=== PATIENT | female | born 1950 | race Caucasian/White ===

== ENCOUNTER 2018-06-27 15:28 | Inpatient (IN) ==
[2018-06-27] MEDS ORDERED: CALCIUM GLUCONATE 7 MEQ in DEXTROSE 5% IN WATER 50 ML IV ONE (17:01)
[2018-06-27] MEDS ORDERED: SODIUM POLYSTYRENE SULFONATE 15 GM/60 ML SUSPENSION PO ONE (17:01)
--- NOTE | 2018-06-27 17:46 | Nephrology Consult Note ---
History of Present Illness - Reason for Consult Patient information: Note initiated : 06/27/18 at 5:42 pm Service Date, if different from initiated Date: [] Patient: Radha Dumont 67 y/o F admitted on for kidney problems. Chief Complaint: [] Consult date: 06/27/18 acute renal failure, hyperkalemia Requesting physician: Rl Sauceda - Chief Complaint acute renal failure - History of Present Illness Patient is a 67 y/o pleasant white female with PMH of HTN, PVD, CKD and other multiple medical issues who was sent to ER here for evaluation of acute on chronic renal failure and hyperkalemia Patient has h/o retroperitoneal fibrosis and bilateral hydronephrosis secondary to this and she has h.o bilateral ureteral stents placed for this, last changed in May 2018. Patient has h/o acute renal failure from this, s.creatinine was upto 11 in 04/2018, at that time she had a nephrostomy done b/l and this was removed with stent change on 05/05/2018. She follows with Dr Palacio for this. Since then her s.creatinine has fluctuated between 2.5-3.0 She was seen in her PCP clinic for routine eval and her labs showed s.creatinine of 9.3 and K of 6.2 and hence she was sent to ER here She denies SOB, CP she has no c/o nausea, vomiting, poor appetite (has these symptoms on and off but none at present) denies worsening LE edema denies using NSAIDS no h/o confusion no other issues Review of Systems All systems PM: reviewed and no additional remarkable complaints except as stated (as in HPI) Past History Past medical history: HTN on lisinopril h/o bilateral hydronephrosis secondary to retroperitoneal fibrosis, seen by urology at [facility] and was told not surgical candidate for intervention on retroperitoneal fibrosis. h/o recurrent UTI h/o CKD from above h/o DM type 2(borderline) h/o Recent hospitalization for GI bleed, has gastric ulcer h/o hiatal hernia h/p CHF/cardiomyopathy, patient denies this history, noted in the [facility] dyslipidemia carotid artery stenosis h/o AAA aneurysm s/p intervention anemia of Chronic disease h/o right ankle fracture Past surgical history: History of esophagogastroduodenoscopy Chronic S/P foot surgery, right Chronic History of cholecystectomy Chronic History of right-sided carotid endarterectomy Chronic History of bilateral tubal ligation Chronic Hx of appendectomy Chronic H/O cystoscopy Chronic H/O nephrostomy Chronic H/O cystoscopy Chronic H/O cystoscopy Chronic H/O aortic aneurysm repair Chronic H/O cystoscopy Chronic H/O nephrostomy Chronic Past family history: Mother CVA (cerebral vascular accident), Diabetes 2 sisters DM, RA, myelodysplastic syndrome and cancer father has h/o AAA aneurysm Past social history: , has 4 children quit smoking one year ago denies alcohol addiction Medications and Allergies Home Medications Medication Instructions Recorded Confirmed Type ampicillin 500 mg capsule 500 mg PO TID 06/15/18 06/15/18 History aspirin 81 mg tablet 81 mg PO QDAY 06/15/18 06/15/18 History carvedilol 25 mg tablet 25 mg PO BID 06/15/18 06/15/18 History clopidogrel 75 mg tablet 75 mg PO QDAY 06/15/18 06/15/18 History hydrocodone 7.5 mg-acetaminophen 1 tab PO BID tab 06/15/18 06/15/18 History 325 mg tablet lisinopril 10 mg tablet 10 mg PO QDAY 06/15/18 06/15/18 History oxycodone ER 10 mg tablet,extended 10 mg PO BID tab 06/15/18 06/15/18 History release,12 hr simvastatin 20 mg tablet 20 mg PO QHS 06/15/18 06/15/18 History alprazolam 0.5 mg tablet 0.5 mg PO QID PRN tab 06/16/18 06/16/18 History baclofen 10 mg tablet 10 mg PO TID 06/16/18 06/16/18 History ondansetron 4 mg disintegrating 4 mg PO .COMPLEX PRN 06/16/18 06/16/18 History tablet sevelamer carbonate 0.8 gram oral 800 mg PO TID 06/16/18 06/16/18 History powder packet Allergies Allergy/AdvReac Type Severity Reaction Status Date / Time egg Allergy Unknown Unknown Verified 06/27/18 15:32 Hydromorphone [From Dilaudid] Allergy Unknown Nausea Verified 06/27/18 15:32 levofloxacin Allergy Unknown Respiratory Verified 06/27/18 15:32 distress, nausea, vomiting morphine Allergy Unknown Unknown Verified 06/27/18 15:32 Exam - Vital Signs Vital signs: Temp Pulse Resp BP Pulse Ox 97.5 F 85 20 137/92 98 06/27/18 15:29 06/27/18 16:41 06/27/18 16:41 06/27/18 16:41 06/27/18 16:41 - General Appearance General appearance: appears started age, chronically ill EENT: mucous membranes moist Respiratory: clear Cardiology: no rub, regular rate, regular rhythm Gastrointestinal: no tenderness, no guarding Integumentary: warm and dry Neurologic: no asterixis, alert and oriented x3 Musculoskeletal: no deformities, no erythema Psychiatric: mood/affect appropriate Results - Lab Results 06/27/18 17:39 06/27/18 17:39 Assessment and Plan (1) Acute on chronic renal failure Status: Acute Qualifiers: Acute renal failure type: unspecified Chronic kidney disease stage: stage 5 , not on chronic dialysis Qualified Code(s): N17.9 - Acute kidney failure, unspecified; N18.5 - Chronic kidney disease, stage 5 - Narrative A/P Narrative: Patient with acute worsening of renal function baseline 2.5-3.0 since nephrostomy was removed in May She has moderate to severe hydronephrosis on right side, on her renal scan per urology note her right kidney contributed 86% on renal function, ER physician has already discussed case with Dr Plaacios and he will replace the stent tomorrow she has no signs or symptoms of volume depletion, her BP is very high so will hold off on IV F I will give her amlodipine 5mg tonight hold lisinopril no emergent need for dialysis will follow closely for this ensure meds dosed to egfr avoid nephrotoxic medications she has acidosis and hyperkalemia related to her FORD and she received calcium gluconate, kayexalate and sodium bicarb IV x 1 her K on repeat labs is at 5.7 trending down will start on sodium bicarb 1300mg bid anemia: will check anemia work up, recent hospitalisation for GI bleed, CKD, all contributing HTN: as above home will hold lisinopril and start amlodipine will follow along Appreciate hospitalist help in managing this patient
[2018-06-27] MEDS ORDERED: SODIUM BICARBONATE ADULT 50 MEQ/50 ML SYRINGE IV ONE (17:54)
[2018-06-27] MEDS ORDERED: CALCIUM GLUCONATE 4.65 MEQ/10 ML VIAL IV ONE (17:54)
[2018-06-27] MEDS ORDERED: CALCIUM GLUCONATE 9.3 MEQ in DEXTROSE 5% IN WATER 50 ML IV ONE (18:00)
[2018-06-27 18:14] LABS: Basophils # (Auto) 0 K/mcL (0.0-0.3); Basophils % (Auto) 0.4 % (0.0-2.0); Eosinophils # (Auto) 0.2 K/mcL (0.0-0.7); Eosinophils % (Auto) 1.4 % (0.0-7.0); Granulocytes % (Auto) 68.9 % (38.0-78.0); Lymphocytes # (Auto) 2.5 K/mcL (1.5-4.8); Lymphocytes % (Auto) 21.8 % (15.5-49.0); Mean Cell Volume 88.8 fL (80.0-100.0); Mean Corpuscular Hemoglobin 30.2 pg (26.0-34.0); Monocytes # (Auto) 0.9 K/mcL (0.1-0.9); Monocytes % (Auto) 7.5 % (1.0-12.0); Platelet Count 635 K/mcL (140-440); RBC 2.92 M/mcL (4.00-5.20); Red Cell Distribution Width 16.6 % (11.5-14.5)
--- NOTE | 2018-06-27 18:30 | Ultrasound Report ---
CLINICAL INFORMATION: Renal failure. History of bilateral ureteral stents COMPARISON: None. FINDINGS: There is asymmetry in renal size: The right is 12 x 5 and the left is 9 x 4 cm. Left kidney is echogenic compatible with medical renal disease. Left ureteral stent is poorly visualized. There is moderate/severe right hydronephrosis. Right ureteral stent is visualized but is likely nonfunctional. Urinary bladder volume is 148 cc - patient unable to void. No focal bladder lesions IMPRESSION: 1. Moderate/severe right hydronephrosis/hydroureter. Right ureteral stent is likely nonfunctional. Interpreted and Authenticated by: Gregor Maurer 06/27/18
[2018-06-27 18:33] LABS: ALT/SGPT 8 U/l (0-40); Albumin 3.2 gm/dL (3.2-5.2); Albumin/Globulin Ratio 0.6 (1.0-2.3); Alkaline Phosphatase 117 U/L (39-117); Blood Urea Nitrogen 72 mg/dl (8-23)
[2018-06-27] MEDS ORDERED: SODIUM BICARBONATE 50 MEQ/50 ML VIAL ONE (19:20)
--- NOTE | 2018-06-27 19:32 | Emergency Department Note ---
General Adult HPI - General Chief complaint: Recheck/Abnormal Lab/Rx Stated complaint: kidney problems Time Seen by Provider: 06/27/18 15:37 Source: patient Mode of arrival: ambulatory Limitations: no limitations - History of Present Illness HPI Narrative: 67-year-old female who sees Lesvia Palacio out at [facility]. She is actually feeling good and last urinated 2 hours prior to arrival but she got repeat labs today. She has chronic kidney disease and now her creatinine is gone from 3-9.3 so she was sent here to follow-up on that. Of note she had a recent GI bleed and was in [facility] being released on 06/04. Currently she has some mild nausea and is on proton pump inhibitor for that. Her kidney issues stem from fibrotic kidneys for which she has had nephrostomy tubes in. After the tube was removed she had stents placed which were done every [address] Palacio in the [facility] area. She denies any current symptomatology including headache fever chills vomiting diarrhea belly pain rashes shortness of breath except - Related Data Home Medications Medication Instructions Recorded Confirmed aspirin 81 mg tablet 81 mg PO QDAY 06/15/18 06/27/18 carvedilol 25 mg tablet 25 mg PO BID 06/15/18 06/27/18 clopidogrel 75 mg tablet 75 mg PO QDAY 06/15/18 06/27/18 hydrocodone 7.5 mg-acetaminophen 1 tab PO BID tab 06/15/18 06/27/18 325 mg tablet lisinopril 10 mg tablet 10 mg PO QDAY 06/15/18 06/27/18 oxycodone ER 10 mg tablet,extended 10 mg PO BID tab 06/15/18 06/27/18 release,12 hr simvastatin 20 mg tablet 20 mg PO QHS 06/15/18 06/27/18 alprazolam 0.5 mg tablet 0.5 mg PO QID PRN tab 06/16/18 06/27/18 baclofen 10 mg tablet 10 mg PO TID 06/16/18 06/27/18 ondansetron 4 mg disintegrating 4 mg PO .COMPLEX PRN 06/16/18 06/27/18 tablet sevelamer carbonate 0.8 gram oral 800 mg PO TID 06/16/18 06/27/18 powder packet Allergies Allergy/AdvReac Type Severity Reaction Status Date / Time egg Allergy Unknown Unknown Verified 06/27/18 15:32 Hydromorphone [From Dilaudid] Allergy Unknown Nausea Verified 06/27/18 15:32 levofloxacin Allergy Unknown Respiratory Verified 06/27/18 15:32 distress, nausea, vomiting morphine Allergy Unknown Unknown Verified 06/27/18 15:32 Review of Systems All systems ED: reviewed and negative except as stated. Past Medical History - Past Medical History Attestation: Yes: The following information was validated with the patient. [facility] Narrative: Medical History (Last Updated 06/16/18 @ 09:25 by Kenyetta Charles) Hypotension (Chronic) Impaired cognition (Chronic) Fever (Chronic) Tobacco use (Chronic) Vaginal bleeding (Chronic) Oxygen dependent (Chronic) Pulmonary edema (Chronic) Idiopathic cardiomyopathy (Chronic) Inflammatory abdominal aortic aneurysm (Chronic) History of viral hepatitis (Chronic) Sepsis (Chronic) Weakness (Chronic) Transfusion history (Chronic) Chronic pain (Chronic) Systolic heart failure (Chronic) Carotid stenosis (Chronic) Bleeding gastric ulcer (Chronic) Hypovolemic shock (Chronic) Lactic acidosis (Chronic) Acute blood loss anemia (Chronic) GI hemorrhage (Chronic) Foot fracture (Chronic ~05/2018) Type 2 diabetes mellitus without complication (Chronic) Other hyperlipidemia (Chronic) Inflammatory liver disease (Chronic) Heart disease, unspecified (Chronic) Hypertension, essential (Chronic) Emphysema, unspecified (Chronic) 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) Anemia, unspecified (Chronic) Renal osteodystrophy (Chronic) Mononucleosis (Chronic) Unspecified hydronephrosis (Chronic) Other specified disorder of kidney and ureter (Chronic) UTI (urinary tract infection) (Chronic) Other chronic cystitis without hematuria (Chronic ~11/23/17) Crossing vessel and 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 hydronephrosis (Chronic ~) Kidney failure, acute (Chronic 04/26/18) Hydronephrosis (Chronic) Retroperitoneal fibrosis (Chronic) Kidney failure (Chronic) Ureteral stricture (Chronic) CKD (chronic kidney disease) (Chronic) Past Surgical History (Last Updated 06/15/18 @ 16:26 by Kenyetta Charles) H/O aortic aneurysm repair (Chronic) H/O cystoscopy (Chronic) H/O cystoscopy (Chronic) H/O cystoscopy (Chronic) H/O cystoscopy (Chronic) H/O nephrostomy (Chronic) H/O nephrostomy (Chronic) History of bilateral tubal ligation (Chronic) History of cholecystectomy (Chronic) History of esophagogastroduodenoscopy (Chronic) History of right-sided carotid endarterectomy (Chronic) Hx of appendectomy (Chronic) S/P foot surgery, right (Chronic) Family History (Last Updated 06/16/18 @ 09:31 by Kenyetta Charles) Mother CVA (cerebral vascular accident) Tachycardia Diabetes Sister Breast cancer Diabetes Lung cancer Cancer of spine Anemia Father AAA (abdominal aortic aneurysm) Unknown Family history of kidney stones - Social History smoking status: Former smoker Physical Exam No acute distress resting comfortably. Normocephalic atraumatic. Conjunctive are clear sclerae nonicteric. No nasal discharge or congestion. Oropharynx pink and moist. Neck is supple without lymphadenopathy or thyromegaly or carotid bruit. Heart is regular rate and rhythm no murmur appreciated. Lungs are clear to auscultation bilaterally without wheezes rales rhonchi or respiratory distress. Abdomen is soft nontender nondistended. No pedal edema. Alert oriented Limitations: no limitations Course Vital Signs Temperature 97.5 F 06/27/18 15:29 Pulse Rate 102 H 06/27/18 15:29 Respiratory Rate 20 06/27/18 15:29 Blood Pressure 157/96 06/27/18 15:29 Pulse Oximetry (%) 99 06/27/18 15:29 Temperature 99.2 F H 06/28/18 07:00 Pulse Rate 87 06/28/18 08:15 Respiratory Rate 16 06/28/18 08:15 Blood Pressure 148/85 06/28/18 08:00 Pulse Oximetry (%) 97 06/28/18 08:15 Medical Decision Making - Medical Records Medical records reviewed: Yes I reviewed the patient's medical records. - Lab Data Lab results reviewed: Yes I reviewed the patient's lab results. Result diagrams: 06/28/18 03:45 06/28/18 03:45 Lab Results 06/27/18 06/27/18 Range/Units 17:39 17:39 WBC 11.5 H (4.5-11.0) K/mcL RBC 2.92 L (4.00-5.20) M/mcL Hgb 8.8 L (12.0-15.0) g/dL Hct 25.9 L (36.0-48.0) % MCV 88.8 (80.0-100.0) fL MCH 30.2 (26.0-34.0) pg MCHC 34.0 (31.0-36.0) g/dL RDW 16.6 H (11.5-14.5) % Plt Count 635 H (140-440) K/mcL MPV 8.0 (7.4-10.4) fL Gran % 68.9 (38.0-78.0) % Lymph % (Auto) 21.8 (15.5-49.0) % [place] % (Auto) 7.5 (1.0-12.0) % Eos % (Auto) 1.4 (0.0-7.0) % Baso % (Auto) 0.4 (0.0-2.0) % Gran # 8.0 (1.8-8.0) K/mcL Lymph # (Auto) 2.5 (1.5-4.8) K/mcL [place] # (Auto) 0.9 (0.1-0.9) K/mcL Eos # (Auto) 0.2 (0.0-0.7) K/mcL Baso # (Auto) 0 (0.0-0.3) K/mcL Sodium 135 (133-145) mmol/L Potassium 5.7 H (3.3-5.1) mmol/L Chloride 100 (96-108) mmol/L Carbon Dioxide 16 L (22-30) mmol/L Anion Gap 19.0 H (8-16) BUN 72 H (8-23) mg/dl Creatinine 9.2 H* (0.6-1.1) mg/dl GFR Calculation 4 Glucose 89 (70-105) mg/dL Calcium 8.9 (8.6-10.4) mg/dl Total Bilirubin 0.2 (0.0-1.0) mg/dL AST 10 (0-37) U/l ALT 8 (0-40) U/l Alkaline Phosphatase 117 (39-117) U/L Total Protein 8.5 H (5.9-8.4) gm/dL Albumin 3.2 (3.2-5.2) gm/dL Globulin 5.3 H (2.2-3.7) gm/dL Albumin/Globulin Ratio 0.6 L (1.0-2.3) - Radiology Data Radiology results reviewed: Yes I reviewed the patient's radiology results. Renal ultrasound shows right-sided hydronephrosis left kidney is atrophic. Both jets are seen in the bladder. - EKG Data EKG #1 EKG attestation: Yes I reviewed and interpreted this EKG. EKG results narrative: EKG shows rate 82 normal sinus rhythm no evidence of ischemia Disposition Pt seen by [facility]/PA only: No Clinical Impression: Hyperkalemia Acute on chronic renal failure Qualifiers: Acute renal failure type: unspecified Chronic kidney disease stage: stage 5, not on chronic dialysis Qualified Code(s): N17.9 - Acute kidney failure, unspecified Unspecified hydronephrosis Qualifiers: Hydronephrosis type: with ureteropelvic junction obstruction Qualified Code(s) : Q62.11 - Congenital occlusion of ureteropelvic junction Summary: Initially took report from [facility] primary care regarding patient workup done with laboratory and imaging. I discussed the case with Dr. Workman who recommended kidney ultrasound Started calcium chloride and Kayexalate for hyperkalemia I did discuss the case with Dr. Palacios who agreed to consult on the patient and redo her stent I did discuss the case with Dr. Mejia, hospitalist, who agreed to accept patient for further care and evaluation and consult Dr. Workman and Dr. Palacios for further care and evaluation as an inpatient Disposition: Xfer As Inpt ([facility]) Condition: Serious
--- NOTE | 2018-06-27 19:48 | Internal Med History&Physical ---
Medical - H&P: [facility] Patient information: Note initiated : 06/27/18 at 7:44 pm Service Date, if different from initiated Date: [] Patient: Radha Dumont a 67 y/o F admitted on for kidney problems. Chief Complaint: [] History of present illness: Ms. Dumont is a 67 year old F to the ER by her primary care provider for elevated creatinine on routine blood work. 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 This was found out during her workup for her abdominal aortic aneurysm that was done up in kidney. She has had nephrostomy tubes and subsequently had them removed and replaced with stents and then had a stent change May [address] Palacio. Creatinine during her hospitalization got up 11, then after intervention her creatinine typically runs around 3, with labs today showing creatinine 9.3. Renal ultrasound shows worsening right hydronephrosis concerning for failure of that stent. She is asymptomatic and is urinating. Case discussed with Dr. Workman as well as Dr. Palacios. Dr. Palacios will see the patient and replaced the stents tomorrow. Of note, she also was hospitalized at [facility] for several days for a bleeding peptic ulcer she was discharged on 06/04. Current medications EC aspirin and Plavix. Review of Systems: denies headache/fever/chills/nausea/vomiting/chest or abdominal pain/cough/ dyspnea/diarrhea. Remaining 10 point review of systems reviewed and negative Medical - H&P: [facility] Medical history: Medical History (Last Updated 06/16/18 @ 09:25 by Kenyetta Charles) Hypotension (Chronic) Impaired cognition (Chronic) Fever (Chronic) Tobacco use (Chronic) Vaginal bleeding (Chronic) Oxygen dependent (Chronic) Pulmonary edema (Chronic) Idiopathic cardiomyopathy (Chronic) Inflammatory abdominal aortic aneurysm (Chronic) History of viral hepatitis (Chronic) Sepsis (Chronic) Weakness (Chronic) Transfusion history (Chronic) Chronic pain (Chronic) Systolic heart failure (Chronic) Carotid stenosis (Chronic) Bleeding gastric ulcer (Chronic) Hypovolemic shock (Chronic) Lactic acidosis (Chronic) Acute blood loss anemia (Chronic) GI hemorrhage (Chronic) Foot fracture (Chronic ~05/2018) Type 2 diabetes mellitus without complication (Chronic) Other hyperlipidemia (Chronic) Inflammatory liver disease (Chronic) Heart disease, unspecified (Chronic) Hypertension, essential (Chronic) Emphysema, unspecified (Chronic) 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) Anemia, unspecified (Chronic) Renal osteodystrophy (Chronic) Mononucleosis (Chronic) Unspecified hydronephrosis (Chronic) Other specified disorder of kidney and ureter (Chronic) UTI (urinary tract infection) (Chronic) Other chronic cystitis without hematuria (Chronic ~11/23/17) Crossing vessel and 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 hydronephrosis (Chronic ~) Kidney failure, acute (Chronic 04/26/18) Hydronephrosis (Chronic) Retroperitoneal fibrosis (Chronic) Kidney failure (Chronic) Ureteral stricture (Chronic) CKD (chronic kidney disease) (Chronic) Past Surgical History (Last Updated 06/15/18 @ 16:26 by Kenyetta Charles) H/O aortic aneurysm repair (Chronic) H/O cystoscopy (Chronic) H/O cystoscopy (Chronic) H/O cystoscopy (Chronic) H/O cystoscopy (Chronic) H/O nephrostomy (Chronic) H/O nephrostomy (Chronic) History of bilateral tubal ligation (Chronic) History of cholecystectomy (Chronic) History of esophagogastroduodenoscopy (Chronic) History of right-sided carotid endarterectomy (Chronic) Hx of appendectomy (Chronic) S/P foot surgery, right (Chronic) Medical History (Last Updated 06/16/18 @ 09:25 by Kenyetta Charles) Hypotension (Chronic) Impaired cognition (Chronic) Fever (Chronic) Tobacco use (Chronic) Vaginal bleeding (Chronic) Oxygen dependent (Chronic) Pulmonary edema (Chronic) Idiopathic cardiomyopathy (Chronic) Inflammatory abdominal aortic aneurysm (Chronic) History of viral hepatitis (Chronic) Sepsis (Chronic) Weakness (Chronic) Transfusion history (Chronic) Chronic pain (Chronic) Systolic heart failure (Chronic) Carotid stenosis (Chronic) Bleeding gastric ulcer (Chronic) Hypovolemic shock (Chronic) Lactic acidosis (Chronic) Acute blood loss anemia (Chronic) GI hemorrhage (Chronic) Foot fracture (Chronic ~05/2018) Type 2 diabetes mellitus without complication (Chronic) Other hyperlipidemia (Chronic) Inflammatory liver disease (Chronic) Heart disease, unspecified (Chronic) Hypertension, essential (Chronic) Emphysema, unspecified (Chronic) 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) Anemia, unspecified (Chronic) Renal osteodystrophy (Chronic) Mononucleosis (Chronic) Unspecified hydronephrosis (Chronic) Other specified disorder of kidney and ureter (Chronic) UTI (urinary tract infection) (Chronic) Other chronic cystitis without hematuria (Chronic ~11/23/17) Crossing vessel and 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 hydronephrosis (Chronic ~) Kidney failure, acute (Chronic 04/26/18) Hydronephrosis (Chronic) Retroperitoneal fibrosis (Chronic) Kidney failure (Chronic) Ureteral stricture (Chronic) CKD (chronic kidney disease) (Chronic) Family History (Last Updated 06/16/18 @ 09:31 by Kenyetta Charles) Mother CVA (cerebral vascular accident) Tachycardia Diabetes Sister Breast cancer Diabetes Lung cancer Cancer of spine Anemia Father AAA (abdominal aortic aneurysm) Unknown Family history of kidney stones Social History (Last Updated 06/16/18 @ 09:37 by Kenyetta Charles) Patient quit smoking a year ago denies alcohol use uses a cane to ambulate lives by herself Medical - H&P: Meds Home Medications Medication Instructions Recorded Confirmed Type ampicillin 500 mg capsule 500 mg PO TID 06/15/18 06/15/18 History aspirin 81 mg tablet 81 mg PO QDAY 06/15/18 06/15/18 History carvedilol 25 mg tablet 25 mg PO BID 06/15/18 06/15/18 History clopidogrel 75 mg tablet 75 mg PO QDAY 06/15/18 06/15/18 History hydrocodone 7.5 mg-acetaminophen 1 tab PO BID tab 06/15/18 06/15/18 History 325 mg tablet lisinopril 10 mg tablet 10 mg PO QDAY 06/15/18 06/15/18 History oxycodone ER 10 mg tablet,extended 10 mg PO BID tab 06/15/18 06/15/18 History release,12 hr simvastatin 20 mg tablet 20 mg PO QHS 06/15/18 06/15/18 History alprazolam 0.5 mg tablet 0.5 mg PO QID PRN tab 06/16/18 06/16/18 History baclofen 10 mg tablet 10 mg PO TID 06/16/18 06/16/18 History ondansetron 4 mg disintegrating 4 mg PO .COMPLEX PRN 06/16/18 06/16/18 History tablet sevelamer carbonate 0.8 gram oral 800 mg PO TID 06/16/18 06/16/18 History powder packet Allergies Allergy/AdvReac Type Severity Reaction Status Date / Time egg Allergy Unknown Unknown Verified 06/27/18 15:32 Hydromorphone [From Dilaudid] Allergy Unknown Nausea Verified 06/27/18 15:32 levofloxacin Allergy Unknown Respiratory Verified 06/27/18 15:32 distress, nausea, vomiting morphine Allergy Unknown Unknown Verified 06/27/18 15:32 Medical - H&P: Exam - Constitutional Vitals: Temp Pulse Resp BP Pulse Ox 97.5 F 88 15 137/92 98 06/27/18 15:29 06/27/18 18:28 06/27/18 18:28 06/27/18 16:41 06/27/18 18:28 Exam: General: Alert, Awake, No acute Distress Eyes/N/T: EOMI, pupils equal round reactive light, moist mucous membranes Head/Neck: neck supple, normocephalic atraumatic CV: RRR, No murmurs, normal s1/s2 Pulm: Clear b/l, no wheezing/rhonchi/rales Abd: soft, nontender, +BS x4 Ext: no clubbing/cyanosis/edema Neuro: Alert, no focal deficits, moves all extremities Skin: warm/dry Medical - H&P: Reslt - Labs CBC & Chem 7: 06/27/18 17:39 06/27/18 17:39 Labs: Short CBC 06/27/18 Range/Units 17:39 WBC 11.5 H (4.5-11.0) K/mcL Hgb 8.8 L (12.0-15.0) g/dL Hct 25.9 L (36.0-48.0) % Plt Count 635 H (140-440) K/mcL BMP 06/27/18 17:39 Sodium 135 Potassium 5.7 H Chloride 100 Carbon Dioxide 16 L BUN 72 H Creatinine 9.2 H* Glucose 89 Calcium 8.9 Liver Function 06/27/18 Range/Units 17:39 Total Bilirubin 0.2 (0.0-1.0) mg/dL AST 10 (0-37) U/l ALT 8 (0-40) U/l Alkaline Phosphatase 117 (39-117) U/L Albumin 3.2 (3.2-5.2) gm/dL - Impressions EKG no spiked T waves or prolonged QRS Renal ultrasound with moderate to severe right hydronephrosis and hydroureter Medical - H&P: A/P - Narrative A/P Narrative: A: *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: Secondary to mechanical obstruction of the ureters from retroperitoneal fibrosis and failed stent *Per kalemia: Secondary to above -EKG no changes *Anemia chronic *Hypertension *PVD *Anxiety * * P: -Correction of hyperkalemia medically -Follow potassium -Dr. Palacios for stent replacement tomorrow -Dr. Workman consulted -N.p.o. after midnight -Labs in the morning - -ppx: SCD
[2018-06-27] MEDS ORDERED: ONDANSETRON 4 MG/2 ML VIAL IV PRN (20:13)
[2018-06-27] MEDS ORDERED: amLODIPine 5 MG TABLET PO SCH (21:00)
[2018-06-27] MEDS: SODIUM BICARBONATE 650 MG TABLET PO SCH (21:02)
[2018-06-27 21:32] LABS: Appearance,Urine HAZY; Bacteria,Urine 0 /hpf (0); Bilirubin,Urine NEG (NEG); Color,Urine YELLOW; Glucose,Urine (UA) NEGATIVE (NEG); Leukocyte Esterase,Urine 500 /uL (NEG); Mucus,Urine FEW /hpf (0); Protein,Urine 30 mg/dL (NEG); Specific Gravity,Urine 1.013 (1.000-1.035); Urine Blood 0.2 mg/dL (<0.03); Urine RBC 18 /hpf (0-1); Urine Squamous Epithelial Cell 6 /hpf (0-4); Urine WBC 126 /hpf (0-4); Urobilinogen,Urine NEG (NEG)
[2018-06-27] MEDS ORDERED: fentaNYL 100 MCG/2 ML VIAL IV ONE ×2 (21:37→21:50)
[2018-06-27] MEDS ORDERED: ALPRAZolam 0.5 MG TABLET PO PRN (21:43)
[2018-06-27] MEDS ORDERED: LABETALOL HCL 20 MG/4 ML SYRINGE IV PRN (21:44)
[2018-06-27] MEDS: BACLOFEN 10 MG TABLET PO SCH (22:25)
[2018-06-27] MEDS: 0.9 % SODIUM CHLORIDE 10 ML SYRINGE IV SCH (22:25)
[2018-06-27] MEDS: oxyCODONE 10 MG TAB.ER.12H PO SCH (22:25)
[2018-06-28] MEDS: HYDROCODONE/APAP 7.5/325MG TABLET PO PRN ×3 (03:20→18:27)
[2018-06-28 07:05] LABS: Basophils # (Auto) 0.1 K/mcL (0.0-0.3); Basophils % (Auto) 0.5 % (0.0-2.0); Eosinophils # (Auto) 0.1 K/mcL (0.0-0.7); Eosinophils % (Auto) 1.1 % (0.0-7.0); Granulocytes % (Auto) 72.4 % (38.0-78.0); Lymphocytes # (Auto) 2.2 K/mcL (1.5-4.8); Lymphocytes % (Auto) 18.5 % (15.5-49.0); Mean Cell Volume 89.5 fL (80.0-100.0); Mean Corpuscular HGB Conc 33.3 g/dL (31.0-36.0); Mean Corpuscular Hemoglobin 29.8 pg (26.0-34.0); Monocytes # (Auto) 0.9 K/mcL (0.1-0.9); Monocytes % (Auto) 7.5 % (1.0-12.0); Platelet Count 577 K/mcL (140-440); Red Cell Distribution Width 16.7 % (11.5-14.5)
[2018-06-28 07:33] LABS: ALT/SGPT 7 U/l (0-40); Albumin/Globulin Ratio 0.6 (1.0-2.3); Alkaline Phosphatase 105 U/L (39-117); Bilirubin,Direct < 0.2 mg/dL (0.0-0.3); Blood Urea Nitrogen 68 mg/dl (8-23); Gamma Glutamyl Transpeptidase 31 U/L (5-36); Uric Acid 7.8 mg/dL (2.5-8.0)
--- NOTE | 2018-06-28 07:42 | Internal Med Progress Note ---
Medical - PN: Subj Patient information: Note initiated : 06/28/18 at 7:39 am Service Date, if different from initiated Date: [] Patient: Radha Dumont a 67 y/o F admitted on 06/27/18 for kidney problems. Chief Complaint: [] Interval history: Ms. Dumont is a 67 year old F to the ER by her primary care provider for elevated creatinine on routine blood work. 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 This was found out during her workup for her abdominal aortic aneurysm that was done up in kidney. She has had nephrostomy tubes and subsequently had them removed and replaced with stents and then had a stent change May [address] Palacio. Creatinine during her hospitalization got up 11, then after intervention her creatinine typically runs around 3, with labs today showing creatinine 9.3. Renal ultrasound shows worsening right hydronephrosis concerning for failure of that stent. She is asymptomatic and is urinating. Case discussed with Dr. Workman as well as Dr. Palacios. Dr. Palacios will see the patient and replaced the stents tomorrow. Of note, she also was hospitalized at [facility] for several days for a bleeding peptic ulcer she was discharged on 06/04. Current medications include aspirin and Plavix. 06/28 Poor sleep last night has overall body pain. Does have a history of chronic pain. No other pains or complaints. Review of Systems: Chronic pain. Denies headache/fever/chills/nausea/vomiting/chest or abdominal pain/cough/dyspnea/diarrhea. Otherwise see above. - Constitutional Vitals: Vital Signs Temp Pulse Resp BP Pulse Ox 97.8 F 102 H 20 118/70 96 06/28/18 04:00 06/28/18 06:01 06/28/18 06:01 06/28/18 06:01 06/28/18 06:01 Period Temp Pulse Resp BP Sys/Hartman Pulse Ox Last 24 Hr 97.5 F-100.1 F 80-102 15-24 118-204/70-135 88-100 Intake and Output 06/27/18 06/28/18 06/28/18 21:59 05:59 13:59 Intake Total 430 / 430 240 / 240 Output Total 400 / 400 350 / 350 Balance 30 / 30 -110 / -110 Weight 77.366 kg Intake & Output: Intake & Output 06/27/18 06/28/18 06/28/18 21:59 05:59 13:59 Intake Total 430 / 430 240 / 240 Output Total 400 / 400 350 / 350 Balance -110 / -110 Weight 77.366 kg Intake: IV 70 / 70 Calcium Gluconate 9.3 Meq In 70 / 70 Dextrose 5% in Water 50 ml @ 70 mls/hr IV ONCE ONE Rx#: [id number] Oral 360 / 360 240 / 240 Output: # of times incontinent of urine 400 / 400 Stool 350 / 350 Other: Meal Kimberly Percent of Meal Consumed 100% Urine Appearance Cloudy Urine Color Dark Yellow Urine Odor Strong Stool Size Small Small Stool Color Brown Brown Stool Consistency Loose Liquid Watery # Voids 2 # Bowel Movements 1 1 Exam: General: Alert, Awake, No acute Distress Eyes/N/T: EOMI Head/Neck: neck supple, CV: RRR, No murmurs, normal s1/s2 Pulm: Clear b/l, no wheezing/rhonchi/rales Abd: soft, nontender, +BS x4 Ext: no clubbing/cyanosis/edema Neuro: Alert, no focal deficits, moves all extremities Skin: warm/dry Medical - PN: Obj Da - Labs CBC & Chem 7: 06/28/18 03:45 06/28/18 03:45 Labs: Abnormal Lab Results 06/28/18 06/28/18 06/28/18 03:45 03:45 03:45 WBC 12.1 H RBC 2.70 L Hgb 8.1 L Hct 24.2 L RDW 16.7 H Plt Count 577 H Gran # 8.7 H PT 15.7 H INR 1.2 H Potassium Carbon Dioxide 17 L Anion Gap 19.0 H BUN 68 H Creatinine 9.3 H* Phosphorus 5.8 H Total Protein Albumin 3.0 L Globulin 4.9 H Albumin/Globulin Ratio 0.6 L Triglycerides 173 H Urine Protein Urine Occult Blood Ur Leukocyte Esterase Urine RBC Urine WBC Ur Squamous Epith Cells 06/27/18 06/27/18 06/27/18 20:56 17:39 17:39 WBC 11.5 H RBC 2.92 L Hgb 8.8 L Hct 25.9 L RDW 16.6 H Plt Count 635 H Gran # PT INR Potassium 5.7 H Carbon Dioxide 16 L Anion Gap 19.0 H BUN 72 H Creatinine 9.2 H* Phosphorus Total Protein 8.5 H Albumin Globulin 5.3 H Albumin/Globulin Ratio 0.6 L Triglycerides Urine Protein 30 A Urine Occult Blood 0.2 A Ur Leukocyte Esterase 500 A Urine RBC 18 H Urine WBC 126 H Ur Squamous Epith Cells 6 H Meds: Medications Hydrocodone Bitart/Acetaminophen ([place] 7.5/325mg) 1 tab PO Q4HP PRN PRN Reason: PAIN LEVEL 3-6 Last Admin: 06/28/18 03:20 Dose: 1 tab Alprazolam (Xanax) 0.5 mg PO QIDP PRN PRN Reason: Anxiety Amlodipine Besylate (Norvasc) 5 mg PO HS [facility] Last Admin: 06/27/18 21:00 Dose: 5 mg Baclofen (Lioresal) 10 mg PO TID [facility] Last Admin: 06/27/18 22:25 Dose: 10 mg Carvedilol (Coreg) 12.5 mg PO BIDCC [facility] Labetalol HCl (Labetalol Hcl) 0 mg IV Q2HP PRN PRN Reason: Hypertension Last Admin: 06/27/18 22:32 Dose: 20 mg Lisinopril (Zestril) 10 mg PO QDAY [facility] Ondansetron HCl (Zofran) 4 mg IV Q4HP PRN PRN Reason: Nausea And Vomiting Last Admin: 06/27/18 21:35 Dose: 4 mg Oxycodone HCl (Oxycontin) 10 mg PO BID [facility] Last Admin: 06/27/18 22:25 Dose: 10 mg Sevelamer Carbonate (Renvela) 800 mg PO TIDCC [facility] Sodium Bicarbonate (Sodium Bicarbonate) 1,300 mg PO BID [facility] Last Admin: 06/27/18 21:02 Dose: 1,300 mg Sodium Chloride (Saline Flush) 10 ml IV Q8 [facility] Last Admin: 06/27/18 22:25 Dose: 10 ml Medical - PN: A/P - Time Spent With Patient Total time spent is greater than 50% in coordination of care (as documented) at patient's floor/unit and/or counseling patient: - Narrative A/P Narrative: A: *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: Secondary to mechanical obstruction of the ureters from retroperitoneal fibrosis and failed stent *Hyperkalemia: Secondary to above -EKG no changes -REsolved *Anemia chronic: *Hypertension: on lisinopril *PVD: on ASA/Plavix *Anxiety: *UTI: *PUD: *Chronic pain: on oxycodone/baclofen/ P: -monitor electrolytes, i&o's -Dr. Palacios for stent replacement today -Dr. Jacinta cruz -yael pending - -ppx: SCD/pepcid Medical - PN: Qual - VTE Deep Vein Thrombosis/Pulmonary Embolism Present on Admission: No
--- NOTE | 2018-06-28 07:53 | Consultation ---
DATE OF CONSULTATION: 06/28/2018 REQUESTING PHYSICIAN: Sally Workman M.D. HISTORY OF PRESENT ILLNESS: The patient is a 67-year-old lady with known retroperitoneal fibrosis. This seemed to be caused by reaction to an aortic aneurysm. This was first discovered in 2016. She underwent stent replacement, had stent change, and then blocked off her stent earlier this year. A percutaneous nephrostomy tube had to be placed. This was then internalized. Her last stent change was in May 2018. Recently, she was seen by Dr. Workman who noted an increase in her BUN and creatinine and was admitted to the hospital. Again, her last stent change was then 05/05/[address] Palacio. I have been asked to reevaluate her. Her ultrasound does show worsening right hydronephrosis. PAST MEDICAL HISTORY: Hypertension, bilateral hydronephrosis secondary to retroperitoneal fibrosis, chronic kidney disease, diabetes, hiatal hernia, GI bleed, aortic aneurysm and right fracture. PAST SURGICAL HISTORY: EGD, foot surgery, cholecystectomy, carotid endarterectomy, tubal ligation, appendectomy, stent change, nephrostomy tubes, aortic aneurysm repair. FAMILY HISTORY: CVA and diabetes. SOCIAL HISTORY: Denies any smoking, denies drinking. ALLERGIES: 1. DILAUDID. 2. LEVOFLOXACIN. 3. MORPHINE. CURRENT MEDICATIONS: As per listed. REVIEW OF SYSTEMS: A complete review of systems as listed per hospitalist and Dr. Workman's notes. PHYSICAL EXAMINATION: GENERAL: This is a somnolent patient. I did wake her up. VITAL SIGNS: As listed per nurse's notes. HEENT: Atraumatic, normocephalic. Extraocular movements intact. Pupils equal, reactive to light and accommodation. No thyromegaly. Mucosa is clear. LUNGS: Clear to auscultation. HEART: Regular rate and rhythm. ABDOMEN: Soft, nontender. No CVA tenderness. NEUROLOGICAL: Cranial nerves II-XII grossly intact. MUSCULOSKELETAL: Normal. PSYCHIATRIC: Alert and oriented x3. GENITOURINARY: Deferred. IMPRESSION: The patient with a blocked right ureteral stent. She has had stent change most recently but appears that this may have blocked off. She has been refused surgery by Darlene Paul for the retroperitoneal fibrosis, so stent change or nephrostomy tube are our only options. Therefore, we will take her to the operating room today, change her stents bilaterally and make sure they are in proper position. If she has worsening renal function, then percutaneous new tubes would need to be placed as she has had previously. I have gone over this with the patient and she understands. We will follow up with surgery today. ALBERTO:afsaneh Job ID: [id number] Doc ID: [id number] Zacarias Palacios MD [facility]ITAL[facility]uela
[2018-06-28] MEDS ORDERED: CARVEDILOL 12.5 MG TABLET PO SCH (08:00)
[2018-06-28] MEDS: BACLOFEN 10 MG TABLET PO SCH ×3 (08:32→21:53)
[2018-06-28] MEDS: 0.9 % SODIUM CHLORIDE 10 ML SYRINGE IV SCH ×3 (08:32→22:09)
[2018-06-28] MEDS: SEVELAMER 800 MG TABLET PO SCH ×3 (08:32→20:54)
[2018-06-28] MEDS: oxyCODONE 10 MG TAB.ER.12H PO SCH (08:32)
[2018-06-28] MEDS ORDERED: LISINOPRIL 10 MG TABLET PO SCH (09:00)
[2018-06-28] MEDS ORDERED: HYDROcodone/APAP (PP) 7.5/325MG TABLET (#4) PO SCH (09:00)
--- NOTE | 2018-06-28 09:36 | Nephrology Progress Note ---
Subjective Patient information: Note initiated : 06/28/18 at 9:34 am Service Date, if different from initiated Date: [] Patient: Radha Dumont 67 y/o F admitted on 06/27/18 for kidney problems. Chief Complaint: [] Principal diagnosis: FORD/hyperkalemia Interval history: Patient c/o low back pain this am she also had some diarrhea after receiving kayexalate for her hyperkalemia overnight denies SOB but had some hypoxia and is on 2L oxygen no CP no nausea, vomiting NPO for stent replacement today did receive labetalol IV last night and amlodipine as well, BP better this am K is in normal range Pertinent ROS: as above Objective - Vital Signs Vital signs: Vital Signs Temp Pulse Pulse Resp BP BP Pulse Ox 06/28/18 09:28 78 19 95 06/28/18 09:00 74 22 142/84 94 06/28/18 08:15 87 16 97 06/28/18 08:00 78 18 148/85 98 06/28/18 07:00 99.2 F H 80 13 139/85 97 06/28/18 06:01 102 H 20 118/70 96 06/28/18 06:00 96 06/28/18 05:01 93 H 19 134/77 97 06/28/18 04:00 97.8 F 95 H 24 H 122/81 88 L 06/28/18 03:00 97 06/28/18 02:00 95 H 21 130/73 95 06/28/18 01:01 94 H 20 125/98 91 06/28/18 00:13 90 22 124/77 89 L 06/27/18 23:02 99.1 F H 96 H 17 157/97 98 06/27/18 22:33 99 H 22 179/108 99 06/27/18 22:02 100.1 F H 97 H 16 171/89 96 06/27/18 21:32 97 H 20 187/103 100 06/27/18 21:01 97 H 19 188/115 99 06/27/18 20:46 90 23 H 204/108 100 06/27/18 20:31 96 H 15 194/121 100 06/27/18 20:18 95 H 17 186/135 100 06/27/18 20:09 180/110 06/27/18 20:07 99.3 F H 88 21 186/135 95 06/27/18 20:02 82 19 95 06/27/18 20:01 89 20 180/106 96 06/27/18 19:47 82 18 173/103 94 06/27/18 19:32 93 H 21 174/93 100 06/27/18 19:17 95 H 20 179/113 97 06/27/18 19:02 80 22 163/89 95 06/27/18 18:46 23 H 165/78 06/27/18 18:32 86 22 145/81 96 06/27/18 18:28 88 15 98 06/27/18 16:41 85 20 137/92 98 06/27/18 15:29 97.5 F 102 H 20 157/96 99 Intake and Output 06/27/18 06/28/18 06/28/18 21:59 05:59 13:59 Intake Total 430 / 430 240 / 240 Output Total 400 / 400 350 / 350 250 / 250 Balance -110 / -110 -250 / -250 Intake: IV 70 / 70 Calcium Gluconate 9.3 Meq In 70 / 70 Dextrose 5% in Water 50 ml @ 70 mls/hr IV ONCE ONE Rx#: [id number] Oral 360 / 360 240 / 240 Output: Void Amount 250 / 250 # of times incontinent of urine 400 / 400 Stool 350 / 350 Other: Meal Sherbert Percent of Meal Consumed 100% Urine Appearance Cloudy Urine Color Dark Yellow Pale Urine Odor Strong Stool Size Small Small Stool Color Brown Brown Stool Consistency Loose Liquid Watery # Voids 2 # Bowel Movements 1 1 Weight 170 lb 9 oz Intake & Output: Intake & Output 06/27/18 06/28/18 06/28/18 21:59 05:59 13:59 Intake Total 430 / 430 240 / 240 Output Total 400 / 400 350 / 350 250 / 250 Balance -110 / -110 -250 / -250 Weight 170 lb 9 oz Intake: IV 70 / 70 Calcium Gluconate 9.3 Meq In 70 / 70 Dextrose 5% in Water 50 ml @ 70 mls/hr IV ONCE ONE Rx#: [id number] Oral 360 / 360 240 / 240 Output: Void Amount 250 / 250 # of times incontinent of urine 400 / 400 Stool 350 / 350 Other: Meal Sherbert Percent of Meal Consumed 100% Urine Appearance Cloudy Urine Color Dark Yellow Pale Urine Odor Strong Stool Size Small Small Stool Color Brown Brown Stool Consistency Loose Liquid Watery # Voids 2 # Bowel Movements 1 1 - General Appearance General appearance: appears started age, chronically ill EENT: mucous membranes moist Neck: no JVD Respiratory: clear Cardiology: no rub, no edema, regular rate, regular rhythm Gastrointestinal: no tenderness, no guarding Integumentary: no rash, warm and dry Neurologic: no asterixis, alert and oriented x3 Musculoskeletal: no erythema, no cyanosis Psychiatric: mood/affect appropriate - Lab 06/28/18 03:45 06/28/18 03:45 Most recent lab results Calcium 8.8 mg/dl (8.6-10.4) 06/28/18 03:45 Phosphorus 5.8 mg/dL (2.7-4.5) H 06/28/18 03:45 Magnesium 1.6 mg/dL (1.6-2.5) 06/28/18 03:45 Assessment and Plan (1) Acute on chronic renal failure Status: Acute Qualifiers: Acute renal failure type: unspecified Chronic kidney disease stage: stage 5 , not on chronic dialysis Qualified Code(s): N17.9 - Acute kidney failure, unspecified; N18.5 - Chronic kidney disease, stage 5 (2) Anemia Status: Acute (3) Metabolic acidosis Status: Acute (4) Unspecified hydronephrosis Status: Chronic Qualifiers: Hydronephrosis type: with ureteropelvic junction obstruction Qualified Code (s): Q62.11 - Congenital occlusion of ureteropelvic junction - Narrative A/P Narrative: Patient with acute worsening of renal function baseline 2.5-3.0 since nephrostomy was removed in May s/p stent placement today will need to follow renal labs if po intake remains poor will start IVF hold lisinopril continue with amlodipine and coreg for HTN, will optimize as needed avoid nephrotoxic meds dose meds to egfr anemia: tsat is at 16%, ferritin is a little elevated, will start oral iron supplement HTN: as above home will hold lisinopril and start amlodipine will follow along Appreciate hospitalist help in managing this patient
[2018-06-28 09:41] LABS: Iron 25 mcg/dl (37-145); Transferrin % Saturation 16 % (15-50); Unsaturated Iron Binding 123 mcg/dL (112-346)
[2018-06-28] MEDS ORDERED: fentaNYL 100 MCG/2 ML VIAL IV STA ×2 (11:09→14:22)
[2018-06-28] MEDS ORDERED: FAMOTIDINE/PF 20 MG/2 ML VIAL IV ONE ×2 (11:14→14:22)
[2018-06-28] MEDS ORDERED: cefTRIAXone 1 GM VIAL IV SCH (12:00)
[2018-06-28] MEDS ORDERED: PHENYLEPHRINE 10 MG/ML VIAL IV ONE (12:15)
[2018-06-28] MEDS ORDERED: KETAMINE 100 MG/ML ML IV ONE (12:15)
[2018-06-28] MEDS ORDERED: PROPOFOL 200 MG/20 ML VIAL IV ONE (12:15)
[2018-06-28] MEDS ORDERED: ONDANSETRON 4 MG/2 ML VIAL IV ONE (12:15)
[2018-06-28] MEDS ORDERED: LIDOCAINE HCL/PF 100 MG/5 ML SYRINGE IV ONE (12:15)
[2018-06-28] MEDS ORDERED: fentaNYL 100 MCG/2 ML VIAL IV ONE (12:15)
[2018-06-28] MEDS ORDERED: GLYCOPYRROLATE 0.2 MG/ML VIAL IV ONE (12:15)
[2018-06-28] MEDS ORDERED: LABETALOL 5 MG/ML ML IV PRN (12:15)
[2018-06-28] MEDS ORDERED: MIDAZOLAM 2 MG/2 ML VIAL IV ONE (12:15)
[2018-06-28] MEDS ORDERED: ONDANSETRON 4 MG/2 ML VIAL IV PRN (12:32)
[2018-06-28] MEDS ORDERED: IPRATROPIUM/ALBUTEROL 3 ML AMPUL.NEB NEB PRN (12:32)
[2018-06-28] MEDS ORDERED: BENZOCAINE/MENTHOL 1 LOZENGE PO PRN (12:32)
[2018-06-28] MEDS ORDERED: fentaNYL 100 MCG/2 ML VIAL IV PRN (12:32)
[2018-06-28] MEDS ORDERED: LACTATED RINGERS 1,000 ML IV SCH (12:45)
--- NOTE | 2018-06-28 12:57 | Brief Operative Note ---
Date of procedure: 06/28/18 Pre-op diagnosis: ureteral obstruction Post-op diagnosis: same Procedure: michael stent change Grafts/Implants: Yes (ureteral stents) Anesthesia: GLMA Findings: see note Complications: none Surgeon: Zacarias Palacios Specimens Removed/Pathology: none sent Condition: stable Disposition: PACU
--- NOTE | 2018-06-28 13:14 | Operative Note ---
DATE OF OPERATION: 06/28/2018 PREOPERATIVE DIAGNOSIS: Right hydronephrosis. POSTOPERATIVE DIAGNOSIS: Right hydronephrosis. PROCEDURE: Bilateral stent changes. SURGEON: Zacarias Palacios M.D. INDICATION: The patient is a 67-year-old lady with retroperitoneal fibrosis who has stents. Recently she has been having worsening renal function, and it appears that there was increased hydronephrosis on the right side. She presents for stent change. PROCEDURE: The patient was identified and consent was signed. She was given general anesthesia, placed in lithotomy position, prepped and draped in a standard fashion. Cystourethroscopy showed stents exiting both orifices. We began on the left side, was able to grasp the stent, and passed a wire up into the kidney. At that time over the wire, open-ended catheter was passed and retrograde pyelogram was obtained which confirmed that we were in the renal pelvis. The wire was re-placed and a 6 x 24 stent was then placed with the Seldinger technique. This showed a good curl in the kidney and the bladder. We then repeated the procedure on the right side. Again, retrograde pyelogram did demonstrate that the wire and stent was in the proper position. A 6 x 24 stent was used. Her bladder was then drained. She was awoken and taken to recovery room in stable condition. She tolerated the procedure well. ALBERTO:afsaneh Job ID: [id number] Doc ID: [id number] Zacarias Palacios MD
[2018-06-28 13:18] LABS: Band Neutrophils % 2 % (0-10); Hypochromasia 1+ (NONE SEEN); Lymphocytes % 25 % (15-49); Monocytes % (Manual) 5 % (1-12); Platelet Estimate INCREASED (NORMAL); RBC Morphology ABNORM (NORMAL); Segmented Neutrophils % 68 % (38-78)
[2018-06-28] MEDS ORDERED: ONDANSETRON ODT 4 MG TABLET PO PRN (14:17)
[2018-06-28] MEDS: SODIUM BICARBONATE 650 MG TABLET PO SCH ×2 (14:22→22:00)
[2018-06-28] MEDS ORDERED: ALPRAZolam 0.5 MG TABLET PO PRN (14:22)
[2018-06-28] MEDS: CARVEDILOL 12.5 MG TABLET PO SCH (18:02)
--- NOTE | 2018-06-28 19:46 | XRay Report ---
CLINICAL INFORMATION: stent placement COMPARISON: None. FINDINGS: Digital images from the OR retrograde ureterogram shows mild left and moderate right hydronephrosis. Stents were placed: proximal aspects of both stents normally positioned in the renal pelvis. Distal portions are not included on the film IMPRESSION: Successful placement of bilateral ureteral stents Interpreted and Authenticated by: Gregor Maurer 06/28/18
[2018-06-28] MEDS ORDERED: oxyCODONE 10 MG TAB.ER.12H PO SCH (21:00)
[2018-06-28] MEDS ORDERED: amLODIPine 5 MG TABLET PO SCH (21:00)
[2018-06-28] MEDS: SIMVASTATIN 20 MG TABLET PO SCH (21:57)
[2018-06-29] MEDS: HYDROCODONE/APAP 7.5/325MG TABLET PO PRN (02:09)
[2018-06-29] MEDS ORDERED: LORazepam 2 MG/ML VIAL IV ONE (05:20)
[2018-06-29] MEDS: ONDANSETRON 4 MG/2 ML VIAL IV PRN ×3 (05:22→21:13)
[2018-06-29] MEDS: 0.9 % SODIUM CHLORIDE 10 ML SYRINGE IV SCH ×3 (05:25→22:11)
[2018-06-29] MEDS ORDERED: LORazepam 2 MG/ML VIAL ONE (05:26)
[2018-06-29 05:58] LABS: Basophils # (Auto) 0 K/mcL (0.0-0.3); Basophils % (Auto) 0.4 % (0.0-2.0); Eosinophils # (Auto) 0.2 K/mcL (0.0-0.7); Granulocytes % (Auto) 66.4 % (38.0-78.0); Lymphocytes # (Auto) 3.1 K/mcL (1.5-4.8); Lymphocytes % (Auto) 25.2 % (15.5-49.0); Mean Cell Volume 89.4 fL (80.0-100.0); Mean Corpuscular Hemoglobin 29.5 pg (26.0-34.0); Monocytes # (Auto) 0.7 K/mcL (0.1-0.9); Platelet Count 706 K/mcL (140-440); Red Cell Distribution Width 16.7 % (11.5-14.5)
--- NOTE | 2018-06-29 06:12 | Cat Scan Report ---
CLINICAL INFORMATION: Decreased mental status COMPARISON: None. TECHNIQUE: 2.5 mm helical slices were obtained in the skull base to vertex. Following reconstruction, axial reformatted images were reviewed at bone and parenchymal windows. The exam was performed using radiation dose optimization techniques including, but not limited to, automated exposure control, adjustment of the mA and/or kV according to patient size and use of iterative reconstruction technique. FINDINGS: The ventricles, sulci, fissures, and cisterns are symmetrically enlarged palpable with mild age-related atrophy - no extra-axial fluid collection or mass appreciated. 5 mm remote lacunar infarct in the right lentiform nucleus/posterior limb of the right internal capsule and 8 mm remote lacunar infarct in the head of left caudate nucleus/anterior limb left internal capsule noted. There is mild chronic ischemic changes in the cerebral white matter. There is no acute hemorrhage, mass effect, edema or other acute intracerebral finding. Bone windows show no osseous abnormality. IMPRESSION: Mild atrophy and chronic ischemic changes in the cerebral white matter with remote lacunar infarcts in basal ganglia. No hemorrhage, edema or other acute finding. Interpreted and Authenticated by: Gregor Maurer 06/29/18
[2018-06-29 06:37] LABS: ALT/SGPT 6 U/l (0-40); Albumin 3.2 gm/dL (3.2-5.2); Albumin/Globulin Ratio 0.6 (1.0-2.3); Alkaline Phosphatase 117 U/L (39-117); Bilirubin,Direct < 0.2 mg/dL (0.0-0.3); Blood Urea Nitrogen 62 mg/dl (8-23); Gamma Glutamyl Transpeptidase 33 U/L (5-36); Uric Acid 8.1 mg/dL (2.5-8.0)
[2018-06-29] MEDS: LABETALOL 5 MG/ML ML IV PRN ×2 (07:21→08:50)
--- NOTE | 2018-06-29 07:30 | Internal Med Progress Note ---
Medical - PN: Subj Patient information: Note initiated : 06/29/18 at 7:21 am Service Date, if different from initiated Date: [] Patient: Radha Dumont a 67 y/o F admitted on 06/27/18 for kidney problems. Chief Complaint: [] Interval history: Ms. Dumont is a 67 year old F to the ER by her primary care provider for elevated creatinine on routine blood work. 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 This was found out during her workup for her abdominal aortic aneurysm that was done up in kidney. She has had nephrostomy tubes and subsequently had them removed and replaced with stents and then had a stent change May [address] Palacio. Creatinine during her hospitalization got up 11, then after intervention her creatinine typically runs around 3, with labs today showing creatinine 9.3. Renal ultrasound shows worsening right hydronephrosis concerning for failure of that stent. She is asymptomatic and is urinating. Case discussed with Dr. Workman as well as Dr. Palacios. Dr. Palacios will see the patient and replaced the stents tomorrow. Of note, she also was hospitalized at [facility] for several days for a bleeding peptic ulcer she was discharged on 06/04. Current medications include aspirin and Plavix. 06/28 Poor sleep last night has overall body pain. Does have a history of chronic pain. No other pains or complaints. 06/29 had seizure-like activity and AMS, was given 1mg ativan with and improvement, pt has been relatively sedated since, waking up occasionally. She told the nurse her name this morning, but i am unable to get her to answer questions. She will open her eyes to sternal rub and look at me momentarily before going back to sleep again. She does follow commands. Per nurses discussion with pt last night, sounds like she almost history of occasional myoclonus, question whether or not this is uremia and myoclonus or seizure. Unable to gather review of systems because of altered state. - Constitutional Vitals: Vital Signs Temp Pulse Resp BP Pulse Ox 98.7 F 93 H 17 176/97 99 06/29/18 05:00 06/29/18 06:39 06/29/18 06:39 06/29/18 06:38 06/29/18 06:39 Period Temp Pulse Resp BP Sys/Hartman Pulse Ox Last 24 Hr 97.2 F-100.4 F 66-113 10-30 98-182/68-122 91-100 Intake and Output 06/28/18 06/29/18 06/29/18 21:59 05:59 13:59 Intake Total 350 / 350 Output Total 675 / 675 300 / 300 Balance -325 / -325 -300 / -300 Weight 77.519 kg Intake & Output: Intake & Output 06/28/18 06/29/18 06/29/18 21:59 05:59 13:59 Intake Total 350 / 350 Output Total 675 / 675 300 / 300 Balance -325 / -325 -300 / -300 Weight 77.519 kg Intake: Oral 350 / 350 Output: Void Amount 675 / 675 300 / 300 Other: Meal Lunch Percent of Meal Consumed 100% Urine Color Blood Tinged Exam: General: Somnolent,No acute Distress Eyes/N/T: PERRL Head/Neck: neck supple, CV: RRR, No murmurs, normal s1/s2 Pulm: Clear b/l, no wheezing/rhonchi/rales Abd: soft, nontender, +BS x4 Ext: no clubbing/cyanosis/edema Neuro: Somnolent, opens eyes to sternal rub, will not answer questions but will follow commands to moving feet and squeezing hands Skin: warm/dry Medical - PN: Obj Da - Labs CBC & Chem 7: 06/29/18 03:50 06/29/18 03:50 Labs: Abnormal Lab Results 06/29/18 06/29/18 06/29/18 05:20 05:15 03:50 WBC RBC Hgb Hct RDW Plt Count Gran # RBC Morphology Hypochromasia PT 15.4 H INR 1.2 H APTT 44 H Potassium Carbon Dioxide 16 L Anion Gap 20.0 H BUN 62 H Creatinine 8.1 H* Glucose 115 H Uric Acid 8.1 H Phosphorus 5.8 H Iron TIBC Total Protein Albumin Globulin 5.1 H Albumin/Globulin Ratio 0.6 L Triglycerides 238 H Prolactin 32.4 H Urine Protein Urine Occult Blood Ur Leukocyte Esterase Urine RBC Urine WBC Ur Squamous Epith Cells 06/29/18 06/28/18 06/28/18 03:50 03:45 03:45 WBC 12.3 H RBC 3.00 L Hgb 8.9 L Hct 26.8 L RDW 16.7 H Plt Count 706 H Gran # 8.2 H RBC Morphology Abnorm A Hypochromasia 1+ A PT INR APTT Potassium Carbon Dioxide Anion Gap BUN Creatinine Glucose Uric Acid Phosphorus Iron 25 L TIBC 148 L Total Protein Albumin Globulin Albumin/Globulin Ratio Triglycerides Prolactin Urine Protein Urine Occult Blood Ur Leukocyte Esterase Urine RBC Urine WBC Ur Squamous Epith Cells 06/28/18 06/28/18 06/28/18 03:45 03:45 03:45 WBC 12.1 H RBC 2.70 L Hgb 8.1 L Hct 24.2 L RDW 16.7 H Plt Count 577 H Gran # 8.7 H RBC Morphology Hypochromasia PT 15.7 H INR 1.2 H APTT Potassium Carbon Dioxide 17 L Anion Gap 19.0 H BUN 68 H Creatinine 9.3 H* Glucose Uric Acid Phosphorus 5.8 H Iron TIBC Total Protein Albumin 3.0 L Globulin 4.9 H Albumin/Globulin Ratio 0.6 L Triglycerides 173 H Prolactin Urine Protein Urine Occult Blood Ur Leukocyte Esterase Urine RBC Urine WBC Ur Squamous Epith Cells 06/27/18 06/27/18 06/27/18 20:56 17:39 17:39 WBC 11.5 H RBC 2.92 L Hgb 8.8 L Hct 25.9 L RDW 16.6 H Plt Count 635 H Gran # RBC Morphology Hypochromasia PT INR APTT Potassium 5.7 H Carbon Dioxide 16 L Anion Gap 19.0 H BUN 72 H Creatinine 9.2 H* Glucose Uric Acid Phosphorus Iron TIBC Total Protein 8.5 H Albumin Globulin 5.3 H Albumin/Globulin Ratio 0.6 L Triglycerides Prolactin Urine Protein 30 A Urine Occult Blood 0.2 A Ur Leukocyte Esterase 500 A Urine RBC 18 H Urine WBC 126 H Ur Squamous Epith Cells 6 H Meds: Medications Hydrocodone Bitart/Acetaminophen ([place] 7.5/325mg) 1 tab PO Q4HP PRN PRN Reason: PAIN LEVEL 3-6 Last Admin: 06/29/18 02:09 Dose: 1 tab Alprazolam (Xanax) 0.5 mg PO QIDP PRN PRN Reason: Anxiety Amlodipine Besylate (Norvasc) 5 mg PO HS SUN Last Admin: 06/28/18 21:53 Dose: 5 mg Aspirin (Aspirin) 81 mg PO DAILY [facility] Baclofen (Lioresal) 10 mg PO TID [facility] Last Admin: 06/28/18 21:53 Dose: 10 mg Carvedilol (Coreg) 12.5 mg PO BIDCC [facility] Last Admin: 06/28/18 18:02 Dose: 12.5 mg Ceftriaxone Sodium (Rocephin) 1 gm IV Q24H [facility] Clopidogrel Bisulfate (Plavix) 75 mg PO QDAY [facility] Famotidine (Pepcid) 20 mg IV HS [facility] Labetalol HCl (Trandate) 0 mg IV Q2HP PRN PRN Reason: Hypertension Ondansetron HCl (Zofran Odt) 4 mg PO Q4-6HP PRN PRN Reason: Nausea Ondansetron HCl (Zofran) 4 mg IV Q4HP PRN PRN Reason: Nausea And Vomiting Last Admin: 06/29/18 05:22 Dose: 4 mg Oxycodone HCl (Oxycontin) 10 mg PO BID [facility] Last Admin: 06/28/18 21:52 Dose: 10 mg Sevelamer Carbonate (Renvela) 800 mg PO TIDCC [facility] Last Admin: 06/28/18 18:02 Dose: 800 mg Simvastatin (Zocor) 20 mg PO QHS [facility] Last Admin: 06/28/18 21:57 Dose: 20 mg Sodium Bicarbonate (Sodium Bicarbonate) 1,300 mg PO BID [facility] Last Admin: 06/28/18 22:00 Dose: 1,300 mg Sodium Chloride (Saline Flush) 10 ml IV Q8 [facility] Last Admin: 06/29/18 05:25 Dose: 10 ml Medical - PN: A/P - Time Spent With Patient Total time spent is greater than 50% in coordination of care (as documented) at patient's floor/unit and/or counseling patient: - Narrative A/P Narrative: A: *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: Secondary to mechanical obstruction of the ureters from retroperitoneal fibrosis and failed stent -s/p b/l stent replacement (06/28) -8.1<9.2 *Encephalopathy: Uremia with myoclonus versus seizure *Seizure-like activity last night: given ativan with resolution -?Uremia with myoclonus versus seizure -has been on baclofen but has been getting, not abruptly stopped *Hyperkalemia: Secondary to above -EKG no changes -REsolved *Anemia chronic: *Hypertension: on lisinopril/coreg *PVD: on ASA/Plavix *Anxiety: *UTI: *PUD: *Chronic pain: on oxycodone/baclofen P: -EEG pending -HD temp cath placement -sedating meds held, wean down/off baclofen over several weeks -monitor electrolytes, i&o's -Dr. Palacios following -Dr. Workman following -lisinopril held for FORD/Hyperkal; prn labetalol -rocephin pending UC -ppx: SCD/pepcid Medical - PN: Qual - VTE Deep Vein Thrombosis/Pulmonary Embolism Present on Admission: No
[2018-06-29] MEDS ORDERED: CLOPIDOGREL 75 MG TABLET PO SCH (09:00)
[2018-06-29] MEDS: cefTRIAXone 1 GM VIAL IV SCH (09:48)
[2018-06-29] MEDS ORDERED: cloNIDine HCL 0.1 MG TABLET PO PRN (10:22)
[2018-06-29] MEDS ORDERED: hydrALAZINE 20 MG/ML VIAL IV PRN (10:22)
[2018-06-29] MEDS: ASPIRIN 81 MG TAB.CHEW PO SCH (10:57)
[2018-06-29] MEDS: SEVELAMER 800 MG TABLET PO SCH ×3 (10:57→17:05)
[2018-06-29] MEDS: CARVEDILOL 12.5 MG TABLET PO SCH ×2 (10:57→17:04)
[2018-06-29] MEDS: SODIUM BICARBONATE 650 MG TABLET PO SCH ×2 (10:58→21:17)
[2018-06-29] MEDS: BACLOFEN 10 MG TABLET PO SCH ×2 (11:01→21:17)
--- NOTE | 2018-06-29 15:08 | Ultrasound Report ---
CLINICAL INFORMATION: FOLLOW UP ON HYDRONEPHROSIS COMPARISON: None. FINDINGS: Asymmetry in renal size noted: The right is 11.6 x 6 cm and the left is mildly atrophic - 8.7 x 4 cm. Renal echotexture is normal in both kidneys and are is no evidence of solid lesion, stone or cyst.. Right ureteral stent is visualized proximally. Left ureteral stent is not well visualized. No evidence of hydronephrosis: The stents should be functional Guy catheter decompresses urinary bladder - no gross bladder abnormality. IMPRESSION: 1. Right ureteral stent in satisfactory position. The left ureteral stent poorly visualized. No evidence of hydronephrosis in either kidney, thus both stents should be functional. 2. Mild atrophy left kidney with compensatory hypertrophy of the right kidney. Interpreted and Authenticated by: Gregor Maurer 06/29/18
--- NOTE | 2018-06-29 16:34 | Nephrology Progress Note ---
Subjective Patient information: Note initiated : 06/29/18 at 4:30 pm Service Date, if different from initiated Date: [] Patient: Radha Dumont 67 y/o F admitted on 06/27/18 for kidney problems. Chief Complaint: [] Principal diagnosis: FORD/hyperkalemia Interval history: patient had abnormal ? seizure vs myoclonic tremors early this am, received ativan with improvement but she has been obtunded/confused since she is on multiple pain meds, hydrocodone and oxycodone, baclofen for low back pain she also is on xanax at home CT brain with no acute changes but she does have some chronic changes, old lacunar infarct family reports confusion during her last episode of FORD similar to this s/p stent placement yesterday, repeat US with no hydronehrosis, s.creatinine down to 8.1 but AMS is a concern and this may be secondary to uremia, opiate pain meds, vs other etiology Given this discussed dialysis as an option to see if this reverses, risk and benefit discussed at length including risk of dialysis dysequilibrium/seizures/ . Family understands patient has been sick with multiple medical issues and they want to give dialysis a try, explained there may be no change in mental status even with dialysis and they understand this Pertinent ROS: as above, limited due to patient's mental status Objective - Vital Signs Vital signs: Vital Signs Temp Pulse Pulse Resp BP Pulse Ox 06/29/18 14:31 32 H 157/112 94 06/29/18 14:24 26 H 158/104 98 06/29/18 14:16 18 159/98 99 06/29/18 14:01 18 145/88 100 06/29/18 14:00 86 85 20 138/80 94 06/29/18 13:46 19 135/86 99 06/29/18 13:31 17 142/99 99 06/29/18 13:16 18 144/85 99 06/29/18 13:01 17 132/76 100 06/29/18 12:46 17 114/72 99 06/29/18 12:31 17 110/70 99 06/29/18 12:17 19 121/69 99 06/29/18 12:16 17 98 06/29/18 12:01 98.0 F 18 93/66 98 06/29/18 11:49 19 111/74 97 06/29/18 11:31 18 141/79 99 06/29/18 11:15 23 H 144/102 95 06/29/18 11:01 22 135/77 97 06/29/18 10:54 19 98 06/29/18 10:46 22 132/80 96 06/29/18 10:43 19 144/78 99 06/29/18 10:01 19 124/78 06/29/18 09:16 23 H 164/88 94 06/29/18 09:01 23 H 145/95 96 06/29/18 08:46 97.5 F 24 H 158/114 97 06/29/18 08:31 24 H 189/105 98 06/29/18 08:16 20 157/113 97 06/29/18 08:14 20 184/102 97 06/29/18 08:03 19 175/94 98 06/29/18 08:01 97.5 F 21 185/95 98 06/29/18 08:00 20 158/114 95 06/29/18 07:28 17 153/105 97 06/29/18 07:26 21 166/112 97 06/29/18 07:01 19 159/98 99 06/29/18 06:41 23 H 167/106 97 06/29/18 06:39 93 H 17 99 06/29/18 06:38 84 21 176/97 98 06/29/18 06:19 83 21 159/104 95 06/29/18 05:56 88 21 156/104 91 06/29/18 05:52 88 21 154/99 93 06/29/18 05:39 96 H 24 H 168/112 91 06/29/18 05:21 182/104 06/29/18 05:19 102 H 30 H 93 06/29/18 05:17 113 H 27 H 95 06/29/18 05:06 94 06/29/18 05:00 98.7 F 101 H 14 146/116 93 06/29/18 04:01 103 H 20 144/86 94 06/29/18 03:36 97 H 19 137/82 94 06/29/18 03:35 17 06/29/18 03:00 80 18 139/122 96 06/29/18 02:20 88 19 130/102 94 06/29/18 02:00 100 H 18 130/102 95 11/28/18 01:00 99.4 F H 84 20 152/96 93 06/29/18 00:00 100.4 F H 101 H 20 141/78 92 06/28/18 23:01 102 H 30 H 124/78 93 06/28/18 22:00 88 22 155/97 94 06/28/18 21:30 91 H 20 92 06/28/18 21:01 80 21 132/75 93 06/28/18 20:01 98.2 F 78 22 142/93 95 06/28/18 20:00 22 142/93 06/28/18 19:01 86 16 98/71 93 06/28/18 18:25 79 17 96 06/28/18 18:00 84 15 148/116 98 06/28/18 17:19 82 22 94 06/28/18 17:01 94 H 20 131/89 100 06/28/18 16:33 73 17 92 Intake and Output 06/29/18 06/29/18 06/29/18 05:59 13:59 21:59 Output Total 300 / 300 626 / 626 Balance -300 / -300 -626 / -626 Output: Urine Catheter Amount 625 / 625 Uretheral (Guy) 200 / 200 Void Amount 300 / 300 # of times incontinent of urine 1 Other: Urine Appearance Cloudy Uretheral (Guy) Cloudy Clear Urine Color Pale Uretheral (Guy) Pale Pale Urine Odor Normal Intake & Output: Intake & Output 06/29/18 06/29/18 06/29/18 05:59 13:59 21:59 Output Total 300 / 300 626 / 626 Balance -300 / -300 -626 / -626 Output: Urine Catheter Amount 625 / 625 Uretheral (Guy) 200 / 200 Void Amount 300 / 300 # of times incontinent of urine 1 1 Other: Urine Appearance Cloudy Uretheral (Guy) Cloudy Clear Urine Color Pale Uretheral (Guy) Pale Pale Urine Odor Normal - General Appearance General appearance: appears started age, chronically ill EENT: mucous membranes moist Neck: no JVD Respiratory: clear Cardiology: no rub, regular rate, regular rhythm Gastrointestinal: no tenderness, no guarding Integumentary: warm and dry Neurologic: obtunded Musculoskeletal: no erythema, no cyanosis - Lab 06/29/18 03:50 06/29/18 03:50 Most recent lab results Calcium 9.1 mg/dl (8.6-10.4) 06/29/18 03:50 Phosphorus 5.8 mg/dL (2.7-4.5) H 06/29/18 03:50 Magnesium 1.6 mg/dL (1.6-2.5) 06/29/18 03:50 Assessment and Plan (1) Acute on chronic renal failure Status: Acute Qualifiers: Acute renal failure type: unspecified Chronic kidney disease stage: stage 5 , not on chronic dialysis Qualified Code(s): N17.9 - Acute kidney failure, unspecified; N18.5 - Chronic kidney disease, stage 5 (2) Anemia Status: Acute (3) Metabolic acidosis Status: Acute (4) Unspecified hydronephrosis Status: Chronic Qualifiers: Hydronephrosis type: with ureteropelvic junction obstruction Qualified Code (s): Q62.11 - Congenital occlusion of ureteropelvic junction - Narrative A/P Narrative: Patient with very little improvement in renal function post stent placement, hydronephrosis has resolved she has AMS ? uremia with medication (opiate/skeletal muscle relaxant, also received sedation in OR) contributing CT brain with no acute issues EEG report pending patient with no improvement in mental status after 8-10 hrs given this risk and benefit of dialysis discussed family wants to give this a try Patient will have [facility], family does not wish transfer to another center as offered will do HD for 2,5hrs using revaclear dialyser, 2K/2.5Ca dialysate no UF removal , qb 250ml/min, QD 400ML/MIN, low setting to avoid dialysis dysequilibrium will monitor for dialysis needs closely oxyocodone held baclofen will be tapered and stopped Monitor I/O IVF not given due to very high BP needing iv labetalol doses if oral intake remains poor will initiate this HTN: as above anemia: stable Hb will monitor started on iron supplement will follow and initiate aranesp as needed elevated phos, ct sevelamer when start oral intake dialysis will help metabolic acidosis will improve with dialysis Will monitor closely poor prognosis explained to family
[2018-06-29] MEDS ORDERED: FAMOTIDINE/PF 20 MG/2 ML VIAL IV SCH (21:00)
[2018-06-29] MEDS: FAMOTIDINE/PF 20 MG/2 ML VIAL IV SCH (21:12)
[2018-06-29] MEDS: ACETAMINOPHEN 1,000 MG/100 ML BOTTLE IV PRN (21:13)
[2018-06-29] MEDS: SIMVASTATIN 20 MG TABLET PO SCH (21:17)
[2018-06-29] MEDS: amLODIPine 5 MG TABLET PO SCH (21:17)
[2018-06-30] MEDS: ACETAMINOPHEN 1,000 MG/100 ML BOTTLE IV PRN (03:41)
[2018-06-30 05:48] LABS: Basophils # (Auto) 0 K/mcL (0.0-0.3); Basophils % (Auto) 0.2 % (0.0-2.0); Eosinophils # (Auto) 0.1 K/mcL (0.0-0.7); Eosinophils % (Auto) 0.8 % (0.0-7.0); Granulocytes % (Auto) 78.7 % (38.0-78.0); Lymphocytes # (Auto) 1.9 K/mcL (1.5-4.8); Lymphocytes % (Auto) 15.7 % (15.5-49.0); Mean Cell Volume 89.4 fL (80.0-100.0); Mean Corpuscular HGB Conc 33.2 g/dL (31.0-36.0); Mean Corpuscular Hemoglobin 29.7 pg (26.0-34.0); Monocytes # (Auto) 0.6 K/mcL (0.1-0.9); Monocytes % (Auto) 4.6 % (1.0-12.0); Platelet Count 636 K/mcL (140-440); RBC 3.13 M/mcL (4.00-5.20); Red Cell Distribution Width 16.3 % (11.5-14.5)
[2018-06-30 06:16] LABS: ALT/SGPT < 5 U/l (0-40); Albumin 3.2 gm/dL (3.2-5.2); Albumin/Globulin Ratio 0.6 (1.0-2.3); Alkaline Phosphatase 118 U/L (39-117); Bilirubin,Direct < 0.2 mg/dL (0.0-0.3); Blood Urea Nitrogen 33 mg/dl (8-23); Gamma Glutamyl Transpeptidase 33 U/L (5-36)
--- NOTE | 2018-06-30 07:19 | Internal Med Progress Note ---
Medical - PN: Subj Patient information: Note initiated : 06/30/18 at 7:09 am Service Date, if different from initiated Date: [] Patient: Radha Dumont a 67 y/o F admitted on 06/27/18 for kidney problems. Chief Complaint: [] Interval history: Ms. Dumont is a 67 year old F to the ER by her primary care provider for elevated creatinine on routine blood work. 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 This was found out during her workup for her abdominal aortic aneurysm that was done up in kidney. She has had nephrostomy tubes and subsequently had them removed and replaced with stents and then had a stent change May [address] Palacio. Creatinine during her hospitalization got up 11, then after intervention her creatinine typically runs around 3, with labs today showing creatinine 9.3. Renal ultrasound shows worsening right hydronephrosis concerning for failure of that stent. She is asymptomatic and is urinating. Case discussed with Dr. Workman as well as Dr. Palacios. Dr. Palacios will see the patient and replaced the stents tomorrow. Of note, [facility] bleeding peptic ulcer she was discharged on 06/04. Current medications include aspirin and Plavix. 06/28 Poor sleep last night has overall body pain. Does have a history of chronic pain. No other pains or complaints. 06/29 had seizure-like activity and AMS, was given 1mg ativan with and improvement, pt has been relatively sedated since, waking up occasionally. She told the nurse her name this morning, but i am unable to get her to answer questions. She will open her eyes to sternal rub and look at me momentarily before going back to sleep again. She does follow commands. Per nurses discussion with pt last night, sounds like she almost history of occasional myoclonus, question whether or not this is uremia and myoclonus or seizure. Unable to gather review of systems because of altered state. 06/30 Confused and disoriented overnight did not follow commands or answer questions had spontaneous movement of all extremities. When I saw her this morning she was laying recumbent grabbing the side rail and seemed to be moaning a little bit. I asked her to squeeze my hand she follow that command I asked her to move her feet she follow that command. I spoke to her labs and called her name and she made eye contact with me. When asked if she was in pain she nodded her head no. Could not get her to answer questions. She had dialysis yesterday evening. Unable to gather review of systems as patient nonverbal. - Constitutional Vitals: Vital Signs Temp Pulse Resp BP Pulse Ox 98.9 F 96 H 21 149/98 94 06/30/18 03:02 06/29/18 20:20 06/30/18 06:02 06/30/18 06:02 06/30/18 06:02 Period Temp Pulse Resp BP Sys/Hartman Pulse Ox Last 24 Hr 96.5 F-98.9 F 61-101 16-32 93-197/66-130 87-100 Intake and Output 06/29/18 06/30/18 06/30/18 21:59 05:59 13:59 Intake Total 100 / 100 Output Total 675 / 675 680 / 680 Balance -675 / -675 -580 / -580 Weight 73.618 kg Intake & Output: Intake & Output 06/29/18 06/30/18 06/30/18 21:59 05:59 13:59 Intake Total 100 / 100 Output Total 675 / 675 680 / 680 Balance -675 / -675 -580 / -580 Weight 73.618 kg Intake: IV 100 / 100 Output: Urine Catheter Amount 625 / 625 680 / 680 Hemodialysis UF 50 / 50 Other: Urine Appearance Cloudy Uretheral (Guy) Sediment Clear Urine Color Dark Yellow Uretheral (Guy) Straw Pale Urine Odor Strong Exam: General: Awake, seems uncomfortable Eyes/N/T: PERRL Head/Neck: Moves head side to side without grimacing CV: RRR, No murmurs, normal s1/s2 Pulm: Clear b/l, no wheezing/rhonchi/rales Abd: soft, nontender, +BS x4 Ext: no clubbing/cyanosis/edema Neuro: Patient with eyes open typically gaze to right however when I loudly spoke her name she looked right at me gazing to the left. She did follow commands to life skills worker and moving her feet. She shook her head no to pain. However, she is nonverbal and appears comfortable, moaning Skin: warm/dry Medical - PN: Obj Da - Labs CBC & Chem 7: 06/30/18 03:55 06/30/18 03:55 Labs: Abnormal Lab Results 06/30/18 06/30/18 06/29/18 03:55 03:55 05:20 WBC 12.0 H RBC 3.13 L Hgb 9.3 L Hct 28.0 L RDW 16.3 H Plt Count 636 H Gran % 78.7 H Gran # 9.5 H RBC Morphology Hypochromasia PT INR APTT Potassium Carbon Dioxide Anion Gap 19.0 H BUN 33 H Creatinine 4.9 H Glucose 109 H Uric Acid Phosphorus 4.9 H Iron TIBC Alkaline Phosphatase 118 H Total Protein Albumin Globulin 5.1 H Albumin/Globulin Ratio 0.6 L Triglycerides 212 H Prolactin 32.4 H Urine Protein Urine Occult Blood Ur Leukocyte Esterase Urine RBC Urine WBC Ur Squamous Epith Cells 06/29/18 06/29/18 06/29/18 05:15 03:50 03:50 WBC 12.3 H RBC 3.00 L Hgb 8.9 L Hct 26.8 L RDW 16.7 H Plt Count 706 H Gran % Gran # 8.2 H RBC Morphology Hypochromasia PT 15.4 H INR 1.2 H APTT 44 H Potassium Carbon Dioxide 16 L Anion Gap 20.0 H BUN 62 H Creatinine 8.1 H* Glucose 115 H Uric Acid 8.1 H Phosphorus 5.8 H Iron TIBC Alkaline Phosphatase Total Protein Albumin Globulin 5.1 H Albumin/Globulin Ratio 0.6 L Triglycerides 238 H Prolactin Urine Protein Urine Occult Blood Ur Leukocyte Esterase Urine RBC Urine WBC Ur Squamous Epith Cells 06/28/18 06/28/18 06/28/18 03:45 03:45 03:45 WBC RBC Hgb Hct RDW Plt Count Gran % Gran # RBC Morphology Abnorm A Hypochromasia 1+ A PT INR APTT Potassium Carbon Dioxide 17 L Anion Gap 19.0 H BUN 68 H Creatinine 9.3 H* Glucose Uric Acid Phosphorus 5.8 H Iron 25 L TIBC 148 L Alkaline Phosphatase Total Protein Albumin 3.0 L Globulin 4.9 H Albumin/Globulin Ratio 0.6 L Triglycerides 173 H Prolactin Urine Protein Urine Occult Blood Ur Leukocyte Esterase Urine RBC Urine WBC Ur Squamous Epith Cells 06/28/18 06/28/18 06/27/18 03:45 03:45 20:56 WBC 12.1 H RBC 2.70 L Hgb 8.1 L Hct 24.2 L RDW 16.7 H Plt Count 577 H Gran % Gran # 8.7 H RBC Morphology Hypochromasia PT 15.7 H INR 1.2 H APTT Potassium Carbon Dioxide Anion Gap BUN Creatinine Glucose Uric Acid Phosphorus Iron TIBC Alkaline Phosphatase Total Protein Albumin Globulin Albumin/Globulin Ratio Triglycerides Prolactin Urine Protein 30 A Urine Occult Blood 0.2 A Ur Leukocyte Esterase 500 A Urine RBC 18 H Urine WBC 126 H Ur Squamous Epith Cells 6 H 06/27/18 06/27/18 17:39 17:39 WBC 11.5 H RBC 2.92 L Hgb 8.8 L Hct 25.9 L RDW 16.6 H Plt Count 635 H Gran % Gran # RBC Morphology Hypochromasia PT INR APTT Potassium 5.7 H Carbon Dioxide 16 L Anion Gap 19.0 H BUN 72 H Creatinine 9.2 H* Glucose Uric Acid Phosphorus Iron TIBC Alkaline Phosphatase Total Protein 8.5 H Albumin Globulin 5.3 H Albumin/Globulin Ratio 0.6 L Triglycerides Prolactin Urine Protein Urine Occult Blood Ur Leukocyte Esterase Urine RBC Urine WBC Ur Squamous Epith Cells Meds: Medications Hydrocodone Bitart/Acetaminophen ([place] 7.5/325mg) 1 tab PO Q4HP PRN PRN Reason: PAIN LEVEL 3-6 Last Admin: 06/29/18 02:09 Dose: 1 tab Alprazolam (Xanax) 0.5 mg PO QIDP PRN PRN Reason: Anxiety Amlodipine Besylate (Norvasc) 10 mg PO [facility] Last Admin: 06/29/18 21:17 Dose: Not Given Aspirin (Aspirin) 81 mg PO DAILY [facility] Last Admin: 06/29/18 10:57 Dose: Not Given Baclofen (Lioresal) 10 mg PO BID [facility] Last Admin: 06/29/18 21:17 Dose: Not Given [facility] Last Admin: 06/29/18 17:04 Dose: Not Given Ceftriaxone Sodium (Rocephin) 1 gm IV Q24H [facility] Last Admin: 06/29/18 09:48 Dose: 1 gm Clonidine HCl (Catapres) 0.1 mg PO TIDP PRN PRN Reason: SBP>155 Clopidogrel Bisulfate (Plavix) 75 mg PO QDAY [facility] Last Admin: 06/29/18 10:58 Dose: Not Given Famotidine (Pepcid) 20 mg IV HS [facility] Last Admin: 06/29/18 21:12 Dose: 20 mg Hydralazine HCl (Apresoline) 0 mg IV Q8HP PRN PRN Reason: Hypertension Last Admin: 06/29/18 23:15 Dose: 20 mg Acetaminophen (Ofirmev) 1,000 mg in 100 mls @ 200 mls/hr IV Q6HP PRN PRN Reason: PAIN/FEVER > 101 Last Admin: 06/30/18 03:41 Dose: 200 mls/hr Labetalol HCl (Trandate) 0 mg IV Q2HP PRN PRN Reason: Hypertension Last Admin: 06/29/18 08:50 Dose: 20 mg Ondansetron HCl (Zofran Odt) 4 mg PO Q4-6HP PRN PRN Reason: Nausea Ondansetron HCl (Zofran) 4 mg IV Q4HP PRN PRN Reason: Nausea And Vomiting Last Admin: 06/29/18 21:13 Dose: 4 mg Sevelamer Carbonate (Renvela) 800 mg PO TIDCC [facility] Last Admin: 06/29/18 17:05 Dose: Not Given Simvastatin (Zocor) 20 mg PO QHS [facility] Last Admin: 06/29/18 21:17 Dose: Not Given Sodium Bicarbonate (Sodium Bicarbonate) 1,300 mg PO BID [facility] Last Admin: 06/29/18 21:17 Dose: Not Given Sodium Chloride (Saline Flush) 10 ml IV Q8 [facility] Last Admin: 06/29/18 22:11 Dose: 10 ml Medical - PN: A/P - Time Spent With Patient Total time spent is greater than 50% in coordination of care (as documented) at patient's floor/unit and/or counseling patient: - Narrative A/P Narrative: A: *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: Secondary to mechanical obstruction of the ureters from retroperitoneal fibrosis and failed stent -s/p b/l stent replacement (06/28) -Much improved after HD *Encephalopathy: Uremia with myoclonus versus less likely seizure -no leukocytosis, afebrile, pct low -CT brain with mild atrophy and chronic ischemic changes and 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 -nonverbal but follows some commands and did make eye contact with me *Seizure-like activity previous night per nurse, seems more myoclonus after further history: given ativan first episode seemed to calm things down, -?Uremia with myoclonus versus seizure -has been on baclofen but has been getting, not abruptly stopped -EEG did not appear to have any epileptic waveforms per tech, awaiting official read *Hyperkalemia: Secondary to above -EKG no changes -REsolved *Anemia chronic: *Hypertension: on lisinopril/coreg *PVD: on ASA/Plavix *Anxiety: *UTI: *PUD: *Chronic pain: on oxycodone/baclofen P: -EEG official read pending -dobhoff placed, likely start TF's tomorrow if unable to take PO -IVF's per nephro -sedating meds held, wean down/off baclofen over several weeks -monitor electrolytes, i&o's -Dr. Palacios following -Dr. Workman following, HD -lisinopril held for FORD/Hyperkal; prn labetalol -rocephin pending - -ppx: heparin/pepcid Medical - PN: Qual - VTE Deep Vein Thrombosis/Pulmonary Embolism Present on Admission: No
[2018-06-30] MEDS: 0.9 % SODIUM CHLORIDE 10 ML SYRINGE IV SCH ×3 (07:26→21:32)
[2018-06-30] MEDS: ONDANSETRON 4 MG/2 ML VIAL IV PRN ×2 (07:26→22:23)
--- NOTE | 2018-06-30 08:20 | XRay Report ---
CLINICAL INFORMATION: Placement of dobhoff COMPARISON: 03/26/2017 FINDINGS: Dobbhoff tip overlies the gastric body. Stool gas pattern is unremarkable. No free air, soft tissue mass or organomegaly. Bilateral ureteral stents are expected location over the upper collecting systems, ureters urinary bladder. IMPRESSION: Dobbhoff tip overlying the gastric body. No acute disease Interpreted and Authenticated by: Gregor Maurer 06/30/18
[2018-06-30] MEDS: HEPARIN 5,000 UNIT/ML VIAL SQ SCH ×2 (09:22→21:31)
[2018-06-30] MEDS: ASPIRIN 81 MG TAB.CHEW PO SCH (09:22)
[2018-06-30] MEDS: BACLOFEN 10 MG TABLET PO SCH ×2 (09:22→21:32)
[2018-06-30] MEDS: SODIUM BICARBONATE 650 MG TABLET PO SCH ×2 (09:22→21:32)
[2018-06-30] MEDS: cefTRIAXone 1 GM VIAL IV SCH (09:22)
[2018-06-30] MEDS: CARVEDILOL 12.5 MG TABLET PO SCH ×2 (09:22→16:52)
[2018-06-30] MEDS: SEVELAMER 800 MG TABLET PO SCH ×3 (09:23→16:50)
[2018-06-30] MEDS: 0.45 % SODIUM CHLORIDE 1,000 ML IV SCH (09:30)
--- NOTE | 2018-06-30 11:13 | Electroencephalogram Report ---
DATE OF EE06/28/2018 REFERRING PHYSICIAN: Marck Mejia DO HISTORY: The patient is a 67-year-old female with sudden mental status change and episodes of jerking. The patient was given lorazepam at around 5:30 a.m. today. The patient is said to be obtunded during the study. TECHNICAL SUMMARY: This is a routine EEG performed using the 10/20 International System of Electrode placement. DESCRIPTION: There was a poorly regulated and poorly sustained posterior dominant rhythm characterized by medium amplitude 5 Hertz activity. The anterior background consisted of a mixture of medium to high amplitude theta and delta activity. There were occasional high amplitude sharply contoured waves seen bifrontally. Also seen were occasional episodes of relatively generalized background suppression lasting for about 1 second. No normal sleep elements were recorded. Activation procedures were not performed. IMPRESSION: This EEG is abnormal because of moderate to severe diffuse slowing of the background, indicative of a moderate to severe encephalopathy. CN:dagmar Job ID: [id number] Doc ID: [id number] Vincenzo Menard MD
--- NOTE | 2018-06-30 12:42 | Nephrology Progress Note ---
Subjective Patient information: Note initiated : 06/30/18 at 12:40 pm Service Date, if different from initiated Date: [] Patient: Radha Dumont 67 y/o F admitted on 06/27/18 for kidney problems. Chief Complaint: [] Principal diagnosis: FORD/hyperkalemia Interval history: Patient remains somnolent, however this am she did wake up and followed simple verbal commands when seen by Dr Mejia per RN she c/o pain HD done yesterday, no issues reported with dialysis no other overnight events reported Pertinent ROS: unable due to mental status Objective - Vital Signs Vital signs: Vital Signs Temp Pulse Pulse Resp BP Pulse Ox 06/30/18 12:17 18 96 06/30/18 12:04 98.4 F 18 113/80 93 06/30/18 11:01 26 H 119/89 98 06/30/18 10:58 20 126/72 98 06/30/18 10:56 21 160/127 94 06/30/18 10:01 20 117/74 99 06/30/18 09:59 18 100 06/30/18 09:01 22 124/83 95 06/30/18 08:01 25 H 155/90 95 06/30/18 07:01 21 150/101 94 06/30/18 06:02 21 149/98 94 06/30/18 05:02 22 123/89 94 06/30/18 04:41 27 H 141/84 93 06/30/18 03:02 98.9 F 24 H 149/99 95 06/30/18 02:59 29 H 132/104 96 06/30/18 02:01 20 132/104 98 06/30/18 02:00 20 132/104 06/30/18 01:01 20 113/68 94 06/30/18 00:01 98.8 F 17 111/77 93 06/29/18 23:32 20 197/74 95 06/29/18 23:01 21 189/103 100 06/29/18 22:01 20 164/92 100 06/29/18 21:02 26 H 173/111 06/29/18 20:45 26 H 143/117 94 06/29/18 20:20 98.5 F 96 H 176/117 06/29/18 20:19 20 98 06/29/18 20:16 23 H 176/117 98 06/29/18 20:14 101 H 16 191/118 97 06/29/18 20:02 98.5 F 17 167/115 96 06/29/18 20:01 21 192/130 99 06/29/18 20:00 81 20 164/92 06/29/18 19:46 18 177/96 100 06/29/18 19:45 62 177/96 06/29/18 19:31 18 159/98 100 06/29/18 19:30 65 159/98 06/29/18 19:16 17 155/91 100 06/29/18 19:15 64 155/97 06/29/18 19:01 19 139/97 98 06/29/18 19:00 63 139/97 06/29/18 18:46 18 122/86 97 06/29/18 18:45 63 122/86 06/29/18 18:31 18 117/75 93 06/29/18 18:30 66 117/75 06/29/18 18:16 18 127/78 95 06/29/18 18:15 65 127/78 06/29/18 18:03 18 112/79 87 L 06/29/18 18:01 18 98/66 89 L 06/29/18 18:00 66 112/79 06/29/18 17:46 24 H 168/93 98 06/29/18 17:45 96.5 F L 61 168/93 06/29/18 17:31 20 155/91 96 06/29/18 17:10 21 96 06/29/18 17:04 21 163/98 95 06/29/18 17:00 98.7 F 67 20 06/29/18 14:31 32 H 157/112 94 06/29/18 14:24 26 H 158/104 98 06/29/18 14:16 18 159/98 99 06/29/18 14:01 18 145/88 100 06/29/18 14:00 86 85 20 138/80 94 06/29/18 13:46 19 135/86 99 06/29/18 13:31 17 142/99 99 06/29/18 13:16 18 144/85 99 06/29/18 13:01 17 132/76 100 06/29/18 12:46 17 114/72 99 Intake and Output 1106/30/18 06/30/18 21:59 05:59 13:59 Intake Total 100 / 100 100 / 100 Output Total 675 / 675 680 / 680 320 / 320 Balance -675 / -675 -580 / -580 -220 / -220 Intake: IV 100 / 100 GI Tube Flush 100 / 100 Output: Urine Catheter Amount 625 / 625 680 / 680 320 / 320 Hemodialysis UF 50 / 50 Other: Urine Appearance Cloudy Uretheral (Guy) Sediment Clear Urine Color Dark Yellow Uretheral (Guy) Straw Pale Urine Odor Strong Weight 162 lb 4.8 oz Intake & Output: Intake & Output 06/29/18 06/30/18 06/30/18 21:59 05:59 13:59 Intake Total 100 / 100 100 / 100 Output Total 675 / 675 680 / 680 320 / 320 Balance -675 / -675 -580 / -580 -220 / -220 Weight 162 lb 4.8 oz Intake: IV 100 / 100 GI Tube Flush 100 / 100 Output: Urine Catheter Amount 625 / 625 680 / 680 320 / 320 Hemodialysis UF 50 / 50 Other: Urine Appearance Cloudy Uretheral (Guy) Sediment Clear Urine Color Dark Yellow Uretheral (Guy) Straw Pale Urine Odor Strong - General Appearance General appearance: well-developed, appears started age, chronically ill EENT: mucous membranes moist Neck: no JVD Respiratory: clear Cardiology: no rub, no edema, regular rate, regular rhythm Gastrointestinal: no tenderness, no guarding, no masses Integumentary: warm and dry Neurologic: confused (somnolent, but wakes up, crying in pain) Musculoskeletal: no erythema, no cyanosis Psychiatric: mood/affect appropriate - Lab 06/30/18 03:55 06/30/18 03:55 Most recent lab results Calcium 9.0 mg/dl (8.6-10.4) 06/30/18 03:55 Phosphorus 4.9 mg/dL (2.7-4.5) H 06/30/18 03:55 Magnesium 1.6 mg/dL (1.6-2.5) 06/30/18 03:55 Assessment and Plan (1) Acute on chronic renal failure Status: Acute Qualifiers: Acute renal failure type: unspecified Chronic kidney disease stage: stage 5 , not on chronic dialysis Qualified Code(s): N17.9 - Acute kidney failure, unspecified; N18.5 - Chronic kidney disease, stage 5 (2) Anemia Status: Acute (3) Metabolic acidosis Status: Acute (4) Unspecified hydronephrosis Status: Chronic Qualifiers: Hydronephrosis type: with ureteropelvic junction obstruction Qualified Code (s): Q62.11 - Congenital occlusion of ureteropelvic junction - Narrative A/P Narrative: no acute indication for dialysis patient still somnolent but more responsive, still has twitching and intermittent myoclonic jerks, hope this will improve eventually, EEG with no seizure like activity BUN and s.creatinine improved post dialysis, non oliguric, serum electrolytes stable so will hold off on dialysis will start patient on IVF to avoid dehydration as no oral intake with mental status dose meds to egfr avoid nephrotoxic medications HTN: BP better this am ct coreg/amlodipine prn clonidine anemia: Hb is stable obstructive uropathy: s/p stent change, no hydronephrosis on repeat renal US will follow along
[2018-06-30] MEDS: FAMOTIDINE/PF 20 MG/2 ML VIAL IV SCH (21:32)
[2018-06-30] MEDS: SIMVASTATIN 20 MG TABLET PO SCH (21:32)
[2018-06-30] MEDS: amLODIPine 5 MG TABLET PO SCH (21:32)
[2018-07-01] MEDS: 0.45 % SODIUM CHLORIDE 1,000 ML IV SCH ×2 (04:49→16:15)
[2018-07-01] MEDS: 0.9 % SODIUM CHLORIDE 10 ML SYRINGE IV SCH ×3 (05:08→21:17)
[2018-07-01 06:52] LABS: Basophils # (Auto) 0 K/mcL (0.0-0.3); Basophils % (Auto) 0.3 % (0.0-2.0); Eosinophils # (Auto) 0 K/mcL (0.0-0.7); Eosinophils % (Auto) 0.1 % (0.0-7.0); Granulocytes % (Auto) 71.7 % (38.0-78.0); Lymphocytes # (Auto) 2.2 K/mcL (1.5-4.8); Lymphocytes % (Auto) 21.4 % (15.5-49.0); Mean Cell Volume 89.5 fL (80.0-100.0); Mean Corpuscular HGB Conc 32.5 g/dL (31.0-36.0); Monocytes # (Auto) 0.7 K/mcL (0.1-0.9); Monocytes % (Auto) 6.5 % (1.0-12.0); Platelet Count 557 K/mcL (140-440); RBC 3.04 M/mcL (4.00-5.20); Red Cell Distribution Width 16.2 % (11.5-14.5)
[2018-07-01 07:15] LABS: ALT/SGPT 5 U/l (0-40); Albumin 2.9 gm/dL (3.2-5.2); Albumin/Globulin Ratio 0.6 (1.0-2.3); Alkaline Phosphatase 111 U/L (39-117); Bilirubin,Direct < 0.2 mg/dL (0.0-0.3); Blood Urea Nitrogen 38 mg/dl (8-23); Gamma Glutamyl Transpeptidase 34 U/L (5-36)
[2018-07-01] MEDS: ONDANSETRON 4 MG/2 ML VIAL IV PRN ×2 (07:20→16:07)
[2018-07-01] MEDS: CARVEDILOL 12.5 MG TABLET PO SCH ×2 (07:51→17:34)
[2018-07-01] MEDS: SEVELAMER 800 MG TABLET PO SCH ×3 (09:09→17:33)
[2018-07-01] MEDS: ASPIRIN 81 MG TAB.CHEW PO SCH (09:16)
[2018-07-01] MEDS: HEPARIN 5,000 UNIT/ML VIAL SQ SCH ×2 (09:17→21:15)
[2018-07-01] MEDS: BACLOFEN 10 MG TABLET PO SCH ×2 (09:17→21:16)
[2018-07-01] MEDS: SODIUM BICARBONATE 650 MG TABLET PO SCH ×2 (09:17→21:17)
[2018-07-01] MEDS: cefTRIAXone 1 GM VIAL IV SCH (09:17)
[2018-07-01] MEDS ORDERED: PANTOPRAZOLE 40 MG VIAL IV ONE (09:29)
[2018-07-01] MEDS ORDERED: PROCHLORPERAZINE 10 MG/2 ML VIAL IV PRN (09:32)
--- NOTE | 2018-07-01 10:14 | Nephrology Progress Note ---
Subjective Patient information: Note initiated : 07/01/18 at 10:10 am Service Date, if different from initiated Date: [] Patient: Radha Dumont 67 y/o F admitted on 06/27/18 for kidney problems. Chief Complaint: [] Principal diagnosis: FORD/hyperkalemia Interval history: Patient seen this am more awake, oriented to place/person, able to converse does have nausea, vomiting and is receiving meds for this no SOB, CP no edema good urinary output, renal function is unchanged Pertinent ROS: as above Objective - Vital Signs Vital signs: Vital Signs Temp Pulse Pulse Resp BP Pulse Ox 07/01/18 09:39 15 118/86 99 07/01/18 08:50 18 156/90 93 07/01/18 07:50 24 H 160/100 95 07/01/18 07:00 98.4 F 22 166/98 96 07/01/18 06:01 98.4 F 24 H 177/110 88 L 07/01/18 05:01 22 118/67 92 07/01/18 05:00 92 07/01/18 04:01 20 143/87 94 07/01/18 03:01 16 161/95 98 07/01/18 02:01 98.0 F 25 H 145/86 94 07/01/18 02:00 18 145/86 94 07/01/18 01:01 20 169/83 96 07/01/18 00:01 18 144/106 96 06/30/18 23:01 20 152/81 93 06/30/18 22:01 18 137/101 97 06/30/18 21:49 29 H 06/30/18 21:01 15 128/72 98 06/30/18 20:01 98.4 F 20 162/78 98 06/30/18 20:00 19 162/78 98 06/30/18 19:04 18 95/63 99 06/30/18 19:01 19 78/58 97 06/30/18 18:01 15 154/117 97 06/30/18 17:01 23 H 134/105 95 06/30/18 17:00 15 95 06/30/18 16:01 99.1 F H 20 151/104 91 06/30/18 15:01 21 130/85 98 06/30/18 14:01 19 116/83 97 06/30/18 14:00 85 106 H 16 134/105 93 06/30/18 13:01 19 110/70 97 06/30/18 12:17 18 96 06/30/18 12:04 98.4 F 18 113/80 93 06/30/18 11:01 26 H 119/89 98 06/30/18 10:58 20 126/72 98 06/30/18 10:56 21 160/127 94 Intake and Output 06/30/18 07/01/18 07/01/18 21:59 05:59 13:59 Intake Total 65 / 65 1130 / 1130 120 / 120 Output Total 530 / 530 290 / 290 980 / 980 Balance -465 / -465 840 / 840 -860 / -860 Intake: IV 1100 / 1100 Sodium Chloride 0.45% 1,000 ml 1000 / 1000 @ 50 mls/hr IV .Q20H SUN Rx#: [id number] Oral 30 / 30 120 / 120 GI Tube Flush 65 / 65 Output: Urine Catheter Amount 530 / 530 290 / 290 880 / 880 Emesis 100 / 100 Other: Urine Appearance Clear Clear Clear Urine Color Light Caren Light Caren Light Caren Urine Odor Normal Normal Weight 165 lb 4.8 oz Intake & Output: Intake & Output 06/30/18 07/01/18 07/01/18 21:59 05:59 13:59 Intake Total 65 / 65 1130 / 1130 120 / 120 Output Total 530 / 530 290 / 290 980 / 980 Balance -465 / -465 840 / 840 -860 / -860 Weight 165 lb 4.8 oz Intake: IV 1100 / 1100 Sodium Chloride 0.45% 1,000 ml 1000 / 1000 @ 50 mls/hr IV .Q20H SUN Rx#: [id number] Oral 30 / 30 120 / 120 GI Tube Flush 65 / 65 Output: Urine Catheter Amount 530 / 530 290 / 290 880 / 880 Emesis 100 / 100 Other: Urine Appearance Clear Clear Clear Urine Color Light Caren Light Caren Light Caren Urine Odor Normal Normal - General Appearance General appearance: appears started age, chronically ill EENT: mucous membranes moist Neck: no JVD Respiratory: clear Cardiology: no rub, no edema, regular rate, regular rhythm Gastrointestinal: no tenderness, no guarding Integumentary: warm and dry Neurologic: alert and oriented x3 (but still a little drowsy) Musculoskeletal: no erythema, no cyanosis - Lab 07/01/18 03:50 07/01/18 03:50 Most recent lab results Calcium 8.8 mg/dl (8.6-10.4) 07/01/18 03:50 Phosphorus 4.9 mg/dL (2.7-4.5) H 07/01/18 03:50 Magnesium 1.7 mg/dL (1.6-2.5) 07/01/18 03:50 Assessment and Plan (1) Acute on chronic renal failure Status: Acute Qualifiers: Acute renal failure type: unspecified Chronic kidney disease stage: stage 5 , not on chronic dialysis Qualified Code(s): N17.9 - Acute kidney failure, unspecified; N18.5 - Chronic kidney disease, stage 5 (2) Anemia Status: Acute (3) Metabolic acidosis Status: Acute (4) Unspecified hydronephrosis Status: Chronic Qualifiers: Hydronephrosis type: with ureteropelvic junction obstruction Qualified Code (s): Q62.11 - Congenital occlusion of ureteropelvic junction - Narrative A/P Narrative: no acute indication for dialysis, will hold off today as well mental status is improving continue IVF at 50cc/hour, mental status has improved, hope she can start eating if nausea, vomiting improves dose meds to egfr avoid nephrotoxic medications HTN: BP better this am, responds to clonidine prn ct coreg/amlodipine, will increase amlodipine dose to 10mg prn clonidine anemia: Hb is stable obstructive uropathy: s/p stent change, no hydronephrosis on repeat renal US will follow along
[2018-07-01] MEDS ORDERED: LABETALOL 5 MG/ML ML IV PRN (12:02)
[2018-07-01] MEDS ORDERED: cloNIDine HCL 0.1 MG TABLET PO PRN (12:02)
[2018-07-01] MEDS ORDERED: HYDROCODONE/APAP 7.5/325MG TABLET PO PRN (12:02)
[2018-07-01] MEDS ORDERED: ACETAMINOPHEN 1,000 MG/100 ML BOTTLE IV PRN (12:02)
[2018-07-01] MEDS ORDERED: ONDANSETRON ODT 4 MG TABLET PO PRN (12:02)
[2018-07-01] MEDS ORDERED: hydrALAZINE 20 MG/ML VIAL IV PRN (12:02)
[2018-07-01] MEDS: PROCHLORPERAZINE 10 MG/2 ML VIAL IV PRN ×2 (16:30→21:49)
[2018-07-01] MEDS: amLODIPine 5 MG TABLET PO SCH (21:17)
[2018-07-01] MEDS: SIMVASTATIN 20 MG TABLET PO SCH (21:17)
[2018-07-01] MEDS: ALPRAZolam 0.5 MG TABLET PO PRN (21:44)
--- NOTE | 2018-07-01 22:39 | Internal Med Progress Note ---
Medical - PN: Subj Patient information: Note initiated : 07/01/18 at 10:36 pm Service Date, if different from initiated Date: [] Patient: Radha Dumont a 67 y/o F admitted on 06/27/18 for kidney problems. Chief Complaint: f/u renal failure Interval history: 06/27 Ms. Dumont is a 67 year old F to the ER by her primary care provider for elevated creatinine on routine blood work. 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 This was found out during her workup for her abdominal aortic aneurysm that was done up in kidney. She has had nephrostomy tubes and subsequently had them removed and replaced with stents and then had a stent change May [address] Palacio. Creatinine during her hospitalization got up 11, then after intervention her creatinine typically runs around 3, with labs today showing creatinine 9.3. Renal ultrasound shows worsening right hydronephrosis concerning for failure of that stent. She is asymptomatic and is urinating. Case discussed with Dr. Workman as well as Dr. Palacios. Dr. Palacios will see the patient and replaced the stents tomorrow. Of note, she also was hospitalized at [facility] for several days for a bleeding peptic ulcer she was discharged on 06/04. Current medications include aspirin and Plavix. 06/28 Poor sleep last night has overall body pain. Does have a history of chronic pain. No other pains or complaints. 06/29 had seizure-like activity and AMS, was given 1mg ativan with and improvement, pt has been relatively sedated since, waking up occasionally. She told the nurse her name this morning, but i am unable to get her to answer questions. She will open her eyes to sternal rub and look at me momentarily before going back to sleep again. She does follow commands. Per nurses discussion with pt last night, sounds like she almost history of occasional myoclonus, question whether or not this is uremia and myoclonus or seizure. Unable to gather review of systems because of altered state. 06/30 Confused and disoriented overnight did not follow commands or answer questions had spontaneous movement of all extremities. When I saw her this morning she was laying recumbent grabbing the side rail and seemed to be moaning a little bit. I asked her to squeeze my hand she follow that command I asked her to move her feet she follow that command. I spoke to her labs and called her name and she made eye contact with me. When asked if she was in pain she nodded her head no. Could not get her to answer questions. She had dialysis yesterday evening. 07/01 Intermittently complaining of nausea and having emesis today. Sleeping frequently, when awake, start shaking, becomes nauseated. Has occasional myoclonic jerking at times. This evening was feeling somewhat improved. Dental status significantly improved in the last 24 hours however. - Constitutional Vitals: Vital Signs Temp Pulse Resp BP Pulse Ox 97.9 F 106 H 18 117/64 94 07/01/18 15:54 06/30/18 14:00 07/01/18 15:54 07/01/18 15:54 07/01/18 15:54 Period Temp Pulse Resp BP Sys/Hartman Pulse Ox Last 24 Hr 97.6 F-98.4 F 15-25 108-177/64-110 88-99 Intake and Output 07/01/18 07/01/18 07/02/18 13:59 21:59 05:59 Intake Total 300 / 300 808 / 808 Output Total 1140 / 1140 110 / 110 Balance -840 / -840 698 / 698 Weight 165 lb 4.8 oz Patient Weight 07/02/18 05:59 Weight 165 lb 4.8 oz Intake & Output: Intake & Output 07/01/18 07/01/18 07/02/18 13:59 21:59 05:59 Intake Total 300 / 300 808 / 808 Output Total 1140 / 1140 110 / 110 Balance -840 / -840 698 / 698 Weight 165 lb 4.8 oz Intake: IV 568 / 568 Oral 300 / 300 240 / 240 Output: Urine Catheter Amount 1040 / 1040 110 / 110 Emesis 100 / 100 Other: Meal Nourishment/Supplement Percent of Meal Consumed ice chips 100% Feeding Ability Total Assistance Urine Appearance Clear Clear Uretheral (Guy) Clear Urine Color Light Caren Dark Yellow Uretheral (Guy) Bright Yellow Exam: General: In bed, mildly ill-appearing Chest: Clear, unlabored Chest wall: Left upper tunnel dialysis catheter, dressing intact. Cardiovascular: Regular Abdomen: Soft, nontender Neuro: Alert, oriented to self,in the hospital, knows she has had renal failure. Occasional jerking movement. Medical - PN: Obj Da - Labs CBC & Chem 7: 07/01/18 03:50 07/01/18 03:50 Labs: Abnormal Lab Results 07/01/18 07/01/18 06/30/18 03:50 03:50 03:55 WBC RBC 3.04 L Hgb 8.8 L Hct 27.2 L RDW 16.2 H Plt Count 557 H Gran % Gran # PT INR APTT Carbon Dioxide 19 L Anion Gap 21.0 H 19.0 H BUN 38 H 33 H Creatinine 4.9 H 4.9 H Glucose 109 H Uric Acid Phosphorus 4.9 H 4.9 H Alkaline Phosphatase 118 H Albumin 2.9 L Globulin 5.2 H 5.1 H Albumin/Globulin Ratio 0.6 L 0.6 L Triglycerides 241 H 212 H Prolactin 06/30/18 06/29/18 06/29/18 03:55 05:20 05:15 WBC 12.0 H RBC 3.13 L Hgb 9.3 L Hct 28.0 L RDW 16.3 H Plt Count 636 H Gran % 78.7 H Gran # 9.5 H PT 15.4 H INR 1.2 H APTT 44 H Carbon Dioxide Anion Gap BUN Creatinine Glucose Uric Acid Phosphorus Alkaline Phosphatase Albumin Globulin Albumin/Globulin Ratio Triglycerides Prolactin 32.4 H 06/29/18 06/29/18 03:50 03:50 WBC 12.3 H RBC 3.00 L Hgb 8.9 L Hct 26.8 L RDW 16.7 H Plt Count 706 H Gran % Gran # 8.2 H PT INR APTT Carbon Dioxide 16 L Anion Gap 20.0 H BUN 62 H Creatinine 8.1 H* Glucose 115 H Uric Acid 8.1 H Phosphorus 5.8 H Alkaline Phosphatase Albumin Globulin 5.1 H Albumin/Globulin Ratio 0.6 L Triglycerides 238 H Prolactin Meds: Medications Hydrocodone Bitart/Acetaminophen ([place] 7.5/325mg) 1 tab PO Q4HP PRN PRN Reason: PAIN LEVEL 3-6 Alprazolam (Xanax) 0.5 mg PO QIDP PRN PRN Reason: Anxiety Last Admin: 07/01/18 21:44 Dose: 0.5 mg Amlodipine Besylate (Norvasc) 10 mg PO HS SUN Last Admin: 07/01/18 21:17 Dose: 10 mg Aspirin (Aspirin) 81 mg PO DAILY [facility] Baclofen (Lioresal) 10 mg PO BID [facility] Last Admin: 07/01/18 21:16 Dose: 10 mg Carvedilol (Coreg) 12.5 mg PO BIDCC [facility] Last Admin: 07/01/18 17:34 Dose: 12.5 mg Ceftriaxone Sodium (Rocephin) 1 gm IV Q24H [facility] Clonidine HCl (Catapres) 0.1 mg PO TIDP PRN PRN Reason: SBP>155 Heparin Sodium (Porcine) (Heparin) 5,000 unit SQ Q12 [facility] Last Admin: 07/01/18 21:15 Dose: 5,000 unit Hydralazine HCl (Apresoline) 0 mg IV Q8HP PRN PRN Reason: Hypertension Acetaminophen (Ofirmev) 1,000 mg in 100 mls @ 200 mls/hr IV Q6HP PRN PRN Reason: PAIN/FEVER > 101 Sodium Chloride (Sodium Chloride 0.45%) 1,000 mls @ 50 mls/hr IV .Q20H [facility] Last Admin: 07/01/18 16:15 Dose: 50 mls/hr Labetalol HCl (Trandate) 0 mg IV Q2HP PRN PRN Reason: Hypertension Ondansetron HCl (Zofran) 4 mg IV Q4HP PRN PRN Reason: Nausea And Vomiting Last Admin: 07/01/18 16:07 Dose: 4 mg Ondansetron HCl (Zofran Odt) 4 mg PO Q4-6HP PRN PRN Reason: Nausea Pantoprazole Sodium (Protonix) 40 mg IV QAMAC [facility] Prochlorperazine Edisylate (Compazine) 5 mg IV Q4-6HP PRN PRN Reason: Nausea And Vomiting Last Admin: 07/01/18 21:49 Dose: 5 mg Sevelamer Carbonate (Renvela) 800 mg PO TIDCC [facility] Last Admin: 07/01/18 17:33 Dose: Not Given Simvastatin (Zocor) 20 mg PO QHS [facility] Last Admin: 07/01/18 21:17 Dose: 20 mg Sodium Bicarbonate (Sodium Bicarbonate) 1,300 mg PO BID [facility] Last Admin: 07/01/18 21:17 Dose: 1,300 mg Sodium Chloride (Saline Flush) 10 ml IV Q8 [facility] Last Admin: 07/01/18 21:17 Dose: Not Given Medical - PN: A/P - Time Spent With Patient Total time spent is greater than 50% in coordination of care (as documented) at patient's floor/unit and/or counseling patient: Greater than 35 minutes - Narrative A/P Narrative: 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. Due to stent failure in setting of mechanical obstruction of the ureters from retroperitoneal fibrosis. Now s/p bilateral stent replacement on 06/[address] Palacios. Creatinine improved after hemodialysis. Plan: Continue to monitor renal function, hemodialysis as needed. Holding sedating meds, we'll need to wean down baclofen over time. Encephalopathy. Improving. Suspected secondary to uremia, also toxic drug/ medication effects. Having myoclonus, seems to be improving. Plan: Hemodialysis as per nephrology. Possible seizure-like activity, though subsequently more like myoclonus. May also be secondary to accumulation of several medications including baclofen and opioids. Plan: Monitor. Hyperkalemia secondary to renal failure. Resolved. Anemia secondary to chronic kidney disease. Monitor. Hypertension, on lisinopril and carvedilol at home. Lisinopril held due to [place] I /hyperkalemia. Receiving when necessary labetalol. Peripheral arterial disease. Continuing aspirin and Plavix. Anxiety. On Xanax as needed 3 times a day at home. If she has missed several doses, could explain part of her encephalopathy as well. Plan: Continue with when necessary Xanax. Urinary tract infection. On antibiotics. Urine culture with 6070 K of gram- negative bacillus as well as mixed skin alexis. Peptic ulcer disease. On famotidine. F/E/N: Dobbhoff in place, however was able to keep down some nephro today. Continue to monitor, if unable to start significant oral intake by tomorrow, will consider tube feeds. -ppx: heparin/pepcid Medical - PN: Qual - VTE Deep Vein Thrombosis/Pulmonary Embolism Present on Admission: No
[2018-07-02] MEDS: ALPRAZolam 0.5 MG TABLET PO PRN ×3 (03:05→21:52)
[2018-07-02] MEDS: 0.9 % SODIUM CHLORIDE 10 ML SYRINGE IV SCH ×3 (05:45→22:00)
[2018-07-02 06:21] LABS: Basophils # (Auto) 0 K/mcL (0.0-0.3); Basophils % (Auto) 0.4 % (0.0-2.0); Eosinophils # (Auto) 0.3 K/mcL (0.0-0.7); Eosinophils % (Auto) 2.5 % (0.0-7.0); Granulocytes % (Auto) 56.2 % (38.0-78.0); Lymphocytes # (Auto) 3.3 K/mcL (1.5-4.8); Lymphocytes % (Auto) 32.3 % (15.5-49.0); Mean Cell Volume 89.9 fL (80.0-100.0); Mean Corpuscular HGB Conc 33.1 g/dL (31.0-36.0); Mean Corpuscular Hemoglobin 29.8 pg (26.0-34.0); Monocytes # (Auto) 0.9 K/mcL (0.1-0.9); Monocytes % (Auto) 8.6 % (1.0-12.0); Platelet Count 510 K/mcL (140-440); RBC 2.99 M/mcL (4.00-5.20); Red Cell Distribution Width 16.3 % (11.5-14.5)
[2018-07-02] MEDS ORDERED: PANTOPRAZOLE 40 MG VIAL IV SCH (07:30)
[2018-07-02 07:41] LABS: ALT/SGPT 7 U/l (0-40); Albumin 3.1 gm/dL (3.2-5.2); Albumin/Globulin Ratio 0.7 (1.0-2.3); Alkaline Phosphatase 109 U/L (39-117); Bilirubin,Direct < 0.2 mg/dL (0.0-0.3); Blood Urea Nitrogen 43 mg/dl (8-23); Gamma Glutamyl Transpeptidase 37 U/L (5-36)
[2018-07-02] MEDS: PANTOPRAZOLE 40 MG VIAL IV SCH (07:56)
[2018-07-02] MEDS: SODIUM BICARBONATE 650 MG TABLET PO SCH ×2 (09:10→20:26)
[2018-07-02] MEDS: BACLOFEN 10 MG TABLET PO SCH ×2 (09:10→20:26)
[2018-07-02] MEDS: ASPIRIN 81 MG TAB.CHEW PO SCH (09:10)
[2018-07-02] MEDS: CARVEDILOL 12.5 MG TABLET PO SCH ×2 (09:11→17:34)
[2018-07-02] MEDS: HEPARIN 5,000 UNIT/ML VIAL SQ SCH ×2 (09:11→20:25)
[2018-07-02] MEDS: SEVELAMER 800 MG TABLET PO SCH ×3 (09:11→17:30)
[2018-07-02] MEDS: cefTRIAXone 1 GM VIAL IV SCH (09:11)
--- NOTE | 2018-07-02 11:45 | Nephrology Progress Note ---
Subjective Patient information: Note initiated : 07/02/18 at 11:43 am Service Date, if different from initiated Date: [] Patient: Radha Dumont 67 y/o F admitted on 06/27/18 for kidney problems. Chief Complaint: [] Principal diagnosis: FORD/hyperkalemia Interval history: no overnight events mental status continues to improve slowly denies SOB, CP no edema intermittent nausea and vomiting but able to take meds and drink some nepro still has intermittent myoclonic tremors but they are improving slowly Good urinary output with slowly improving renal function Pertinent ROS: as above Objective - Vital Signs Vital signs: Vital Signs Temp Pulse Resp BP Pulse Ox 07/02/18 10:19 18 07/02/18 08:51 97.6 F 20 141/93 100 07/02/18 05:13 18 96 07/02/18 05:00 96 07/02/18 04:00 98.6 F 19 142/81 91 07/02/18 01:57 20 99 07/02/18 00:25 20 98 07/02/18 00:01 97.2 F 19 126/76 97 07/01/18 22:14 88 L 07/01/18 20:00 19 129/93 93 07/01/18 19:57 75 18 108/61 91 07/01/18 19:48 97.2 F 19 108/61 91 07/01/18 15:54 97.9 F 18 117/64 94 07/01/18 12:07 22 108/68 98 07/01/18 12:01 97.6 F 18 108/68 97 07/01/18 11:46 21 117/71 98 Intake and Output 07/01/18 07/02/18 07/02/18 21:59 05:59 13:59 Intake Total 808 / 808 500 / 500 360 / 360 Output Total 110 / 110 925 / 925 Balance 698 / 698 -425 / -425 360 / 360 Intake: IV 568 / 568 Oral 240 / 240 500 / 500 360 / 360 Output: Urine Catheter Amount 110 / 110 925 / 925 Other: Meal Nourishment/Supplement Nourishment/Supplement Percent of Meal Consumed 100% 50% Feeding Ability Total Assistance Urine Appearance Clear Cloudy Uretheral (Guy) Clear Urine Color Dark Yellow Dark Yellow Uretheral (Guy) Bright Yellow Weight 162 lb 14.4 oz Intake & Output: Intake & Output 07/01/18 07/02/18 07/02/18 21:59 05:59 13:59 Intake Total 808 / 808 500 / 500 360 / 360 Output Total 110 / 110 925 / 925 Balance 698 / 698 -425 / -425 360 / 360 Weight 162 lb 14.4 oz Intake: IV 568 / 568 Oral 240 / 240 500 / 500 360 / 360 Output: Urine Catheter Amount 110 / 110 925 / 925 Other: Meal Nourishment/Supplement Nourishment/Supplement Percent of Meal Consumed 100% 50% Feeding Ability Total Assistance Urine Appearance Clear Cloudy Uretheral (Guy) Clear Urine Color Dark Yellow Dark Yellow Uretheral (Guy) Bright Yellow - General Appearance General appearance: appears started age, chronically ill EENT: mucous membranes moist Neck: no JVD Respiratory: clear Cardiology: no rub, no edema, normal S1, normal S2 Gastrointestinal: no tenderness, no guarding Integumentary: no rash Neurologic: alert and oriented x3 (but does have some myclonic tremors) Musculoskeletal: no erythema, no cyanosis - Lab 07/02/18 04:03 07/02/18 04:03 Most recent lab results Calcium 8.7 mg/dl (8.6-10.4) 07/02/18 04:03 Phosphorus 4.7 mg/dL (2.7-4.5) H 07/02/18 04:03 Magnesium 1.7 mg/dL (1.6-2.5) 07/02/18 04:03 Assessment and Plan (1) Acute on chronic renal failure Status: Acute Qualifiers: Acute renal failure type: unspecified Chronic kidney disease stage: stage 5 , not on chronic dialysis Qualified Code(s): N17.9 - Acute kidney failure, unspecified; N18.5 - Chronic kidney disease, stage 5 (2) Anemia Status: Acute (3) Metabolic acidosis Status: Acute (4) Unspecified hydronephrosis Status: Chronic Qualifiers: Hydronephrosis type: with ureteropelvic junction obstruction Qualified Code (s): Q62.11 - Congenital occlusion of ureteropelvic junction - Narrative A/P Narrative: obstructive uropathy s.creatinine from 9.0-4.9-4.2 today non oliguric serum electrolytes stable no edema/s/o fluid excess no need for [employer] Will follow the s.creatinine trend for now continue IVF at 50cc/hour encourage oral intake if no risk for aspiration dose meds to egfr avoid nephrotoxic medications HTN: Control better continue coreg and amlodipine, prn clonidine anemia: Hb stable, etiology multifactorial secondary hyperparathyroidism: ct sevelamer, renal diet obstructive uropathy: repeat US with no hydronephrosis s/p revision of the displaced ureteral stent Thank you for giving me an opportunity to participate in Ms Dumont's medical care, appreciate it
[2018-07-02] MEDS: 0.45 % SODIUM CHLORIDE 1,000 ML IV SCH (12:25)
--- NOTE | 2018-07-02 16:33 | Internal Med Progress Note ---
Medical - PN: Subj Patient information: Note initiated : 07/02/18 at 4:31 pm Service Date, if different from initiated Date: [] Patient: Radha Dumont a 67 y/o F admitted on 06/27/18 for kidney problems. Chief Complaint: f/u ARF Interval history: 06/27 Ms. Dumont is a 67 year old F to the ER by her primary care provider for elevated creatinine on routine blood work. 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 This was found out during her workup for her abdominal aortic aneurysm that was done up in kidney. She has had nephrostomy tubes and subsequently had them removed and replaced with stents and then had a stent change May [address] Palacio. Creatinine during her hospitalization got up 11, then after intervention her creatinine typically runs around 3, with labs today showing creatinine 9.3. Renal ultrasound shows worsening right hydronephrosis concerning for failure of that stent. She is asymptomatic and is urinating. Case discussed with Dr. Workman as well as Dr. Palacios. Dr. Palacios will see the patient and replaced the stents tomorrow. Of note, she also was hospitalized at [facility] for several days for a bleeding peptic ulcer she was discharged on 06/04. Current medications include aspirin and Plavix. 06/28 Poor sleep last night has overall body pain. Does have a history of chronic pain. No other pains or complaints. 06/29 had seizure-like activity and AMS, was given 1mg ativan with and improvement, pt has been relatively sedated since, waking up occasionally. She told the nurse her name this morning, but i am unable to get her to answer questions. She will open her eyes to sternal rub and look at me momentarily before going back to sleep again. She does follow commands. Per nurses discussion with pt last night, sounds like she almost history of occasional myoclonus, question whether or not this is uremia and myoclonus or seizure. Unable to gather review of systems because of altered state. 06/30 Confused and disoriented overnight did not follow commands or answer questions had spontaneous movement of all extremities. When I saw her this morning she was laying recumbent grabbing the side rail and seemed to be moaning a little bit. I asked her to squeeze my hand she follow that command I asked her to move her feet she follow that command. I spoke to her labs and called her name and she made eye contact with me. When asked if she was in pain she nodded her head no. Could not get her to answer questions. She had dialysis yesterday evening. 07/01 Intermittently complaining of nausea and having emesis today. Sleeping frequently, when awake, start shaking, becomes nauseated. Has occasional myoclonic jerking at times. This evening was feeling somewhat improved. Dental status significantly improved in the last 24 hours however. 07/02 States she feels better this morning. Slept a lot last night. Less shakiness and less occasional jerking movements. Was able to keep down nephro this morning. Intermittent nausea, but not as bad. Does complain of some diffuse abdominal pain. - Constitutional Vitals: Vital Signs Temp Pulse Resp BP Pulse Ox 99.7 F H 75 20 97/74 94 07/02/18 15:20 07/01/18 19:57 07/02/18 15:20 07/02/18 15:20 07/02/18 15:20 Period Temp Pulse Resp BP Sys/Hartman Pulse Ox Last 24 Hr 97.2 F-99.7 F 75 17-20 97-142/61-93 88-100 Intake and Output 07/02/18 07/02/18 07/02/18 05:59 13:59 21:59 Intake Total 500 / 500 1360 / 1360 550 / 550 Output Total 925 / 925 1000 / 1000 Balance -425 / -425 1360 / 1360 -450 / -450 Intake & Output: Intake & Output 07/02/18 07/02/18 07/02/18 05:59 13:59 21:59 Intake Total 500 / 500 1360 / 1360 550 / 550 Output Total 925 / 925 1000 / 1000 Balance -425 / -425 1360 / 1360 -450 / -450 Intake: IV 1000 / 1000 Sodium Chloride 0.45% 1,000 ml 1000 / 1000 @ 50 mls/hr IV .Q20H [facility] Rx#: [id number] Oral 500 / 500 360 / 360 550 / 550 Output: Urine Catheter Amount 925 / 925 1000 / 1000 Other: Meal Nourishment/Supplement Nourishment/Supplement Percent of Meal Consumed 50% 100% Urine Appearance Cloudy Clear Uretheral (Guy) Clear Urine Color Dark Yellow Bright Yellow Blood Tinged Uretheral (Guy) Bright Yellow Urine Odor Normal Exam: General: In bed, mildly ill-appearing Chest: Few crackles at bases, respirations are unlabored Cardiovascular: Regular Abdomen: Soft, mild diffuse tenderness to palpation without evidence of guarding or rebound. Bowel sounds are present. Neuro: Able sit up, occasional jerking movement, not as pronounced as yesterday. Medical - PN: Obj Da - Labs CBC & Chem 7: 07/02/18 04:03 07/02/18 04:03 Labs: Abnormal Lab Results 07/02/18 07/02/18 07/01/18 04:03 04:03 03:50 WBC RBC 2.99 L Hgb 8.9 L Hct 26.9 L RDW 16.3 H Plt Count 510 H Gran % Gran # Carbon Dioxide 19 L Anion Gap 18.0 H 21.0 H BUN 43 H 38 H Creatinine 4.2 H 4.9 H Glucose Phosphorus 4.7 H 4.9 H GGT 37 H Alkaline Phosphatase Lactate Dehydrogenase 282 H Albumin 3.1 L 2.9 L Globulin 4.7 H 5.2 H Albumin/Globulin Ratio 0.7 L 0.6 L Triglycerides 293 H 241 H 07/01/18 06/30/18 06/30/18 03:50 03:55 03:55 WBC 12.0 H RBC 3.04 L 3.13 L Hgb 8.8 L 9.3 L Hct 27.2 L 28.0 L RDW 16.2 H 16.3 H Plt Count 557 H 636 H Gran % 78.7 H Gran # 9.5 H Carbon Dioxide Anion Gap 19.0 H BUN 33 H Creatinine 4.9 H Glucose 109 H Phosphorus 4.9 H GGT Alkaline Phosphatase 118 H Lactate Dehydrogenase Albumin Globulin 5.1 H Albumin/Globulin Ratio 0.6 L Triglycerides 212 H Meds: Medications Hydrocodone Bitart/Acetaminophen ([place] 7.5/325mg) 1 tab PO Q4HP PRN PRN Reason: PAIN LEVEL 3-6 Alprazolam (Xanax) 0.5 mg PO QIDP PRN PRN Reason: Anxiety Last Admin: 07/02/18 15:26 Dose: 0.5 mg Amlodipine Besylate (Norvasc) 10 mg PO HS SUN Last Admin: 07/01/18 21:17 Dose: 10 mg Aspirin (Aspirin) 81 mg PO DAILY [facility] Last Admin: 07/02/18 09:10 Dose: 81 mg Baclofen (Lioresal) 10 mg PO BID [facility] Last Admin: 07/02/18 09:10 Dose: 10 mg Carvedilol (Coreg) 12.5 mg PO BIDCC [facility] Last Admin: 07/02/18 09:11 Dose: 12.5 mg Ceftriaxone Sodium (Rocephin) 1 gm IV Q24H [facility] Last Admin: 07/02/18 09:11 Dose: 1 gm Clonidine HCl (Catapres) 0.1 mg PO TIDP PRN PRN Reason: SBP>155 Heparin Sodium (Porcine) (Heparin) 5,000 unit SQ Q12 [facility] Last Admin: 07/02/18 09:11 Dose: 5,000 unit Hydralazine HCl (Apresoline) 0 mg IV Q8HP PRN PRN Reason: Hypertension Acetaminophen (Ofirmev) 1,000 mg in 100 mls @ 200 mls/hr IV Q6HP PRN PRN Reason: PAIN/FEVER > 101 Sodium Chloride (Sodium Chloride 0.45%) 1,000 mls @ 50 mls/hr IV .Q20H [facility] Last Admin: 07/02/18 12:25 Dose: 50 mls/hr Labetalol HCl (Trandate) 0 mg IV Q2HP PRN PRN Reason: Hypertension Ondansetron HCl (Zofran) 4 mg IV Q4HP PRN PRN Reason: Nausea And Vomiting Last Admin: 07/01/18 16:07 Dose: 4 mg Ondansetron HCl (Zofran Odt) 4 mg PO Q4-6HP PRN PRN Reason: Nausea Last Admin: 07/02/18 15:26 Dose: 4 mg Pantoprazole Sodium (Protonix) 40 mg IV QAMAC [facility] Last Admin: 07/02/18 07:56 Dose: 40 mg Prochlorperazine Edisylate (Compazine) 5 mg IV Q4-6HP PRN PRN Reason: Nausea And Vomiting Last Admin: 07/01/18 21:49 Dose: 5 mg Sevelamer Carbonate (Renvela) 800 mg PO TIDCC [facility] Last Admin: 07/02/18 13:07 Dose: Not Given Simvastatin (Zocor) 20 mg PO QHS [facility] Last Admin: 07/01/18 21:17 Dose: 20 mg Sodium Bicarbonate (Sodium Bicarbonate) 1,300 mg PO BID [facility] Last Admin: 07/02/18 09:10 Dose: 1,300 mg Sodium Chloride (Saline Flush) 10 ml IV Q8 [facility] Last Admin: 07/02/18 13:07 Dose: Not Given Medical - PN: A/P - Time Spent With Patient Total time spent is greater than 50% in coordination of care (as documented) at patient's floor/unit and/or counseling patient: Greater than 35 minutes - Narrative A/P Narrative: 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. Due to stent failure in setting of mechanical obstruction of the ureters from retroperitoneal fibrosis. Now s/p bilateral stent replacement on 06/[address] Palacios. Creatinine improved after hemodialysis, no hemodialysis yesterday, creatinine continue slowly improved to 4.2 today. Plan: Continue to monitor renal function, hemodialysis as needed. Holding sedating meds, we'll need to wean down baclofen over time. Encephalopathy. Improving. Suspected secondary to uremia, also toxic drug/ medication effects. Having myoclonus, improving. Plan: Hemodialysis as per nephrology, supportive care, allow uremia and drug toxicities clear Possible seizure-like activity, though subsequently more like myoclonus. May also be secondary to accumulation of several medications including baclofen and opioids. Plan: Monitor. Hyperkalemia secondary to renal failure. Resolved. Anemia secondary to chronic kidney disease. Monitor. Hypertension, on lisinopril and carvedilol at home. Lisinopril held due to [place] I /hyperkalemia. Receiving when necessary labetalol. Peripheral arterial disease. Continuing aspirin and Plavix. Anxiety. On Xanax as needed 3 times a day at home. If she has missed several doses, could explain part of her encephalopathy as well. Plan: Continue with when necessary Xanax. Urinary tract infection. On antibiotics. Urine culture with 6070 K of gram- negative bacillus as well as mixed skin alexis. Peptic ulcer disease. On famotidine. F/E/N: Dobbhoff in place, however was able to keep down some nephro today. Continue to monitor, if unable to start significant oral intake by tomorrow, will consider tube feeds. -ppx: heparin/pepcid Medical - PN: Qual - VTE Deep Vein Thrombosis/Pulmonary Embolism Present on Admission: No
[2018-07-02] MEDS ORDERED: BISACODYL 10 MG SUPP.RECT PR PRN (17:39)
[2018-07-02] MEDS: amLODIPine 5 MG TABLET PO SCH (20:26)
[2018-07-02] MEDS: SIMVASTATIN 20 MG TABLET PO SCH (20:27)
[2018-07-02] MEDS: PROCHLORPERAZINE 10 MG/2 ML VIAL IV PRN (21:52)
[2018-07-03] MEDS: 0.9 % SODIUM CHLORIDE 10 ML SYRINGE IV SCH ×4 (05:52→21:27)
[2018-07-03 07:02] LABS: Basophils # (Auto) 0 K/mcL (0.0-0.3); Basophils % (Auto) 0.3 % (0.0-2.0); Eosinophils # (Auto) 0.3 K/mcL (0.0-0.7); Eosinophils % (Auto) 2.2 % (0.0-7.0); Granulocytes % (Auto) 58.3 % (38.0-78.0); Lymphocytes # (Auto) 3.8 K/mcL (1.5-4.8); Lymphocytes % (Auto) 33.1 % (15.5-49.0); Mean Cell Volume 89.3 fL (80.0-100.0); Mean Corpuscular HGB Conc 33.6 g/dL (31.0-36.0); Mean Corpuscular Hemoglobin 30.1 pg (26.0-34.0); Monocytes # (Auto) 0.7 K/mcL (0.1-0.9); Monocytes % (Auto) 6.1 % (1.0-12.0); Platelet Count 526 K/mcL (140-440); RBC 3.04 M/mcL (4.00-5.20); Red Cell Distribution Width 16.2 % (11.5-14.5)
[2018-07-03 07:18] LABS: ALT/SGPT 8 U/l (0-40); Albumin 3.2 gm/dL (3.2-5.2); Albumin/Globulin Ratio 0.7 (1.0-2.3); Alkaline Phosphatase 108 U/L (39-117); Bilirubin,Direct < 0.2 mg/dL (0.0-0.3); Blood Urea Nitrogen 40 mg/dl (8-23); Gamma Glutamyl Transpeptidase 35 U/L (5-36); Uric Acid 5.6 mg/dL (2.5-8.0)
[2018-07-03] MEDS: PANTOPRAZOLE 40 MG VIAL IV SCH (07:59)
[2018-07-03] MEDS: SEVELAMER 800 MG TABLET PO SCH ×3 (08:34→17:14)
[2018-07-03] MEDS: CARVEDILOL 12.5 MG TABLET PO SCH ×2 (08:34→17:14)
[2018-07-03] MEDS: 0.45 % SODIUM CHLORIDE 1,000 ML IV SCH (08:34)
[2018-07-03] MEDS: SODIUM BICARBONATE 650 MG TABLET PO SCH ×2 (09:03→21:25)
[2018-07-03] MEDS: cefTRIAXone 1 GM VIAL IV SCH (09:04)
[2018-07-03] MEDS: BACLOFEN 10 MG TABLET PO SCH ×2 (09:04→21:25)
[2018-07-03] MEDS: HEPARIN 5,000 UNIT/ML VIAL SQ SCH ×2 (09:05→21:26)
[2018-07-03] MEDS: ASPIRIN 81 MG TAB.CHEW PO SCH (09:05)
--- NOTE | 2018-07-03 11:56 | Internal Med Progress Note ---
Medical - PN: Subj Patient information: Note initiated : 07/03/18 at 11:54 am Service Date, if different from initiated Date: [] Patient: Radha Dumont a 67 y/o F admitted on 06/27/18 for kidney problems. Chief Complaint: f/u FORD, encephalopathy Interval history: 06/27 Ms. Dumont is a 67 year old F to the ER by her primary care provider for elevated creatinine on routine blood work. 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 This was found out during her workup for her abdominal aortic aneurysm that was done up in kidney. She has had nephrostomy tubes and subsequently had them removed and replaced with stents and then had a stent change May [address] Palacio. Creatinine during her hospitalization got up 11, then after intervention her creatinine typically runs around 3, with labs today showing creatinine 9.3. Renal ultrasound shows worsening right hydronephrosis concerning for failure of that stent. She is asymptomatic and is urinating. Case discussed with Dr. Workman as well as Dr. Palacios. Dr. Palacios will see the patient and replaced the stents tomorrow. Of note, she also was hospitalized at [facility] for several days for a bleeding peptic ulcer she was discharged on 06/04. Current medications include aspirin and Plavix. 06/28 Poor sleep last night has overall body pain. Does have a history of chronic pain. No other pains or complaints. 06/29 had seizure-like activity and AMS, was given 1mg ativan with and improvement, pt has been relatively sedated since, waking up occasionally. She told the nurse her name this morning, but i am unable to get her to answer questions. She will open her eyes to sternal rub and look at me momentarily before going back to sleep again. She does follow commands. Per nurses discussion with pt last night, sounds like she almost history of occasional myoclonus, question whether or not this is uremia and myoclonus or seizure. Unable to gather review of systems because of altered state. 06/30 Confused and disoriented overnight did not follow commands or answer questions had spontaneous movement of all extremities. When I saw her this morning she was laying recumbent grabbing the side rail and seemed to be moaning a little bit. I asked her to squeeze my hand she follow that command I asked her to move her feet she follow that command. I spoke to her labs and called her name and she made eye contact with me. When asked if she was in pain she nodded her head no. Could not get her to answer questions. She had dialysis yesterday evening. 07/01 Intermittently complaining of nausea and having emesis today. Sleeping frequently, when awake, start shaking, becomes nauseated. Has occasional myoclonic jerking at times. This evening was feeling somewhat improved. Dental status significantly improved in the last 24 hours however. 07/02 States she feels better this morning. Slept a lot last night. Less shakiness and less occasional jerking movements. Was able to keep down nephro this morning. Intermittent nausea, but not as bad. Does complain of some diffuse abdominal pain. 07/03 Still having nausea, though was able to keep down a fair amount of oral intake including Nepro. Mostly complaining of right leg and hip pain, which is chronic , has improved when she's been able to get up and out of bed. Still with occasional jerkiness and weakness. Overall mentation continues to slowly improve. - Constitutional Vitals: Vital Signs Temp Pulse Resp BP Pulse Ox 98.2 F 75 18 139/100 98 07/03/18 06:25 07/01/18 19:57 07/03/18 06:45 07/03/18 06:45 07/03/18 06:45 Period Temp Pulse Resp BP Sys/Hartman Pulse Ox Last 24 Hr 97.5 F-99.7 F 17-22 94-139/54-100 93-100 Intake and Output 07/02/18 07/03/18 07/03/18 21:59 05:59 13:59 Intake Total 1190 / 1190 150 / 150 1360 / 1360 Output Total 1000 / 1000 1350 / 1350 Balance 190 / 190 -1200 / -1200 1360 / 1360 Weight 162 lb 14.4 oz Intake & Output: Intake & Output 07/02/18 07/03/18 07/03/18 21:59 05:59 13:59 Intake Total 1190 / 1190 150 / 150 1360 / 1360 Output Total 1000 / 1000 1350 / 1350 Balance 190 / 190 -1200 / -1200 1360 / 1360 Weight 162 lb 14.4 oz Intake: IV 1000 / 1000 Sodium Chloride 0.45% 1,000 ml 1000 / 1000 @ 50 mls/hr IV .Q20H [facility] Rx#: [id number] Oral 1190 / 1190 150 / 150 360 / 360 Output: Urine Catheter Amount 1000 / 1000 1350 / 1350 Other: Meal Nourishment/Supplement Nourishment/Supplement Percent of Meal Consumed 100% 100% Feeding Ability Total Assistance Urine Appearance Clear Clear Uretheral (Guy) Clear Clear Urine Color Bright Yellow Pale Blood Tinged Uretheral (Guy) Bright Yellow Bright Yellow Blood Tinged Urine Odor Normal Stool Size Large Small Moderate Stool Color Brown Brown Brown Stool Consistency Soft Soft Soft Loose Loose # of times incontinent of 1 Bowels Exam: General: Alert, able to give good history Chest: Diminished at bases, otherwise clear, unlabored Cardiovascular: Regular Abdomen: Soft, nontender Neuro: Alert, oriented person, place, situation. Some generalized weakness, occasional jerking movement when attempting to sit up and hold herself upright. Improved. Medical - PN: Obj Da - Labs CBC & Chem 7: 07/03/18 04:00 07/03/18 04:00 Labs: Abnormal Lab Results 07/03/18 07/03/18 07/02/18 04:00 04:00 04:03 WBC 11.4 H RBC 3.04 L Hgb 9.1 L Hct 27.1 L RDW 16.2 H Plt Count 526 H Carbon Dioxide Anion Gap 18.0 H BUN 40 H 43 H Creatinine 3.7 H 4.2 H Phosphorus 4.7 H GGT 37 H Lactate Dehydrogenase 282 H Albumin 3.1 L Globulin 4.6 H 4.7 H Albumin/Globulin Ratio 0.7 L 0.7 L Triglycerides 353 H 293 H 07/02/18 07/01/18 07/01/18 04:03 03:50 03:50 WBC RBC 2.99 L 3.04 L Hgb 8.9 L 8.8 L Hct 26.9 L 27.2 L RDW 16.3 H 16.2 H Plt Count 510 H 557 H Carbon Dioxide 19 L Anion Gap 21.0 H BUN 38 H Creatinine 4.9 H Phosphorus 4.9 H GGT Lactate Dehydrogenase Albumin 2.9 L Globulin 5.2 H Albumin/Globulin Ratio 0.6 L Triglycerides 241 H Meds: Medications Hydrocodone Bitart/Acetaminophen (Wenden 7.5/325mg) 1 tab PO Q4HP PRN PRN Reason: PAIN LEVEL 3-6 Last Admin: 07/03/18 06:19 Dose: 1 tab Alprazolam (Xanax) 0.5 mg PO QIDP PRN PRN Reason: Anxiety Last Admin: 07/02/18 21:52 Dose: 0.5 mg Amlodipine Besylate (Norvasc) 10 mg PO HS [facility] Last Admin: 07/02/18 20:26 Dose: 10 mg Aspirin (Aspirin) 81 mg PO DAILY [facility] Last Admin: 07/03/18 09:05 Dose: 81 mg Baclofen (Lioresal) 10 mg PO BID [facility] Last Admin: 07/03/18 09:04 Dose: 10 mg Bisacodyl (Dulcolax) 10 mg MT DAILYP PRN PRN Reason: Constipation [facility] Last Admin: 07/03/18 08:34 Dose: 12.5 mg Ceftriaxone Sodium (Rocephin) 1 gm IV Q24H [facility] Last Admin: 07/03/18 09:04 Dose: 1 gm Clonidine HCl (Catapres) 0.1 mg PO TIDP PRN PRN Reason: SBP>155 Heparin Sodium (Porcine) (Heparin) 5,000 unit SQ Q12 [facility] Last Admin: 07/03/18 09:05 Dose: 5,000 unit Hydralazine HCl (Apresoline) 0 mg IV Q8HP PRN PRN Reason: Hypertension Acetaminophen (Ofirmev) 1,000 mg in 100 mls @ 200 mls/hr IV Q6HP PRN PRN Reason: PAIN/FEVER > 101 Sodium Chloride (Sodium Chloride 0.45%) 1,000 mls @ 50 mls/hr IV .Q20H [facility] Last Admin: 07/03/18 08:34 Dose: 50 mls/hr Labetalol HCl (Trandate) 0 mg IV Q2HP PRN PRN Reason: Hypertension Ondansetron HCl (Zofran) 4 mg IV Q4HP PRN PRN Reason: Nausea And Vomiting Last Admin: 07/01/18 16:07 Dose: 4 mg Ondansetron HCl (Zofran Odt) 4 mg PO Q4-6HP PRN PRN Reason: Nausea Last Admin: 07/02/18 15:26 Dose: 4 mg Pantoprazole Sodium (Protonix) 40 mg IV QAMAC [facility] Last Admin: 07/03/18 07:59 Dose: 40 mg Prochlorperazine Edisylate (Compazine) 5 mg IV Q4-6HP PRN PRN Reason: Nausea And Vomiting Last Admin: 07/02/18 21:52 Dose: 5 mg Sevelamer Carbonate (Renvela) 800 mg PO TIDCC [facility] Last Admin: 07/03/18 08:34 Dose: 800 mg Simvastatin (Zocor) 20 mg PO QHS [facility] Last Admin: 07/02/18 20:27 Dose: 20 mg Sodium Bicarbonate (Sodium Bicarbonate) 1,300 mg PO BID [facility] Last Admin: 07/03/18 09:03 Dose: 1,300 mg Sodium Chloride (Saline Flush) 10 ml IV Q8 [facility] Last Admin: 07/03/18 09:04 Dose: 10 ml Medical - PN: A/P - Time Spent With Patient Total time spent is greater than 50% in coordination of care (as documented) at patient's floor/unit and/or counseling patient: Greater than 35 minutes - Narrative A/P Narrative: 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. Due to stent failure in setting of mechanical obstruction of the ureters from retroperitoneal fibrosis. Now s/p bilateral stent replacement on 06/[address] Palacios. Creatinine improved after hemodialysis, no hemodialysis since 06/30, creatinine continue slowly improve. Plan: Continue to monitor renal function, hemodialysis as needed. Holding sedating meds, we'll need to wean down baclofen over time. Encephalopathy. Improving. Suspected secondary to uremia, also toxic drug/ medication effects. Having myoclonus, improving, but not as rapidly as might expect. Plan: Hemodialysis as per nephrology, supportive care, allow uremia and drug toxicities clear Possible seizure-like activity, though subsequently more like myoclonus. May also be secondary to accumulation of several medications including baclofen and opioids. Plan: Monitor. Hyperkalemia secondary to renal failure. Resolved. Anemia secondary to chronic kidney disease. Monitor. Hypertension, on lisinopril and carvedilol at home. Lisinopril held due to FORD/ hyperkalemia. Receiving when necessary labetalol. Peripheral arterial disease. Continuing aspirin and Plavix. Anxiety. On Xanax as needed 3 times a day at home. If she has missed several doses, could explain part of her encephalopathy as well. Plan: Continue with when necessary Xanax. Urinary tract infection. On antibiotics. Urine culture with 6070 K of gram- negative bacillus as well as mixed skin aelxis. Peptic ulcer disease. On famotidine. F/E/N: Dobbhoff in place, however was able to keep down some nephro today. Continue to monitor, if unable to start significant oral intake by tomorrow, will consider tube feeds. -ppx: heparin/pepcid Medical - PN: Qual - VTE Deep Vein Thrombosis/Pulmonary Embolism Present on Admission: No
--- NOTE | 2018-07-03 13:03 | Nephrology Progress Note ---
Subjective Patient information: Note initiated : 07/03/18 at 1:01 pm Service Date, if different from initiated Date: [] Patient: Radha Dumont 67 y/o F admitted on 06/27/18 for kidney problems. Chief Complaint: [] Principal diagnosis: FORD/hyperkalemia Interval history: no overnight events mental status continues to improve, intermittent myoclonic jerks but much improved then before no SOB, CP does have weakness in LE, pain in right LE and will need PT good urinary output with improving renal function tolerating po denies nausea no concerns Pertinent ROS: as above Objective - Vital Signs Vital signs: Vital Signs Temp Resp BP Pulse Ox 07/03/18 12:08 98.2 F 13 120/76 95 07/03/18 06:45 18 139/100 98 07/03/18 06:25 98.2 F 22 139/100 98 07/03/18 05:00 100 07/03/18 04:01 97.8 F 20 98/80 97 07/03/18 00:01 97.5 F 19 94/54 93 07/02/18 19:48 98.5 F 17 133/67 100 07/02/18 15:20 99.7 F H 20 97/74 94 Intake and Output 07/02/18 07/03/18 07/03/18 21:59 05:59 13:59 Intake Total 1190 / 1190 150 / 150 1360 / 1360 Output Total 1000 / 1000 1350 / 1350 Balance 190 / 190 -1200 / -1200 1360 / 1360 Intake: IV 1000 / 1000 Sodium Chloride 0.45% 1,000 ml 1000 / 1000 @ 50 mls/hr IV .Q20H [facility] Rx#: [id number] Oral 1190 / 1190 150 / 150 360 / 360 Output: Urine Catheter Amount 1000 / 1000 1350 / 1350 Other: Meal Nourishment/Supplement Nourishment/Supplement Percent of Meal Consumed 100% 100% Feeding Ability Total Assistance Urine Appearance Clear Clear Uretheral (Guy) Clear Clear Urine Color Bright Yellow Pale Blood Tinged Uretheral (Guy) Bright Yellow Bright Yellow Blood Tinged Urine Odor Normal Stool Size Large Small Moderate Stool Color Brown Brown Brown Stool Consistency Soft Soft Soft Loose Loose # of times incontinent of 1 Bowels Weight 162 lb 14.4 oz Intake & Output: Intake & Output 07/02/18 07/03/18 07/03/18 21:59 05:59 13:59 Intake Total 1190 / 1190 150 / 150 1360 / 1360 Output Total 1000 / 1000 1350 / 1350 Balance 190 / 190 -1200 / -1200 1360 / 1360 Weight 162 lb 14.4 oz Intake: IV 1000 / 1000 Sodium Chloride 0.45% 1,000 ml 1000 / 1000 @ 50 mls/hr IV .Q20H [facility] Rx#: [id number] Oral 1190 / 1190 150 / 150 360 / 360 Output: Urine Catheter Amount 1000 / 1000 1350 / 1350 Other: Meal Nourishment/Supplement Nourishment/Supplement Percent of Meal Consumed 100% 100% Feeding Ability Total Assistance Urine Appearance Clear Clear Uretheral (Guy) Clear Clear Urine Color Bright Yellow Pale Blood Tinged Uretheral (Guy) Bright Yellow Bright Yellow Blood Tinged Urine Odor Normal Stool Size Large Small Moderate Stool Color Brown Brown Brown Stool Consistency Soft Soft Soft Loose Loose # of times incontinent of 1 Bowels - General Appearance General appearance: appears started age, chronically ill EENT: mucous membranes moist Respiratory: clear Cardiology: no rub, no edema, normal S1, normal S2 Gastrointestinal: no tenderness, no guarding Integumentary: warm and dry Neurologic: alert and oriented x3 Musculoskeletal: no erythema, no cyanosis Psychiatric: mood/affect appropriate - Lab 07/03/18 04:00 07/03/18 04:00 Most recent lab results Calcium 9.0 mg/dl (8.6-10.4) 07/03/18 04:00 Phosphorus 4.2 mg/dL (2.7-4.5) 07/03/18 04:00 Magnesium 1.7 mg/dL (1.6-2.5) 07/03/18 04:00 Assessment and Plan (1) Acute on chronic renal failure Status: Acute Qualifiers: Acute renal failure type: unspecified Chronic kidney disease stage: stage 5 , not on chronic dialysis Qualified Code(s): N17.9 - Acute kidney failure, unspecified; N18.5 - Chronic kidney disease, stage 5 (2) Anemia Status: Acute (3) Metabolic acidosis Status: Acute (4) Unspecified hydronephrosis Status: Chronic Qualifiers: Hydronephrosis type: with ureteropelvic junction obstruction Qualified Code (s): Q62.11 - Congenital occlusion of ureteropelvic junction - Narrative A/P Narrative: obstructive uropathy s.creatinine from 9.0-4.9-4.2-3.7 today non oliguric serum electrolytes stable no edema/s/o fluid excess no 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
[2018-07-03] MEDS: HYDROcodone/APAP 5/325MG TABLET PO PRN ×2 (17:20→21:25)
[2018-07-03] MEDS: SIMVASTATIN 20 MG TABLET PO SCH (21:25)
[2018-07-03] MEDS: amLODIPine 5 MG TABLET PO SCH (21:25)
[2018-07-03] MEDS: ALPRAZolam 0.5 MG TABLET PO PRN (21:29)
[2018-07-04] MEDS: ALPRAZolam 0.5 MG TABLET PO PRN ×2 (02:33→20:43)
[2018-07-04] MEDS: 0.45 % SODIUM CHLORIDE 1,000 ML IV SCH (02:41)
[2018-07-04] MEDS: 0.9 % SODIUM CHLORIDE 10 ML SYRINGE IV SCH ×4 (05:09→20:44)
[2018-07-04 06:35] LABS: Basophils # (Auto) 0.1 K/mcL (0.0-0.3); Basophils % (Auto) 0.5 % (0.0-2.0); Eosinophils # (Auto) 0.2 K/mcL (0.0-0.7); Eosinophils % (Auto) 2.2 % (0.0-7.0); Granulocytes % (Auto) 56.9 % (38.0-78.0); Lymphocytes # (Auto) 3.6 K/mcL (1.5-4.8); Lymphocytes % (Auto) 33.7 % (15.5-49.0); Mean Cell Volume 89.4 fL (80.0-100.0); Mean Corpuscular HGB Conc 33.1 g/dL (31.0-36.0); Mean Corpuscular Hemoglobin 29.6 pg (26.0-34.0); Monocytes # (Auto) 0.7 K/mcL (0.1-0.9); Monocytes % (Auto) 6.7 % (1.0-12.0); Platelet Count 449 K/mcL (140-440); RBC 2.83 M/mcL (4.00-5.20)
[2018-07-04 07:11] LABS: ALT/SGPT 10 U/l (0-40); Albumin 2.9 gm/dL (3.2-5.2); Albumin/Globulin Ratio 0.7 (1.0-2.3); Alkaline Phosphatase 99 U/L (39-117); Bilirubin,Direct < 0.2 mg/dL (0.0-0.3); Blood Urea Nitrogen 41 mg/dl (8-23); Gamma Glutamyl Transpeptidase 39 U/L (5-36); Uric Acid 4.7 mg/dL (2.5-8.0)
[2018-07-04] MEDS: PANTOPRAZOLE 40 MG VIAL IV SCH (07:34)
[2018-07-04] MEDS: ONDANSETRON 4 MG/2 ML VIAL IV PRN (08:15)
[2018-07-04] MEDS: CARVEDILOL 12.5 MG TABLET PO SCH ×2 (08:40→17:29)
[2018-07-04] MEDS: SEVELAMER 800 MG TABLET PO SCH ×3 (08:40→17:29)
--- NOTE | 2018-07-04 09:07 | Internal Med Progress Note ---
Medical - PN: Subj Patient information: Note initiated : 07/04/18 at 9:05 am Service Date, if different from initiated Date: [] Patient: Radha Dumont a 67 y/o F admitted on 06/27/18 for kidney problems. Chief Complaint: f/u ARF Interval history: 06/27 Ms. Dumont is a 67 year old F to the ER by her primary care provider for elevated creatinine on routine blood work. 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 This was found out during her workup for her abdominal aortic aneurysm that was done up in kidney. She has had nephrostomy tubes and subsequently had them removed and replaced with stents and then had a stent change May [address] Palacio. Creatinine during her hospitalization got up 11, then after intervention her creatinine typically runs around 3, with labs today showing creatinine 9.3. Renal ultrasound shows worsening right hydronephrosis concerning for failure of that stent. She is asymptomatic and is urinating. Case discussed with Dr. Workman as well as Dr. Palacios. Dr. Palacios will see the patient and replaced the stents tomorrow. Of note, she also was hospitalized at [facility] for several days for a bleeding peptic ulcer she was discharged on 06/04. Current medications include aspirin and Plavix. 06/28 Poor sleep last night has overall body pain. Does have a history of chronic pain. No other pains or complaints. 06/29 had seizure-like activity and AMS, was given 1mg ativan with and improvement, pt has been relatively sedated since, waking up occasionally. She told the nurse her name this morning, but i am unable to get her to answer questions. She will open her eyes to sternal rub and look at me momentarily before going back to sleep again. She does follow commands. Per nurses discussion with pt last night, sounds like she almost history of occasional myoclonus, question whether or not this is uremia and myoclonus or seizure. Unable to gather review of systems because of altered state. 06/30 Confused and disoriented overnight did not follow commands or answer questions had spontaneous movement of all extremities. When I saw her this morning she was laying recumbent grabbing the side rail and seemed to be moaning a little bit. I asked her to squeeze my hand she follow that command I asked her to move her feet she follow that command. I spoke to her labs and called her name and she made eye contact with me. When asked if she was in pain she nodded her head no. Could not get her to answer questions. She had dialysis yesterday evening. 07/01 Intermittently complaining of nausea and having emesis today. Sleeping frequently, when awake, start shaking, becomes nauseated. Has occasional myoclonic jerking at times. This evening was feeling somewhat improved. Dental status significantly improved in the last 24 hours however. 07/02 States she feels better this morning. Slept a lot last night. Less shakiness and less occasional jerking movements. Was able to keep down nephro this morning. Intermittent nausea, but not as bad. Does complain of some diffuse abdominal pain. 07/03 Still having nausea, though was able to keep down a fair amount of oral intake including Nepro. Mostly complaining of right leg and hip pain, which is chronic , has improved when she's been able to get up and out of bed. Still with occasional jerkiness and weakness. Overall mentation continues to slowly improve. 07/04 Overall continues to slowly improve. By mouth intake is been increasing, though did have episode of nausea this morning. Does complain of some lightheadedness when she's been up in the chair for a while, sometimes movement is associated with nausea, though she is not having any vertiginous symptoms. Fewer myoclonic jerks. - Constitutional Vitals: Vital Signs Temp Pulse Resp BP Pulse Ox 99.6 F H 74 18 132/93 96 07/04/18 07:45 07/04/18 05:57 07/04/18 07:45 07/04/18 07:45 07/04/18 07:45 Period Temp Pulse Resp BP Sys/Hartman Pulse Ox Last 24 Hr 97.4 F-99.6 F 65-74 13-20 116-139/64-93 86-100 Intake and Output 07/03/18 07/04/18 07/04/18 21:59 05:59 13:59 Intake Total 1240 / 1240 1385 / 1385 Output Total 625 / 625 1175 / 1175 775 / 775 Balance 615 / 615 210 / 210 -775 / -775 Weight 166 lb Intake & Output: Intake & Output 07/03/18 07/04/18 07/04/18 21:59 05:59 13:59 Intake Total 1240 / 1240 1385 / 1385 Output Total 625 / 625 1175 / 1175 775 / 775 Balance 615 / 615 210 / 210 -775 / -775 Weight 166 lb Intake: IV 905 / 905 Sodium Chloride 0.45% 1,000 ml 905 / 905 @ 50 mls/hr IV .Q20H [facility] Rx#: [id number] Oral 1240 / 1240 480 / 480 Output: Urine Catheter Amount 625 / 625 1175 / 1175 775 / 775 Other: Meal Dinner Percent of Meal Consumed 50% Feeding Ability Assist with Tray Set Up Urine Appearance Clear Clear Clear Uretheral (Guy) Clear Urine Color Dark Yellow Bright Yellow Pale Blood Tinged Uretheral (Guy) Bright Yellow Blood Tinged Urine Odor Normal Normal Stool Size Small Stool Color Brown Stool Consistency Loose # of times incontinent of 1 Bowels Exam: General: Sitting up in chair, little uncomfortable appearing, has just received Zofran Chest: Clear, unlabored; dialysis catheter intact Cardiovascular: Regular Abdomen: Soft, very mild epigastric tenderness, bowel sounds present Neuro: Alert, oriented person, place, situation, generally weak. No myoclonic jerking noted when holding her body erect. Medical - PN: Obj Da - Labs CBC & Chem 7: 07/04/18 03:35 07/04/18 03:35 Labs: Abnormal Lab Results 07/04/18 07/04/18 07/03/18 03:35 03:35 04:00 WBC RBC 2.83 L Hgb 8.4 L Hct 25.3 L RDW 16.0 H Plt Count 449 H Potassium 3.1 L Anion Gap BUN 41 H 40 H Creatinine 3.1 H 3.7 H Calcium 8.4 L Phosphorus GGT 39 H Lactate Dehydrogenase Albumin 2.9 L Globulin 4.1 H 4.6 H Albumin/Globulin Ratio 0.7 L 0.7 L Triglycerides 337 H 353 H 07/03/18 07/02/18 07/02/18 04:00 04:03 04:03 WBC 11.4 H RBC 3.04 L 2.99 L Hgb 9.1 L 8.9 L Hct 27.1 L 26.9 L RDW 16.2 H 16.3 H Plt Count 526 H 510 H Potassium Anion Gap 18.0 H BUN 43 H Creatinine 4.2 H Calcium Phosphorus 4.7 H GGT 37 H Lactate Dehydrogenase 282 H Albumin 3.1 L Globulin 4.7 H Albumin/Globulin Ratio 0.7 L Triglycerides 293 H Meds: Medications Hydrocodone Bitart/Acetaminophen (Penrose 5/325mg) 1 tab PO Q4HP PRN PRN Reason: PAIN LEVEL 3-6 Last Admin: 07/03/18 21:25 Dose: 1 tab Alprazolam (Xanax) 0.5 mg PO QIDP PRN PRN Reason: Anxiety Last Admin: 07/04/18 02:33 Dose: 0.5 mg Amlodipine Besylate (Norvasc) 10 mg PO HS [facility] Last Admin: 07/03/18 21:25 Dose: 10 mg Aspirin (Aspirin) 81 mg PO DAILY [facility] Last Admin: 07/03/18 09:05 Dose: 81 mg Baclofen (Lioresal) 10 mg PO BID [facility] Last Admin: 07/03/18 21:25 Dose: 10 mg Bisacodyl (Dulcolax) 10 mg IA DAILYP PRN PRN Reason: Constipation Carvedilol (Coreg) 12.5 mg PO BIDCC [facility] Last Admin: 07/04/18 08:40 Dose: 12.5 mg Ceftriaxone Sodium (Rocephin) 1 gm IV Q24H [facility] Last Admin: 07/03/18 09:04 Dose: 1 gm Clonidine HCl (Catapres) 0.1 mg PO TIDP PRN PRN Reason: SBP>155 Heparin Sodium (Porcine) (Heparin) 5,000 unit SQ Q12 [facility] Last Admin: 07/03/18 21:26 Dose: 5,000 unit Hydralazine HCl (Apresoline) 0 mg IV Q8HP PRN PRN Reason: Hypertension Acetaminophen (Ofirmev) 1,000 mg in 100 mls @ 200 mls/hr IV Q6HP PRN PRN Reason: PAIN/FEVER > 101 Sodium Chloride (Sodium Chloride 0.45%) 1,000 mls @ 50 mls/hr IV .Q20H [facility] Last Admin: 07/04/18 02:41 Dose: 50 mls/hr Labetalol HCl (Trandate) 0 mg IV Q2HP PRN PRN Reason: Hypertension Ondansetron HCl (Zofran) 4 mg IV Q4HP PRN PRN Reason: Nausea And Vomiting Last Admin: 07/04/18 08:15 Dose: 4 mg Ondansetron HCl (Zofran Odt) 4 mg PO Q4-6HP PRN PRN Reason: Nausea Last Admin: 07/02/18 15:26 Dose: 4 mg Pantoprazole Sodium (Protonix) 40 mg IV QAMAC [facility] Last Admin: 07/04/18 07:34 Dose: 40 mg Prochlorperazine Edisylate (Compazine) 5 mg IV Q4-6HP PRN PRN Reason: Nausea And Vomiting Last Admin: 07/02/18 21:52 Dose: 5 mg Sevelamer Carbonate (Renvela) 800 mg PO TIDCC [facility] Last Admin: 07/04/18 08:40 Dose: 800 mg Simvastatin (Zocor) 20 mg PO QHS [facility] Last Admin: 07/03/18 21:25 Dose: 20 mg Sodium Bicarbonate (Sodium Bicarbonate) 1,300 mg PO BID [facility] Last Admin: 07/03/18 21:25 Dose: 1,300 mg Sodium Chloride (Saline Flush) 10 ml IV Q8 [facility] Last Admin: 07/04/18 05:09 Dose: Not Given Medical - PN: A/P - Time Spent With Patient Total time spent is greater than 50% in coordination of care (as documented) at patient's floor/unit and/or counseling patient: 25 - 35 minutes - Narrative A/P Narrative: 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. Due to stent failure in setting of mechanical obstruction of the ureters from retroperitoneal fibrosis. Now s/p bilateral stent replacement on 06/[address] Palacios. Creatinine improved after hemodialysis, no hemodialysis since 06/30, creatinine continue slowly improve/ approach baseline. Plan: Continue to monitor renal function. Holding sedating meds, will need to wean down baclofen over time. Encephalopathy. Improving. Suspected secondary to uremia, also toxic drug/ medication effects. Having myoclonus, continues to improve. Plan: Supportive care, allow uremia and drug toxicities clear; likely does not need further dialysis at this point Possible seizure-like activity, though subsequently more like myoclonus. May also be secondary to accumulation of several medications including baclofen and opioids. Plan: Monitor. Hyperkalemia secondary to renal failure. Resolved. Anemia secondary to chronic kidney disease. Monitor. Hypertension, on lisinopril and carvedilol at home. Lisinopril held due to FORD/ hyperkalemia. Receiving when necessary labetalol. Peripheral arterial disease. Continuing aspirin and Plavix. Anxiety. On Xanax as needed 3 times a day at home. If she has missed several doses, could explain part of her encephalopathy as well. Plan: Continue with when necessary Xanax. Urinary tract infection. On antibiotics. Urine culture with 6070 K of gram- negative bacillus as well as mixed skin alexis. Peptic ulcer disease. On famotidine. F/E/N: Dobbhoff in place, however was able to keep down some nephro today. Continue to monitor, if unable to start significant oral intake by tomorrow, will consider tube feeds. -ppx: heparin/pepcid Medical - PN: Qual - VTE Deep Vein Thrombosis/Pulmonary Embolism Present on Admission: No
[2018-07-04] MEDS: BACLOFEN 10 MG TABLET PO SCH ×2 (09:30→20:42)
[2018-07-04] MEDS: SODIUM BICARBONATE 650 MG TABLET PO SCH ×2 (09:31→20:42)
[2018-07-04] MEDS: ASPIRIN 81 MG TAB.CHEW PO SCH (09:31)
[2018-07-04] MEDS: cefTRIAXone 1 GM VIAL IV SCH (09:31)
[2018-07-04] MEDS: HEPARIN 5,000 UNIT/ML VIAL SQ SCH ×2 (09:31→20:44)
[2018-07-04] MEDS ORDERED: POTASSIUM CHLORIDE 20 MEQ PACKET PO ONE (10:50)
--- NOTE | 2018-07-04 16:03 | Nephrology Progress Note ---
Subjective Patient information: Note initiated : 07/04/18 at 4:01 pm Service Date, if different from initiated Date: [] Patient: Radha Dumont 67 y/o F admitted on 06/27/18 for kidney problems. Chief Complaint: [] Principal diagnosis: FORD/hyperkalemia Interval history: no overnight events feels better eating more no SOB, CP, edema more alert and oriented states was not taking antihypertensives at home also has issues with nausea, chronic, even at home Pertinent ROS: as above Objective - Vital Signs Vital signs: Vital Signs Temp Pulse Resp BP BP BP Pulse Ox 07/04/18 15:46 97.4 F 16 111/66 96 07/04/18 12:00 97.2 F 16 100/68 97 07/04/18 07:45 99.6 F H 18 132/93 96 07/04/18 07:40 18 132/93 96 07/04/18 05:57 74 07/04/18 05:00 98 07/04/18 04:00 97.9 F 20 127/85 100 07/04/18 00:37 99 07/04/18 00:15 86 L 07/04/18 00:00 98.6 F 20 116/64 92 07/03/18 20:00 98.6 F 20 133/78 97 07/03/18 19:37 65 07/03/18 19:00 20 133/78 96 Intake and Output 07/04/18 07/04/18 07/04/18 05:59 13:59 21:59 Intake Total 1385 / 1385 1126 / 1126 Output Total 1175 / 1175 1075 / 1075 Balance 210 / 210 51 / 51 Intake: IV 905 / 905 466 / 466 Sodium Chloride 0.45% 1,000 ml 905 / 905 466 / 466 @ 50 mls/hr IV .Q20H [facility] Rx#: [id number] Oral 480 / 480 660 / 660 Output: Urine Catheter Amount 1175 / 1175 1075 / 1075 Other: Meal Nourishment/Supplement Percent of Meal Consumed 100% Feeding Ability Independent Urine Appearance Clear Clear Uretheral (Snow) Clear Urine Color Bright Yellow Pale Blood Tinged Uretheral (Snow) Pale Urine Odor Normal Stool Size Moderate Stool Color Brown Stool Consistency Loose # Bowel Movements 1 # of times incontinent of 1 Bowels Intake & Output: Intake & Output 12/03/18 12/03/18 12/03/18 05:59 13:59 21:59 Intake Total 1385 / 1385 1126 / 1126 Output Total 1175 / 1175 1075 / 1075 Balance 210 / 210 51 / 51 Intake: IV 905 / 905 466 / 466 Sodium Chloride 0.45% 1,000 ml 905 / 905 466 / 466 @ 50 mls/hr IV .Q20H [facility] Rx#: [id number] Oral 480 / 480 660 / 660 Output: Urine Catheter Amount 1175 / 1175 1075 / 1075 Other: Meal Nourishment/Supplement Percent of Meal Consumed 100% Feeding Ability Independent Urine Appearance Clear Clear Uretheral (Snow) Clear Urine Color Bright Yellow Pale Blood Tinged Uretheral (Snow) Pale Urine Odor Normal Stool Size Moderate Stool Color Brown Stool Consistency Loose # Bowel Movements 1 # of times incontinent of 1 Bowels - General Appearance General appearance: appears started age, chronically ill, frail EENT: mucous membranes moist Neck: no JVD Respiratory: clear Cardiology: no rub, no edema, regular rate, regular rhythm Gastrointestinal: no tenderness, no guarding Integumentary: no rash, warm and dry Neurologic: alert and oriented x3 Musculoskeletal: no erythema, no clubbing Psychiatric: mood/affect appropriate - Lab 07/04/18 03:35 07/04/18 03:35 Most recent lab results Calcium 8.4 mg/dl (8.6-10.4) L 07/04/18 03:35 Phosphorus 3.7 mg/dL (2.7-4.5) 07/04/18 03:35 Magnesium 1.6 mg/dL (1.6-2.5) 07/04/18 03:35 Assessment and Plan (1) Acute on chronic renal failure Status: Acute Qualifiers: Acute renal failure type: unspecified Chronic kidney disease stage: stage 5 , not on chronic dialysis Qualified Code(s): N17.9 - Acute kidney failure, unspecified; N18.5 - Chronic kidney disease, stage 5 (2) Anemia Status: Acute (3) Metabolic acidosis Status: Acute (4) Unspecified hydronephrosis Status: Chronic Qualifiers: Hydronephrosis type: with ureteropelvic junction obstruction Qualified Code (s): Q62.11 - Congenital occlusion of ureteropelvic junction - Narrative A/P Narrative: obstructive uropathy s.creatinine from 9.0-4.9-4.2-3.7-3.1today non oliguric hypokalemia no edema/s/o fluid excess no need for [employer] d/c iv fluids, snow, will remove dialysis catheter as well dose meds to egfr avoid nephrotoxic medications HTN: Control better continue coreg and amlodipine, prn clonidine anemia: Hb stable, etiology multifactorial secondary hyperparathyroidism: ct sevelamer, renal diet obstructive uropathy: repeat US with no hydronephrosis s/p revision of the displaced ureteral stent Thank you for giving me an opportunity to participate in Ms Dumont's medical care, appreciate it
[2018-07-04] MEDS: HYDROcodone/APAP 5/325MG TABLET PO PRN (19:55)
[2018-07-04] MEDS: amLODIPine 5 MG TABLET PO SCH (20:41)
[2018-07-04] MEDS: SIMVASTATIN 20 MG TABLET PO SCH (20:43)
[2018-07-05] MEDS: HYDROcodone/APAP 5/325MG TABLET PO PRN ×2 (04:14→08:49)
[2018-07-05] MEDS: 0.9 % SODIUM CHLORIDE 10 ML SYRINGE IV SCH (06:12)
[2018-07-05] MEDS: PANTOPRAZOLE 40 MG VIAL IV SCH (07:13)
[2018-07-05] MEDS: CARVEDILOL 12.5 MG TABLET PO SCH (07:13)
[2018-07-05] MEDS: SEVELAMER 800 MG TABLET PO SCH ×2 (07:13→11:49)
[2018-07-05] MEDS: SODIUM BICARBONATE 650 MG TABLET PO SCH (08:48)
[2018-07-05] MEDS: BACLOFEN 10 MG TABLET PO SCH (08:48)
[2018-07-05] MEDS: ASPIRIN 81 MG TAB.CHEW PO SCH (08:48)
[2018-07-05] MEDS: HEPARIN 5,000 UNIT/ML VIAL SQ SCH (08:49)
[2018-07-05] MEDS: cefTRIAXone 1 GM VIAL IV SCH (09:07)
--- NOTE | 2018-07-05 09:58 | Discharge Summary ---
Medical - DS: Prov Patient information: Note initiated : 07/05/18 at 9:53 am Service Date, if different from initiated Date: [] Patient: Radha Dumont 67 y/o F admitted on 06/27/18 for kidney problems. Chief Complaint: [] Date of admission: 06/27/18 20:07 Discharge date: 07/05/18 Primary care physician: Erika Palacio Consults: 06/27/18 Consult to Physician [CONS] Stat Comment: Consulting Provider: Marck Mejia Reason For Exam: Physician to Consult Consult to Physician [CONS] Stat Comment: Consulting Provider: Zacarias Palacios Reason For Exam: Physician to Consult 06/27/18 20:13 Consult to Physician [CONS] Routine Comment: Consulting Provider: Sally Workman Reason For Exam: Physician to Consult 06/29/18 05:06 Consult to Physician [CONS] Stat Comment: AMS- Rapid Response Code Stroke Consulting Provider: Marck Mejia Reason For Exam: Physician to Consult Medical - DS: Meds - Discharge Medications Active and Home Medications: Home Medications aspirin 81 mg tablet 81 mg PO QDAY 06/15/18 [History Confirmed 06/27/18 Last Taken Unknown] clopidogrel 75 mg tablet 75 mg PO QDAY 06/15/18 [History Confirmed 06/27/18 Last Taken Unknown] hydrocodone 7.5 mg-acetaminophen 325 mg tablet 1 tab PO BID tab 06/15/18 [ History Confirmed 06/27/18 Last Taken Unknown] simvastatin 20 mg tablet 20 mg PO QHS 06/15/18 [History Confirmed 06/27/18 Last Taken Unknown] alprazolam 0.5 mg tablet 0.5 mg PO QID PRN tab 06/16/18 [History Confirmed Last Taken Unknown] ondansetron 4 mg disintegrating tablet 4 mg PO .COMPLEX PRN 06/16/18 [History Confirmed 06/27/18 Last Taken Unknown] sevelamer carbonate 0.8 gram oral powder packet 800 mg PO TID 06/16/18 [History Confirmed 06/27/18 Last Taken Unknown] Baclofen [Lioresal] 10 mg PO BID tablet 07/05/18 [Rx Last Taken Unknown] Carvedilol [Coreg] 12.5 mg PO BIDCC tablet 07/05/18 [Rx Last Taken Unknown] amLODIPine [Norvasc] 10 mg PO HS tablet 07/05/18 [Rx Last Taken Unknown] Medical - DS: Hosp Hospital course: Discharge diagnosis * Acute kidney injury-requiring temporary hemodialysis. In the setting of mechanical obstruction of ureter and stent malpositioning. Status post bilateral stent placement 06/[address] Giraldo urology. Patient clinically improved. He will I's catheter discontinued. We will follow-up with nephrology as an outpatient. Discharging today * Encephalopathy secondary to uremia/coccyx secondary to medication effects. Clinically improved. Will need to lower baclofen dose over time. * Intermittent myoclonus secondary to medication effect. Clinically improving. * Hyperkalemia resolved post dialysis * Anemia secondary to chronic kidney disease stable-we will follow-up with nephrology * History of hypertension lisinopril held continue Coreg/clonidine/amlodipine as per nephrology recommendations will continue follow-up with nephrology as outpatient. 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 This was found out during her workup for her abdominal aortic aneurysm that was done up in kidney. She has had nephrostomy tubes and subsequently had them removed and replaced with stents and then had a stent change May [address] Palacio. Creatinine during her hospitalization got up 11, then after intervention her creatinine typically runs around 3, with labs today showing creatinine 9.3. Renal ultrasound shows worsening right hydronephrosis concerning for failure of that stent. She is asymptomatic and is urinating. Case discussed with Dr. Workman as well as Dr. Palacios. Dr. Palacios will see the patient and replaced the stents tomorrow. Of note, she also was hospitalized at [facility] for several days for a bleeding peptic ulcer she was discharged on 06/04. Current medications include aspirin and Plavix. 06/28 Poor sleep last night has overall body pain. Does have a history of chronic pain. No other pains or complaints. 06/29 had seizure-like activity and AMS, was given 1mg ativan with and improvement, pt has been relatively sedated since, waking up occasionally. She told the nurse her name this morning, but i am unable to get her to answer questions. She will open her eyes to sternal rub and look at me momentarily before going back to sleep again. She does follow commands. Per nurses discussion with pt last night, sounds like she almost history of occasional myoclonus, question whether or not this is uremia and myoclonus or seizure. Unable to gather review of systems because of altered state. 06/30 Confused and disoriented overnight did not follow commands or answer questions had spontaneous movement of all extremities. When I saw her this morning she was laying recumbent grabbing the side rail and seemed to be moaning a little bit. I asked her to squeeze my hand she follow that command I asked her to move her feet she follow that command. I spoke to her labs and called her name and she made eye contact with me. When asked if she was in pain she nodded her head no. Could not get her to answer questions. She had dialysis yesterday evening. 07/01 Intermittently complaining of nausea and having emesis today. Sleeping frequently, when awake, start shaking, becomes nauseated. Has occasional myoclonic jerking at times. This evening was feeling somewhat improved. Dental status significantly improved in the last 24 hours however. 07/02 States she feels better this morning. Slept a lot last night. Less shakiness and less occasional jerking movements. Was able to keep down nephro this morning. Intermittent nausea, but not as bad. Does complain of some diffuse abdominal pain. 07/03 Still having nausea, though was able to keep down a fair amount of oral intake including Nepro. Mostly complaining of right leg and hip pain, which is chronic , has improved when she's been able to get up and out of bed. Still with occasional jerkiness and weakness. Overall mentation continues to slowly improve. 07/04 Overall continues to slowly improve. By mouth intake is been increasing, though did have episode of nausea this morning. Does complain of some lightheadedness when she's been up in the chair for a while, sometimes movement is associated with nausea, though she is not having any vertiginous symptoms. Fewer myoclonic jerks. 07/05-patient discharging in stable state with advised to continue follow-up with nephrology/recommendation as per nephrology. Detailed discharge instructions below. No overnight events. No concerns per staff. Hemodynamic catheter discontinued. Discharge diagnosis: . - Time Spent with Patient Total time spent providing and/or coordinating discharge services: Greater than 30 minutes Medical - DS: Exam - Constitutional Vitals: Vital Signs Temp Pulse Pulse Pulse Resp BP BP 07/05/18 08:00 64 64 64 18 119/78 119/78 18 07:31 07/05/18 04:16 97.0 F 64 16 07/04/18 23:29 97.2 F 64 20 07/04/18 19:38 98.1 F 20 07/04/18 15:46 97.4 F 16 07/04/18 12:00 97.2 F 16 BP BP Pulse Ox 07/05/18 08:00 99 07/05/18 07:31 99 07/05/18 04:16 142/94 96 07/04/18 23:29 101/70 94 07/04/18 19:38 126/96 99 07/04/18 15:46 111/66 96 07/04/18 12:00 100/68 97 Intake and Output 07/04/18 07/05/18 07/05/18 21:59 05:59 13:59 Intake Total 240 / 240 720 / 720 240 / 240 Output Total 600 / 600 1 / Balance -360 / -360 719 / 719 240 / 240 Intake: Oral 240 / 240 720 / 720 240 / 240 Output: Void Amount 600 / 600 0 / 0 # of times incontinent of urine 0 / 0 / Other: Meal Nourishment/Supplement Breakfast Percent of Meal Consumed 100% 100% Urine Appearance Clear Clear Urine Color Bright Yellow Bright Yellow Urine Odor Normal Strong Stool Size Small Small Stool Color Brown Brown Stool Consistency Formed Soft # Voids 1 1 # Bowel Movements 1 # of times incontinent of 0 Bowels Weight 171 lb Medical - DS: Data Labs on day of discharge: Labs from last 24 hours 07/05/18 09:04 Sodium Pending Potassium Pending Chloride Pending Carbon Dioxide Pending Anion Gap Pending BUN Pending Creatinine Pending GFR Calculation Pending Glucose Pending Uric Acid Pending Calcium Pending Phosphorus Pending Magnesium Pending Total Bilirubin Pending Direct Bilirubin Pending GGT Pending AST Pending ALT Pending Alkaline Phosphatase Pending Lactate Dehydrogenase Pending Total Protein Pending Albumin Pending Globulin Pending Albumin/Globulin Ratio Pending Triglycerides Pending Medical - DS: A/P - Patient/Caregiver Discharge Instructions Activity: increase activity as tolerated Diet: Renal/Consistent Carbs Additional Instructions: Follow-up PCP in 5 days Follow-up nephrology in 1 week F/u orthopedics as scheduled by orthopedics ~ jul 11 Orthopedics boot. I recommend SNF physician to check CBC BMP UA as a posthospital follow-up in 1 week. Continue aggressive PT OT evaluation and treatment at SNF. ST eval and treatment if indicated All meals on chair sitting upright at 90 degrees to prevent aspiration Return to ER if fever chills shortness of breath, diarrhea, bleeding Continue diet and activity as advised Discussed importance of medication adherence Please review medication list with patient prior to discharge Please schedule follow-up with PCP/Providers prior to discharge and provide printouts - Follow up Plan Follow up with: Erika Palacio ARNP [Primary Care Provider] - Disposition: Xfer [facility] Prognosis: Serious Rehab Potential: Fair I certify that the patient requires SNF services: Yes Overall status at discharge: patient is progressing back to baseline Medical - DS: Qual - VTE Deep Vein Thrombosis/Pulmonary Embolism Present on Admission: No
[2018-07-05 10:04] LABS: ALT/SGPT 15 U/l (0-40); Albumin 3.5 gm/dL (3.2-5.2); Albumin/Globulin Ratio 0.8 (1.0-2.3); Alkaline Phosphatase 108 U/L (39-117); Bilirubin,Direct < 0.2 mg/dL (0.0-0.3); Blood Urea Nitrogen 42 mg/dl (8-23); Gamma Glutamyl Transpeptidase 45 U/L (5-36); Uric Acid 4.8 mg/dL (2.5-8.0)
--- NOTE | 2018-07-05 16:10 | Nephrology Progress Note ---
Subjective Patient information: Note initiated : 07/05/18 at 4:07 pm Service Date, if different from initiated Date: [] Patient: Radha Dumont 67 y/o F admitted on 06/27/18 for kidney problems. Chief Complaint: [] Principal diagnosis: FORD/hyperkalemia Interval history: no overnight events continues to feel better appetite good, no nausea, vomiting no SOB, CP no edema s.creatinine trending down possible discharge to rehab today Pertinent ROS: as above Objective - Vital Signs Vital signs: Vital Signs Temp Pulse Pulse Pulse Resp BP BP 07/05/18 12:10 97.9 F 60 64 60 14 127/82 07/05/18 11:14 97.9 F 60 60 14 127/82 07/05/18 08:00 64 64 64 18 119/78 119/78 07/05/18 07:31 07/05/18 04:16 97.0 F 64 16 07/04/18 23:29 97.2 F 64 20 07/04/18 19:38 98.1 F 20 BP BP Pulse Ox 07/05/18 12:10 126/96 142/94 96 07/05/18 11:14 96 07/05/18 08:00 99 07/05/18 07:31 99 07/05/18 04:16 142/94 96 07/04/18 23:29 101/70 94 07/04/18 19:38 126/96 99 Intake and Output 07/05/18 07/05/18 07/05/18 05:59 13:59 21:59 Intake Total 720 / 720 590 / 590 Output Total 525 / 525 Balance 719 / 719 65 Intake: Oral 720 / 720 590 / 590 Output: Void Amount 0 / 0 525 / 525 # of times incontinent of urine Other: Meal Dinner Percent of Meal Consumed 100% Feeding Ability Independent Urine Appearance Clear Urine Color Pale Urine Odor Strong Stool Size Small Stool Color Brown Stool Consistency Soft # Voids 1 1 Weight 171 lb Patient Weight 07/06/18 05:59 Weight 171 lb Intake & Output: Intake & Output 07/05/18 07/05/18 07/05/18 05:59 13:59 21:59 Intake Total 720 / 720 590 / 590 Output Total 525 / 525 Balance 719 / 719 65 65 Weight 171 lb Intake: Oral 720 / 720 590 / 590 Output: Void Amount 0 / 0 525 / 525 # of times incontinent of urine Other: Meal Dinner Percent of Meal Consumed 100% Feeding Ability Independent Urine Appearance Clear Urine Color Pale Urine Odor Strong Stool Size Small Stool Color Brown Stool Consistency Soft # Voids 1 1 - General Appearance General appearance: appears started age, chronically ill EENT: mucous membranes moist Neck: no JVD Respiratory: clear Cardiology: no rub, no edema, regular rate, regular rhythm Gastrointestinal: no tenderness, no guarding Integumentary: warm and dry Neurologic: alert and oriented x3 Musculoskeletal: no erythema Psychiatric: mood/affect appropriate - Lab 07/04/18 03:35 07/05/18 09:04 Most recent lab results Calcium 9.3 mg/dl (8.6-10.4) 07/05/18 09:04 Phosphorus 3.1 mg/dL (2.7-4.5) 07/05/18 09:04 Magnesium 1.6 mg/dL (1.6-2.5) 07/05/18 09:04 Assessment and Plan (1) Acute on chronic renal failure Status: Acute Qualifiers: Acute renal failure type: unspecified Chronic kidney disease stage: stage 5 , not on chronic dialysis Qualified Code(s): N17.9 - Acute kidney failure, unspecified; N18.5 - Chronic kidney disease, stage 5 (2) Anemia Status: Acute (3) Metabolic acidosis Status: Acute (4) Unspecified hydronephrosis Status: Chronic Qualifiers: Hydronephrosis type: with ureteropelvic junction obstruction Qualified Code (s): Q62.11 - Congenital occlusion of ureteropelvic junction - Narrative A/P Narrative: obstructive uropathy s.creatinine from 9.0-4.9-4.2-3.7-3.1-2.9 today non oliguric hypokalemia resolved no edema/s/o fluid excess 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 to egfr avoid nephrotoxic medications please have dietitian review renal diet with the patient HTN: Control better continue coreg and amlodipine requested patient to ensure compliance with meds ensure low sodium diet anemia: Hb stable, etiology multifactorial, will follow secondary hyperparathyroidism: ct sevelamer, renal diet obstructive uropathy: repeat US with no hydronephrosis s/p revision of the displaced ureteral stent metabolic acidosis: continue sodium bicarb on discharge Thank you for giving me an opportunity to participate in Ms Dumont's medical care, appreciate it I will follow her in 7 days with repeat labs
== END 2018-07-05 13:10 | DRG 659 ==
LOC: ED 15:28 → ICU 20:07
PROVIDERS: ADMIT Internal Medicine; ATTEND Internal Medicine
CPT/HCPCS: 36589; 74420; 84145; 97161; 99223; 99231; C1758; C1769; J0131; J0360; J0610; J0696; J0780; J1644; J2001; J2060; J2250; J2370; J2405; J3010; J7030; J7060

== ENCOUNTER 2022-03-30 17:33 | Inpatient (IN) ==
--- NOTE | 2022-03-30 18:08 | Emergency Department Note ---
HPI General Chief complaint: Recheck/Abnormal Lab/Rx Stated complaint: Kidney Time Seen by Provider: 03/30/22 17:43 Source: patient Mode of arrival: wheelchair Limitations: no limitations History of Present Illness HPI Narrative: Narrative: This patient presents at the request of her neurologist Dr. Palacio due to lab abnormality. Patient has chronic renal disease and also has ureteral stents. She had lab work done today anticipation of having the stents changed next week. Patient reports she is otherwise felt well. She is able to complete her daily tasks of living. She has not had any urinary burning, urgency or frequency. She not been experiencing any flank pain. Is without fevers or chills. She is not had any abdominal pain, nausea or vomiting. Related Data Home Medications Medication Instructions Recorded Confirmed aspirin 81 mg tablet 81 mg PO QDAY 05/16/19 02/16/22 oxybutynin chloride 10 mg 15 mg PO QDAY 05/09/21 02/16/22 tablet,extended release 24 hr Previous Rx's Medication Instructions Recorded cholecalciferol (vitamin D3) 50 2,000 unit PO QDAY #30 caps 09/04/20 mcg (2,000 unit) capsule polysaccharide iron complex 150 mg See Rx Instructions .Route 02/24/21 iron capsule (Ferrex) .COMPLEX #90 ea sucralfate 1 gram tablet See Rx Instructions .Route 05/08/21 .COMPLEX ##360 amlodipine 10 mg tablet 10 mg PO QHS HTN #90 tabs 08/11/21 meclizine 25 mg tablet 25 mg PO TID PRN dizziness #10 tabs 09/14/21 sodium bicarbonate 650 mg tablet 650 mg PO TID #90 tabs 09/18/21 atorvastatin 20 mg tablet See Rx Instructions .Route 11/12/21 .COMPLEX #90 tabs nicotine See Rx Instructions transdermal 12/31/21 21mg/24hr-14mg/24hr-7mg/24hr daily .COMPLEX #56 patches transderm patches,sequentl mirtazapine 7.5 mg tablet 7.5 mg PO QHS #90 tabs 02/11/22 carvedilol 12.5 mg tablet 12.5 mg PO BID HTN 90 days #180 02/26/22 tabs hydrocodone 7.5 mg-acetaminophen 1 tab PO Q4-6H PRN pain #120 tabs 03/11/22 325 mg tablet Allergies Allergy/AdvReac Type Severity Reaction Status Date / Time levofloxacin Allergy Severe Anaphylaxis Verified 03/30/22 17:38 sulfamethoxazole Allergy Severe Vomiting Verified 03/30/22 17:38 cephalexin [From Keflex] Allergy Intermediate Unknown Verified 03/30/22 17:38 egg Allergy Unknown gets sick Verified 03/30/22 17:38 with fried eggs hydromorphone [From Dilaudid] AdvReac Mild Nausea Verified 03/30/22 17:38 morphine AdvReac Mild Nausea Verified 03/30/22 17:38 levaquin Allergy Severe Hives Uncoded 02/16/22 13:02 Review of Systems ROS ROS Narrative: Narrative: Pertinent positives and negatives as noted in HPI. All other systems reviewed and negative. PFSH Narrative Patient History Narrative: Narrative: Medical/Surgical/Family History All Active Problems CKD (chronic kidney disease) (Chronic) Ureteral stricture (Chronic) Kidney failure (Chronic) Retroperitoneal fibrosis (Chronic) Hydronephrosis (Chronic) H/O nephrostomy (Chronic) H/O cystoscopy (Chronic) H/O aortic aneurysm repair (Chronic) H/O cystoscopy (Chronic) H/O cystoscopy (Chronic) H/O nephrostomy (Chronic) H/O cystoscopy (Chronic) Hx of appendectomy (Chronic) History of bilateral tubal ligation (Chronic) History of right-sided carotid endarterectomy (Chronic) History of cholecystectomy (Chronic) S/P foot surgery, right (Chronic) Kidney failure, acute (Chronic 04/26/18) Crossing vessel and 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 hydronephrosis (Chronic ~11/23/17) Other chronic cystitis without hematuria (Chronic ~11/23/17) UTI (urinary tract infection) (Chronic) Other specified disorder of kidney and ureter (Chronic) Unspecified hydronephrosis (Chronic) Mononucleosis (Chronic) Renal osteodystrophy (Chronic) Anemia, unspecified (Chronic) 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) Emphysema, unspecified (Chronic) Hypertension, essential (Chronic) Heart disease, unspecified (Chronic) Inflammatory liver disease (Chronic) Other hyperlipidemia (Chronic) Type 2 diabetes mellitus without complication (Chronic) Foot fracture (Chronic ~05/2018) GI hemorrhage (Chronic) Acute blood loss anemia (Chronic) Lactic acidosis (Chronic) Hypovolemic shock (Chronic) Bleeding gastric ulcer (Chronic) Carotid stenosis (Chronic) Systolic heart failure (Chronic) Chronic pain (Chronic) Transfusion history (Chronic) Weakness (Chronic) Sepsis (Chronic) History of viral hepatitis (Chronic) Inflammatory abdominal aortic aneurysm (Chronic) Idiopathic cardiomyopathy (Chronic) Pulmonary edema (Chronic) Oxygen dependent (Chronic) Tobacco use (Chronic) Impaired cognition (Chronic) Acute on chronic renal failure (Chronic) Hyperkalemia (Chronic) Anemia (Chronic) Metabolic acidosis (Chronic) Obstructive uropathy (Chronic) Renal tubular acidosis (Chronic) Methicillin resistant Staphylococcus aureus infection as the cause of diseases classified elsewhere (Chronic) Lumbar back pain with radiculopathy affecting lower extremity (Chronic) Pulmonary nodule (Chronic) Chronic allergic rhinitis (Chronic) Primary idiopathic hypertrophic cardiomyopathy (Chronic) Metabolic acidosis, NAG, failure of bicarbonate regeneration (Chronic) CKD (chronic kidney disease) stage 4, GFR 15-29 ml/min (Chronic) Left renal atrophy (Acute) No-show for appointment (Acute) Medication management (Acute) Insomnia (Acute) Fatigue (Acute) Acute UTI (Acute) Dizziness (Acute) Leg edema, left (Acute) Anemia in stage 4 chronic kidney disease (Acute) Secondary hyperparathyroidism of renal origin (Acute) Medical History Acute blood loss anemia Acute on chronic renal failure Split GFR 84/16% right vs Left with left renal atrophy SCr as high as 11 mg/dl before relief of right obstruction with stent Baseline SCr now 2.0 Anemia, unspecified Bleeding gastric ulcer Cardiomyopathy due to drug and external agent Carotid stenosis Chronic allergic rhinitis Chronic pain CKD (chronic kidney disease) Primary renal insult with his obstructive uropathy due to retroperitoneal fibrosis. On 2 separate occasions her creatinine is been as high as 10. Currently in the 1.5 to 2.5 range with every 2 month stent changes. Crossing vessel and 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 hydronephrosis (~11/23/17) Emphysema, unspecified Foot fracture (~05/2018) GI hemorrhage Heart disease, unspecified History of viral hepatitis Hydronephrosis Hypertension, essential Avoid ACEi/ARBs and NSAIDS Hypovolemic shock Idiopathic cardiomyopathy EF 30% Impaired cognition Inflammatory abdominal aortic aneurysm Inflammatory liver disease Kidney failure Kidney failure, acute (04/26/18) Lactic acidosis Lumbar back pain with radiculopathy affecting lower extremity Metabolic acidosis, NAG, failure of bicarbonate regeneration prolonged obstruction Methicillin resistant Staphylococcus aureus infection as the cause of diseases classified elsewhere Mononucleosis Obstructive uropathy Bilateral stents for RPF Other chronic cystitis without hematuria (~11/23/17) Other hyperlipidemia Other specified disorder of kidney and ureter Oxygen dependent Primary idiopathic hypertrophic cardiomyopathy Pulmonary edema Pulmonary nodule Renal osteodystrophy Renal tubular acidosis Secondary to obstructive uropathy, with occasional episodes of hyperkalemia this sounds like type IV RTA Retroperitoneal fibrosis Baseline SCr 2.0. Little left kidney contribution to GFR due to atrophy Sepsis Systolic heart failure Tobacco use Transfusion history Type 2 diabetes mellitus without complication Unspecified hydronephrosis Ureteral stricture UTI (urinary tract infection) Weakness Surgical History H/O aortic aneurysm repair 03/2017 Stent H/O cystoscopy 03/25/17 Insert stent, bilateral H/O cystoscopy 06/17/17 Bilateral RPG, stent exchange H/O cystoscopy 12/09/17 Bilateral RPG, stent exchange H/O cystoscopy 04/28/18 Bilateral RPG, stent, exchange H/O nephrostomy 03/2017 Right nephrostomy tube H/O nephrostomy 04/20/18 Bilateral nephrostomy placement History of bilateral tubal ligation History of cholecystectomy History of esophagogastroduodenoscopy 05/19 3 bleeding ulcers History of right-sided carotid endarterectomy Hx of appendectomy S/P foot surgery, right Family History Mother , at age 80 CVA (cerebral vascular accident) Tachycardia Diabetes Sister Breast cancer Diabetes Lung cancer Cancer of spine Anemia Father , at age 85 AAA (abdominal aortic aneurysm) Unknown Family history of kidney stones Other Malignant neoplasm Social History Smoking Status: Current every day smoker Alcohol Intake Frequency: holiday/special occasion only Substance Use: does not use Exam Narrative Narrative: Narrative: Vital signs noted General: mild distress. Skin: Warm. Dry. No rash. Normal color. Eyes: PERRL. EOMI. Neck: Good ROM. No meningeal signs. Supple. Cardiovascular: Regular rate and rhythm. No murmur. Respiratory: No respiratory distress. Breath sounds equal. No wheezing/rales/rhonchi. Gastrointestinal: Abdomen soft. No tenderness. No distention. Normal bowel sounds. No rebound tenderness or guarding. Back: Normal inspection. No CVA tenderness. No midline tenderness. Extremities: No tenderness. No swelling. No erythema. No edema. Good peripheral pulses x 4 Neurological: No focal neurological deficits observed. Alert. Oriented x 3 General Limitations: no limitations Course Course Course Narrative: Labs are ordered and reviewed. Creatinine on Chem-8 is 7.6. Potassium is 3.5 Lab CBC and CMP ordered and pending I did speak with the patient's bottled beverage inspector who felt that if her renal stents could not be placed she would need a facility with dialysis. On-call urologist Dr. Argueta advised that the patient would need imaging with a CT without contrast as well as a bladder scan to determine if she was experiencing a postobstructive issue versus nonfunctioning kidneys. He then felt that the patient could potentially follow-up with her urologist at [facility] status where she has been getting her urologic care. Patient signed out to attending physician pending radiology reports and consult with Dr. Palacio, urologist at [facility]. Vital Signs Vital signs: Vital Signs Temperature 97.0 F 03/30/22 17:35 Pulse Rate 91 H 03/30/22 17:35 Respiratory Rate 16 03/30/22 17:35 Blood Pressure 140/86 03/30/22 17:35 Pulse Oximetry (%) 93 03/30/22 17:35 Oxygen Delivery Method 03/30/22 17:35 Temperature 97.0 F 03/30/22 17:35 Pulse Rate 91 H 03/30/22 17:35 Respiratory Rate 16 03/30/22 17:35 Blood Pressure 140/86 03/30/22 17:35 Pulse Oximetry (%) 93 03/30/22 17:35 Oxygen Delivery Method 03/30/22 17:35 [facility] MDM Narrative Medical decision making narrative: Narrative: Lab Data Result diagrams: 03/30/22 19:26 03/30/22 19:26 Labs: Lab Results 03/30/22 03/30/22 Range/Units 18:05 18:50 POC Hct 39.0 (36-48) POC Sodium 141 (133-145) POC Potassium 3.5 (3.3-5.1) POC Chloride 109 H (96-108) POC Total CO2 18.0 L (22-30) POC BUN 62 H (6-20) POC Creatinine 7.6 H* (0.6-1.2) POC Glucose 84 (70-105) POC WB Ioniz Calcium 1.10 L (1.16-1.32) Urine Color Yellow Urine Appearance Cloudy A (Clear) Urine pH 6.5 (5.0-9.0) Ur Specific [place] 1.020 (1.000-1.035) Urine Protein 100 mg/dl A (Negative) mg/dL Urine Glucose (UA) Negative (Negative) mg/dL Urine Ketones Negative (Negative) mg/dL Urine Occult Blood Moderate A (Negative) eva/mcL Urine Nitrate Negative (Negative) Urine Bilirubin Negative (Negative) mg/dL Urine Urobilinogen Normal mg/dL Ur Leukocyte Esterase Large A (Negative) /uL Urine RBC 21 H (0-3) /hpf Urine WBC > 182 H (0-4) /hpf Ur Squamous Epith Cells 0 (0-4) /hpf Urine Bacteria None (0) /hpf Ur Culture Indicated? yes Discharge Plan Patient/Caregiver Discharge Instructions Pt seen by UNIT AID/PA only: No Patient Disposition: Still a Patient Follow up with: Erika Palacio ARNP [Primary Care Provider] - Prescriptions: No Action cholecalciferol (vitamin D3) 50 mcg (2,000 unit) capsule 2,000 unit PO QDAY Qty: 30 12RF polysaccharide iron complex [Ferrex 150] 150 mg iron capsule See Rx Instructions .ROUTE .COMPLEX Qty: 90 3RF Dose Instruction: TAKE ONE CAPSULE BY MOUTH DAILY. AVOID DAIRY/CALCIUM CONTAINING PRODUCTS AND/OR ANTACIDS FOR AT LEAST 2 HOURS BEFORE AND AFTER DOSE Rx Instructions: TAKE ONE CAPSULE BY MOUTH DAILY. AVOID DAIRY/CALCIUM CONTAINING PRODUCTS AND/OR ANTACIDS FOR AT LEAST 2 HOURS BEFORE AND AFTER DOSE sucralfate 1 gram tablet See Rx Instructions .ROUTE .COMPLEX Qty: 360 3RF Dose Instruction: TAKE 1 TABLET BY MOUTH FOUR TIMES DAILY WITH MEALS AND AT BEDTIME Rx Instructions: TAKE 1 TABLET BY MOUTH FOUR TIMES DAILY WITH MEALS AND AT BEDTIME amlodipine 10 mg tablet 10 mg PO QHS Qty: 90 3RF sodium bicarbonate 650 mg tablet 650 mg PO TID Qty: 90 12RF Rx Instructions: new dose atorvastatin 20 mg tablet See Rx Instructions .ROUTE .COMPLEX Qty: 90 1RF Dose Instruction: TAKE ONE TABLET BY MOUTH AT BEDTIME Rx Instructions: TAKE ONE TABLET BY MOUTH AT BEDTIME mirtazapine 7.5 mg tablet 7.5 mg PO QHS Qty: 90 0RF carvedilol 12.5 mg tablet 12.5 mg PO BID 90 Days Qty: 180 0RF hydrocodone-acetaminophen 7.5-325 mg tablet 1 tab PO Q4-6H PRN (Reason: pain) Qty: 120 0RF aspirin 81 mg tablet 81 mg PO QDAY oxybutynin chloride 10 mg tablet extended release 24hr 15 mg PO QDAY nicotine 21-14-7 mg/24 hr patch, TD daily, sequential See Rx Instructions transdermal .COMPLEX Qty: 56 0RF Rx Instructions: apply 1-21 mg NICOTINE PATCH daily for 28 days; follow with 1-14 mg PATCH daily for 14 days, then 1-7mg PATCH daily for 14 days transdermal meclizine 25 mg tablet 25 mg PO TID PRN (Reason: dizziness) Qty: 10 0RF
[2022-03-30 18:55] LABS: POC Calcium, Ionized 1.1 (1.16-1.32); POC Creatinine 7.6 (0.6-1.2); POC Potassium 3.5 (3.3-5.1)
[2022-03-30 19:32] LABS: Appearance,Urine Cloudy (Clear); Bilirubin,Urine Negative (Negative); Color,Urine Yellow; Culture Indicated,Urine yes; Glucose,Urine (UA) Negative (Negative); Ketones,Urine Negative (Negative); Leukocyte Esterase,Urine Large /uL (Negative); Nitrate,Urine Negative (Negative); PH,Urine 6.5 (5.0-9.0); Urine Blood Moderate ery/mcL (Negative); Urine RBC 21 /hpf (0-3); Urine Squamous Epithelial Cell 0 /hpf (0-4); Urine WBC > 182 /hpf (0-4); Urobilinogen,Urine Normal
[2022-03-30] MEDS ORDERED: diphenhydrAMINE 50 MG/ML VIAL IV ONE (21:08)
[2022-03-30] MEDS ORDERED: cefTRIAXone 2 GM in DEXTROSE 5% IN WATER 50 ML IV ONE (21:08)
[2022-03-30] MEDS ORDERED: 0.9 % SODIUM CHLORIDE 1,000 ML IV ONE (21:08)
[2022-03-30 21:11] LABS: Basophils # (Auto) 0.08 K/mcL (0.00-0.30); Basophils % (Auto) 0.9 % (0.0-2.0); Eosinophils # (Auto) 0.35 K/mcL (0.00-0.70); Eosinophils % (Auto) 3.9 % (0.0-7.0); Hematocrit 36.6 % (34.1-44.9); Hemoglobin 11.6 g/dL (11.2-15.7); Lymphocytes # (Auto) 2.95 K/mcL (1.50-4.80); Lymphocytes % (Auto) 33.1 % (15.5-49.0); Mean Cell Volume 88.2 fL (80.0-100.0); Mean Corpuscular HGB Conc 31.7 g/dL (31.0-36.0); Mean Platelet Volume 9.9 fL (7.4-10.4); Monocytes % (Auto) 10.1 % (1.0-12.0); Neutrophils % (Auto) 51.6 % (38.0-78.0); Platelet Count 455 K/mcL (140-440); RBC 4.15 M/mcL (3.59-5.38); Red Cell Distribution Width 16.5 % (11.5-14.5); WBC 8.9 K/mcL (4.5-11.0)
--- NOTE | 2022-03-30 21:16 | Emergency Department Note ---
Course Course Course Narrative: I assumed care of patient at [address] results and urology recommendations. Please refer to midlevel note for further detail of HPI and work-up. CT show that patient has bilateral hydronephrosis. Case was discussed with patient's urologist, Dr. Palacio, who initially recommended given patient IV fluids as well as some IV antibiotics and he will add her onto his schedule t omorrow. Our urologist Dr. Argueta had a conversation with Dr. Palacio and they have decided that Dr. Argueta will change outpatient stents tonight. Dr. Argueta requested patient be admitted to the hospitalist service. Case discussed with hospitalist, Dr. Headley, who has agreed to admit the patient. Patient was given IV fluids, Rocephin here in the ED. She last ate at noon today but she has been drinking some tea up until about 30 minutes ago. Case was discussed with patient who was agreeable to plan. Vital Signs Vital signs: Vital Signs Temperature 97.0 F 03/30/22 17:35 Pulse Rate 91 H 03/30/22 17:35 Respiratory Rate 16 03/30/22 17:35 Blood Pressure 140/86 03/30/22 17:35 Pulse Oximetry (%) 93 03/30/22 17:35 Oxygen Delivery Method 03/30/22 17:35 Temperature 97.0 F 03/30/22 17:35 Pulse Rate 92 H 03/30/22 21:51 Respiratory Rate 16 03/30/22 17:35 Blood Pressure 147/96 03/30/22 21:49 Pulse Oximetry (%) 99 03/30/22 21:51 Oxygen Delivery Method 03/30/22 17:35 [facility] Narrative Medical decision making narrative: Narrative: Sepsis Sepsis Identified: No Differential Diagnosis Differential Diagnosis: Acute renal failure, bilateral hydronephrosis Medical Records Medical records reviewed: Yes I reviewed the patient's medical records. Lab Data Lab results reviewed: Yes I reviewed the patient's lab results. Result diagrams: 03/30/22 19:26 03/30/22 19:26 Labs: Lab Results 03/30/22 03/30/22 03/30/22 Range/Units 18:05 18:50 19:26 WBC 8.9 (4.5-11.0) K/mcL RBC 4.15 (3.59-5.38) M/mcL Hgb 11.6 (11.2-15.7) g/dL Hct 36.6 (34.1-44.9) % POC Hct 39.0 (36-48) MCV 88.2 (80.0-100.0) fL MCH 28.0 (26.0-34.0) pg MCHC 31.7 (31.0-36.0) g/dL RDW 16.5 H (11.5-14.5) % Plt Count 455 H (140-440) K/mcL MPV 9.9 (7.4-10.4) fL Immature Gran % (Auto) 0.4 (0.0-0.5) % Neut % (Auto) 51.6 (38.0-78.0) % Lymph % (Auto) 33.1 (15.5-49.0) % [place] % (Auto) 10.1 (1.0-12.0) % Eos % (Auto) 3.9 (0.0-7.0) % Baso % (Auto) 0.9 (0.0-2.0) % Lymph # (Auto) 2.95 (1.50-4.80) K/mcL [place] # (Auto) 0.90 (0.10-0.90) K/mcL Eos # (Auto) 0.35 (0.00-0.70) K/mcL Baso # (Auto) 0.08 (0.00-0.30) K/mcL Immature Gran # 0.04 (0.00-0.05) K/mcl Absolute Neutrophils 4.60 (1.80-8.00) K/mcL POC Sodium 141 (133-145) Sodium (133-145) mmol/L POC Potassium 3.5 (3.3-5.1) Potassium (3.3-5.1) mmol/L POC Chloride 109 H (96-108) Chloride (96-108) mmol/L Carbon Dioxide (22-30) mmol/L POC Total CO2 18.0 L (22-30) Anion Gap (8.0-16.0) POC BUN 62 H (6-20) BUN (8-23) mg/dL Creatinine (0.6-1.1) mg/dL POC Creatinine 7.6 H* (0.6-1.2) GFR Calculation Glucose (70-105) mg/dL POC Glucose 84 (70-105) Calcium (8.6-10.4) mg/dL POC WB Ioniz Calcium 1.10 L (1.16-1.32) Total Bilirubin (0.1-1.0) mg/dL AST (<32) U/L ALT (<40) U/L Alkaline Phosphatase (39-117) U/L Total Protein (5.9-8.4) gm/dL Albumin (3.2-5.2) gm/dL Globulin (2.2-3.7) gm/dL Albumin/Globulin Ratio (1.0-2.3) Urine Color Yellow Urine Appearance Cloudy A (Clear) Urine pH 6.5 (5.0-9.0) Ur Specific [place] 1.020 (1.000-1.035) Urine Protein 100 mg/dl A (Negative) mg/dL Urine Glucose (UA) Negative (Negative) mg/dL Urine Ketones Negative (Negative) mg/dL Urine Occult Blood Moderate A (Negative) eva/mcL Urine Nitrate Negative (Negative) Urine Bilirubin Negative (Negative) mg/dL Urine Urobilinogen Normal mg/dL Ur Leukocyte Esterase Large A (Negative) /uL Urine RBC 21 H (0-3) /hpf Urine WBC > 182 H (0-4) /hpf Ur Squamous Epith Cells 0 (0-4) /hpf Urine Bacteria None (0) /hpf Ur Culture Indicated? yes 03/30/22 Range/Units 19:26 WBC (4.5-11.0) K/mcL RBC (3.59-5.38) M/mcL Hgb (11.2-15.7) g/dL Hct (34.1-44.9) % POC Hct (36-48) MCV (80.0-100.0) fL MCH (26.0-34.0) pg MCHC (31.0-36.0) g/dL RDW (11.5-14.5) % Plt Count (140-440) K/mcL MPV (7.4-10.4) fL Immature Gran % (Auto) (0.0-0.5) % Neut % (Auto) (38.0-78.0) % Lymph % (Auto) (15.5-49.0) % [place] % (Auto) (1.0-12.0) % Eos % (Auto) (0.0-7.0) % Baso % (Auto) (0.0-2.0) % Lymph # (Auto) (1.50-4.80) K/mcL [place] # (Auto) (0.10-0.90) K/mcL Eos # (Auto) (0.00-0.70) K/mcL Baso # (Auto) (0.00-0.30) K/mcL Immature Gran # (0.00-0.05) K/mcl Absolute Neutrophils (1.80-8.00) K/mcL POC Sodium (133-145) Sodium 131 L (133-145) mmol/L POC Potassium (3.3-5.1) Potassium 3.5 (3.3-5.1) mmol/L POC Chloride (96-108) Chloride 95 L (96-108) mmol/L Carbon Dioxide 17 L (22-30) mmol/L POC Total CO2 (22-30) Anion Gap 19.0 H (8.0-16.0) POC BUN (6-20) BUN 56 H (8-23) mg/dL Creatinine 5.6 H* (0.6-1.1) mg/dL POC Creatinine (0.6-1.2) GFR Calculation 7 Glucose 82 (70-105) mg/dL POC Glucose (70-105) Calcium 8.6 (8.6-10.4) mg/dL POC WB Ioniz Calcium (1.16-1.32) Total Bilirubin 0.2 (0.1-1.0) mg/dL AST 8 (<32) U/L ALT 8 (<40) U/L Alkaline Phosphatase 139 H (39-117) U/L Total Protein 8.8 H (5.9-8.4) gm/dL Albumin 4.1 (3.2-5.2) gm/dL Globulin 4.7 H (2.2-3.7) gm/dL Albumin/Globulin Ratio 0.9 L (1.0-2.3) Urine Color Urine Appearance (Clear) Urine pH (5.0-9.0) Ur Specific [place] (1.000-1.035) Urine Protein (Negative) mg/dL Urine Glucose (UA) (Negative) mg/dL Urine Ketones (Negative) mg/dL Urine Occult Blood (Negative) eva/mcL Urine Nitrate (Negative) Urine Bilirubin (Negative) mg/dL Urine Urobilinogen mg/dL Ur Leukocyte Esterase (Negative) /uL Urine RBC (0-3) /hpf Urine WBC (0-4) /hpf Ur Squamous Epith Cells (0-4) /hpf Urine Bacteria (0) /hpf Ur Culture Indicated? ED POC Tests ED POC Tests: ÁNGELA - SARS Antigen Negative Radiology Data Radiology results reviewed: Yes I reviewed the patient's radiology results. Radiology results narrative: CT abdomen pelvis obtained with image reviewed myself which show bilateral hydronephrosis EKG Data EKG #1: EKG attestation: Yes I reviewed and interpreted this EKG. EKG shows normal: sinus rhythm Rate: normal Rhythm: NSR [place]/QRS: normal Heart block present: None ST segment elevation in: None ST segment depression in: None QTc: normal QRS morphology: Present normal Interpretation: no acute changes Core Measures AMI Core Measures Followed: Yes Discharge Plan Patient/Caregiver Discharge Instructions Pt seen by STOCK DIGGER/PA only: No Clinical Impression: Bilateral hydronephrosis, Creatinine elevation Acute renal failure Qualifiers: Acute renal failure type: unspecified Qualified Code(s): N17.9 - Acute kidney failure, unspecified Patient Disposition: Xfer As Outpt/Obs ([facility]) Condition: Fair Follow up with: Erika Palacio ARNP [Primary Care Provider] - Prescriptions: No Action cholecalciferol (vitamin D3) 50 mcg (2,000 unit) capsule 2,000 unit PO QDAY Qty: 30 12RF polysaccharide iron complex [Ferrex 150] 150 mg iron capsule See Rx Instructions .ROUTE .COMPLEX Qty: 90 3RF Dose Instruction: TAKE ONE CAPSULE BY MOUTH DAILY. AVOID DAIRY/CALCIUM CONTAINING PRODUCTS AND/OR ANTACIDS FOR AT LEAST 2 HOURS BEFORE AND AFTER DOSE Rx Instructions: TAKE ONE CAPSULE BY MOUTH DAILY. AVOID DAIRY/CALCIUM CONTAINING PRODUCTS AND/OR ANTACIDS FOR AT LEAST 2 HOURS BEFORE AND AFTER DOSE sucralfate 1 gram tablet See Rx Instructions .ROUTE .COMPLEX Qty: 360 3RF Dose Instruction: TAKE 1 TABLET BY MOUTH FOUR TIMES DAILY WITH MEALS AND AT BEDTIME Rx Instructions: TAKE 1 TABLET BY MOUTH FOUR TIMES DAILY WITH MEALS AND AT BEDTIME amlodipine 10 mg tablet 10 mg PO QHS Qty: 90 3RF sodium bicarbonate 650 mg tablet 650 mg PO TID Qty: 90 12RF Rx Instructions: new dose atorvastatin 20 mg tablet See Rx Instructions .ROUTE .COMPLEX Qty: 90 1RF Dose Instruction: TAKE ONE TABLET BY MOUTH AT BEDTIME Rx Instructions: TAKE ONE TABLET BY MOUTH AT BEDTIME mirtazapine 7.5 mg tablet 7.5 mg PO QHS Qty: 90 0RF carvedilol 12.5 mg tablet 12.5 mg PO BID 90 Days Qty: 180 0RF hydrocodone-acetaminophen 7.5-325 mg tablet 1 tab PO Q4-6H PRN (Reason: pain) Qty: 120 0RF aspirin 81 mg tablet 81 mg PO QDAY oxybutynin chloride 10 mg tablet extended release 24hr 15 mg PO QDAY nicotine 21-14-7 mg/24 hr patch, TD daily, sequential See Rx Instructions transdermal .COMPLEX Qty: 56 0RF Rx Instructions: apply 1-21 mg NICOTINE PATCH daily for 28 days; follow with 1-14 mg PATCH daily for 14 days, then 1-7mg PATCH daily for 14 days transdermal meclizine 25 mg tablet 25 mg PO TID PRN (Reason: dizziness) Qty: 10 0RF
[2022-03-30 21:25] LABS: ALT/SGPT 8 U/L (<40); AST/SGOT 8 U/L (<32); Albumin 4.1 gm/dL (3.2-5.2); Albumin/Globulin Ratio 0.9 (1.0-2.3); Alkaline Phosphatase 139 U/L (39-117); Bilirubin,Total 0.2 mg/dL (0.1-1.0); Blood Urea Nitrogen 56 mg/dL (8-23); Calcium 8.6 mg/dL (8.6-10.4); Carbon Dioxide 17 mmol/L (22-30); Chloride 95 mmol/L (96-108); Globulin 4.7 gm/dL (2.2-3.7); Glomerular Filtration Rate 7; Glucose 82 mg/dL (70-105)
[2022-03-30] MEDS ORDERED: cefTRIAXone 2 GM VIAL ONE (21:25)
--- NOTE | 2022-03-30 21:44 | Urology Consult Note ---
HPI Data of Consult Patient: new to practice Consult date: 03/30/22 Requesting physician: Geovanni Zavala Primary Care Provider: Erika Palacio Consult Narrative Chief complaint: Renal failure and bilateral hydronephrosis with indwelling stents Reason for consult: Worsening renal failure with bilateral hydronephrosis History of present illness: Radha is a 71-year-old woman who is a patient of Dr. Palacio in [place]. 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 She has indwelling bilateral ureteral stents that were last changed on December 25, 2021. She had labs drawn today ordered by Dr. Palacio's office and her serum creatinine was reportedly just over 6. She was asked to come to this hospital where a [id number] creatinine was just over 7. Serum creatinine was then rechecked and came back at 5.6. This is higher than her baseline of about 2-2.5. Noncontrast CT scan of the abdomen and pelvis also revealed bilateral massive hydronephrosis. I have personally reviewed the films. They have not yet been read. I also spoke with Dr. Palacio who gave me a brief history of the patient. The patient denies any significant changes in her symptoms. She was out shopping when she was told to come to the hospital. Her main bothersome symptoms are urinary urgency, frequency and nocturia. She reports a history of glaucoma. She does not know whether it is open or closed angle. She is not taking any medications or eyedrops for this. She reports that due to the nocturia she takes a sleeping pill given to her by her primary care provider. She reports that she needs the dose up as it is not helping. She reports she is not taking anything specifically for relaxing her bladder but the chart indicates that at some point she has a prescription for oxybutynin extended release 10 to 15 mg daily. cc:: CC: Review of Systems All systems: reviewed and no additional remarkable complaints except as stated Constitutional Constitutional: Present as per HPI Genitourinary Genitourinary: Present nocturia and urinary urgency PFSH PFSH All Active Problems CKD (chronic kidney disease) (Chronic) Ureteral stricture (Chronic) Kidney failure (Chronic) Retroperitoneal fibrosis (Chronic) Hydronephrosis (Chronic) H/O nephrostomy (Chronic) H/O cystoscopy (Chronic) H/O aortic aneurysm repair (Chronic) H/O cystoscopy (Chronic) H/O cystoscopy (Chronic) H/O nephrostomy (Chronic) H/O cystoscopy (Chronic) Hx of appendectomy (Chronic) History of bilateral tubal ligation (Chronic) History of right-sided carotid endarterectomy (Chronic) History of cholecystectomy (Chronic) S/P foot surgery, right (Chronic) Kidney failure, acute (Chronic 04/26/18) Crossing vessel and 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 hydronephrosis (Chronic ~11/23/17) Other chronic cystitis without hematuria (Chronic ~11/23/17) UTI (urinary tract infection) (Chronic) Other specified disorder of kidney and ureter (Chronic) Unspecified hydronephrosis (Chronic) Mononucleosis (Chronic) Renal osteodystrophy (Chronic) Anemia, unspecified (Chronic) 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) Emphysema, unspecified (Chronic) Hypertension, essential (Chronic) Heart disease, unspecified (Chronic) Inflammatory liver disease (Chronic) Other hyperlipidemia (Chronic) Type 2 diabetes mellitus without complication (Chronic) Foot fracture (Chronic ~05/2018) GI hemorrhage (Chronic) Acute blood loss anemia (Chronic) Lactic acidosis (Chronic) Hypovolemic shock (Chronic) Bleeding gastric ulcer (Chronic) Carotid stenosis (Chronic) Systolic heart failure (Chronic) Chronic pain (Chronic) Transfusion history (Chronic) Weakness (Chronic) Sepsis (Chronic) History of viral hepatitis (Chronic) Inflammatory abdominal aortic aneurysm (Chronic) Idiopathic cardiomyopathy (Chronic) Pulmonary edema (Chronic) Oxygen dependent (Chronic) Tobacco use (Chronic) Impaired cognition (Chronic) Acute on chronic renal failure (Chronic) Hyperkalemia (Chronic) Anemia (Chronic) Metabolic acidosis (Chronic) Obstructive uropathy (Chronic) Renal tubular acidosis (Chronic) Methicillin resistant Staphylococcus aureus infection as the cause of diseases c lassified elsewhere (Chronic) Lumbar back pain with radiculopathy affecting lower extremity (Chronic) Pulmonary nodule (Chronic) Chronic allergic rhinitis (Chronic) Primary idiopathic hypertrophic cardiomyopathy (Chronic) Metabolic acidosis, NAG, failure of bicarbonate regeneration (Chronic) CKD (chronic kidney disease) stage 4, GFR 15-29 ml/min (Chronic) Left renal atrophy (Acute) No-show for appointment (Acute) Medication management (Acute) Insomnia (Acute) Fatigue (Acute) Acute UTI (Acute) Dizziness (Acute) Leg edema, left (Acute) Anemia in stage 4 chronic kidney disease (Acute) Secondary hyperparathyroidism of renal origin (Acute) Acute renal failure (Acute) Bilateral hydronephrosis (Acute) Creatinine elevation (Acute) Medical History Acute blood loss anemia Acute on chronic renal failure Split GFR 84/16% right vs Left with left renal atrophy SCr as high as 11 mg/dl before relief of right obstruction with stent Baseline SCr now 2.0 Anemia, unspecified Bleeding gastric ulcer Cardiomyopathy due to drug and external agent Carotid stenosis Chronic allergic rhinitis Chronic pain CKD (chronic kidney disease) Primary renal insult with his obstructive uropathy due to retroperitoneal fibrosis. On 2 separate occasions her creatinine is been as high as 10. Currently in the 1.5 to 2.5 range with every 2 month stent changes. Crossing vessel and 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 hydronephrosis (~11/23/17) Emphysema, unspecified Foot fracture (~05/2018) GI hemorrhage Heart disease, unspecified History of viral hepatitis Hydronephrosis Hypertension, essential Avoid ACEi/ARBs and NSAIDS Hypovolemic shock Idiopathic cardiomyopathy EF 30% Impaired cognition Inflammatory abdominal aortic aneurysm Inflammatory liver disease Kidney failure Kidney failure, acute (04/26/18) Lactic acidosis Lumbar back pain with radiculopathy affecting lower extremity Metabolic acidosis, NAG, failure of bicarbonate regeneration prolonged obstruction Methicillin resistant Staphylococcus aureus infection as the cause of diseases classified elsewhere Mononucleosis Obstructive uropathy Bilateral stents for RPF Other chronic cystitis without hematuria (~11/23/17) Other hyperlipidemia Other specified disorder of kidney and ureter Oxygen dependent Primary idiopathic hypertrophic cardiomyopathy Pulmonary edema Pulmonary nodule Renal osteodystrophy Renal tubular acidosis Secondary to obstructive uropathy, with occasional episodes of hyperkalemia this sounds like type IV RTA Retroperitoneal fibrosis Baseline SCr 2.0. Little left kidney contribution to GFR due to atrophy Sepsis Systolic heart failure Tobacco use Transfusion history Type 2 diabetes mellitus without complication Unspecified hydronephrosis Ureteral stricture UTI (urinary tract infection) Weakness Surgical History H/O aortic aneurysm repair 03/2017 Stent H/O cystoscopy 03/25/17 Insert stent, bilateral H/O cystoscopy 06/17/17 Bilateral RPG, stent exchange H/O cystoscopy 12/09/17 Bilateral RPG, stent exchange H/O cystoscopy 04/28/18 Bilateral RPG, stent, exchange H/O nephrostomy 03/2017 Right nephrostomy tube H/O nephrostomy 04/20/18 Bilateral nephrostomy placement History of bilateral tubal ligation History of cholecystectomy History of esophagogastroduodenoscopy 05/19 3 bleeding ulcers History of right-sided carotid endarterectomy Hx of appendectomy S/P foot surgery, right Family History Mother , at age 80 CVA (cerebral vascular accident) Tachycardia Diabetes Sister Breast cancer Diabetes Lung cancer Cancer of spine Anemia Father , at age 85 AAA (abdominal aortic aneurysm) Unknown Family history of kidney stones Other Malignant neoplasm Social History household members: alone lives independently: Yes marital status: occupational exposures/hazards: No other: Children-4 physical activity: none smoking status: Current every day smoker tobacco type: cigarettes alcohol intake frequency: holiday/special occasion only substance use type: does not use MEDS/ALLERGIES Home Medications and Allergies Home Medications Medication Instructions Recorded Confirmed Type aspirin 81 mg tablet 81 mg PO QDAY 05/16/19 02/16/22 History cholecalciferol (vitamin D3) 50 2,000 unit PO QDAY #30 caps 09/04/20 02/16/22 Rx mcg (2,000 unit) capsule polysaccharide iron complex 150 mg See Rx Instructions .Route 02/24/21 02/16/22 Rx iron capsule (Ferrex) .COMPLEX #90 ea sucralfate 1 gram tablet See Rx Instructions .Route 05/08/21 02/16/22 Rx .COMPLEX ##360 oxybutynin chloride 10 mg 15 mg PO QDAY 05/09/21 02/16/22 History tablet,extended release 24 hr amlodipine 10 mg tablet 10 mg PO QHS HTN #90 tabs 08/11/21 02/16/22 Rx meclizine 25 mg tablet 25 mg PO TID PRN dizziness #10 tabs 09/14/21 02/16/22 Rx sodium bicarbonate 650 mg tablet 650 mg PO TID #90 tabs 09/18/21 02/16/22 Rx atorvastatin 20 mg tablet See Rx Instructions .Route 11/12/21 02/16/22 Rx .COMPLEX #90 tabs nicotine See Rx Instructions transdermal 12/31/21 02/16/22 Rx 21mg/24hr-14mg/24hr-7mg/24hr daily .COMPLEX #56 patches transderm patches,sequentl mirtazapine 7.5 mg tablet 7.5 mg PO QHS #90 tabs 02/11/22 02/16/22 Rx carvedilol 12.5 mg tablet 12.5 mg PO BID HTN 90 days #180 02/26/22 Rx tabs hydrocodone 7.5 mg-acetaminophen 1 tab PO Q4-6H PRN pain #120 tabs 03/11/22 Rx 325 mg tablet Allergies Allergy/AdvReac Type Severity Reaction Status Date / Time levofloxacin Allergy Severe Anaphylaxis Verified 03/30/22 17:38 sulfamethoxazole Allergy Severe Vomiting Verified 03/30/22 17:38 cephalexin [From Keflex] Allergy Intermediate Unknown Verified 03/30/22 17:38 egg Allergy Unknown gets sick Verified 03/30/22 17:38 with fried eggs hydromorphone [From Dilaudid] AdvReac Mild Nausea Verified 03/30/22 17:38 morphine AdvReac Mild Nausea Verified 03/30/22 17:38 levaquin Allergy Severe Hives Uncoded 02/16/22 13:02 Physical Examination Vital Signs Vital signs: Temp Pulse Resp BP Pulse Ox O2 Del Method 97.0 F 91 H 16 123/94 95 03/30/22 17:35 03/30/22 21:20 03/30/22 17:35 03/30/22 21:20 03/30/22 21:20 03/30/22 17:35 General physical appearance General physical exam: well developed, well nourished, no distress and no pain ENT ENT exam: no hearing loss Head Head exam IM: Present atraumatic, normal inspection and normocephalic Neck Neck exam: trachea midline Cardiovascular Cardiovascular exam IM: Present normal rate and rhythm Respiratory Respiratory exam: normal expansion, normal respiratory effort, clear to percussion and clear to auscultation Abdomen Abdomen: Present soft and non tender Psychiatric Psychiatric: Present oriented to time, oriented to person, oriented to place and speech is normal Results Labs Result diagrams: 03/30/22 19:26 03/30/22 19:26 Labs: Abnormal lab results 03/30/22 03/30/22 03/30/22 Range/Units 18:05 18:50 19:26 RDW 16.5 H (11.5-14.5) % Plt Count 455 H (140-440) K/mcL Sodium (133-145) mmol/L POC Chloride 109 H (96-108) Chloride (96-108) mmol/L Carbon Dioxide (22-30) mmol/L POC Total CO2 18.0 L (22-30) Anion Gap (8.0-16.0) POC BUN 62 H (6-20) BUN (8-23) mg/dL Creatinine (0.6-1.1) mg/dL POC Creatinine 7.6 H* (0.6-1.2) POC WB Ioniz Calcium 1.10 L (1.16-1.32) Alkaline Phosphatase (39-117) U/L Total Protein (5.9-8.4) gm/dL Globulin (2.2-3.7) gm/dL Albumin/Globulin Ratio (1.0-2.3) Urine Appearance Cloudy A (Clear) Urine Protein 100 mg/dl A (Negative) mg/dL Urine Occult Blood Moderate A (Negative) eva/mcL Ur Leukocyte Esterase Large A (Negative) /uL Urine RBC 21 H (0-3) /hpf Urine WBC > 182 H (0-4) /hpf 03/30/22 Range/Units 19:26 RDW (11.5-14.5) % Plt Count (140-440) K/mcL Sodium 131 L (133-145) mmol/L POC Chloride (96-108) Chloride 95 L (96-108) mmol/L Carbon Dioxide 17 L (22-30) mmol/L POC Total CO2 (22-30) Anion Gap 19.0 H (8.0-16.0) POC BUN (6-20) BUN 56 H (8-23) mg/dL Creatinine 5.6 H* (0.6-1.1) mg/dL POC Creatinine (0.6-1.2) POC WB Ioniz Calcium (1.16-1.32) Alkaline Phosphatase 139 H (39-117) U/L Total Protein 8.8 H (5.9-8.4) gm/dL Globulin 4.7 H (2.2-3.7) gm/dL Albumin/Globulin Ratio 0.9 L (1.0-2.3) Urine Appearance (Clear) Urine Protein (Negative) mg/dL Urine Occult Blood (Negative) eva/mcL Ur Leukocyte Esterase (Negative) /uL Urine RBC (0-3) /hpf Urine WBC (0-4) /hpf Diabetes panel 03/30/22 Range/Units 19:26 Sodium 131 L (133-145) mmol/L Potassium 3.5 (3.3-5.1) mmol/L Chloride 95 L (96-108) mmol/L Carbon Dioxide 17 L (22-30) mmol/L BUN 56 H (8-23) mg/dL Creatinine 5.6 H* (0.6-1.1) mg/dL Glucose 82 (70-105) mg/dL Calcium 8.6 (8.6-10.4) mg/dL AST 8 (<32) U/L ALT 8 (<40) U/L Alkaline Phosphatase 139 H (39-117) U/L Total Protein 8.8 H (5.9-8.4) gm/dL Albumin 4.1 (3.2-5.2) gm/dL Calcium panel 03/30/22 Range/Units 19:26 Calcium 8.6 (8.6-10.4) mg/dL Albumin 4.1 (3.2-5.2) gm/dL Pituitary panel 03/30/22 Range/Units 19:26 Sodium 131 L (133-145) mmol/L Potassium 3.5 (3.3-5.1) mmol/L Chloride 95 L (96-108) mmol/L Carbon Dioxide 17 L (22-30) mmol/L BUN 56 H (8-23) mg/dL Creatinine 5.6 H* (0.6-1.1) mg/dL Glucose 82 (70-105) mg/dL Calcium 8.6 (8.6-10.4) mg/dL Adrenal panel 03/30/22 Range/Units 19:26 Sodium 131 L (133-145) mmol/L Potassium 3.5 (3.3-5.1) mmol/L Chloride 95 L (96-108) mmol/L Carbon Dioxide 17 L (22-30) mmol/L BUN 56 H (8-23) mg/dL Creatinine 5.6 H* (0.6-1.1) mg/dL Glucose 82 (70-105) mg/dL Calcium 8.6 (8.6-10.4) mg/dL Total Bilirubin 0.2 (0.1-1.0) mg/dL AST 8 (<32) U/L ALT 8 (<40) U/L Alkaline Phosphatase 139 H (39-117) U/L Total Protein 8.8 H (5.9-8.4) gm/dL Albumin 4.1 (3.2-5.2) gm/dL All other labs normal. Imaging Chest x-ray: pending CT scan - abdomen: image reviewed CT scan - pelvis: image reviewed A/P Assessment and plan (1) Retroperitoneal fibrosis: Status: Chronic Comment: Baseline SCr 2.0. Little left kidney contribution to GFR due to atrophy (2) Bilateral hydronephrosis: Status: Acute (3) Acute renal failure: Status: Acute Qualifiers: Acute renal failure type: unspecified Qualified Code(s): N17.9 - Acute kidney failure, unspecified Plan Radha is a 71-year-old woman who was a patient of Dr. Palacio in [place]. She has a history of retroperitoneal fibrosis likely secondary to placement of an aortobifemoral graft. She has had indwelling ureteral stents alternating with nephrostomy tubes for many years. During she went 1 year without her stents being exchanged. Her stents were most recently exchanged on December 25, 2021. She was scheduled for stent exchange with Dr. Palacio on April 09. She last saw him 2 days ago and labs were ordered. Her serum creatinine came back over 6 and she was called to come to this hospital. I personally spoke with Dr. Palacio and he asked if I would exchange the stents. Dr. Chin her geologist petroleum also feels her stent should be exchanged emergently. I reviewed her CT scan which reveals massive bilateral hydronephrosis and given this finding I agree. Repeat serum creatinine came back decreased at just over 5. This is still high and I feel that she still needs to have the stents exchanged emergently. We discussed going to the operating room for cystoscopy, bilateral retrograde pyelograms, and bilateral ureteral stent exchange. We will use 8 Irish stents. We discussed the procedure as well as possible risks which include bleeding, infection, damage to the urethra into the bladder, damage to the ureters and to the kidneys. The risks of heart attack, stroke and . There are risks of electrolyte abnormalities. There are risks of blood clots. She has had this procedure performed many times and she understands the risks. In addition to these risk there are also risks to anesthesia that she will discuss separately with anesthesia provider prior to the procedure. She understands the procedure and the risks and agrees to proceed. A signed consent form was obtained. Due to the acute renal failure we discussed admission to the hospitalist service after the procedure. I explained that I will leave a Guy catheter in place to ensure that she has proper drainage of the entire urinary tract. Once we see her creatinine normalizing to her baseline of approximately 2-2.5 the Guy catheter can be removed. Sepsis Sepsis Identified: No Time Spent With Patient Time: Total time spent is greater than 50% in coordination of care (as documented) at patient's floor/unit and/or counseling patient: Total time spent with greater than 50% in coordination of care (as documented) at patient's floor/unit and/or counseling patient:: 25 - 35 minutes Critical Care Time: No
[2022-03-30] MEDS ORDERED: IOVERSOL 20 ML VIAL IJ ONE (22:09)
[2022-03-30] MEDS ORDERED: LIDOCAINE 2% URO-JET 10 ML JEL.PF.APP UR ONE (22:09)
[2022-03-30] MEDS ORDERED: PROPOFOL 200 MG/20 ML VIAL IV ONE (22:15)
[2022-03-30] MEDS ORDERED: KETAMINE 50 MG/ML Syringe (ANEST) IV ONE (22:15)
[2022-03-30] MEDS ORDERED: ONDANSETRON 4 MG/2 ML VIAL ONE (22:15)
[2022-03-30] MEDS ORDERED: LIDOCAINE HCL/PF 100 MG/5 ML SYRINGE IV ONE (22:15)
[2022-03-30] MEDS ORDERED: DEXAMETHASONE 10 MG/ML VIAL ONE (22:15)
[2022-03-30] MEDS ORDERED: NALOXONE HCL 0.4 MG/ML VIAL IV PRN (22:28)
[2022-03-30] MEDS ORDERED: PROMETHAZINE 25 MG/ML VIAL IV PRN (22:28)
[2022-03-30] MEDS ORDERED: MEPERIDINE 25 MG/ML VIAL IV PRN (22:28)
[2022-03-30] MEDS ORDERED: LACTATED RINGERS 250 ML IV PRN (22:28)
[2022-03-30] MEDS ORDERED: IPRATROPIUM/ALBUTEROL 3 ML AMPUL.NEB NEB PRN ×2 (22:28→23:41)
[2022-03-30] MEDS ORDERED: ACETAMINOPHEN 1,000 MG/100 ML BAG IV ONE (22:28)
[2022-03-30] MEDS ORDERED: fentaNYL 100 MCG/2 ML VIAL IV PRN (22:28)
[2022-03-30] MEDS ORDERED: ONDANSETRON 4 MG/2 ML VIAL IV PRN ×2 (22:28→23:41)
[2022-03-30] MEDS ORDERED: diphenhydrAMINE 50 MG/ML VIAL IV PRN (22:28)
[2022-03-30] MEDS ORDERED: LACTATED RINGERS 1,000 ML IV SCH (22:30)
--- NOTE | 2022-03-30 22:35 | Internal Med History&Physical ---
HPI History of Present Illness Patient information: Note initiated : 03/30/22 at 10:26 pm Service Date, if different from initiated Date: [] Patient: Radha Dumont a 71 y/o F admitted on for Kidney. Chief Complaint: [abnormal labs] Chief complaint: abnormal labs History of present illness: Ms. Dumont is a 71 year old F history of chronic kidney disease stage IV, obstructive uropathy status post bilateral ureteral stents placement by urologist Dr. Palacio in November 2021, type 2 diabetes mellitus, essential hypertensions, presenting with abnormal labs. Patient had a follow-up appointment with her urologist 2 days ago when she had her lab repeated. Today she got a call saying that she had abnormal labs, in specific, her creatinine was elevated to 5.6 with baseline between 2.0 and 2.8. She was instructed to come to our ER for further evaluations. Patient had minimal urine output. She otherwise denies any symptoms suggest dysuria, fever, chills, diaphoresis, or general body weakness. She also denies any GI symptoms such as nausea or vomiting. She denies any back pain. WBC 8.9. Serum potassium level 3.5. BUN 56. UA also suggest the presence of urinary tract infections. A collaborated decision between Dr. Chin, Dr. Palacio (outpatient urologist) , and Dr. Argueta was made to admit the patient tonight for bilateral stents exchanged, IV fluid hydrations, and trending the labs in the morning to make sure kidney function improved. Constitutional Constitutional: Absent chills, excessive sweating, fatigue, fever(s) or weakness EENT Eyes: Absent blurry vision, change in vision, loss of vision or other visual disturbances Ears: Absent decreased hearing or tinnitus Nose, mouth and throat: Absent abnormal hearing, dry mouth, headache(s), nasal congestion or sore throat Cardiovascular Cardiovascular: Absent chest pain, chest pain at rest, edema, irregular heart rhythm or palpatations Respiratory Respiratory: Absent cough, dyspnea or wheezing Gastrointestinal Gastrointestinal: Absent abdominal pain, constipation, diarrhea, nausea or vomiting Genitourinary Additional comments: Decreased urine output Musculoskeletal Musculoskeletal: Absent back pain, deformity, limited range of motion, muscle cramps, muscle weakness or numbness Integumentary Integumentary: Absent lesions, rash or wounds Neurological Neurological: Absent focal weakness, headache(s) or numbness Psychiatric Psychiatric: Absent anxiety, depression or hallucinations PFSH PFSH All Active Problems (Updated 03/30/22 @ 22:32 by Avel Headley MD) Stage 3 acute kidney injury (Acute) CKD (chronic kidney disease) (Chronic) Ureteral stricture (Chronic) Kidney failure (Chronic) Retroperitoneal fibrosis (Chronic) Hydronephrosis (Chronic) H/O nephrostomy (Chronic) H/O cystoscopy (Chronic) H/O aortic aneurysm repair (Chronic) H/O cystoscopy (Chronic) H/O cystoscopy (Chronic) H/O nephrostomy (Chronic) H/O cystoscopy (Chronic) Hx of appendectomy (Chronic) History of bilateral tubal ligation (Chronic) History of right-sided carotid endarterectomy (Chronic) History of cholecystectomy (Chronic) S/P foot surgery, right (Chronic) Kidney failure, acute (Chronic 04/26/18) Crossing vessel and 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 hydronephrosis (Chronic ~11/23/17) Other chronic cystitis without hematuria (Chronic ~11/23/17) UTI (urinary tract infection) (Chronic) Other specified disorder of kidney and ureter (Chronic) Unspecified hydronephrosis (Chronic) Mononucleosis (Chronic) Renal osteodystrophy (Chronic) Anemia, unspecified (Chronic) 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) Emphysema, unspecified (Chronic) Hypertension, essential (Chronic) Heart disease, unspecified (Chronic) Inflammatory liver disease (Chronic) Other hyperlipidemia (Chronic) Type 2 diabetes mellitus without complication (Chronic) Foot fracture (Chronic ~05/2018) GI hemorrhage (Chronic) Acute blood loss anemia (Chronic) Lactic acidosis (Chronic) Hypovolemic shock (Chronic) Bleeding gastric ulcer (Chronic) Carotid stenosis (Chronic) Systolic heart failure (Chronic) Chronic pain (Chronic) Transfusion history (Chronic) Weakness (Chronic) Sepsis (Chronic) History of viral hepatitis (Chronic) Inflammatory abdominal aortic aneurysm (Chronic) Idiopathic cardiomyopathy (Chronic) Pulmonary edema (Chronic) Oxygen dependent (Chronic) Tobacco use (Chronic) Impaired cognition (Chronic) Acute on chronic renal failure (Chronic) Hyperkalemia (Chronic) Anemia (Chronic) Metabolic acidosis (Chronic) Obstructive uropathy (Chronic) Renal tubular acidosis (Chronic) Methicillin resistant Staphylococcus aureus infection as the cause of diseases classified elsewhere (Chronic) Lumbar back pain with radiculopathy affecting lower extremity (Chronic) Pulmonary nodule (Chronic) Chronic allergic rhinitis (Chronic) Primary idiopathic hypertrophic cardiomyopathy (Chronic) Metabolic acidosis, NAG, failure of bicarbonate regeneration (Chronic) CKD (chronic kidney disease) stage 4, GFR 15-29 ml/min (Chronic) Left renal atrophy (Acute) No-show for appointment (Acute) Medication management (Acute) Insomnia (Acute) Fatigue (Acute) Acute UTI (Acute) Dizziness (Acute) Leg edema, left (Acute) Anemia in stage 4 chronic kidney disease (Acute) Secondary hyperparathyroidism of renal origin (Acute) Acute renal failure (Acute) Bilateral hydronephrosis (Acute) Creatinine elevation (Acute) Medical History (Updated 03/30/22 @ 22:32 by Avel Headley MD) Acute blood loss anemia Acute on chronic renal failure Split GFR 84/16% right vs Left with left renal atrophy SCr as high as 11 mg/dl before relief of right obstruction with stent Baseline SCr now 2.0 Anemia, unspecified Bleeding gastric ulcer Cardiomyopathy due to drug and external agent Carotid stenosis Chronic allergic rhinitis Chronic pain CKD (chronic kidney disease) Primary renal insult with his obstructive uropathy due to retroperitoneal fibrosis. On 2 separate occasions her creatinine is been as high as 10. Currently in the 1.5 to 2.5 range with every 2 month stent changes. Crossing vessel and 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 hydronephrosis (~11/23/17) Emphysema, unspecified Foot fracture (~05/2018) GI hemorrhage Heart disease, unspecified History of viral hepatitis Hydronephrosis Hypertension, essential Avoid ACEi/ARBs and NSAIDS Hypovolemic shock Idiopathic cardiomyopathy EF 30% Impaired cognition Inflammatory abdominal aortic aneurysm Inflammatory liver disease Kidney failure Kidney failure, acute (04/26/18) Lactic acidosis Lumbar back pain with radiculopathy affecting lower extremity Metabolic acidosis, NAG, failure of bicarbonate regeneration prolonged obstruction Methicillin resistant Staphylococcus aureus infection as the cause of diseases classified elsewhere Mononucleosis Obstructive uropathy Bilateral stents for RPF Other chronic cystitis without hematuria (~11/23/17) Other hyperlipidemia Other specified disorder of kidney and ureter Oxygen dependent Primary idiopathic hypertrophic cardiomyopathy Pulmonary edema Pulmonary nodule Renal osteodystrophy Renal tubular acidosis Secondary to obstructive uropathy, with occasional episodes of hyperkalemia this sounds like type IV RTA Retroperitoneal fibrosis Baseline SCr 2.0. Little left kidney contribution to GFR due to atrophy Sepsis Systolic heart failure Tobacco use Transfusion history Type 2 diabetes mellitus without complication Unspecified hydronephrosis Ureteral stricture UTI (urinary tract infection) Weakness Surgical History H/O aortic aneurysm repair 03/2017 Stent H/O cystoscopy 03/25/17 Insert stent, bilateral H/O cystoscopy 06/17/17 Bilateral RPG, stent exchange H/O cystoscopy 12/09/17 Bilateral RPG, stent exchange H/O cystoscopy 04/28/18 Bilateral RPG, stent, exchange H/O nephrostomy 03/2017 Right nephrostomy tube H/O nephrostomy 04/20/18 Bilateral nephrostomy placement History of bilateral tubal ligation History of cholecystectomy History of esophagogastroduodenoscopy 05/19 3 bleeding ulcers History of right-sided carotid endarterectomy Hx of appendectomy S/P foot surgery, right Family History Mother , at age 80 CVA (cerebral vascular accident) Tachycardia Diabetes Sister Breast cancer Diabetes Lung cancer Cancer of spine Anemia Father , at age 85 AAA (abdominal aortic aneurysm) Unknown Family history of kidney stones Other Malignant neoplasm Social History household members: alone lives independently: Yes marital status: occupational exposures/hazards: No other: Children-4 physical activity: none smoking status: Current every day smoker tobacco type: cigarettes alcohol intake frequency: holiday/special occasion only substance use type: does not use MEDS/ALLERGIES Home Medications and Allergies Home Medications Medication Instructions Recorded Confirmed Type aspirin 81 mg tablet 81 mg PO QDAY 05/16/19 02/16/22 History cholecalciferol (vitamin D3) 50 2,000 unit PO QDAY #30 caps 09/04/20 02/16/22 Rx mcg (2,000 unit) capsule polysaccharide iron complex 150 mg See Rx Instructions .Route 02/24/21 02/16/22 Rx iron capsule (Ferrex) .COMPLEX #90 ea sucralfate 1 gram tablet See Rx Instructions .Route 05/08/21 02/16/22 Rx .COMPLEX ##360 oxybutynin chloride 10 mg 15 mg PO QDAY 05/09/21 02/16/22 History tablet,extended release 24 hr amlodipine 10 mg tablet 10 mg PO QHS HTN #90 tabs 08/11/21 02/16/22 Rx meclizine 25 mg tablet 25 mg PO TID PRN dizziness #10 tabs 09/14/21 02/16/22 Rx sodium bicarbonate 650 mg tablet 650 mg PO TID #90 tabs 09/18/21 02/16/22 Rx atorvastatin 20 mg tablet See Rx Instructions .Route 11/12/21 02/16/22 Rx .COMPLEX #90 tabs nicotine See Rx Instructions transdermal 12/31/21 02/16/22 Rx 21mg/24hr-14mg/24hr-7mg/24hr daily .COMPLEX #56 patches transderm patches,sequentl mirtazapine 7.5 mg tablet 7.5 mg PO QHS #90 tabs 02/11/22 02/16/22 Rx carvedilol 12.5 mg tablet 12.5 mg PO BID HTN 90 days #180 02/26/22 Rx tabs hydrocodone 7.5 mg-acetaminophen 1 tab PO Q4-6H PRN pain #120 tabs 03/11/22 Rx 325 mg tablet Allergies Allergy/AdvReac Type Severity Reaction Status Date / Time levofloxacin Allergy Severe Anaphylaxis Verified 03/30/22 17:38 sulfamethoxazole Allergy Severe Vomiting Verified 03/30/22 17:38 cephalexin [From Keflex] Allergy Intermediate Unknown Verified 03/30/22 17:38 egg Allergy Unknown gets sick Verified 03/30/22 17:38 with fried eggs hydromorphone [From Dilaudid] AdvReac Mild Nausea Verified 03/30/22 17:38 morphine AdvReac Mild Nausea Verified 03/30/22 17:38 levaquin Allergy Severe Hives Uncoded 02/16/22 13:02 EXAM Constitutional Vitals: Temp Pulse Resp BP Pulse Ox O2 Del Method 36.1 C 92 H 16 147/96 99 03/30/22 17:35 03/30/22 21:51 03/30/22 17:35 03/30/22 21:49 03/30/22 21:51 03/30/22 17:35 General appearance: cooperative and no acute distress Head Head exam: Present atraumatic and normocephalic Eye Eye exam: Present EOMI and PERRL ENT ENT exam: Present mucous membranes moist, normal exam and normal external ear exam Neck Neck exam: Present normal inspection; Absent lymphadenopathy, tenderness or thyromegaly Respiratory Respiratory exam: Absent accessory muscle use, respiratory distress or wheezes Cardiovascular Cardiovascular exam: Present normal rate and rhythm; Absent JVD GI/Abdominal GI/Abdominal exam: Present normal bowel sounds and soft; Absent organomegaly or tenderness Extremities Exam Extremities exam: Present full ROM, normal capillary refill and normal inspection; Absent tenderness Neurological Exam Neurological exam: Present alert, CN II-XII intact and oriented X3; Absent motor sensory deficit Psychiatric Psychiatric exam: Present normal affect and normal mood; Absent anxious or depressed Skin Skin exam: Present dry and intact DATA Data Completed and Pending Labs: Labs from last 24 hours 03/30/22 03/30/22 03/30/22 19:26 19:26 18:50 WBC 8.9 RBC 4.15 Hgb 11.6 Hct 36.6 POC Hct 39.0 MCV 88.2 MCH 28.0 MCHC 31.7 RDW 16.5 H Plt Count 455 H MPV 9.9 Immature Gran % (Auto) 0.4 Neut % (Auto) 51.6 Lymph % (Auto) 33.1 [place] % (Auto) 10.1 Eos % (Auto) 3.9 Baso % (Auto) 0.9 Lymph # (Auto) 2.95 [place] # (Auto) 0.90 Eos # (Auto) 0.35 Baso # (Auto) 0.08 Immature Gran # 0.04 Absolute Neutrophils 4.60 POC Sodium 141 Sodium 131 L POC Potassium 3.5 Potassium 3.5 POC Chloride 109 H Chloride 95 L Carbon Dioxide 17 L POC Total CO2 18.0 L Anion Gap 19.0 H POC BUN 62 H BUN 56 H Creatinine 5.6 H* POC Creatinine 7.6 H* GFR Calculation 7 Glucose 82 POC Glucose 84 Calcium 8.6 POC WB Ioniz Calcium 1.10 L Total Bilirubin 0.2 AST 8 ALT 8 Alkaline Phosphatase 139 H Total Protein 8.8 H Albumin 4.1 Globulin 4.7 H Albumin/Globulin Ratio 0.9 L Urine Color Urine Appearance Urine pH Ur Specific [place] Urine Protein Urine Glucose (UA) Urine Ketones Urine Occult Blood Urine Nitrate Urine Bilirubin Urine Urobilinogen Ur Leukocyte Esterase Urine RBC Urine WBC Ur Squamous Epith Cells Urine Bacteria Ur Culture Indicated? 03/30/22 18:05 WBC RBC Hgb Hct POC Hct MCV MCH MCHC RDW Plt Count MPV Immature Gran % (Auto) Neut % (Auto) Lymph % (Auto) [place] % (Auto) Eos % (Auto) Baso % (Auto) Lymph # (Auto) [place] # (Auto) Eos # (Auto) Baso # (Auto) Immature Gran # Absolute Neutrophils POC Sodium Sodium POC Potassium Potassium POC Chloride Chloride Carbon Dioxide POC Total CO2 Anion Gap POC BUN BUN Creatinine POC Creatinine GFR Calculation Glucose POC Glucose Calcium POC WB Ioniz Calcium Total Bilirubin AST ALT Alkaline Phosphatase Total Protein Albumin Globulin Albumin/Globulin Ratio Urine Color Yellow Urine Appearance Cloudy A Urine pH 6.5 Ur Specific [place] 1.020 Urine Protein 100 mg/dl A Urine Glucose (UA) Negative Urine Ketones Negative Urine Occult Blood Moderate A Urine Nitrate Negative Urine Bilirubin Negative Urine Urobilinogen Normal Ur Leukocyte Esterase Large A Urine RBC 21 H Urine WBC > 182 H Ur Squamous Epith Cells 0 Urine Bacteria None Ur Culture Indicated? 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 Qualified Code(s): E11.9 - Type 2 diabetes mellitus without complications (3) Acute on chronic renal failure: Status: Chronic Comment: Split GFR 84/16% right vs Left with left renal atrophy SCr as high as 11 mg/dl before relief of right obstruction with stent Baseline SCr now 2.0 Qualifiers: Acute renal failure type: with other specified pathological lesion Chronic kidney disease stage: stage 4 (severe) Qualified Code(s): N17.8 - Other acute kidney failure (4) Obstructive uropathy: Status: Chronic Comment: Bilateral stents for RPF (5) CKD (chronic kidney disease) stage 4, GFR 15-29 ml/min: Status: Chronic (6) Hypertension, essential: Status: Chronic Comment: Avoid ACEi/ARBs and NSAIDS (7) Hydronephrosis: Status: Chronic Qualifiers: Hydronephrosis type: unspecified Qualified Code(s): N13.30 - Unspecified hydronephrosis (8) UTI (urinary tract infection): Status: Chronic Narrative A/P Narrative: Assessment and Plans: 1. Acute kidney injury stage III in the context of chronic kidney disease stage IV due to bilateral obstructive uropathy with resultant bilateral hydronephrosis: Admit to inpatient MedSurg with telemetry Urologist Dr. Argueta will take patient to the OR tonight for bilateral stents exchanged IV fluid replacement Avoid nephrotoxic agents Repeat CMP in the morning to trend kidney functions We will also comanage with Dr. Chin 2. Type 2 diabetes mellitus: Hemoglobin A1c Hold any oral hypoglycemics Accu-Chek AC HS SSI AC HS Hypoglycemia protocol Diabetic diet after surgery 3. Essential hypertensions: Patient is currently normotensive Continue oral antihypertensives including amlodipine and carvedilol 4. Urinary tract infections: Lactic acid Blood culture Urine culture CBC in the morning Rocephin IV fluid with normal saline at 100 cc/h GI prophylaxis: Not currently indicated DVT prophylaxis: Heparin CODE STATUS: Full code Prognosis: Guarded Dispositions: Inpatient measures telemetry Time Spent With Patient Time: Total time spent is greater than 50% in coordination of care (as documented) at patient's floor/unit and/or counseling patient: Total time spent with greater than 50% in coordination of care (as documented) at patient's floor/unit and/or counseling patient:: 50 - 70 minutes
--- NOTE | 2022-03-30 22:51 | Operative Note ---
Brief Operative Note Date of procedure: 03/30/22 Pre-op diagnosis: Bilateral hydronephrosis, acute on chronic renal failure Post-op diagnosis: same Procedure: Cystoscopy, bilateral retrograde pyelograms, and bilateral ureteral stent exchange. Grafts/Implants: Yes (Bilateral 6 [place]amese by 24 cm ureteral stents with no strings) Anesthesia: GLMA Findings: Bilateral hydronephrosis left worse than right. Stents without encrustation. Ureteral orifices patulous. Left kidney seem to drain immediately with stent manipulation. Complications: none Surgeon: Uriah Argueta Estimated blood loss (cc): 5 Specimens Removed/Pathology: none sent Condition: other (Guarded) Disposition: PACU Operative Note Operative Note: After obtaining informed consent from the patient, she was brought to the operating was placed supine on the operating table. General and seizure was provided. She was repositioned in a dorsolithotomy position was prepped and draped in usual sterile fashion. Attention was directed to the urethral meatus where a 21 Sur[place]amese cystoscope was passed per urethra and into the bladder. The bladder was inspected and was seen to be free of tumors and stones. There was some erythema and some debris within the bladder. The ureteral orifices were identified and seen to be patulous. They would easily accommodate the cystoscope. Stents were seen emanating from the ureteral orifices bilaterally. 0.3 [place]amese sensor wire was passed alongside the right ureteral stent and under fluoroscopic guidance into the right renal pelvis. The cystoscope was then removed leaving the wire in place. The cystoscope was replaced and using a flexible grasper the right ureteral stent was removed leaving the wire in place. The removed right ureteral stent was seen to be an 8.5 multilength stent. A dual-lumen catheter was passed over this wire and a right retrograde pyelogram was performed showing right hydronephrosis. The wire was then backloaded through the 21 [place]amese cystoscope which was passed into the bladder. An 8 [place]e by 24 cm right ureteral stent with no string was passed over the wire and under fluoroscopic guidance into the right renal pelvis. The wire was removed leaving a good curl in the right renal pelvis and a good curl within the bladder. Attention was then directed to the left ureteral orifice where a 0.38 [place]e sensor wire was passed alongside the left stent and under fluoroscopic guidance into the left renal pelvis. The cystoscope was removed leaving the wire in place. The cystoscope was replaced alongside the wire using a flexible grasper the left ureteral stent was removed intact. Immediately the kidney was seen to drain. The stent removed was an 8.5 multilength stent. A dual-lumen catheter was passed over the wire and into the left ureter. A left retrograde pyelogram was performed that showed massive left hydronephrosis. The dual-lumen catheter was removed and the wire was backloaded through the 21 Surinamese cystoscope which was passed into the bladder. An 8 [place]e by 24 cm left ureteral stent with no string was passed over the wire and under fluoroscopic guidance in the left renal pelvis. The wire was removed leaving a good curl in the left kidney and a good curl within the bladder. The bladder was then irrigated refilled. Lidocaine jelly was placed in the urethra and the bladder. An 18 [place]e Guy catheter was and easily passed per urethra into the bladder. The balloon was inflated with 10 mL of sterile water. This was placed to gravity drainage. The patient was then awakened and returned to the recovery in stable condition. There were no complications.
[2022-03-30] MEDS ORDERED: traZODone HCL 50 MG TABLET PO PRN (23:41)
[2022-03-30] MEDS ORDERED: morphine 4 MG/ML VIAL IV PRN (23:41)
[2022-03-30] MEDS ORDERED: ACETAMINOPHEN 325 MG TABLET PO PRN (23:41)
[2022-03-30] MEDS ORDERED: DEXTROSE 50% 50 ML VIAL IV PRN (23:41)
[2022-03-30] MEDS ORDERED: DEXTROSE 31 GM ORAL.SUSP PO PRN (23:41)
[2022-03-30] MEDS ORDERED: cefTRIAXone 1 GM in DEXTROSE 5% IN WATER 50 ML IV SCH (23:41)
[2022-03-31] MEDS: 0.9 % SODIUM CHLORIDE 1,000 ML IV SCH ×3 (00:03→19:13)
[2022-03-31] MEDS ORDERED: ACETAMINOPHEN 1,000 MG/100 ML BAG IV ONE (00:14)
[2022-03-31 00:52] LABS: Hemoglobin A1C 5.1 % Hgb (4.0-6.0)
[2022-03-31] MEDS ORDERED: traZODone HCL 50 MG TABLET ONE (02:36)
[2022-03-31] MEDS: 0.9 % SODIUM CHLORIDE 10 ML SYRINGE IV SCH ×3 (05:37→21:53)
[2022-03-31] MEDS ORDERED: MECLIZINE 25 MG TABLET PO PRN (06:03)
[2022-03-31] MEDS: ATORVASTATIN 20 MG TABLET PO SCH ×2 (06:06→20:25)
[2022-03-31] MEDS: HYDROCODONE/APAP 7.5/325MG TABLET PO PRN ×3 (06:08→20:26)
[2022-03-31] MEDS ORDERED: morphine 4 MG/ML VIAL ONE (06:13)
[2022-03-31] MEDS ORDERED: HYDROCODONE/APAP 7.5/325MG TABLET PO ONE (06:19)
[2022-03-31 06:30] LABS: Basophils # (Auto) 0.02 K/mcL (0.00-0.30); Basophils % (Auto) 0.3 % (0.0-2.0); Eosinophils # (Auto) 0.16 K/mcL (0.00-0.70); Eosinophils % (Auto) 2.7 % (0.0-7.0); Hemoglobin 11.1 g/dL (11.2-15.7); Lymphocytes # (Auto) 0.84 K/mcL (1.50-4.80); Lymphocytes % (Auto) 14.2 % (15.5-49.0); Mean Cell Volume 89.3 fL (80.0-100.0); Mean Corpuscular HGB Conc 31.7 g/dL (31.0-36.0); Mean Platelet Volume 9.9 fL (7.4-10.4); Monocytes # (Auto) 0.04 K/mcL (0.10-0.90); Monocytes % (Auto) 0.7 % (1.0-12.0); Neutrophils % (Auto) 81.1 % (38.0-78.0); Platelet Count 404 K/mcL (140-440); RBC 3.92 M/mcL (3.59-5.38); Red Cell Distribution Width 16.5 % (11.5-14.5); WBC 5.9 K/mcL (4.5-11.0)
[2022-03-31 06:56] LABS: Phosphorous 5.4 mg/dL (2.5-4.5)
[2022-03-31] MEDS: SUCRALFATE 1 GM TABLET PO SCH ×4 (07:13→20:25)
[2022-03-31] MEDS: INSULIN LISPRO 1 UNIT/0.01 ML UNIT SQ SCH ×4 (07:13→20:17)
[2022-03-31 07:21] LABS: ALT/SGPT 9 U/L (<40); AST/SGOT 10 U/L (<32); Albumin 3.2 gm/dL (3.2-5.2); Albumin/Globulin Ratio 0.7 (1.0-2.3); Alkaline Phosphatase 122 U/L (39-117); Bilirubin,Total 0.2 mg/dL (0.1-1.0); Blood Urea Nitrogen 58 mg/dL (8-23); Calcium 8.3 mg/dL (8.6-10.4); Carbon Dioxide 16 mmol/L (22-30); Chloride 107 mmol/L (96-108); Globulin 4.6 gm/dL (2.2-3.7); Glomerular Filtration Rate 7; Glucose 135 mg/dL (70-105)
--- NOTE | 2022-03-31 07:40 | Urology Progress Note ---
SUBJECTIVE Subjective Patient information: Note initiated : 03/31/22 at 7:37 am Service Date, if different from initiated Date: [] Patient: Radha Dumont a 71 y/o F admitted on 03/30/22 for Kidney. Chief Complaint: Acute on chronic renal failure, bilateral hydronephrosis Principal diagnosis: Acute on chronic renal failure, bilateral hydronephrosis Interval history: Radha is postoperative day #1 status postexchange of bilateral ureteral stents. She reports that she is feeling better this morning. Serum creatinine, however, has actually increased slightly from 5.6 preoperatively to 5.9 this morning. BUN remains high. A Guy catheter remains in place and appears to be draining well Constitutional Vitals: Vital Signs Temp Pulse Resp BP Pulse Ox O2 Del Method O2 Flow Rate 97.7 F 75 12 109/70 94 1.5 03/31/22 07:08 03/31/22 07:08 03/31/22 07:08 03/31/22 07:08 03/31/22 07:08 03/31/22 07:08 03/31/22 07:08 Period Temp Pulse Resp BP Sys/Hartman Pulse Ox O2 Del Method O2 Flow Rate Last 24 Hr 97.0 F-98.6 F 59-92 12-17 109-149/70-99 89-100 Nasal Cannula- Room Air 0-6 Intake and Output 03/30/22 03/31/22 03/31/22 21:59 05:59 13:59 Intake Total 1533 Output Total 750 Balance 783 Weight 80.286 kg 83.37 kg Intake & Output: Intake & Output 03/30/22 03/31/22 03/31/22 21:59 05:59 13:59 Intake Total 1533 Output Total 750 Balance 783 Weight 80.286 kg 83.37 kg Intake: IV 883 Sodium Chloride 0.9% 1,000 ml @ 733 Wide Open IV BOLUS ONE Rx#: [id number] Rocephin 2 gm In Dextrose 5% in 50 Water 50 ml @ 100 mls/hr IV ONCE ONE Rx#:[id number] Oral 100 IV - Manual Only 550 Output: Urine Catheter Amount 750 Other: Urine Appearance Clear Uretheral (Guy) Clear Urine Color Yellow Uretheral (Guy) Yellow Urine Odor Normal General appearance: cooperative and no acute distress Respiratory Respiratory exam: Present normal respiratory exam Expanded Exam Urine Color: Yellow A/P Assessment and plan (1) Retroperitoneal fibrosis: Status: Chronic Comment: Baseline SCr 2.0. Little left kidney contribution to GFR due to atrophy (2) Acute renal failure: Status: Acute Qualifiers: Acute renal failure type: unspecified Qualified Code(s): N17.9 - Acute kidney failure, unspecified (3) Bilateral hydronephrosis: Status: Acute Narrative A/P Narrative: Radha is a 71-year-old woman who is postoperative day #1 status postexchange of bilateral ureteral stents. A Guy catheter was also placed to ensure maximal drainage of her urinary system. Serum creatinine this morning is at increased slightly rather than decreased. She may be dehydrated. I have instructed nursing that the Guy catheter should remain in place while she is in the hospital and until her creatinine begins to come down. It may be removed prior to discharge. The patient will follow-up with me in my office in 1 to 2 weeks. Time Spent With Patient Time: Total time spent is greater than 50% in coordination of care (as documented) at patient's floor/unit and/or counseling patient: Total time spent with greater than 50% in coordination of care (as documented) at patient's floor/unit and/or counseling patient:: 15 - 24 minutes
--- NOTE | 2022-03-31 08:10 | Cat Scan Report ---
History: Hydronephrosis TECHNIQUE: The patient was imaged without contrast in an axial plane at 2.5 mm intervals from above the diaphragm through the symphysis pubis. Sagittal and coronal reformats were created. The radiation exposure was limited using dose reduction technology. FINDINGS: Small pericardial effusion is present. Overall heart size is normal. There are a few thin linear bands of scar or discoid atelectasis in both lung bases. No pleural effusion is present. Evaluation of the abdominal organs without contrast is somewhat limited. The liver is normal in size. There is a dense 8 mm calcification in the capsule of the liver adjacent to the diaphragm. The liver parenchyma is homogeneous. The gallbladder is surgically absent. Intrahepatic ducts are nondilated. Common bile duct measures up to 9 mm. No abnormality is seen within the pancreas. The spleen is normal in size and homogeneous. There is a well-circumscribed lipid-containing 1.4 cm nodule in the right adrenal. Left adrenal is normal. 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 Severe hydronephrosis is present in the left kidney. There is also severe loss of renal parenchyma indicating the obstruction is a chronic process. Moderately severe hydronephrosis is present in the right kidney with mild loss of renal parenchyma. There is a 2 x 4 mm calculus in a lower pole calyx of the right kidney. No stone is seen in the left kidney. No solid mass is identified in either kidney. Patient has bilateral double pigtail ureteral stents. The stent in the left kidney has migrated further distally compared with the prior CT. The proximal loop of the stent is now at the ureteropelvic junction. There is no perinephric stranding. The bladder is only partially filled. There is asymmetric irregular thickening of the bladder wall. The anterior superior wall is thickened and shaggy. It Measures up to 9 mm in thickness. No stone or mass are seen within the lumen. Patient had prior repair for an abdominal aorta aneurysm. There is an endograft. No retroperitoneal hemorrhage is present. The appearance of the aorta is unchanged from the prior exam. There is moderate amount stool in the right side of the colon but the intestine is not abnormally distended. A few noninflamed diverticula are present in the distal descending and the sigmoid colon. The small intestine is normal. The stomach is decompressed. Uterus and ovaries are atrophic. The appendix is surgically absent. No ascites or adenopathy are present within the abdomen or pelvis. Severe disc space narrowing is present at L4-5 and L5-S1. 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 Posterior bulging disks are present at L3-4, L4-5 and L5-S1. Comparison with the prior study from 12/11/18 shows the hydronephrosis of both kidneys has become worse and the loss of renal parenchyma has also progressed. IMPRESSION: Worsening bilateral hydronephrosis in spite of the presence of bilateral ureteral stents. The stents may be partially obstructed. Thickened irregular bladder wall which may be due to cystitis Interpreted and Authenticated by: Jermain Piedra 03/31/22
--- NOTE | 2022-03-31 08:33 | XRay Report ---
HISTORY: Preop for kidney surgery FINDINGS: The heart appears mildly enlarged but is magnified by portable technique. On the preceding abdomen CT scan, a moderate amount of epicardial fat was detected which accounts for much of the apparent cardiomegaly on the current portable chest x-ray. CT scan also revealed the presence of a very small pericardial effusion. There is no congestive heart failure or pleural effusion. The lungs are clear. Aorta is mildly tortuous. There are surgical clips at the base the neck and the right side. IMPRESSION: No acute abnormality Interpreted and Authenticated by: Jermain Piedra 03/31/22
--- NOTE | 2022-03-31 08:35 | XRay Report ---
Impression: 0.8 minutes of fluoroscopy time was used Interpreted and Authenticated by: Jermain Piedra 03/31/22
[2022-03-31] MEDS: OXYBUTYNIN CHLORIDE 5 MG TAB.XL.24H PO SCH (08:38)
[2022-03-31] MEDS: VITAMIN D3 25 MCG TABLET PO SCH (08:38)
[2022-03-31] MEDS: CARVEDILOL 12.5 MG TABLET PO SCH ×2 (08:38→17:21)
[2022-03-31] MEDS: ASPIRIN 81 MG TAB.CHEW PO SCH (08:38)
[2022-03-31] MEDS: SODIUM BICARBONATE 650 MG TABLET PO SCH ×3 (08:38→20:25)
[2022-03-31] MEDS: HEPARIN 5,000 UNIT/ML VIAL SQ SCH ×2 (08:38→20:25)
[2022-03-31] MEDS: DOCUSATE SODIUM 100 MG CAPSULE PO SCH ×2 (08:38→20:26)
[2022-03-31] MEDS: IRON POLYSACCHARIDE COMPLEX 150 MG CAPSULE PO SCH (08:39)
[2022-03-31] MEDS: cefTRIAXone 1 GM VIAL IV SCH (08:44)
--- NOTE | 2022-03-31 12:46 | Internal Med Progress Note ---
SUBJECTIVE Subjective Patient information: Note initiated : 03/31/22 at 12:40 pm Service Date, if different from initiated Date: [] Patient: Radha Dumont a 71 y/o F admitted on 03/30/22 for Kidney/Recheck abnormal labs. Chief Complaint: [] Principal diagnosis: Acute on chronic renal failure, bilateral hydronephrosis Interval history: Ms. Dumont is a 71 year old F history of chronic kidney disease stage IV, obstructive uropathy status post bilateral ureteral stents placement by urologist Dr. Palacio in November 2021, type 2 diabetes mellitus, essential hypertensions, presenting with abnormal labs. Patient had a follow-up appointment with her urologist 2 days ago when she had her lab repeated. Today she got a call saying that she had abnormal labs, in specific, her creatinine was elevated to 5.6 with baseline between 2.0 and 2.8. She was instructed to come to our ER for further evaluations. Patient had minimal urine output. She otherwise denies any symptoms suggest dysuria, fever, chills, diaphoresis, or general body weakness. She also denies any GI symptoms such as nausea or vomiting. She denies any back pain. WBC 8.9. Serum potassium level 3.5. BUN 56. UA also suggest the presence of urinary tract infections. A collaborated decision between Dr. Chin, Dr. Palacio (outpatient urologist) , and Dr. Argueta was made to admit the patient tonight for bilateral stents exchanged, IV fluid hydrations, and trending the labs in the morning to make sure kidney function improved. 03/31: Status post bilateral ureteral stents exchanged and Guy catheter placement by Dr. Argueta on 03/30. Serum creatinine level is increased since have decreased from 5.6-5.9. Patient denies any back pain nausea vomiting fever chills diaphoresis. We will continue IV fluid for rehydration purposes, and will repeat CMP in the morning to trend serum BUN and creatinine functions. We will keep the patient's in-house with Guy catheter in place until the serum creatinine levels starting to downtrend and at that point will DC the Guy catheter and discharge patient home. We will make sure patient has 1 to 2 weeks follow-up with Dr. Argueta in the office. Constitutional Vitals: Vital Signs Temp Pulse Resp BP Pulse Ox O2 Del Method O2 Flow Rate 36.4 C 70 14 107/73 93 1.5 03/31/22 11:47 03/31/22 11:47 03/31/22 11:47 03/31/22 11:47 03/31/22 11:47 03/31/22 11:47 03/31/22 11:47 Period Temp Pulse Resp BP Sys/Hartman Pulse Ox O2 Del Method O2 Flow Rate Last 24 Hr 36.1 C-37.0 C 59-92 12-17 107-149/70-99 89-100 Nasal Cannula- Room Air 0-6 Intake and Output 03/30/22 03/31/22 03/31/22 21:59 05:59 13:59 Intake Total 1533 988 Output Total 750 Balance 783 988 Weight 80.286 kg 83.37 kg Intake & Output: Intake & Output 03/30/22 03/31/22 03/31/22 21:59 05:59 13:59 Intake Total 1533 988 Output Total 750 Balance 783 988 Weight 80.286 kg 83.37 kg Intake: IV 883 988 Sodium Chloride 0.9% 1,000 ml @ 733 988 100 mls/hr IV .Q10H SUN Rx#: [id number] Rocephin 2 gm In Dextrose 5% in 50 Water 50 ml @ 100 mls/hr IV ONCE ONE Rx#:[id number] Oral 100 IV - Manual Only 550 Output: Urine Catheter Amount 750 Other: Urine Appearance Clear Uretheral (Guy) Clear Clear Urine Color Yellow Yellow Uretheral (Guy) Yellow Dark Yellow Urine Odor Normal Head Head exam: Present atraumatic and normal inspection Eye Eye exam: Present normal appearance ENT ENT exam: Present mucous membranes moist, normal exam and normal external ear exam Neck Neck exam: Present normal inspection Respiratory Respiratory exam: Present normal respiratory exam Cardiovascular Cardiovascular exam: Present normal rate and rhythm GI/Abdominal GI/Abdominal exam: Present normal bowel sounds Additional comments: Guy catheter in place Back Exam Back exam: Present normal inspection Neurological Exam Neurological exam: Present alert and oriented X3 Skin Skin exam: Present intact and warm OBJ DATA Labs CBC & Chem 7: 03/31/22 05:22 03/31/22 05:21 Labs: Abnormal Lab Results 03/31/22 03/31/22 03/30/22 05:22 05:21 19:26 Hgb 11.1 L RDW 16.5 H Plt Count Immature Gran % (Auto) 1.0 H Neut % (Auto) 81.1 H Lymph % (Auto) 14.2 L [place] % (Auto) 0.7 L Lymph # (Auto) 0.84 L [place] # (Auto) 0.04 L Immature Gran # 0.06 H Sodium 131 L POC Chloride Chloride 95 L Carbon Dioxide 16 L 17 L POC Total CO2 Anion Gap 19.0 H POC BUN BUN 58 H 56 H Creatinine 5.9 H* 5.6 H* POC Creatinine Glucose 135 H Calcium 8.3 L POC WB Ioniz Calcium Phosphorus 5.4 H Alkaline Phosphatase 122 H 139 H Total Protein 8.8 H Globulin 4.6 H 4.7 H Albumin/Globulin Ratio 0.7 L 0.9 L Urine Appearance Urine Protein Urine Occult Blood Ur Leukocyte Esterase Urine RBC Urine WBC 03/30/22 03/30/22 03/30/22 19:26 18:50 18:05 Hgb RDW 16.5 H Plt Count 455 H Immature Gran % (Auto) Neut % (Auto) Lymph % (Auto) [place] % (Auto) Lymph # (Auto) [place] # (Auto) Immature Gran # Sodium POC Chloride 109 H Chloride Carbon Dioxide POC Total CO2 18.0 L Anion Gap POC BUN 62 H BUN Creatinine POC Creatinine 7.6 H* Glucose Calcium POC WB Ioniz Calcium 1.10 L Phosphorus Alkaline Phosphatase Total Protein Globulin Albumin/Globulin Ratio Urine Appearance Cloudy A Urine Protein 100 mg/dl A Urine Occult Blood Moderate A Ur Leukocyte Esterase Large A Urine RBC 21 H Urine WBC > 182 H Meds: Medications Acetaminophen (Acetaminophen 325 Mg Tablet) 650 mg PO Q6HP PRN; Protocol PRN Reason: Per Pain Protocol/Fever > 101 Hydrocodone Bitart/Acetaminophen (Hydrocodone/Apap 7.5/325mg Tablet) 1 tab PO Q4-6HP PRN PRN Reason: pain Last Admin: 03/31/22 06:08 Dose: 1 tab Albuterol/Ipratropium (Ipratropium/Albuterol 3 Ml Ampul.Neb) 3 ml NEB Q4HRT PRN PRN Reason: Wheezing Amlodipine Besylate (Amlodipine 10 Mg Tablet) 10 mg PO QHS SUN Aspirin (Aspirin 81 Mg Tab.Chew) 81 mg PO QDAY SUN Last Admin: 03/31/22 08:38 Dose: 81 mg Atorvastatin Calcium (Atorvastatin 20 Mg Tablet) 20 mg PO HS [facility] Last Admin: 03/31/22 06:06 Dose: Not Given Carvedilol (Carvedilol 12.5 Mg Tablet) 12.5 mg PO BIDCC [facility] Last Admin: 03/31/22 08:38 Dose: 12.5 mg Ceftriaxone Sodium (Ceftriaxone 1 Gm Vial) 1 gm IV Q24H [facility] Last Admin: 03/31/22 08:44 Dose: 1 gm Dextrose (Dextrose 50% 50 Ml Vial) 0 ml IV UD PRN PRN Reason: Per Sliding Scale Diagnostic Test (Pha) (Accu-Chek 1 Each Strip) 1 each FS ACHS [facility] Last Admin: 03/31/22 11:34 Dose: 1 each Docusate Sodium (Docusate Sodium 100 Mg Capsule) 100 mg PO BID [facility] Last Admin: 03/31/22 08:38 Dose: 100 mg Glucose (Dextrose 31 Gm Oral.Susp) 15 gm PO PRN PRN PRN Reason: Hypoglycemia Heparin Sodium (Porcine) (Heparin 5,000 Unit/Ml Vial) 5,000 unit SQ Q12 [facility] Last Admin: 03/31/22 08:38 Dose: 5,000 unit Sodium Chloride (Sodium Chloride 0.9%) 1,000 mls @ 100 mls/hr IV .Q10H [facility] Last Admin: 03/31/22 09:56 Dose: 100 mls/hr Insulin Human Lispro (Insulin Lispro 1 Unit/0.01 Ml Unit) 0 unit SQ [facility]; Protocol Last Admin: 03/31/22 11:37 Dose: 3 units Meclizine HCl (Meclizine 25 Mg Tablet) 25 mg PO TIDP PRN PRN Reason: dizziness Mirtazapine (Mirtazapine 15 Mg Tablet) 7.5 mg PO QHS [facility] Morphine Sulfate (Morphine 4 Mg/Ml Vial) 4 mg IV Q4HP PRN; Protocol PRN Reason: Per Pain Protocol Nicotine (Nicotine 21 Mg Patch) 21 mg TOPICAL DAILY@1000 SUN Ondansetron HCl (Ondansetron 4 Mg/2 Ml Vial) 4 mg IV Q6HP PRN PRN Reason: Nausea And Vomiting Oxybutynin Chloride (Oxybutynin Chloride 5 Mg Tab.Xl.24h) 15 mg PO QDAY [facility] Last Admin: 03/31/22 08:38 Dose: 15 mg Polysaccharide Iron Complex (Iron Polysaccharide Complex 150 Mg Capsule) 150 mg PO DAILY [facility] Last Admin: 03/31/22 08:39 Dose: 150 mg Senna (Sennosides 1 Tablet) 2 tab PO HS [facility] Sodium Bicarbonate (Sodium Bicarbonate 650 Mg Tablet) 650 mg PO TID [facility] Last Admin: 03/31/22 08:38 Dose: 650 mg Sodium Chloride (0.9 % Sodium Chloride 10 Ml Syringe) 10 ml IV Q8 [facility] Last Admin: 03/31/22 05:37 Dose: Not Given Sucralfate (Sucralfate 1 Gm Tablet) 1 gm PO CCHS [facility] Last Admin: 03/31/22 11:41 Dose: 1 gm Trazodone HCl (Trazodone Hcl 50 Mg Tablet) 25 mg PO HSP PRN PRN Reason: Insomnia Vitamin D (Vitamin D3 25 Mcg Tablet) 50 mcg PO QDAY [facility] Last Admin: 03/31/22 08:38 Dose: 50 mcg A/P Assessment and plan (1) Stage 3 acute kidney injury: Status: Acute (2) Type 2 diabetes mellitus without complication: Status: Chronic Qualifiers: Diabetes mellitus retirement insulin use: without retirement use Qualified Code(s): E11.9 - Type 2 diabetes mellitus without complications (3) Acute on chronic renal failure: Status: Chronic Comment: Split GFR 84/16% right vs Left with left renal atrophy SCr as high as 11 mg/dl before relief of right obstruction with stent Baseline SCr now 2.0 Qualifiers: Acute renal failure type: with other specified pathological lesion Chronic kidney disease stage: stage 4 (severe) Qualified Code(s): N17.8 - Other acute kidney failure (4) Obstructive uropathy: Status: Chronic Comment: Bilateral stents for RPF (5) CKD (chronic kidney disease) stage 4, GFR 15-29 ml/min: Status: Chronic (6) Hypertension, essential: Status: Chronic Comment: Avoid ACEi/ARBs and NSAIDS (7) Hydronephrosis: Status: Chronic Qualifiers: Hydronephrosis type: unspecified Qualified Code(s): N13.30 - Unspecified hydronephrosis (8) UTI (urinary tract infection): Status: Chronic Narrative A/P Narrative: Assessment and Plans: 1. Acute kidney injury stage III in the context of chronic kidney disease stage IV due to bilateral obstructive uropathy with resultant bilateral hydronephrosis: Inpatient MedSurg with telemetry Status post bilateral ureteral stents exchanged and Guy catheter placement by Dr. Argueta on 03/30. Serum creatinine level is increased since have decreased from 5.6-5.9. Patient denies any back pain nausea vomiting fever chills diaphoresis. We will continue IV fluid for rehydration purposes, and will repeat CMP in the morning to trend serum BUN and creatinine functions. We will keep the patient's in-house with Guy catheter in place until the serum creatinine levels starting to downtrend and at that point will DC the Guy catheter and discharge patient home. We will make sure patient has 1 to 2 weeks follow-up with Dr. Argueta in the office. 2. Type 2 diabetes mellitus: Hemoglobin A1c 5.1 Hold any oral hypoglycemics Accu-Chek AC HS SSI AC HS Hypoglycemia protocol Diabetic diet after surgery 3. Essential hypertensions: Patient is currently normotensive Continue oral antihypertensives including amlodipine and carvedilol 4. Urinary tract infections: Lactic acid Blood culture, no growth to date Urine culture, no growth to date CBC in the morning Rocephin IV fluid with normal saline at 100 cc/h GI prophylaxis: Not currently indicated DVT prophylaxis: Heparin CODE STATUS: Full code Prognosis: Guarded Dispositions: Inpatient measures telemetry Time Spent With Patient Time: Total time spent is greater than 50% in coordination of care (as documented) at patient's floor/unit and/or counseling patient: Total time spent with greater than 50% in coordination of care (as documented) at patient's floor/unit and/or counseling patient:: 25 - 35 minutes QUALITY VTE Deep Vein Thrombosis/Pulmonary Embolism Present on Admission: No
[2022-03-31] MEDS: NICOTINE 21 MG PATCH TOPICAL SCH (13:58)
--- NOTE | 2022-03-31 15:55 | Nephrology Consult Note ---
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 She has h/oAKI x 2 from worsening hydronephrosis, in apr 2018 needed stent placement and nephrostomy, at her last recent hospitalization her right ureteral stent was displaced and this was changed with improvement of her renal function Renal scan shows right kidney functioning better than left (86% vs 14%) per urology notes Reviewing the patient's chart she has had a least 2 episodes of complete renal failureone requiring dialysis and another improved with stent replacement.She hasbilateral retroperitoneal fibrosis with ureteral obstruction and obstructive uropathy.Her split kidney function is about 84% on the right and 16% on the left with concomitant left renal atrophy. Currently her serum creatinine is right around 2.0 mg/dL which represents a GFR of 26 cc/min. She reports herstents are to be changed every 2 monthsor sooner if her problem arises. She has a typical "dirty" appearing urine sediment from chronic indwelling ly nts but there is no predominant organism and no symptoms of a urinary tract infection or pyelonephritis which would require antibacterial treatment. Seen by surgeon in [place] who declined surgical option is NIL. Q 3 month stent replacement in January, (Lena Curiel) ThenScreened and afebrile. CoVID-19 restrictions caused 1 yr delay between 2020 and 2021 stent change with apparent decline in GFR 2017 converted from perc nephrostomy tubes to internalized. Last Urology note was as follows: Was seen by Dr Palacio and was concerned about elevated SCr so sent to [facility]. After initial work-up but was called by the ER physician and told that the [id number] creatinine was 7... In fact it was closer to the mid 5's by PRL testing. My initial recommendation was that if there is any consideration being given to initiation of dialysis she should be sent to a center that had both urologic interventional radiology and nephrology with dialysis. Next morning I was surprised to find the patient on my census. She has undergone bilateral stent exchange but a few hours since that procedure, if anything the serum creatinine has risen. I do not see that the patient's been on any RAASI therapy or nonsteroidal anti-inflammatories, her blood pressure is bit on the low side and she may require IV fluids not that I expect much of a postobstructive diuresis given the amount of cortical atrophy that is present in the left kidney. Previously did mention on that majority (80%) of her renal function is coming from the right kidney as this is the 1 with some degree of residual renal cortical mass. Nothing is changed in terms of my opinion that she will require transfer to a tertiary care facility if her GFR fails to improve. 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 Acute rise in GFR is presumably from recurrent obstruction, stents fail to improve her GFR along with hydration, have to consider rapid progression towards end-stage renal disease perhaps temporally related to her COVID-19 booster in June 2021. She knows not to take non steroidal and has not had any other particularly nephrotoxic medication that I know of... Ascending pyelonephritis is always a possibility and she should be covered for Klebsiella which she grows more often than not but the lack of fever and elevated white count would argue against sepsis/pyelonephritis cc:: CC: Avel Headley MD Constitutional Constitutional: Absent chills, excessive sweating, fatigue, fever(s) or weakness EENT Eyes: Absent blurry vision, change in vision, loss of vision or other visual disturbances Ears: Absent decreased hearing or tinnitus Nose, mouth and throat: Absent abnormal hearing, dry mouth, headache(s), nasal congestion or sore throat Cardiovascular Cardiovascular: Absent chest pain, chest pain at rest, edema, irregular heart rhythm or palpatations Respiratory Respiratory: Present cough (dry); Absent dyspnea or wheezing Gastrointestinal Gastrointestinal: Absent abdominal pain, constipation, diarrhea, nausea or vomiting Genitourinary Additional comments: Decreased urine output Musculoskeletal Musculoskeletal: Absent back pain, deformity, limited range of motion, muscle cramps, muscle weakness or numbness Integumentary Integumentary: Absent lesions, rash or wounds Neurological Neurological: Absent focal weakness, headache(s) or numbness Psychiatric Psychiatric: Absent anxiety, depression or hallucinations PFSH PFSH All Active Problems (Updated 03/31/22 @ 17:15 by Hadley Chin MD) Acute on chronic renal failure (Chronic) Obstructive uropathy (Chronic) CKD (chronic kidney disease) stage 4, GFR 15-29 ml/min (Chronic) Retroperitoneal fibrosis (Chronic) Acute renal failure (Acute) Metabolic acidosis, NAG, failure of bicarbonate regeneration (Chronic) Bilateral hydronephrosis (Acute) Creatinine elevation (Acute) Stage 3 acute kidney injury (Acute) Secondary hyperparathyroidism of renal origin (Acute) Anemia in stage 4 chronic kidney disease (Acute) Medication management (Acute) Insomnia (Acute) Fatigue (Acute) Acute UTI (Acute) Dizziness (Acute) Leg edema, left (Acute) Left renal atrophy (Chronic) H/O nephrostomy (Chronic) Ureteral stricture (Chronic) Kidney failure (Chronic) Hydronephrosis (Chronic) H/O nephrostomy (Chronic) H/O cystoscopy (Chronic) H/O aortic aneurysm repair (Chronic) H/O cystoscopy (Chronic) H/O cystoscopy (Chronic) H/O cystoscopy (Chronic) Hx of appendectomy (Chronic) History of bilateral tubal ligation (Chronic) History of right-sided carotid endarterectomy (Chronic) History of cholecystectomy (Chronic) S/P foot surgery, right (Chronic) Kidney failure, acute (Chronic 04/26/18) Crossing vessel and 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 hydronephrosis (Chronic ~11/23/17) Other chronic cystitis without hematuria (Chronic ~11/23/17) UTI (urinary tract infection) (Chronic) Other specified disorder of kidney and ureter (Chronic) Unspecified hydronephrosis (Chronic) Mononucleosis (Chronic) Renal osteodystrophy (Chronic) Anemia, unspecified (Chronic) 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) Emphysema, unspecified (Chronic) Hypertension, essential (Chronic) Heart disease, unspecified (Chronic) Inflammatory liver disease (Chronic) Other hyperlipidemia (Chronic) Type 2 diabetes mellitus without complication (Chronic) Foot fracture (Chronic ~05/2018) GI hemorrhage (Chronic) Acute blood loss anemia (Chronic) Lactic acidosis (Chronic) Hypovolemic shock (Chronic) Bleeding gastric ulcer (Chronic) Carotid stenosis (Chronic) Systolic heart failure (Chronic) Chronic pain (Chronic) Transfusion history (Chronic) Weakness (Chronic) Sepsis (Chronic) History of viral hepatitis (Chronic) Inflammatory abdominal aortic aneurysm (Chronic) Idiopathic cardiomyopathy (Chronic) Pulmonary edema (Chronic) Oxygen dependent (Chronic) Tobacco use (Chronic) Impaired cognition (Chronic) Hyperkalemia (Chronic) Anemia (Chronic) Metabolic acidosis (Chronic) Renal tubular acidosis (Chronic) Methicillin resistant Staphylococcus aureus infection as the cause of diseases classified elsewhere (Chronic) Lumbar back pain with radiculopathy affecting lower extremity (Chronic) Pulmonary nodule (Chronic) Chronic allergic rhinitis (Chronic) Primary idiopathic hypertrophic cardiomyopathy (Chronic) CKD (chronic kidney disease) (Chronic) No-show for appointment (Acute) Medical History (Updated 03/31/22 @ 17:15 by Hadley Chin MD) Acute blood loss anemia Acute on chronic renal failure Split GFR 84/16% right vs Left with left renal atrophy SCr as high as 11 mg/dl before relief of right obstruction with stent Baseline SCr now 2.0 - 2.5 mg/dl range Anemia, unspecified Bleeding gastric ulcer Cardiomyopathy due to drug and external agent Carotid stenosis Chronic allergic rhinitis Chronic pain CKD (chronic kidney disease) Primary renal insult with his obstructive uropathy due to retroperitoneal fibrosis. On 2 separate occasions her creatinine is been as high as 10. Currently in the 1.5 to 2.5 range with every 2 month stent changes. Crossing vessel and 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 hydronephrosis (~11/23/17) Emphysema, unspecified Foot fracture (~05/2018) GI hemorrhage Heart disease, unspecified History of viral hepatitis Hydronephrosis Hypertension, essential Avoid ACEi/ARBs and NSAIDS Hypovolemic shock Idiopathic cardiomyopathy EF 30% Impaired cognition Inflammatory abdominal aortic aneurysm Inflammatory liver disease Kidney failure Kidney failure, acute (04/26/18) Lactic acidosis Lumbar back pain with radiculopathy affecting lower extremity Metabolic acidosis, NAG, failure of bicarbonate regeneration prolonged obstruction Methicillin resistant Staphylococcus aureus infection as the cause of diseases classified elsewhere Mononucleosis Obstructive uropathy Bilateral stents for RPF Stent change 03/30/2022 Other chronic cystitis without hematuria (~11/23/17) Other hyperlipidemia Other specified disorder of kidney and ureter Oxygen dependent Primary idiopathic hypertrophic cardiomyopathy Pulmonary edema Pulmonary nodule Renal osteodystrophy Renal tubular acidosis Secondary to obstructive uropathy, with occasional episodes of hyperkalemia this sounds like type IV RTA Retroperitoneal fibrosis Baseline SCr 2.0. Little left kidney contribution to GFR due to atrophy Sepsis Systolic heart failure Tobacco use Transfusion history Type 2 diabetes mellitus without complication Unspecified hydronephrosis Ureteral stricture UTI (urinary tract infection) Weakness Surgical History H/O aortic aneurysm repair 03/2017 Stent H/O cystoscopy 03/25/17 Insert stent, bilateral H/O cystoscopy 06/17/17 Bilateral RPG, stent exchange H/O cystoscopy 12/09/17 Bilateral RPG, stent exchange H/O cystoscopy 04/28/18 Bilateral RPG, stent, exchange H/O nephrostomy 03/2017 Right nephrostomy tube H/O nephrostomy 04/20/18 Bilateral nephrostomy placement History of bilateral tubal ligation History of cholecystectomy History of esophagogastroduodenoscopy 05/19 3 bleeding ulcers History of right-sided carotid endarterectomy Hx of appendectomy S/P foot surgery, right Family History Mother , at age 80 CVA (cerebral vascular accident) Tachycardia Diabetes Sister Breast cancer Diabetes Lung cancer Cancer of spine Anemia Father , at age 85 AAA (abdominal aortic aneurysm) Unknown Family history of kidney stones Other Malignant neoplasm Social History household members: alone lives independently: Yes marital status: occupational exposures/hazards: No other: Children-4 physical activity: none smoking status: Current every day smoker tobacco type: cigarettes alcohol intake frequency: holiday/special occasion only substance use type: does not use MEDS/ALLERGIES Home Medications and Allergies Home Medications Medication Instructions Recorded Confirmed Type aspirin 81 mg tablet 81 mg PO QDAY 05/16/19 03/31/22 History cholecalciferol (vitamin D3) 50 2,000 unit PO QDAY #30 caps 09/04/20 03/31/22 Rx mcg (2,000 unit) capsule polysaccharide iron complex 150 mg See Rx Instructions .Route 02/24/21 03/31/22 Rx iron capsule (Ferrex) .COMPLEX #90 ea sucralfate 1 gram tablet See Rx Instructions .Route 05/08/21 03/31/22 Rx .COMPLEX ##360 oxybutynin chloride 10 mg 15 mg PO QDAY 05/09/21 03/31/22 History tablet,extended release 24 hr amlodipine 10 mg tablet 10 mg PO QHS HTN #90 tabs 08/11/21 03/31/22 Rx meclizine 25 mg tablet 25 mg PO TID PRN dizziness #10 tabs 09/14/21 03/31/22 Rx sodium bicarbonate 650 mg tablet 650 mg PO TID #90 tabs 09/18/21 03/31/22 Rx atorvastatin 20 mg tablet See Rx Instructions .Route 11/12/21 03/31/22 Rx .COMPLEX #90 tabs mirtazapine 7.5 mg tablet 7.5 mg PO QHS #90 tabs 02/11/22 03/31/22 Rx carvedilol 12.5 mg tablet 12.5 mg PO BID HTN 90 days #180 02/26/22 03/31/22 Rx tabs hydrocodone 7.5 mg-acetaminophen 1 tab PO Q4-6H PRN pain #120 tabs 03/11/22 03/31/22 Rx 325 mg tablet Allergies Allergy/AdvReac Type Severity Reaction Status Date / Time levofloxacin Allergy Severe Anaphylaxis Verified 03/30/22 17:38 cephalexin [From Keflex] AdvReac Mild Pt reports Verified 03/31/22 06:08 being " really sick, fatigue" egg AdvReac Mild gets sick Verified 03/31/22 06:08 with fried eggs hydromorphone [From Dilaudid] AdvReac Mild Nausea Verified 03/30/22 17:38 morphine AdvReac Mild Nausea Verified 03/30/22 17:38 sulfamethoxazole AdvReac Mild Vomiting Verified 03/31/22 06:08 Physical Examination Vital Signs Vital signs: Temp Pulse Resp BP Pulse Ox O2 Del Method O2 Flow Rate 36.4 C 70 14 107/73 93 1.5 03/31/22 11:47 03/31/22 11:47 03/31/22 11:47 03/31/22 11:47 03/31/22 11:47 03/31/22 11:47 03/31/22 11:47 General Appearance General appearance: chronically ill and fatigue Exam Narrative: nontoxic EENT EENT: ATNC, PERRL and mucous membranes dry Neck Neck: no JVD and supple Respiratory Respiratory: course breath sounds and rhonchi Cardiovascular Cardiology: no murmurs, no rub, no gallops, no edema, normal S1 and normal S2 Gastrointestinal Gastrointestinal: normoactive bowel sounds Integumentary Integumentary: no rash Neurologic Neurologic: no focal deficit and CN 3-12 intact Musculoskeletal Musculoskeletal: no erythema, no cyanosis and no clubbing Psychiatric Psychiatric: mood/affect appropriate and cooperative Results Lab Results Result Diagrams: 03/31/22 05:22 03/31/22 05:21 Lab results: Most recent lab results Calcium 8.3 mg/dL (8.6-10.4) L 03/31/22 05:21 Phosphorus 5.4 mg/dL (2.5-4.5) H 03/31/22 05:21 Magnesium 1.8 mg/dL (1.6-2.5) 03/31/22 05:21 Image Kidney/bladder ultrasound: pending, report reviewed, image reviewed and other A/P Assessment and plan (1) Acute on chronic renal failure: Assessment and plan: Obstruction should get better with stent change. Low BP could lead to decreased GFR ...hydrate R/O kleb uti Could be temporally related to 3rd covid vaccine Plan: Hydrate with NS Avoid RASSI and NSAIDs Trend GFR Status: Chronic Comment: Split GFR 84/16% right vs Left with left renal atrophy SCr as high as 11 mg/dl before relief of right obstruction with stent Baseline SCr now 2.0 - 2.5 mg/dl range Qualifiers: Acute renal failure type: with other specified pathological lesion Chronic kidney disease stage: stage 4 (severe) Qualified Code(s): N17.8 - Other acute kidney failure (2) Obstructive uropathy: Assessment and plan: Stents should fix if this is the cause Status: Chronic Comment: Bilateral stents for RPF Stent change 03/30/2022 (3) Left renal atrophy: Assessment and plan: prior to [address] and prior nuclear scan renal scan...left side may be progressing but only contributed <20% of her [employer] GFR so I would expect SCr to only rise to 3 or so mg/dl with complete loss of left renal function so right must be involved Status: Chronic (4) Metabolic acidosis, NAG, failure of bicarbonate regeneration: Assessment and plan: NaHCO3 to replace losses and keep serum HCO3 > 20 Status: Chronic Comment: prolonged obstruction (5) Retroperitoneal fibrosis: Status: Chronic Comment: Baseline SCr 2.0. Little left kidney contribution to GFR due to atrophy Narrative A/P Narrative: ARF on CKD 4 Obstruction > dehydration > nephrotoxic Rx > Pyelonephritis / complex UTI > adverse effect of SARs CV-2 booster which temporally fits Time Spent With Patient Time: Total time spent is greater than 50% in coordination of care (as documented) at patient's floor/unit and/or counseling patient: Total time spent with greater than 50% in coordination of care (as documented) at patient's floor/unit and/or counseling patient:: 35 - 50 minutes
[2022-03-31] MEDS ORDERED: MIRTAZAPINE 15 MG TABLET PO SCH (21:00)
[2022-03-31] MEDS ORDERED: SENNOSIDES 1 TABLET PO SCH (21:00)
[2022-03-31] MEDS ORDERED: amLODIPine 10 MG TABLET PO SCH ×2 (21:00)
[2022-03-31] MEDS ORDERED: CARVEDILOL 12.5 MG TABLET PO SCH (21:00)
[2022-03-31] MEDS ORDERED: amLODIPine 5 MG TABLET ONE (22:19)
[2022-04-01] MEDS: 0.9 % SODIUM CHLORIDE 10 ML SYRINGE IV SCH (05:09)
[2022-04-01] MEDS: 0.9 % SODIUM CHLORIDE 1,000 ML IV SCH (05:10)
[2022-04-01 06:38] LABS: Basophils # (Auto) 0.01 K/mcL (0.00-0.30); Basophils % (Auto) 0.1 % (0.0-2.0); Eosinophils # (Auto) 0 K/mcL (0.00-0.70); Eosinophils % (Auto) 0 % (0.0-7.0); Hematocrit 33.4 % (34.1-44.9); Hemoglobin 10.6 g/dL (11.2-15.7); Lymphocytes # (Auto) 1.61 K/mcL (1.50-4.80); Lymphocytes % (Auto) 13.5 % (15.5-49.0); Mean Cell Volume 88.6 fL (80.0-100.0); Mean Corpuscular HGB Conc 31.7 g/dL (31.0-36.0); Monocytes # (Auto) 0.53 K/mcL (0.10-0.90); Monocytes % (Auto) 4.5 % (1.0-12.0); Neutrophils % (Auto) 80.9 % (38.0-78.0); Platelet Count 405 K/mcL (140-440); RBC 3.77 M/mcL (3.59-5.38); Red Cell Distribution Width 16.2 % (11.5-14.5); WBC 11.9 K/mcL (4.5-11.0)
[2022-04-01 06:42] LABS: Potassium,Urine Random 7.1 mmol/L
[2022-04-01 07:22] LABS: ALT/SGPT 7 U/L (<40); AST/SGOT 6 U/L (<32); Albumin 3.2 gm/dL (3.2-5.2); Albumin/Globulin Ratio 0.8 (1.0-2.3); Alkaline Phosphatase 109 U/L (39-117); Bilirubin,Total < 0.2 mg/dL (0.1-1.0); Blood Urea Nitrogen 53 mg/dL (8-23); Calcium 8.2 mg/dL (8.6-10.4); Carbon Dioxide 17 mmol/L (22-30); Chloride 111 mmol/L (96-108); Globulin 4.2 gm/dL (2.2-3.7); Glomerular Filtration Rate 9; Glucose 112 mg/dL (70-105)
[2022-04-01] MEDS: SUCRALFATE 1 GM TABLET PO SCH (07:25)
[2022-04-01] MEDS: HYDROCODONE/APAP 7.5/325MG TABLET PO PRN (07:25)
[2022-04-01] MEDS: INSULIN LISPRO 1 UNIT/0.01 ML UNIT SQ SCH (07:39)
[2022-04-01] MEDS: ASPIRIN 81 MG TAB.CHEW PO SCH (08:35)
[2022-04-01] MEDS: SODIUM BICARBONATE 650 MG TABLET PO SCH (08:36)
[2022-04-01] MEDS: OXYBUTYNIN CHLORIDE 5 MG TAB.XL.24H PO SCH (08:36)
[2022-04-01] MEDS: IRON POLYSACCHARIDE COMPLEX 150 MG CAPSULE PO SCH (08:36)
[2022-04-01] MEDS: VITAMIN D3 25 MCG TABLET PO SCH (08:36)
[2022-04-01] MEDS: DOCUSATE SODIUM 100 MG CAPSULE PO SCH (08:36)
[2022-04-01] MEDS: HEPARIN 5,000 UNIT/ML VIAL SQ SCH (08:37)
[2022-04-01] MEDS: cefTRIAXone 1 GM VIAL IV SCH (08:42)
--- NOTE | 2022-04-01 08:56 | Discharge Summary ---
Discharge Provider Provider IMPORTANT FOLLOW-UP INFORMATION FOR PCP: Patient information: Note initiated : 04/01/22 at 8:53 am Service Date, if different from initiated Date: [] Patient: Radha Dumont 71 y/o F admitted on 03/30/22 for Kidney/Recheck abnormal labs. Chief Complaint: [] Date of admission: 03/30/22 23:10 Discharge date: 04/01/22 Primary care physician: Erika Palacio Attending physician on admission: Avel Headley Consults: 03/30/22 Consult to Physician [CONS] Stat Comment: Consulting Provider: Avel Headley Reason For Exam: Physician to Consult Consult to Physician [CONS] Stat Comment: Bilateral hydronephrosis Consulting Provider: Uriah Argueta Reason For Exam: Physician to Consult 03/30/22 23:41 Consult to Physician [CONS] Routine Comment: Consulting Provider: Hadley Chin Reason For Exam: Physician to Consult Attending physician on discharge: Avel Powers Pui COURSE Hospital Course Hospital course: Ms. Dumont is a 71 year old F history of chronic kidney disease stage IV, obstructive uropathy status post bilateral ureteral stents placement by urologist Dr. Palacio in November 2021, type 2 diabetes mellitus, essential hypertensions, presenting with abnormal labs. Patient had a follow-up appointment with her urologist 2 days ago when she had her lab repeated. Today she got a call saying that she had abnormal labs, in specific, her creatinine was elevated to 5.6 with baseline between 2.0 and 2.8. She was instructed to come to our ER for further evaluations. Patient had minimal urine output. She otherwise denies any symptoms suggest dysuria, fever, chills, diaphoresis, or general body weakness. She also denies any GI symptoms such as nausea or vomiting. She denies any back pain. WBC 8.9. Serum potassium level 3.5. BUN 56. UA also suggest the presence of urinary tract infections. A collaborated decision between Dr. Chin, Dr. Palacio (outpatient urologist) , and Dr. Argueta was made to admit the patient tonight for bilateral stents exchanged, IV fluid hydrations, and trending the labs in the morning to make sure kidney function improved. 03/31: Status post bilateral ureteral stents exchanged and Guy catheter placement by Dr. Argueta on 03/30. Serum creatinine level is increased since have decreased from 5.6-5.9. Patient denies any back pain nausea vomiting fever chills diaphoresis. We will continue IV fluid for rehydration purposes, and will repeat CMP in the morning to trend serum BUN and creatinine functions. We will keep the patient's in-house with Guy catheter in place until the serum creatinine levels starting to downtrend and at that point will DC the Guy catheter and discharge patient home. We will make sure patient has 1 to 2 weeks follow-up with Dr. Argueta in the office. 04/02: Reached clinical stability, decision made to discharge home with PCP and urology follow up appointments made for her. All questions were answered prior to pat ient being physically discharged. Rx sent to pharmacy. Discharge diagnosis: ureteral stent dysfunction; UTI Time Spent with Patient Time attestation: Total time spent providing and/or coordinating discharge services: Time spent: Less than 30 minutes EXAM Constitutional Vitals: Temp Pulse Resp BP Pulse Ox O2 Del Method O2 Flow Rate 36.6 C 73 14 130/79 94 1.5 04/01/22 08:00 04/01/22 08:00 04/01/22 08:00 04/01/22 08:00 04/01/22 08:00 04/01/22 08:00 03/31/22 11:47 General appearance: cooperative and no acute distress Head Head exam: Present atraumatic and normocephalic Eye Eye exam: Present EOMI and PERRL ENT ENT exam: Present mucous membranes moist, normal exam and normal external ear exam Neck Neck exam: Present normal inspection; Absent lymphadenopathy, tenderness or thyromegaly Respiratory Respiratory exam: Absent accessory muscle use, respiratory distress or wheezes Cardiovascular Cardiovascular exam: Present normal rate and rhythm; Absent JVD GI/Abdominal GI/Abdominal exam: Present normal bowel sounds and soft; Absent organomegaly or tenderness Extremities Exam Extremities exam: Present full ROM, normal capillary refill and normal inspection; Absent tenderness Neurological Exam Neurological exam: Present alert, CN II-XII intact and oriented X3; Absent motor sensory deficit Psychiatric Psychiatric exam: Present normal affect and normal mood; Absent anxious or depressed Skin Skin exam: Present dry and intact Discharge Data Data Completed and Pending Labs on day of discharge: Labs from last 24 hours 04/01/22 04/01/22 04/01/22 05:22 05:22 05:22 WBC RBC Hgb Hct MCV MCH MCHC RDW Plt Count MPV Immature Gran % (Auto) Neut % (Auto) Lymph % (Auto) [place] % (Auto) Eos % (Auto) Baso % (Auto) Lymph # (Auto) [place] # (Auto) Eos # (Auto) Baso # (Auto) Immature Gran # Absolute Neutrophils Sodium Potassium Chloride Carbon Dioxide Anion Gap BUN Creatinine GFR Calculation Glucose Calcium Phosphorus Magnesium Total Bilirubin AST ALT Alkaline Phosphatase Total Protein Albumin Globulin Albumin/Globulin Ratio Ur Random Creatinine 21.0 L Ur Random Sodium 91 Ur Random Potassium 7.1 Ur Random Chloride 78 L 04/01/22 04/01/22 05:21 05:21 WBC 11.9 H RBC 3.77 Hgb 10.6 L Hct 33.4 L MCV 88.6 MCH 28.1 MCHC 31.7 RDW 16.2 H Plt Count 405 MPV 10.0 Immature Gran % (Auto) 1.0 H Neut % (Auto) 80.9 H Lymph % (Auto) 13.5 L [place] % (Auto) 4.5 Eos % (Auto) 0 Baso % (Auto) 0.1 Lymph # (Auto) 1.61 [place] # (Auto) 0.53 Eos # (Auto) 0 Baso # (Auto) 0.01 Immature Gran # 0.12 H Absolute Neutrophils 9.62 H Sodium 140 Potassium 4.1 Chloride 111 H Carbon Dioxide 17 L Anion Gap 12.0 BUN 53 H Creatinine 4.5 H GFR Calculation 9 Glucose 112 H Calcium 8.2 L Phosphorus 4.0 Magnesium 1.8 Total Bilirubin < 0.2 AST 6 ALT 7 Alkaline Phosphatase 109 Total Protein 7.4 Albumin 3.2 Globulin 4.2 H Albumin/Globulin Ratio 0.8 L Ur Random Creatinine Ur Random Sodium Ur Random Potassium Ur Random Chloride Preliminary micro results at discharge 03/30/22 00:13 Blood Culture - Preliminary Blood 03/30/22 00:04 Blood Culture - Preliminary Blood Discharge Plan Patient/Caregiver Discharge Instructions Activity: increase activity as tolerated Diet: Consistent Carbohydrate Prescriptions: New nicotine 21 mg/24 hr Patch 24 Hour 21 mg topical DAILY@1000 Qty: 21 0RF sulfamethoxazole-trimethoprim [Bactrim DS] 800-160 mg tablet 1 tab PO BID Qty: 6 0RF Continued cholecalciferol (vitamin D3) 50 mcg (2,000 unit) capsule 2,000 unit PO QDAY Qty: 30 12RF polysaccharide iron complex [Ferrex 150] 150 mg iron capsule See Rx Instructions .ROUTE .COMPLEX Qty: 90 3RF Dose Instruction: TAKE ONE CAPSULE BY MOUTH DAILY. AVOID DAIRY/CALCIUM CONTAINING PRODUCTS AND/ OR ANTACIDS FOR AT LEAST 2 HOURS BEFORE AND AFTER DOSE Rx Instructions: TAKE ONE CAPSULE BY MOUTH DAILY. AVOID DAIRY/CALCIUM CONTAINING PRODUCTS AND/OR ANTACIDS FOR AT LEAST 2 HOURS BEFORE AND AFTER DOSE sucralfate 1 gram tablet See Rx Instructions .ROUTE .COMPLEX Qty: 360 3RF Dose Instruction: TAKE 1 TABLET BY MOUTH FOUR TIMES DAILY WITH MEALS AND AT BEDTIME Rx Instructions: TAKE 1 TABLET BY MOUTH FOUR TIMES DAILY WITH MEALS AND AT BEDTIME amlodipine 10 mg tablet 10 mg PO QHS Qty: 90 3RF sodium bicarbonate 650 mg tablet 650 mg PO TID Qty: 90 12RF Rx Instructions: new dose atorvastatin 20 mg tablet See Rx Instructions .ROUTE .COMPLEX Qty: 90 1RF Dose Instruction: TAKE ONE TABLET BY MOUTH AT BEDTIME Rx Instructions: TAKE ONE TABLET BY MOUTH AT BEDTIME mirtazapine 7.5 mg tablet 7.5 mg PO QHS Qty: 90 0RF carvedilol 12.5 mg tablet 12.5 mg PO BID 90 Days Qty: 180 0RF hydrocodone-acetaminophen 7.5-325 mg tablet 1 tab PO Q4-6H PRN (Reason: pain) Qty: 120 0RF aspirin 81 mg tablet 81 mg PO QDAY oxybutynin chloride 10 mg tablet extended release 24hr 15 mg PO QDAY meclizine 25 mg tablet 25 mg PO TID PRN (Reason: dizziness) Qty: 10 0RF Follow Up Plan Follow up with: Uriah Argueta MD [Physician] - Erika Palacio ARNP [Primary Care Provider] - Patient Disposition: Home, Self-Care Prognosis: Fair Rehab Potential: Good I certify that the patient requires SNF services: No Overall status at discharge: patient is back to baseline Discharge Orders: Discharge Order (Routine); Ordered 04/01/22 Ordered By: Avel ASHLEY VTE Deep Vein Thrombosis/Pulmonary Embolism Present on Admission: No
--- NOTE | 2022-04-01 09:09 | Nephrology Progress Note ---
SUBJECTIVE Subjective Patient information: Note initiated : 04/01/22 at 9:07 am Service Date, if different from initiated Date: [] Patient: Radha Dumont 71 y/o F admitted on 03/30/22 for Kidney/Recheck abnormal labs. Chief Complaint: [abnl labs] Principal diagnosis: Acute on chronic renal failure, bilateral hydronephrosis Interval history: Improving GFR 36 hrs post bilateral stent change OK for Discharge. already has scheduled follow up with me. Vital Signs Temp Pulse Resp BP Pulse Ox O2 Del Method O2 Flow Rate 04/01/22 08:00 36.6 C 73 14 130/79 94 Room Air 04/01/22 02:34 37.1 C 80 14 123/86 90 Room Air 03/31/22 22:54 36.9 C 78 14 120/76 92 Room Air 03/31/22 19:18 37.3 C H 81 14 136/81 95 Room Air 03/31/22 16:00 36.6 C 81 16 133/86 03/31/22 11:47 36.4 C 70 14 107/73 93 Nasal Cannula 1.5 Intake and Output 03/31/22 04/01/22 04/01/22 21:59 05:59 13:59 Intake Total 1718 1395 600 Output Total 300 2850 700 Balance 1418 -1455 -100 Intake: IV 928 995 Sodium Chloride 0.9% 1,000 ml @ 928 995 100 mls/hr IV .Q10H [facility] Rx#: [id number] Oral 790 400 600 Output: Urine Catheter Amount 300 2850 700 Other: Meal Dinner Breakfast Percent of Meal Consumed 100% 100% Urine Appearance Cloudy Cloudy Sediment Sediment Uretheral (Guy) Cloudy Cloudy Sediment Urine Color Pale Pale Uretheral (Guy) Bright Yellow Weight 83.461 kg Pertinent ROS: N/A Additional PMFSH (Level 3 Only): N/A Constitutional Vitals: Vital Signs Temp Pulse Resp BP Pulse Ox O2 Del Method O2 Flow Rate 36.6 C 73 14 130/79 94 1.5 04/01/22 08:00 04/01/22 08:00 04/01/22 08:00 04/01/22 08:00 04/01/22 08:00 04/01/22 08:00 03/31/22 11:47 Period Temp Pulse Resp BP Sys/Hartman Pulse Ox O2 Del Method O2 Flow Rate Last 24 Hr 36.4 C-37.3 C 70-81 14-16 107-136/73-86 90-95 Nasal Cannula- Room Air 1.5 Intake and Output 03/31/22 04/01/22 04/01/22 21:59 05:59 13:59 Intake Total 1718 1395 600 Output Total 300 2850 700 Balance 1418 -1455 -100 Weight 83.461 kg Intake & Output: Intake & Output 03/31/22 04/01/22 04/01/22 21:59 05:59 13:59 Intake Total 1718 1395 600 Output Total 300 2850 700 Balance 1418 -1455 -100 Weight 83.461 kg Intake: IV 928 995 Sodium Chloride 0.9% 1,000 ml @ 928 995 100 mls/hr IV .Q10H [facility] Rx#: [id number] Oral 790 400 600 Output: Urine Catheter Amount 300 2850 700 Other: Meal Dinner Breakfast Percent of Meal Consumed 100% 100% Urine Appearance Cloudy Cloudy Sediment Sediment Uretheral (Guy) Cloudy Sediment Urine Color Pale Pale General appearance: no acute distress Head Head exam: Present normal inspection Eye Eye exam: Present EOMI and PERRL Neck Neck exam: Present normal inspection Respiratory Respiratory exam: Present rhonchi Cardiovascular Cardiovascular exam: Present normal rate and rhythm, RRR, +S1 and +S2; Absent JVD GI/Abdominal GI/Abdominal exam: Present normal bowel sounds Extremities Exam Extremities exam: Absent pedal edema Neurological Exam Neurological exam: Present alert and CN II-XII intact Skin Skin exam: Present dry A/P Assessment and plan (1) Acute on chronic renal failure: Status: Chronic Comment: Split GFR 84/16% right vs Left with left renal atrophy SCr as high as 11 mg/dl before relief of right obstruction with stent Baseline SCr now 2.0 - 2.5 mg/dl range Qualifiers: Acute renal failure type: with other specified pathological lesion Chronic kidney disease stage: stage 4 (severe) Qualified Code(s): N17.8 - Other acute kidney failure (2) Obstructive uropathy: Status: Chronic Comment: Bilateral stents for RPF Stent change 03/30/2022 (3) CKD (chronic kidney disease) stage 4, GFR 15-29 ml/min: Status: Chronic (4) Retroperitoneal fibrosis: Status: Chronic Comment: Baseline SCr 2.0. Little left kidney contribution to GFR due to atrophy (5) Acute renal failure: Status: Acute Qualifiers: Acute renal failure type: unspecified Qualified Code(s): N17.9 - Acute kidney failure, unspecified Plan Discharge home Continue NaHCO3 supplement as previously order F/U as previously arranged Sepsis Sepsis Identified: No Time Spent With Patient Time: Total time spent is greater than 50% in coordination of care (as documented) at patient's floor/unit and/or counseling patient:
[2022-04-01] MEDS: NICOTINE 21 MG PATCH TOPICAL SCH (10:45)
--- NOTE | 2022-04-03 07:39 | EKG ---
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 Measurements Intervals [place] Rate: 66 P: 27 FL: 177 QRS: -3 QRSD: 104 T: 53 QT: 422 QTc: 443 Interpretive Statements Sinus rhythm Electronically Signed On 04-03-2022 7:39:01 PDT by Gregor Piedra M.D. /[id number]
== END 2022-04-01 11:29 | disposition home or self-care (01) | DRG 661 ==
LOC: ED 17:33 → SUR 22:11 → MEDSUR 23:10
PROVIDERS: ADMIT Internal Medicine; ATTEND Internal Medicine

== ENCOUNTER 2022-12-29 13:53 | Inpatient (IN) ==
[2022-12-29] MEDS ORDERED: NALOXONE HCL 0.4 MG/ML VIAL IV ONE ×2 (14:04→14:30)
[2022-12-29] MEDS ORDERED: 0.9 % SODIUM CHLORIDE 1,000 ML IV ONE ×2 (14:07→15:53)
[2022-12-29 14:21] LABS: POC Calcium, Ionized 1.23 (1.16-1.32); POC Creatinine 3.9 (0.6-1.2); POC Potassium 3.9 (3.3-5.1)
[2022-12-29] MEDS ORDERED: ONDANSETRON 4 MG/2 ML VIAL IV ONE (14:29)
[2022-12-29] MEDS ORDERED: ONDANSETRON 4 MG/2 ML VIAL ONE (14:34)
[2022-12-29 14:43] LABS: Basophils # (Auto) 0.04 K/mcL (0.00-0.30); Basophils % (Auto) 0.3 % (0.0-2.0); Eosinophils # (Auto) 0.03 K/mcL (0.00-0.70); Eosinophils % (Auto) 0.2 % (0.0-7.0); Hematocrit 43.2 % (34.1-44.9); Hemoglobin 13.9 g/dL (11.2-15.7); Lymphocytes # (Auto) 1.63 K/mcL (1.50-4.80); Lymphocytes % (Auto) 13.4 % (15.5-49.0); Mean Cell Volume 87.8 fL (80.0-100.0); Mean Corpuscular HGB Conc 32.2 g/dL (31.0-36.0); Mean Platelet Volume 10.6 fL (8.8-12.5); Monocytes # (Auto) 0.99 K/mcL (0.10-0.90); Monocytes % (Auto) 8.1 % (1.0-12.0); Neutrophils % (Auto) 77.6 % (38.0-78.0); Platelet Count 313 K/mcL (140-440); RBC 4.92 M/mcL (3.59-5.38); Red Cell Distribution Width 15.1 % (11.5-14.5); WBC 12.2 K/mcL (4.5-11.0)
--- NOTE | 2022-12-29 14:47 | Cat Scan Report ---
INDICATION: AMS. Drug overdose COMPARISON: Previous CT scan dated 12/19/2022 TECHNIQUE: Axial noncontrast-enhanced images through the brain. Sagittally and coronally reformatted images. FINDINGS: Cerebral hemispheres:Negative. No intra-axial abnormality. No intra-axial hematoma. No localized mass effect.Brain volume is within normal limits for age. Periventricular white matter is negative without significant attenuation abnormality. Brainstem and cerebellum:No intra-axial abnormality Extra-axial:No acute hemorrhage. No subdural or epidural hematoma. No subarachnoid hemorrhage. Basilar cisterns are normal Calvarial:No calvarial fracture. No lytic lesion Temporal bones are negative. No destructive lesions Soft tissue, orbits, sinuses:Orbits and visualized facial soft tissues and paranasal sinuses are negative IMPRESSION: 1. No intracranial hemorrhage 2. No acute or focal abnormality. No interval change since 12/29/2022 The exam was performed using radiation dose optimization techniques including, but not limited to, automated exposure control, adjustment of the mA and/or kV according to patient size and use of iterative reconstruction technique. Interpreted and Authenticated by: Gregor Atkinson 12/29/22
--- NOTE | 2022-12-29 14:56 | Cat Scan Report ---
INDICATION: Drug overdose COMPARISON: Previous chest CT scan dated 08/30/2018 TECHNIQUE: Axial thin section images through the cervical spine. Sagittally and coronally reformatted images. The exam was performed using radiation dose optimization techniques including, but not limited to, automated exposure control, adjustment of the mA and/or kV according to patient size and use of iterative reconstruction technique. FINDINGS: Vertebral bodies, spinous processes:No vertebral body or spinous process fracture. No acute abnormality. Alignment is anatomic without anterolisthesis Normal odontoid process. No fracture. Occipital condyles and C1 are negative. No atlantoaxial subluxation. Facets:No perched or locked facet. No facet complex fracture. There is multilevel degenerative facet arthropathy Disc spaces:Severe degenerative disc narrowing at C4-5. Moderate to severe degenerative disc narrowing at C5-6 and C6-7 Temporal bones:Negative. No basilar skull fracture Cervical soft tissues:Multiple surgical clips in the right side of the neck. No solid mass. No pathologic adenopathy. Lung apices:There is a left apical lung nodule. This measures approximately 10 mm maximally. This is increased in size from 6 mm on 08/30/2018. This slow interval growth over a 4 year interval is most consistent with a benign process. 1 year follow-up is recommended. IMPRESSION: 1. Degenerative disc disease and facet arthropathy 2. 10 mm noncalcified left upper lobe nodule has increased slightly in size since 08/30/2018. 12 month follow-up recommended Interpreted and Authenticated by: Gregor Atkinson 12/29/22
[2022-12-29 15:02] LABS: ALT/SGPT 33 U/L (<40); AST/SGOT 28 U/L (<32); Albumin 4.1 gm/dL (3.2-5.2); Alkaline Phosphatase 148 U/L (39-117); Bilirubin,Direct < 0.2 mg/dL (0-0.3); Bilirubin,Total 0.5 mg/dL (0.1-1.0); Creatine Kinase 124 U/L (24-170); Globulin 3.9 gm/dL (2.2-3.7)
--- NOTE | 2022-12-29 15:04 | XRay Report ---
INDICATION: AMS TECHNIQUE: AP portable semiupright chest x-ray COMPARISON: Previous chest x-rays dated 03/30/2022, 09/13/2021. Previous cervical spine CT scan dated 12/29/2022. Previous chest CT scan dated 08/25/2022 and is 08/30/2018 FINDINGS: Lungs:Lungs are negative. No focal pulmonary parenchymal infiltrate or mass. CT scan of the cervical spine demonstrates a 10 mm noncalcified nodule. This is essentially unchanged since 08/25/2022 but increased in size since 08/30/2018. This nodule is not visible on plain film examination. Previous CT scan recommended biopsy. This may be technically difficult. PET/CT scan or continued follow-up may be helpful for further evaluation. Lungs are otherwise negative. Heart, vascular:No significant cardiomegaly. Pulmonary vascularity is normal. No pulmonary edema or pulmonary congestion Mediastinum, salty:No mediastinal widening. No hilar mass Pleura:No pleural fluid. No pleural-based mass or calcification Skeletal:Negative. Supraclavicular: Multiple surgical clips in the right side of the neck IMPRESSION: 1. Noncalcified left apical pulmonary parenchymal nodules not well visualized on plain film examination. PET/CT scan or CT follow-up recommended 2. No acute abnormality Interpreted and Authenticated by: Gregor Atkinson 12/29/22
[2022-12-29] MEDS ORDERED: ACETAMINOPHEN 500 MG TABLET PO ONE (15:55)
[2022-12-29] MEDS ORDERED: cefTRIAXone 1 GM VIAL IV ONE (15:55)
[2022-12-29] MEDS ORDERED: morphine 2 MG/ML VIAL IV PRN (16:04)
[2022-12-29] MEDS ORDERED: LORazepam 2 MG/ML VIAL IV ONE (16:34)
--- NOTE | 2022-12-29 16:35 | EKG ---
[facility] Test Date: 2022-12-29 Pat Name: Radha Dumont Department: ED Room: Gender: Female Front Office Attendant: : 1950 Requested By: Kwan Butcher Order Number: [id number] Reading MD: Gregor Piedra M.D. Measurements Intervals [place] Rate: 95 P: 52 RI: 154 QRS: 14 QRSD: 76 T: 70 QT: 347 QTc: 435 Interpretive Statements Sinus rhythm Ventricular premature complex Probable left atrial enlargement Electronically Signed On 12-29-2022 16:35:16 PDT by Gregor Piedra M.D. /[id number]
[2022-12-29 18:54] LABS: Appearance,Urine TURBID (Clear); Bilirubin,Urine Negative (Negative); Color,Urine YELLOW; Culture Indicated,Urine yes; Glucose,Urine (UA) Negative (Negative); Ketones,Urine 5 mg/dL (Negative); Leukocyte Esterase,Urine 500 /uL (Negative); Nitrate,Urine Negative (Negative); Protein,Urine 100 mg/dL (Negative); Specific Gravity,Urine 1.013 (1.000-1.035); Urine RBC 36 /hpf (0-3); Urine Squamous Epithelial Cell 1 /hpf (0-4); Urine WBC > 182 /hpf (0-4); Urobilinogen,Urine Negative
--- NOTE | 2022-12-29 19:23 | Emergency Department Note ---
HPI General Chief complaint: Altered Mental Status Stated complaint: possible overdose Time Seen by Provider: 12/29/22 14:07 Source: EMS Mode of arrival: EMS Limitations: no limitations History of Present Illness HPI Narrative: Narrative: This is a 72-year-old female present emergency department via EMS with altered mental status. The patient was seen here couple days ago with a tib-fib fracture and a urinary tract infection. She was discharged home and according to the daughter who gives most the history tells me that she was pretty much at her baseline mentally and then over the next couple days she started repeating herself more and forgetting what she was saying and was not making a whole lot of sense. She does take a hydrocodone which she can take up to 6 times a day but the bottle was completely empty. Today her family found her on the floor she was able to get up but she was weak and altered. They called 911. She upon arrival was not answering any more questions until after we gave her some Narcan which woke her up. She is then able answer my questions she said that she was not having any increased back pain although from the fall she did have an area of ecchymosis over her right flank. She denied headache or blurry vision chest pain shortness of breath new cough, dysuria urinary frequency or urgency, diarrhea black or bloody stools. Family does not know if she had been taking her antibiotics as prescribed or if she was confusing them with her hydrocodone as she also has baclofen on board as well. Related Data Home Medications Medication Instructions Recorded Confirmed aspirin 81 mg tablet 81 mg PO QDAY 05/16/19 12/29/22 ferrous sulfate 325 mg (65 mg 325 mg PO 1200 05/20/22 12/29/22 iron) tablet clopidogrel 75 mg tablet 75 mg PO QAM 12/25/22 12/29/22 atorvastatin 20 mg tablet 20 mg PO HS 12/29/22 12/29/22 Previous Rx's Medication Instructions Recorded cholecalciferol (vitamin D3) 50 2,000 unit PO QDAY #30 caps 09/04/20 mcg (2,000 unit) capsule carvedilol 12.5 mg tablet 12.5 mg PO BID htn #180 tabs 06/04/22 amlodipine 10 mg tablet 10 mg PO QHS HTN #90 tabs 08/26/22 sucralfate 1 gram tablet See Rx Instructions .Route 10/07/22 .COMPLEX ##360 sodium bicarbonate 650 mg tablet 650 mg PO TID #90 tabs 10/30/22 hydrocodone 7.5 mg-acetaminophen 1 tab PO Q4-6H PRN pain #120 tabs 12/03/22 325 mg tablet baclofen 10 mg tablet 10 mg PO BID PRN muscle spasm #60 12/24/22 tabs cefuroxime axetil 500 mg tablet 500 mg PO BID 10 days #20 tabs 12/27/22 oxybutynin chloride 15 mg 15 mg PO QPM #90 tabs 12/29/22 tablet,extended release 24 hr Allergies Allergy/AdvReac Type Severity Reaction Status Date / Time levofloxacin Allergy Severe Anaphylaxis Verified 12/25/22 09:54 cephalexin [From Keflex] AdvReac Mild Pt reports Verified 12/25/22 09:54 being " really sick, fatigue" egg AdvReac Mild gets sick Verified 12/25/22 09:54 with fried eggs hydromorphone [From Dilaudid] AdvReac Mild Nausea Verified 12/25/22 09:54 morphine AdvReac Mild Nausea Verified 12/25/22 09:54 sulfamethoxazole AdvReac Mild Vomiting Verified 12/25/22 09:54 Review of Systems ROS ROS Narrative: Narrative: All systems ED: reviewed and negative except as stated. [facility] N[facility] Patient History Narrative: Narrative: Medical/Surgical/Family History All Active Problems (Updated 12/29/22 @ 21:49 by Kwan Butcher PA-C) CKD (chronic kidney disease) (Chronic) Ureteral stricture (Chronic) Kidney failure (Chronic) Retroperitoneal fibrosis (Chronic) Hydronephrosis (Chronic) H/O nephrostomy (Chronic) H/O cystoscopy (Chronic) H/O aortic aneurysm repair (Chronic) H/O cystoscopy (Chronic) H/O cystoscopy (Chronic) H/O nephrostomy (Chronic) H/O cystoscopy (Chronic) Hx of appendectomy (Chronic) History of bilateral tubal ligation (Chronic) History of right-sided carotid endarterectomy (Chronic) History of cholecystectomy (Chronic) S/P foot surgery, right (Chronic) Kidney failure, acute (Chronic 04/26/18) Crossing vessel and 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 hydronephrosis (Chronic ~11/23/17) Other chronic cystitis without hematuria (Chronic ~11/23/17) Other specified disorder of kidney and ureter (Chronic) Unspecified hydronephrosis (Chronic) Mononucleosis (Chronic) Renal osteodystrophy (Chronic) Anemia, unspecified (Chronic) 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) Emphysema, unspecified (Chronic) Hypertension, essential (Chronic) Heart disease, unspecified (Chronic) Inflammatory liver disease (Chronic) Other hyperlipidemia (Chronic) Type 2 diabetes mellitus without complication (Chronic) Foot fracture (Chronic ~05/2018) GI hemorrhage (Chronic) Acute blood loss anemia (Chronic) Lactic acidosis (Chronic) Hypovolemic shock (Chronic) Bleeding gastric ulcer (Chronic) Carotid stenosis (Chronic) Systolic heart failure (Chronic) Chronic pain (Chronic) Transfusion history (Chronic) Weakness (Chronic) History of viral hepatitis (Chronic) Inflammatory abdominal aortic aneurysm (Chronic) Idiopathic cardiomyopathy (Chronic) Pulmonary edema (Chronic) Tobacco use (Chronic) Impaired cognition (Chronic) Acute on chronic renal failure (Chronic) Hyperkalemia (Chronic) Anemia (Chronic) Metabolic acidosis (Chronic) Obstructive uropathy (Chronic) Renal tubular acidosis (Chronic) Methicillin resistant Staphylococcus aureus infection as the cause of diseases classified elsewhere (Chronic) Lumbar back pain with radiculopathy affecting lower extremity (Chronic) Pulmonary nodule (Chronic) Chronic allergic rhinitis (Chronic) Primary idiopathic hypertrophic cardiomyopathy (Chronic) Metabolic acidosis, NAG, failure of bicarbonate regeneration (Chronic) CKD (chronic kidney disease) stage 4, GFR 15-29 ml/min (Chronic) Left renal atrophy (Chronic) Medication management (Acute) Insomnia (Acute) Fatigue (Acute) Dizziness (Acute) Leg edema, left (Acute) Anemia in stage 4 chronic kidney disease (Acute) Secondary hyperparathyroidism of renal origin (Acute) Bilateral hydronephrosis (Acute) Creatinine elevation (Acute) Stage 3 acute kidney injury (Acute) Thoracic aortic aneurysm (Acute) Pulmonary nodules (Acute) Lesion of ureter (Chronic) Retroperitoneal mass (Chronic) Tibia/fibula fracture (Acute) Acute UTI (Acute) Acute UTI (Acute) AMS (altered mental status) (Acute) Sepsis (Acute) Medical History Acute blood loss anemia Acute on chronic renal failure Split GFR 84/16% right vs Left with left renal atrophy SCr as high as 11 mg/dl before relief of right obstruction with stent Baseline SCr now 2.0 - 2.5 mg/dl range Anemia, unspecified Bleeding gastric ulcer Cardiomyopathy due to drug and external agent Carotid stenosis Chronic allergic rhinitis Chronic pain CKD (chronic kidney disease) Primary renal insult with his obstructive uropathy due to retroperitoneal fibrosis. On 2 separate occasions her creatinine is been as high as 10. Currently in the 1.5 to 2.5 range with every 2 month stent changes. Crossing vessel and 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 hydronephrosis (~11/23/17) Emphysema, unspecified Foot fracture (~05/2018) GI hemorrhage Heart disease, unspecified History of viral hepatitis Hydronephrosis Hypertension, essential Avoid ACEi/ARBs and NSAIDS Hypovolemic shock Idiopathic cardiomyopathy EF 30% Impaired cognition Inflammatory abdominal aortic aneurysm Inflammatory liver disease Kidney failure Kidney failure, acute (04/26/18) Lactic acidosis Lumbar back pain with radiculopathy affecting lower extremity Metabolic acidosis, NAG, failure of bicarbonate regeneration prolonged obstruction Methicillin resistant Staphylococcus aureus infection as the cause of diseases classified elsewhere Mononucleosis Obstructive uropathy Bilateral stents for RPF Stent change 03/30/2022 Other chronic cystitis without hematuria (~11/23/17) Other hyperlipidemia Other specified disorder of kidney and ureter Primary idiopathic hypertrophic cardiomyopathy Pulmonary edema Pulmonary nodule Renal osteodystrophy Renal tubular acidosis Secondary to obstructive uropathy, with occasional episodes of hyperkalemia this sounds like type IV RTA Retroperitoneal fibrosis Systolic heart failure Tobacco use Transfusion history Type 2 diabetes mellitus without complication Unspecified hydronephrosis Ureteral stricture Weakness Surgical History H/O aortic aneurysm repair 03/2017 Stent H/O cystoscopy 03/25/17 Insert stent, bilateral H/O cystoscopy 06/17/17 Bilateral RPG, stent exchange H/O cystoscopy 12/09/17 Bilateral RPG, stent exchange H/O cystoscopy 04/28/18 Bilateral RPG, stent, exchange H/O nephrostomy 03/2017 Right nephrostomy tube H/O nephrostomy 04/20/18 Bilateral nephrostomy placement History of bilateral tubal ligation History of cholecystectomy History of esophagogastroduodenoscopy 05/19 3 bleeding ulcers History of right-sided carotid endarterectomy Hx of appendectomy S/P foot surgery, right Family History Mother , at age 80 CVA (cerebral vascular accident) Tachycardia Diabetes Sister Breast cancer Diabetes Lung cancer Cancer of spine Anemia Father , at age 85 AAA (abdominal aortic aneurysm) Unknown Family history of kidney stones Other Malignant neoplasm Social History Smoking Status: Current every day smoker Alcohol Intake Frequency: holiday/special occasion only Substance Use: does not use Exam Narrative Narrative: Narrative: General: When patient first arrived she has snoring respirations and is not responding to any questions and is just kind of moving her head around Head: No trauma normocephalic Eyes: EOMs are intact, initial pupils are more constricted no scleral injection Neck: Once patient is alert after Narcan that she has no midline cervical tenderness Cardiovascular: Regular rate and rhythm no murmur Respiratory: Clear to auscultation bilaterally. No rhonchi rales or wheezes, no respiratory distress Abdomen pelvis: Abdomen is soft and nontender to palpation. There is no guarding no rebound tenderness. Negative Domínguez sign. No tenderness over McBurney's point. Neuro: After Narcan was given the patient was able to tell me that she is at [facility] in the hospital in [place] and that she is with her daughter. Skin: There is a large area of ecchymosis over her right flank after fall several days ago. According to the daughter she has not been complaining of any increased pain in her back General Limitations: no limitations Course Vital Signs Vital signs: Vital Signs Pulse Rate 97 H 12/29/22 13:58 Blood Pressure 120/87 12/29/22 13:58 Pulse Oximetry (%) 91 12/29/22 13:58 Temperature 98.8 F 12/29/22 21:21 Pulse Rate 85 12/29/22 21:21 Respiratory Rate 20 12/29/22 21:21 Blood Pressure 121/80 12/29/22 21:21 Pulse Oximetry (%) 97 12/29/22 21:21 Oxygen Delivery Method Nasal Cannula 12/29/22 21:21 Oxygen Flow Rate (L/min) 3 12/29/22 21:21 [facility] MDM Narrative Medical decision making narrative: Narrative: Differential diagnosis: UTI, sepsis, opiate overdose, uremia, intracranial bleed Independent lab ordered and reviewed by me: CBC shows leukocytosis at 12.2 absolute neutrophil count is elevated 9.4 [id number] Chem-8 shows mildly elevated sodium at 147 CO2 is low at 19 BUN is stable at 41 creatinine is slightly worse at 3.9 compared to 3.12 days ago random glucose 168 Hepatic panel unremarkable UA is suggestive of urinary tract infection with 500 leukocyte esterase red blood cell at 36 to greater than 182 white blood cells squamous cells are 1 there is no bacteria present VBG initially shows a lactic acidosis at 3.4 and a pH of 7.26, after 2 L of fluid pH was still 7.25 but lactic acid improved 0.8 ECG shows a sinus rhythm Since the patient was found on the ground and could not remember if she fell or not we did get a CT of the brain which showed no acute abnormality as well as no abnormality on cervical spine chest x-ray showed a noncalcified left apical pulmonary parenchymal nodule not well visualized on plain film examination. They recommended a PET scan/CT scan or CT follow-up recommended. Medications ordered: Initially we gave the patient 0.4 but Narcan which improved her altered mental status 2 L of normal saline for possible sepsis 1 g of IV Rocephin for UTI Tests considered but not ordered: Prescriptions given or considered: Discussed with other physicians/providers: Disposition decision making SIRS, Sepsis, and Septic Shock Criteria from [employer] on 12/29/2022 All calculations should be rechecked by clinician prior to use RESULT SUMMARY: This patient meets severe sepsis criteria. Follow your guidelines for sepsis, which typically include aggressive fluid resuscitation, early, broad-spectrum antibiotics, ICU consultation, CVP evaluation, and occasionally pressors and transfusion. INPUTS: Temp >38&deg;C (100.4&deg;F) or <36&deg;C (96.8&deg;F) > 0 = No Heart rate >90 > 1 = Yes Respiratory rate >20 or Casey? <32 mm Hg > 0 = No WBC >12,000/mm&sup3;, <4,000/mm&sup3;, or >10% bands > 1 = Yes Suspected or present source of infection > 1 = Yes Lactic acidosis, SBP <90 or SBP drop &ge;40 mm Hg of normal > 1 = Yes Severe sepsis with hypotension, despite adequate fluid resuscitation > 0 = No Evidence of &ge;2 organs failing > 0 = No Based on the patient's heart rate greater than 90, white blood cell count greater than 12,000 source of infection of a urinary tract infection and she has lactic acidosis I do think that the patient has sepsis due to the patient's white blood cell count greater than 12,000 heart rate was greater than 90 upon arrival and a source of infection of urinary tract infection and she has a lactic acidosis secondary to urinary tract infection. I think most likely that today she was getting confused secondary to her urinary tract infection and did not know that she was not taking her antibiotics or not taking them properly and then was taking more of her hydrocodone inappropriately possibly with her baclofen which caused increase confusion and altered mental status. When she first got to the emergency department we gave her some Narcan which brought her around quite quickly. This did appear to place her into some withdrawals and she was vomiting. I gave her a just 2 mg IV morphine which did not seem to help much but then I gave her 1 mg of IV Ativan which resolved the patient's of vomiting and she was able to rest quietly. She did drop her oxygen saturation slightly when she fell asleep she was placed on a couple liters of nasal cannula to keep her oxygen saturations in up. I spoke with Dr. Song who agreed admit the patient for altered mental status and UTI. Lab Data 12/29/22 14:12 Labs: Lab Results 12/29/22 12/29/22 12/29/22 Range/Units 14:12 14:12 14:17 WBC 12.2 H (4.5-11.0) K/mcL RBC 4.92 (3.59-5.38) M/mcL Hgb 13.9 (11.2-15.7) g/dL Hct 43.2 (34.1-44.9) % POC Hct 44.0 (36-48) MCV 87.8 (80.0-100.0) fL MCH 28.3 (26.0-34.0) pg MCHC 32.2 (31.0-36.0) g/dL RDW 15.1 H (11.5-14.5) % Plt Count 313 (140-440) K/mcL MPV 10.6 (8.8-12.5) fL Immature Gran % (Auto) 0.4 (0.0-0.5) % Neut % (Auto) 77.6 (38.0-78.0) % Lymph % (Auto) 13.4 L (15.5-49.0) % Starr % (Auto) 8.1 (1.0-12.0) % Eos % (Auto) 0.2 (0.0-7.0) % Baso % (Auto) 0.3 (0.0-2.0) % Lymph # (Auto) 1.63 (1.50-4.80) K/mcL Starr # (Auto) 0.99 H (0.10-0.90) K/mcL Eos # (Auto) 0.03 (0.00-0.70) K/mcL Baso # (Auto) 0.04 (0.00-0.30) K/mcL Immature Gran # 0.05 (0.00-0.05) K/mcl Absolute Neutrophils 9.46 H (1.80-8.00) K/mcL POC VBG pH (7.32-7.42) POC VBG pCO2 at Temp (41-51) POC VBG pO2 (25-40) POC VBG HCO3 (24-28) POC VBG Total CO2 (25-29) POC Venous O2 Sat (40-70) POC VBG Base Excess (-2-2) VBG Lactic Acid (0.5-2) POC Sodium 147 H (133-145) POC Potassium 3.9 (3.3-5.1) POC Chloride 114 H (96-108) POC Total CO2 19.0 L (22-30) POC BUN 41 H (6-20) POC Creatinine 3.9 H (0.6-1.2) POC Glucose 168 H (70-105) POC WB Ioniz Calcium 1.23 (1.16-1.32) Total Bilirubin 0.5 (0.1-1.0) mg/dL Direct Bilirubin < 0.2 (0-0.3) mg/dL AST 28 (<32) U/L ALT 33 (<40) U/L Alkaline Phosphatase 148 H (39-117) U/L Total Creatine Kinase 124 (24-170) U/L Total Protein 8.0 (5.9-8.4) gm/dL Albumin 4.1 (3.2-5.2) gm/dL Globulin 3.9 H (2.2-3.7) gm/dL Urine Color Urine Appearance (Clear) Urine pH (5.0-9.0) Ur Specific [place] (1.000-1.035) Urine Protein (Negative) mg/dL Urine Glucose (UA) (Negative) mg/dL Urine Ketones (Negative) mg/dL Urine Occult Blood (Negative) mg/dL Urine Nitrate (Negative) Urine Bilirubin (Negative) mg/dL Urine Urobilinogen mg/dL Ur Leukocyte Esterase (Negative) /uL Urine RBC (0-3) /hpf Urine WBC (0-4) /hpf Ur Squamous Epith Cells (0-4) /hpf Urine Bacteria (0) /hpf Ur Culture Indicated? 12/29/22 12/29/22 12/29/22 Range/Units 14:19 18:17 19:05 WBC (4.5-11.0) K/mcL RBC (3.59-5.38) M/mcL Hgb (11.2-15.7) g/dL Hct (34.1-44.9) % POC Hct (36-48) MCV (80.0-100.0) fL MCH (26.0-34.0) pg MCHC (31.0-36.0) g/dL RDW (11.5-14.5) % Plt Count (140-440) K/mcL MPV (8.8-12.5) fL Immature Gran % (Auto) (0.0-0.5) % Neut % (Auto) (38.0-78.0) % Lymph % (Auto) (15.5-49.0) % Starr % (Auto) (1.0-12.0) % Eos % (Auto) (0.0-7.0) % Baso % (Auto) (0.0-2.0) % Lymph # (Auto) (1.50-4.80) K/mcL Starr # (Auto) (0.10-0.90) K/mcL Eos # (Auto) (0.00-0.70) K/mcL Baso # (Auto) (0.00-0.30) K/mcL Immature Gran # (0.00-0.05) K/mcl Absolute Neutrophils (1.80-8.00) K/mcL POC VBG pH 7.26 L 7.25 L (7.32-7.42) POC VBG pCO2 at Temp 38.9 L 42.4 (41-51) POC VBG pO2 60 H 51 H (25-40) POC VBG HCO3 17.5 L 18.6 L (24-28) POC VBG Total CO2 19.0 L 20.0 L (25-29) POC Venous O2 Sat 87.0 H 80.0 H (40-70) POC VBG Base Excess -10.0 L -9.0 L (-2-2) VBG Lactic Acid 3.4 H 0.8 (0.5-2) POC Sodium (133-145) POC Potassium (3.3-5.1) POC Chloride (96-108) POC Total CO2 (22-30) POC BUN (6-20) POC Creatinine (0.6-1.2) POC Glucose (70-105) POC WB Ioniz Calcium (1.16-1.32) Total Bilirubin (0.1-1.0) mg/dL Direct Bilirubin (0-0.3) mg/dL AST (<32) U/L ALT (<40) U/L Alkaline Phosphatase (39-117) U/L Total Creatine Kinase (24-170) U/L Total Protein (5.9-8.4) gm/dL Albumin (3.2-5.2) gm/dL Globulin (2.2-3.7) gm/dL Urine Color Yellow Urine Appearance Turbid A (Clear) Urine pH 5.0 (5.0-9.0) Ur Specific [place] 1.013 (1.000-1.035) Urine Protein 100 A (Negative) mg/dL Urine Glucose (UA) Negative (Negative) mg/dL Urine Ketones 5 A (Negative) mg/dL Urine Occult Blood 0.20 (Negative) mg/dL Urine Nitrate Negative (Negative) Urine Bilirubin Negative (Negative) mg/dL Urine Urobilinogen Negative mg/dL Ur Leukocyte Esterase 500 A (Negative) /uL Urine RBC 36 H (0-3) /hpf Urine WBC > 182 H (0-4) /hpf Ur Squamous Epith Cells 1 (0-4) /hpf Urine Bacteria None (0) /hpf Ur Culture Indicated? yes EKG Data EKG #1: EKG results narrative: ECG shows sinus rhythm with PVC. ECG shows sinus rhythm 95 beats minute, left axis deviation, normal parable narrow QRS QTc is 435 there is no signs of Brugada, [id number] or HOCM. No ST segment deviations or hyperacute T waves. My interpretation is sinus rhythm with PVC Discharge Plan Patient/Caregiver Discharge Instructions Pt seen by BREASTER/PA only: Yes Clinical Impression: Acute UTI, AMS (altered mental status), Sepsis Patient Disposition: Xfer As Inpt ([facility]) Discharge Date/Time: 12/29/22 21:06
--- NOTE | 2022-12-29 19:49 | Internal Med History&Physical ---
HPI History of Present Illness Patient information: Note initiated : 12/29/22 at 7:42 pm Service Date, if different from initiated Date: [] Patient: Radha Dumont a 72 y/o F admitted on for possible overdose. Chief Complaint: [] History of present illness: Ms. Dumont is a 72 year old female with history of obstructive uropathy status post bilateral ureteral stents, CKD stage IV, primary idiopathic hypertrophic cardiomyopathy, hypertension, hyperlipidemia, anemia, emphysema, GI bleed, AAA status post stent, right carotid endarterectomy, obstructive uropathy requiring bilateral stents, pulmonary nodule, opioid dependence presented with altered mental status. Patient was seen in ER on 12/27 after a fall and was found to have minimally displaced spiral fracture of distal tib-fib, stirrup splint was applied and patient was discharged home with outpatient orthopedic follow-up. Patient was also found to have evidence of UTI and was discharged on cefuroxime. Patient lives alone in a trailer and family checks on her every day. Accordin g to daughter patient became confused, she had delayed responses and slow speech. She was saying things that was not making a whole lot of sense. Family called her but no response on her phone. Patient's niece found her unresponsive on the floor. Patient takes hydrocodone 7.5 mg at baseline for her chronic pain which she can take up to 6 times a day, last refill 12/03 for 120 tabs, however whole bottle was completely empty. Daughter believes patient got confused and was taking pain meds instead of her antibiotics. Patient follows up with urology and nephrology. Daughter reports patient has bilateral ureteral stents due to scarring of the ureters which gets changed every 3 months. She reports no records are due to be exchanged on 12/31. On presentation patient with tachycardia heart rate 91, tachypnea RR 24, blood pressure stable. WBC 12.2, lactic acid 3.4, sodium 147, POC creatinine 3.9 increased from 3.1 couple days ago. UA positive for leukocyte esterase, WBC and RBC. CT scan head and C-spine was negative for any acute finding. Review of system 14 point review of system completed was negative except mentioned above Physical examination Resting in bed, sleeping, arousable, and start stopping however would not make much sense Normocephalic, atraumatic Chest is clear bilaterally S1 and S2, sinus tachycardia with heart rate 140s-110s, no peripheral edema Abdomen is soft and nontender Patient sleeping, woke up with prompting. Confused, moving all limbs Intermittent mild agitation Assessment and plan Sepsis. Patient met sepsis criteria with tachycardia 91 bpm, tachypnea RR 24, leukocytosis 12,000, lactic acidosis, acute kidney injury and suspected source of infection UTI -UA positive for leukocyte esterase, WBC and RBC. Patient with bilateral ureteral stents, due to be exchanged on 12/31. Follow final culture. Will give ceftriaxone 2 g every 24 hours Acute kidney injury on CKD stage IV - likely prerenal, patient is dehydrated. Will give IV fluids and repeat BMP. Continue sodium bicarb which patient takes for metabolic acidosis. Will consider nephrology and urology consult. Opioid overdose. Patient is opioid dependent, suspect overusing her hydrocodone since her whole bottle was completely empty also she woke up after receiving Narcan Opioid withdrawal. Patient woke up after receiving Narcan and was vomiting, was again given morphine and she calmed down. Will monitor patient closely for opioid withdrawals. Altered mental status. Acute encephalopathy. Multifactorial as above secondary to opioid and possible baclofen overdose, UTI and sepsis. CT head and CT C- spine negative Hypernatremia -will hydrate and repeat AAA status post stent -continue dual antiplatelet therapy Status post right carotid endarterectomy -on antiplatelet therapy Hypertension -blood pressure is stable, will hold off on amlodipine and Coreg for now Hyperlipidemia -continue atorvastatin Anemia. Continue iron supplementation DVT prophylaxis with SCDs Full code Total time taken > 75 minutes PFSH PFSH All Active Problems CKD (chronic kidney disease) (Chronic) Ureteral stricture (Chronic) Kidney failure (Chronic) Retroperitoneal fibrosis (Chronic) Hydronephrosis (Chronic) H/O nephrostomy (Chronic) H/O cystoscopy (Chronic) H/O aortic aneurysm repair (Chronic) H/O cystoscopy (Chronic) H/O cystoscopy (Chronic) H/O nephrostomy (Chronic) H/O cystoscopy (Chronic) Hx of appendectomy (Chronic) History of bilateral tubal ligation (Chronic) History of right-sided carotid endarterectomy (Chronic) History of cholecystectomy (Chronic) S/P foot surgery, right (Chronic) Kidney failure, acute (Chronic 04/26/18) Crossing vessel and 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 hydronephrosis (Chronic ~11/23/17) Other chronic cystitis without hematuria (Chronic ~11/23/17) Other specified disorder of kidney and ureter (Chronic) Unspecified hydronephrosis (Chronic) Mononucleosis (Chronic) Renal osteodystrophy (Chronic) Anemia, unspecified (Chronic) 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) Emphysema, unspecified (Chronic) Hypertension, essential (Chronic) Heart disease, unspecified (Chronic) Inflammatory liver disease (Chronic) Other hyperlipidemia (Chronic) Type 2 diabetes mellitus without complication (Chronic) Foot fracture (Chronic ~05/2018) GI hemorrhage (Chronic) Acute blood loss anemia (Chronic) Lactic acidosis (Chronic) Hypovolemic shock (Chronic) Bleeding gastric ulcer (Chronic) Carotid stenosis (Chronic) Systolic heart failure (Chronic) Chronic pain (Chronic) Transfusion history (Chronic) Weakness (Chronic) History of viral hepatitis (Chronic) Inflammatory abdominal aortic aneurysm (Chronic) Idiopathic cardiomyopathy (Chronic) Pulmonary edema (Chronic) Tobacco use (Chronic) Impaired cognition (Chronic) Acute on chronic renal failure (Chronic) Hyperkalemia (Chronic) Anemia (Chronic) Metabolic acidosis (Chronic) Obstructive uropathy (Chronic) Renal tubular acidosis (Chronic) Methicillin resistant Staphylococcus aureus infection as the cause of diseases classified elsewhere (Chronic) Lumbar back pain with radiculopathy affecting lower extremity (Chronic) Pulmonary nodule (Chronic) Chronic allergic rhinitis (Chronic) Primary idiopathic hypertrophic cardiomyopathy (Chronic) Metabolic acidosis, NAG, failure of bicarbonate regeneration (Chronic) CKD (chronic kidney disease) stage 4, GFR 15-29 ml/min (Chronic) Left renal atrophy (Chronic) Medication management (Acute) Insomnia (Acute) Fatigue (Acute) Dizziness (Acute) Leg edema, left (Acute) Anemia in stage 4 chronic kidney disease (Acute) Secondary hyperparathyroidism of renal origin (Acute) Bilateral hydronephrosis (Acute) Creatinine elevation (Acute) Stage 3 acute kidney injury (Acute) Thoracic aortic aneurysm (Acute) Pulmonary nodules (Acute) Lesion of ureter (Chronic) Retroperitoneal mass (Chronic) Tibia/fibula fracture (Acute) Acute UTI (Acute) Medical History Acute blood loss anemia Acute on chronic renal failure Split GFR 84/16% right vs Left with left renal atrophy SCr as high as 11 mg/dl before relief of right obstruction with stent Baseline SCr now 2.0 - 2.5 mg/dl range Anemia, unspecified Bleeding gastric ulcer Cardiomyopathy due to drug and external agent Carotid stenosis Chronic allergic rhinitis Chronic pain CKD (chronic kidney disease) Primary renal insult with his obstructive uropathy due to retroperitoneal fibrosis. On 2 separate occasions her creatinine is been as high as 10. Currently in the 1.5 to 2.5 range with every 2 month stent changes. Crossing vessel and 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 hydronephrosis (~11/23/17) Emphysema, unspecified Foot fracture (~05/2018) GI hemorrhage Heart disease, unspecified History of viral hepatitis Hydronephrosis Hypertension, essential Avoid ACEi/ARBs and NSAIDS Hypovolemic shock Idiopathic cardiomyopathy EF 30% Impaired cognition Inflammatory abdominal aortic aneurysm Inflammatory liver disease Kidney failure Kidney failure, acute (04/26/18) Lactic acidosis Lumbar back pain with radiculopathy affecting lower extremity Metabolic acidosis, NAG, failure of bicarbonate regeneration prolonged obstruction Methicillin resistant Staphylococcus aureus infection as the cause of diseases classified elsewhere Mononucleosis Obstructive uropathy Bilateral stents for RPF Stent change 03/30/2022 Other chronic cystitis without hematuria (~11/23/17) Other hyperlipidemia Other specified disorder of kidney and ureter Primary idiopathic hypertrophic cardiomyopathy Pulmonary edema Pulmonary nodule Renal osteodystrophy Renal tubular acidosis Secondary to obstructive uropathy, with occasional episodes of hyperkalemia this sounds like type IV RTA Retroperitoneal fibrosis Systolic heart failure Tobacco use Transfusion history Type 2 diabetes mellitus without complication Unspecified hydronephrosis Ureteral stricture Weakness Surgical History H/O aortic aneurysm repair 03/2017 Stent H/O cystoscopy 03/25/17 Insert stent, bilateral H/O cystoscopy 06/17/17 Bilateral RPG, stent exchange H/O cystoscopy 12/09/17 Bilateral RPG, stent exchange H/O cystoscopy 04/28/18 Bilateral RPG, stent, exchange H/O nephrostomy 03/2017 Right nephrostomy tube H/O nephrostomy 04/20/18 Bilateral nephrostomy placement History of bilateral tubal ligation History of cholecystectomy History of esophagogastroduodenoscopy 05/19 3 bleeding ulcers History of right-sided carotid endarterectomy Hx of appendectomy S/P foot surgery, right Family History Mother , at age 80 CVA (cerebral vascular accident) Tachycardia Diabetes Sister Breast cancer Diabetes Lung cancer Cancer of spine Anemia Father , at age 85 AAA (abdominal aortic aneurysm) Unknown Family history of kidney stones Other Malignant neoplasm Social History household members: alone lives independently: Yes marital status: occupational exposures/hazards: No other: Children-4 physical activity: none smoking status: Current every day smoker tobacco type: cigarettes alcohol intake frequency: holiday/special occasion only substance use type: does not use MEDS/ALLERGIES Home Medications and Allergies Home Medications Medication Instructions Recorded Confirmed Type aspirin 81 mg tablet 81 mg PO QDAY 05/16/19 12/29/22 History cholecalciferol (vitamin D3) 50 2,000 unit PO QDAY #30 caps 09/04/20 12/29/22 Rx mcg (2,000 unit) capsule ferrous sulfate 325 mg (65 mg 325 mg PO 1200 05/20/22 12/29/22 History iron) tablet carvedilol 12.5 mg tablet 12.5 mg PO BID htn #180 tabs 06/04/22 12/29/22 Rx amlodipine 10 mg tablet 10 mg PO QHS HTN #90 tabs 08/26/22 12/29/22 Rx sucralfate 1 gram tablet See Rx Instructions .Route 10/07/22 12/29/22 Rx .COMPLEX ##360 sodium bicarbonate 650 mg tablet 650 mg PO TID #90 tabs 10/30/22 12/29/22 Rx hydrocodone 7.5 mg-acetaminophen 1 tab PO Q4-6H PRN pain #120 tabs 12/03/22 12/29/22 Rx 325 mg tablet baclofen 10 mg tablet 10 mg PO BID PRN muscle spasm #60 12/24/22 12/29/22 Rx tabs clopidogrel 75 mg tablet 75 mg PO QAM 12/25/22 12/25/22 History cefuroxime axetil 500 mg tablet 500 mg PO BID 10 days #20 tabs 12/27/22 12/29/22 Rx atorvastatin 20 mg tablet 20 mg PO HS 12/29/22 12/29/22 History oxybutynin chloride 15 mg 15 mg PO QPM #90 tabs 12/29/22 12/29/22 Rx tablet,extended release 24 hr Allergies Allergy/AdvReac Type Severity Reaction Status Date / Time levofloxacin Allergy Severe Anaphylaxis Verified 12/25/22 09:54 cephalexin [From Keflex] AdvReac Mild Pt reports Verified 12/25/22 09:54 being " really sick, fatigue" egg AdvReac Mild gets sick Verified 12/25/22 09:54 with fried eggs hydromorphone [From Dilaudid] AdvReac Mild Nausea Verified 12/25/22 09:54 morphine AdvReac Mild Nausea Verified 12/25/22 09:54 sulfamethoxazole AdvReac Mild Vomiting Verified 12/25/22 09:54 EXAM Constitutional Vitals: Temp Pulse Resp BP Pulse Ox O2 Del Method O2 Flow Rate 98.2 F 87 17 114/88 99 Nasal Cannula 2 12/29/22 14:00 12/29/22 19:01 12/29/22 19:01 12/29/22 19:01 12/29/22 19:01 12/29/22 19:01 12/29/22 19:01 DATA Data Completed and Pending Labs: Labs from last 24 hours 12/29/22 12/29/22 12/29/22 19:05 18:17 14:19 WBC RBC Hgb Hct POC Hct MCV MCH MCHC RDW Plt Count MPV Immature Gran % (Auto) Neut % (Auto) Lymph % (Auto) [place] % (Auto) Eos % (Auto) Baso % (Auto) Lymph # (Auto) [place] # (Auto) Eos # (Auto) Baso # (Auto) Immature Gran # Absolute Neutrophils POC VBG pH 7.25 L 7.26 L POC VBG pCO2 at Temp 42.4 38.9 L POC VBG pO2 51 H 60 H POC VBG HCO3 18.6 L 17.5 L POC VBG Total CO2 20.0 L 19.0 L POC Venous O2 Sat 80.0 H 87.0 H POC VBG Base Excess -9.0 L -10.0 L VBG Lactic Acid 0.8 3.4 H POC Sodium POC Potassium POC Chloride POC Total CO2 POC BUN POC Creatinine POC Glucose POC WB Ioniz Calcium Total Bilirubin Direct Bilirubin AST ALT Alkaline Phosphatase Total Creatine Kinase Total Protein Albumin Globulin Urine Color Yellow Urine Appearance Turbid A Urine pH 5.0 Ur Specific [place] 1.013 Urine Protein 100 A Urine Glucose (UA) Negative Urine Ketones 5 A Urine Occult Blood 0.20 Urine Nitrate Negative Urine Bilirubin Negative Urine Urobilinogen Negative Ur Leukocyte Esterase 500 A Urine RBC 36 H Urine WBC > 182 H Ur Squamous Epith Cells 1 Urine Bacteria None Ur Culture Indicated? yes 12/29/22 12/29/22 12/29/22 14:17 14:12 14:12 WBC 12.2 H RBC 4.92 Hgb 13.9 Hct 43.2 POC Hct 44.0 MCV 87.8 MCH 28.3 MCHC 32.2 RDW 15.1 H Plt Count 313 MPV 10.6 Immature Gran % (Auto) 0.4 Neut % (Auto) 77.6 Lymph % (Auto) 13.4 L [place] % (Auto) 8.1 Eos % (Auto) 0.2 Baso % (Auto) 0.3 Lymph # (Auto) 1.63 [place] # (Auto) 0.99 H Eos # (Auto) 0.03 Baso # (Auto) 0.04 Immature Gran # 0.05 Absolute Neutrophils 9.46 H POC VBG pH POC VBG pCO2 at Temp POC VBG pO2 POC VBG HCO3 POC VBG Total CO2 POC Venous O2 Sat POC VBG Base Excess VBG Lactic Acid POC Sodium 147 H POC Potassium 3.9 POC Chloride 114 H POC Total CO2 19.0 L POC BUN 41 H POC Creatinine 3.9 H POC Glucose 168 H POC WB Ioniz Calcium 1.23 Total Bilirubin 0.5 Direct Bilirubin < 0.2 AST 28 ALT 33 Alkaline Phosphatase 148 H Total Creatine Kinase 124 Total Protein 8.0 Albumin 4.1 Globulin 3.9 H Urine Color Urine Appearance Urine pH Ur Specific [place] Urine Protein Urine Glucose (UA) Urine Ketones Urine Occult Blood Urine Nitrate Urine Bilirubin Urine Urobilinogen Ur Leukocyte Esterase Urine RBC Urine WBC Ur Squamous Epith Cells Urine Bacteria Ur Culture Indicated? A/P Time Spent With Patient Time: Total time spent is greater than 50% in coordination of care (as documented) at patient's floor/unit and/or counseling patient:
[2022-12-29] MEDS: 0.9 % SODIUM CHLORIDE 10 ML SYRINGE IV SCH (21:20)
[2022-12-29] MEDS: LACTATED RINGERS 1,000 ML IV SCH (21:20)
[2022-12-29] MEDS ORDERED: ACETAMINOPHEN 325 MG TABLET PO PRN (21:39)
[2022-12-29] MEDS ORDERED: NALOXONE HCL 0.4 MG/ML VIAL IV PRN (21:39)
[2022-12-29] MEDS ORDERED: cefTRIAXone 1 GM VIAL IV SCH (22:00)
[2022-12-29] MEDS: SENNOSIDES 1 TABLET PO SCH (22:26)
[2022-12-29] MEDS: HYDROCODONE/APAP 7.5/325MG TABLET PO PRN (22:26)
[2022-12-29] MEDS: SODIUM BICARBONATE 650 MG TABLET PO SCH (22:27)
[2022-12-29] MEDS: ATORVASTATIN 20 MG TABLET PO SCH (22:27)
[2022-12-29] MEDS: DOCUSATE SODIUM 100 MG CAPSULE PO SCH (22:27)
[2022-12-29 23:37] LABS: Blood Urea Nitrogen 39 mg/dL (8-23); Calcium 8.9 mg/dL (8.6-10.4); Carbon Dioxide 19 mmol/L (22-30); Chloride 113 mmol/L (96-108); Glomerular Filtration Rate 17; Glucose 106 mg/dL (70-105)
[2022-12-30] MEDS: HYDROCODONE/APAP 7.5/325MG TABLET PO PRN ×5 (03:11→21:17)
[2022-12-30] MEDS: ONDANSETRON 4 MG/2 ML VIAL IV PRN ×2 (04:34→09:47)
[2022-12-30 06:26] LABS: Basophils # (Auto) 0.03 K/mcL (0.00-0.30); Basophils % (Auto) 0.3 % (0.0-2.0); Eosinophils # (Auto) 0.03 K/mcL (0.00-0.70); Eosinophils % (Auto) 0.3 % (0.0-7.0); Hematocrit 34.5 % (34.1-44.9); Lymphocytes % (Auto) 20.9 % (15.5-49.0); Mean Cell Volume 88.9 fL (80.0-100.0); Mean Corpuscular HGB Conc 31.9 g/dL (31.0-36.0); Monocytes # (Auto) 1.06 K/mcL (0.10-0.90); Monocytes % (Auto) 12.3 % (1.0-12.0); Neutrophils % (Auto) 65.9 % (38.0-78.0); Platelet Count 219 K/mcL (140-440); RBC 3.88 M/mcL (3.59-5.38); Red Cell Distribution Width 15.1 % (11.5-14.5); WBC 8.6 K/mcL (4.5-11.0)
[2022-12-30 06:43] LABS: ALT/SGPT 19 U/L (<40); AST/SGOT 13 U/L (<32); Albumin 3.3 gm/dL (3.2-5.2); Albumin/Globulin Ratio 1.1 (1.0-2.3); Alkaline Phosphatase 103 U/L (39-117); Bilirubin,Total 0.3 mg/dL (0.1-1.0); Blood Urea Nitrogen 38 mg/dL (8-23); Calcium 8.5 mg/dL (8.6-10.4); Carbon Dioxide 19 mmol/L (22-30); Chloride 113 mmol/L (96-108); Glomerular Filtration Rate 17; Glucose 91 mg/dL (70-105)
[2022-12-30] MEDS: SUCRALFATE 1 GM TABLET PO SCH ×3 (07:11→16:39)
[2022-12-30] MEDS: 0.9 % SODIUM CHLORIDE 10 ML SYRINGE IV SCH ×3 (07:32→21:19)
[2022-12-30] MEDS: DOCUSATE SODIUM 100 MG CAPSULE PO SCH ×2 (08:31→21:18)
[2022-12-30] MEDS: SODIUM BICARBONATE 650 MG TABLET PO SCH ×3 (08:31→21:17)
[2022-12-30] MEDS: ASPIRIN 81 MG TAB.CHEW PO SCH (08:31)
[2022-12-30] MEDS: CLOPIDOGREL 75 MG TABLET PO SCH (08:31)
[2022-12-30] MEDS: VITAMIN D3 25 MCG TABLET PO SCH (08:31)
[2022-12-30] MEDS: cefTRIAXone 2 GM in DEXTROSE 5% IN WATER 50 ML IV SCH (09:47)
--- NOTE | 2022-12-30 10:38 | Internal Med Progress Note ---
SUBJECTIVE Subjective Patient information: Note initiated : 12/30/22 at 10:29 am Service Date, if different from initiated Date: [] Patient: Radha Dumont a 72 y/o F admitted on 12/29/22 for possible overdose. Chief Complaint: [] Additional PMFSH (Level 3 Only): Ms. Dumont is a 72 year old female with history of obstructive uropathy status post bilateral ureteral stents, CKD stage IV, primary idiopathic hypertrophic cardiomyopathy, hypertension, hyperlipidemia, anemia, emphysema, GI bleed, AAA status post stent, right carotid endarterectomy, obstructive uropathy requiring bilateral stents, pulmonary nodule, opioid dependence presented with altered mental status. Patient was seen in ER on 12/27 after a fall and was found to have minimally displaced spiral fracture of distal tib-fib, stirrup splint was applied and patient was discharged home with outpatient orthopedic follow-up. Patient was also found to have evidence of UTI and was discharged on cefuroxime. Patient lives alone in a trailer and family checks on her every day. According to daughter patient became confused, she had delayed responses and slow speech. She was saying things that was not making a whole lot of sense. Family called her but no response on her phone. Patient's niece found her unresponsive on the floor. Patient takes hydrocodone 7.5 mg at baseline for her chronic pain which she can take up to 6 times a day, last refill 12/03 for 120 tabs, however whole bottle was completely empty. Daughter believes patient got confused and was taking pain meds instead of her antibiotics. Patient follows up with urology and nephrology. Daughter reports patient has bilateral ureteral stents due to scarring of the ureters which gets changed every 3 months. She reports no records are due to be exchanged on 12/31. On presentation patient with tachycardia heart rate 91, tachypnea RR 24, blood pressure stable. WBC 12.2, lactic acid 3.4, sodium 147, POC creatinine 3.9 increased from 3.1 couple days ago. UA positive for leukocyte esterase, WBC and RBC. CT scan head and C-spine was negative for any acute finding. 12/30. Patient is alert and orientation is improving. She complains of spasms and pain off and on and was just given hydrocodone. Discussed with her that we will need to minimize use of opioids. Tmax of 99.3 this morning. Her WBC count s 8.6 down from 12.2 yesterday. Hemoglobin 11 down from 13. Creatinine 2.7 unchanged. Urine culture and blood culture negative to date. Discussed case with Dr. Argueta from urology, plan for bilateral ureteral stent exchange tomorrow as previously scheduled. Discussed case with Dr. James from orthopedic. Recommended outpatient follow-up within 2 weeks. Toe-touch weightbearing to non weightbearing Review of system 14 point review of system completed was negative except mentioned above Physical examination Alert, sitting up in bed, encephalopathy is resolving Normocephalic, atraumatic Chest is clear bilaterally S1 and S2, RRR, no JVD or peripheral edema Abdomen is soft and nontender Alert, oriented to person and place but not to time, still confused intermittently. No focal deficits Less agitation Assessment and plan Sepsis. Patient met sepsis criteria with tachycardia 91 bpm, tachypnea RR 24, leukocytosis 12,000, lactic acidosis, acute kidney injury and suspected source of infection UTI -UA positive for leukocyte esterase, WBC and RBC. Patient with bilateral ureteral stents. Follow final culture. 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 Discussed with Dr. Argueta. Plan for bilateral ureteral stent exchange tomorrow as scheduled before. N.p.o. at midnight Acute kidney injury on CKD stage IV - likely prerenal, patient dehydrated. On IV fluids, serum creatinine unchanged at 2.7. Continue sodium bicarb which p atient takes for metabolic acidosis. Will consider nephrology consult if renal functions deteriorate. Opioid overdose. Patient is opioid dependent, suspect overusing her hydrocodone since her whole bottle was completely empty also she woke up after receiving Narcan. Minimize use of opioids. Opioid withdrawal. Patient woke up after receiving Narcan and was vomiting, was again given morphine and she calmed down. Will monitor patient closely for opioid withdrawals. Altered mental status. Acute encephalopathy. Multifactorial as above secondary to opioid and possible baclofen overdose, UTI and sepsis. CT head and CT C- spine negative. This is slowly improving Tib-fib fracture. Ankle xray 12/27 minimally displaced spiral fracture of the distal fibular diaphysis. Nondisplaced transverse fracture through the medial malleolus. Discussed with Dr. James from orthopedics on 12/30. Recommend follow-up as an outpatient in 1 to 2 weeks. Toe-touch weightbearing to nonweightbearing. Continue PT OT Hypernatremia -resolved with hydration AAA status post stent -continue dual antiplatelet therapy Status post right carotid endarterectomy -on antiplatelet therapy Hypertension -blood pressure is stable, will hold off on amlodipine and Coreg for now Hyperlipidemia -continue atorvastatin Anemia. Continue iron supplementation DVT prophylaxis with SCDs Full code Total time taken > 40 minutes Constitutional Vitals: Vital Signs Temp Pulse Resp BP Pulse Ox O2 Del Method O2 Flow Rate 99.3 F H 88 20 107/65 92 Nasal Cannula 2 12/30/22 07:43 12/30/22 07:43 12/30/22 07:43 12/30/22 07:43 12/30/22 07:43 12/30/22 07:43 12/30/22 07:43 Period Temp Pulse Resp BP Sys/Hartman Pulse Ox O2 Del Method O2 Flow Rate Last 24 Hr 98.2 F-99.3 F 66-113 14-30 100-167/65-110 81-100 Nasal Cannula-Room Air 2-3 Intake and Output 12/29/22 12/30/22 12/30/22 19:59 03:59 11:59 Intake Total 1999 680 Output Total 2 2 Balance 1999 Weight 88.451 kg 75.432 kg Intake & Output: Intake & Output 12/29/22 12/30/22 12/30/22 19:59 03:59 11:59 Intake Total 1999 680 Output Total 2 2 Balance 1999 Weight 88.451 kg 75.432 kg Intake: IV 2000 Sodium Chloride 0.9% 1,000 ml @ 2000 Wide Open IV [facility] Rx#: [id number] Oral 680 Output: # of times incontinent of urine 2 2 Other: Urine Appearance Straight Cloudy Sediment Urine Color Yellow Straight Pale Urine Odor Normal Stool Size Small Stool Color Brown Yellow Stool Consistency Soft OBJ DATA Labs 12/30/22 05:47 12/30/22 05:47 Labs: Abnormal Lab Results 12/30/22 12/30/22 12/29/22 05:47 05:47 22:25 WBC Hgb 11.0 L RDW 15.1 H Lymph % (Auto) [place] % (Auto) 12.3 H [place] # (Auto) 1.06 H Absolute Neutrophils POC VBG pH POC VBG pCO2 at Temp POC VBG pO2 POC VBG HCO3 POC VBG Total CO2 POC Venous O2 Sat POC VBG Base Excess VBG Lactic Acid POC Sodium POC Chloride Chloride 113 H 113 H Carbon Dioxide 19 L 19 L POC Total CO2 POC BUN BUN 38 H 39 H Creatinine 2.7 H 2.7 H POC Creatinine Glucose 106 H POC Glucose Calcium 8.5 L Alkaline Phosphatase Globulin Urine Appearance Urine Protein Urine Ketones Ur Leukocyte Esterase Urine RBC Urine WBC 12/29/22 12/29/22 12/29/22 19:05 18:17 14:19 WBC Hgb RDW Lymph % (Auto) [place] % (Auto) [place] # (Auto) Absolute Neutrophils POC VBG pH 7.25 L 7.26 L POC VBG pCO2 at Temp 38.9 L POC VBG pO2 51 H 60 H POC VBG HCO3 18.6 L 17.5 L POC VBG Total CO2 20.0 L 19.0 L POC Venous O2 Sat 80.0 H 87.0 H POC VBG Base Excess -9.0 L -10.0 L VBG Lactic Acid 3.4 H POC Sodium POC Chloride Chloride Carbon Dioxide POC Total CO2 POC BUN BUN Creatinine POC Creatinine Glucose POC Glucose Calcium Alkaline Phosphatase Globulin Urine Appearance Turbid A Urine Protein 100 A Urine Ketones 5 A Ur Leukocyte Esterase 500 A Urine RBC 36 H Urine WBC > 182 H 12/29/22 12/29/22 12/29/22 14:17 14:12 14:12 WBC 12.2 H Hgb RDW 15.1 H Lymph % (Auto) 13.4 L [place] % (Auto) [place] # (Auto) 0.99 H Absolute Neutrophils 9.46 H POC VBG pH POC VBG pCO2 at Temp POC VBG pO2 POC VBG HCO3 POC VBG Total CO2 POC Venous O2 Sat POC VBG Base Excess VBG Lactic Acid POC Sodium 147 H POC Chloride 114 H Chloride Carbon Dioxide POC Total CO2 19.0 L POC BUN 41 H BUN Creatinine POC Creatinine 3.9 H Glucose POC Glucose 168 H Calcium Alkaline Phosphatase 148 H Globulin 3.9 H Urine Appearance Urine Protein Urine Ketones Ur Leukocyte Esterase Urine RBC Urine WBC Meds: Medications Acetaminophen (Acetaminophen 325 Mg Tablet) 650 mg PO Q6HP PRN; Protocol PRN Reason: Per Pain Protocol/Fever > 101 Hydrocodone Bitart/Acetaminophen (Hydrocodone/Apap 7.5/325mg Tablet) 1 tab PO Q4HP PRN PRN Reason: Pain Last Admin: 12/30/22 07:11 Dose: 1 tab Aspirin (Aspirin 81 Mg Tab.Chew) 81 mg PO DAILY [facility] Last Admin: 12/30/22 08:31 Dose: 81 mg Atorvastatin Calcium (Atorvastatin 20 Mg Tablet) 20 mg PO HS [facility] Last Admin: 12/29/22 22:27 Dose: 20 mg Clopidogrel Bisulfate (Clopidogrel 75 Mg Tablet) 75 mg PO QAM [facility] Last Admin: 12/30/22 08:31 Dose: 75 mg Docusate Sodium (Docusate Sodium 100 Mg Capsule) 100 mg PO BID [facility] Last Admin: 12/30/22 08:31 Dose: 100 mg Lactated Ringer's (Lactated Ringers) 1,000 mls @ 75 mls/hr IV .[id number] [facility] Last Admin: 12/29/22 21:20 Dose: 75 mls/hr Ceftriaxone Sodium 2 gm/ (Dextrose) 50 mls @ 100 mls/hr IV Q24H [facility]; Protocol Last Admin: 12/30/22 09:47 Dose: 100 mls/hr Naloxone HCl (Naloxone Hcl 0.4 Mg/Ml Vial) 0.1 mg IV Q2MIN PRN PRN Reason: Opiate Reversal Ondansetron HCl (Ondansetron 4 Mg/2 Ml Vial) 4 mg IV Q6HP PRN PRN Reason: Nausea And Vomiting Last Admin: 12/30/22 09:47 Dose: 4 mg Senna (Sennosides 1 Tablet) 2 tab PO HS [facility] Last Admin: 12/29/22 22:26 Dose: 2 tab Sodium Bicarbonate (Sodium Bicarbonate 650 Mg Tablet) 650 mg PO TID [facility] Last Admin: 12/30/22 08:31 Dose: 650 mg Sodium Chloride (0.9 % Sodium Chloride 10 Ml Syringe) 10 ml IV Q8 [facility] Last Admin: 12/30/22 07:32 Dose: Not Given Sucralfate (Sucralfate 1 Gm Tablet) 1 gm PO TIDAC [facility] Last Admin: 12/30/22 07:11 Dose: 1 gm Vitamin D (Vitamin D3 25 Mcg Tablet) 50 mcg PO DAILY [facility] Last Admin: 12/30/22 08:31 Dose: 50 mcg A/P Time Spent With Patient Time: Total time spent is greater than 50% in coordination of care (as documented) at patient's floor/unit and/or counseling patient: QUALITY VTE Deep Vein Thrombosis/Pulmonary Embolism Present on Admission: No
[2022-12-30] MEDS: LACTATED RINGERS 1,000 ML IV SCH (11:25)
--- NOTE | 2022-12-30 21:00 | Internal Med Progress Note ---
SUBJECTIVE Subjective Patient information: Note initiated : 12/30/22 at 9:00 pm Service Date, if different from initiated Date: [] Patient: Radha Dumont a 72 y/o F admitted on 12/29/22 for possible overdose. Chief Complaint: [] Additional PMFSH (Level 3 Only): Ms. Dumont is a 72 year old female with history of obstructive uropathy status post bilateral ureteral stents, CKD stage IV, primary idiopathic hypertrophic cardiomyopathy, hypertension, hyperlipidemia, anemia, emphysema, GI bleed, AAA status post stent, right carotid endarterectomy, pulmonary nodule, opioid dependence presented with altered mental status. Patient was seen in ER on 12/27 after a fall and was found to have minimally displaced spiral fracture of distal tib-fib, stirrup splint was applied and patient was discharged home with outpatient orthopedic follow-up. Patient was also found to have evidence of UTI and was discharged on cefuroxime. Patient lives alone in a trailer and family checks on her every day. According to daughter patient became confused, she had delayed responses and slow speech. She was saying things that was not making a whole lot of sense. Family called her but no response on her phone. Patient's niece found her unresponsive on the floor. Patient takes hydrocodone 7.5 mg at baseline for her chronic pain which she can take up to 6 times a day, last refill 12/03 for 120 tabs, however whole bottle was completely empty. Daughter believes patient got confused and was taking pain meds instead of her antibiotics. Patient follows up with urology and nephrology. Daughter reports patient has bilateral ureteral stents due to scarring of the ureters which gets changed every 3 months. She reports no records are due to be exchanged on 12/31. On presentation patient with tachycardia heart rate 91, tachypnea RR 24, blood pressure stable. WBC 12.2, lactic acid 3.4, sodium 147, POC creatinine 3.9 increased from 3.1 couple days ago. UA positive for leukocyte esterase, WBC and RBC. CT scan head and C-spine was negative for any acute finding. 12/30. Patient is alert and orientation is improving. She complains of spasms and pain off and on and was just given hydrocodone. Discussed with her that we will need to minimize use of opioids. Tmax of 99.3 this morning. Her WBC counts 8.6 down from 12.2 yesterday. Hemoglobin 11 down from 13. Creatinine 2.7 unchanged. Urine culture and blood culture negative to date. Discussed case with Dr. Argueta from urology, plan for bilateral ureteral stent exchange tomorrow as previously scheduled. Discussed case with Dr. James from orthopedic. Recommended outpatient follow-up within 2 weeks. Toe-touch weightbearing to non weightbearing 12/31. Leukocytosis remains resolved. Patient reports pain is well controlled. She received senna last night. Had some loose bowel movements, no abdominal pain no fever, RNs suspects C. difficile, informed Dr. Argueta, who postpones ureteral stent exchange today. Serum creatinine down to 2.3 from 2.7 on admission. Urine culture grew yeast but not Nathaly glabrata or albicans. Review of system 14 point review of system completed was negative except mentioned above Physical examination Alert, awake sitting up in bed comfortably, encephalopathy has resolved Normocephalic, atraumatic Chest is clear bilaterally S1 and S2, RRR, no JVD or peripheral edema Abdomen is soft and nontender Alert, oriented, no focal deficits, no longer confused Appropriate mood and affect Assessment and plan Altered mental status/Acute encephalopathy. Multifactorial as above secondary to opioid, baclofen overdose, possible UTI and sepsis. CT head and CT C-spine negative. Encephalopathy resolved Opioid overdose. Patient is opioid dependent, suspect overusing her hydrocodone since her whole bottle was completely empty also she woke up after receiving Narcan.Daughter believes patient got confused and was taking opiates pain meds instead of her antibiotics. Minimize use of opioids. Opioid withdrawal. Patient woke up after receiving Narcan and was vomiting, was again given morphine and she calmed down. Continue to monitor closely for opioid withdrawal Sepsis. Patient met sepsis criteria with tachycardia 91 bpm, tachypnea RR 24, leukocytosis 12,000, lactic acidosis, acute kidney injury and suspected source of infection UTI -UA positive for leukocyte esterase, WBC and RBC. Patient with bilateral ureteral stents.Urine culture grew yeast but not Nathaly glabrata or albicans. Will repeat UA with catheterized sample, depending on the result will tailor antimicrobial therapy. 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 Discussed with Dr. Argueta. Plan for bilateral ureteral stent exchange if patient ruled out for C. difficile Diarrhea. Likely in the setting of laxatives and antibiotic associated. Doubt C. difficile. Stool to be sent for C. difficile. Will discontinue stool softener and laxatives. Acute kidney injury on CKD stage IV - likely prerenal, patient dehydrated. Received IV fluids, serum creatinine improved to 2.3 from 2.7 on admission. DC IV fluids. Continue sodium bicarb which patient takes for metabolic acidosis. Tib-fib fracture. Ankle xray 12/27minimally displaced spiral fracture of the distal fibular diaphysis. Nondisplaced transverse fracture through the medial malleolus. Discussed with Dr. James from orthopedics on 12/30. Recommend f ollow-up as an outpatient in 1 to 2 weeks. Toe-touch weightbearing to nonweightbearing. Continue PT OT Hypernatremia -resolved with hydration AAA status post stent -continue dual antiplatelet therapy Status post right carotid endarterectomy -on antiplatelet therapy Hypertension -resume home dose Coreg, holding amlodipine as blood pressure is stable Hyperlipidemia -continue atorvastatin Anemia. Continue iron supplementation DVT prophylaxis with SCDs Full code Total time taken > 40 minutes Constitutional Vitals: Vital Signs Temp Pulse Resp BP Pulse Ox O2 Del Method O2 Flow Rate 97.2 F 71 20 116/67 96 Nasal Cannula 2 12/30/22 19:02 12/30/22 19:02 12/30/22 19:02 12/30/22 19:02 12/30/22 19:02 12/30/22 19:02 12/30/22 19:02 Period Temp Pulse Resp BP Sys/Hartman Pulse Ox O2 Del Method O2 Flow Rate Last 24 Hr 97.2 F-99.3 F 66-113 16-22 107-131/65-85 92-99 Nasal Cannula- Nasal Cannula 2-3 Intake and Output 12/30/22 12/30/22 12/31/22 11:59 19:59 03:59 Intake Total 1730 820 Output Total 3 250 Balance 1727 570 Weight 78.698 kg Patient Weight 12/31/22 03:59 Weight 78.698 kg Intake & Output: Intake & Output 12/30/22 12/30/22 12/31/22 11:59 19:59 03:59 Intake Total 1730 820 Output Total 3 250 Balance 1727 570 Weight 78.698 kg Intake: IV 1050 Lactated Ringers 1,000 ml @ 75 1000 mls/hr IV .[id number] [facility] Rx#: [id number] Rocephin 2 gm In Dextrose 5% in 50 Water 50 ml @ 100 mls/hr IV Q24H [facility] Rx#:[id number] Oral 680 820 Output: Void Amount 250 # of times incontinent of urine 3 Other: Meal Dinner Percent of Meal Consumed 75% Feeding Ability Assist with Tray Set Up Urine Appearance Clear Urine Color Yellow Yellow Urine Odor Normal Normal Stool Size Small Small Stool Color Brown Brown Yellow Yellow Stool Consistency Soft Soft OBJ DATA Labs 12/31/22 05:37 12/31/22 05:37 Labs: Abnormal Lab Results 12/30/22 12/30/22 12/29/22 05:47 05:47 22:25 WBC Hgb 11.0 L RDW 15.1 H Lymph % (Auto) [place] % (Auto) 12.3 H [place] # (Auto) 1.06 H Absolute Neutrophils POC VBG pH POC VBG pCO2 at Temp POC VBG pO2 POC VBG HCO3 POC VBG Total CO2 POC Venous O2 Sat POC VBG Base Excess VBG Lactic Acid POC Sodium POC Chloride Chloride 113 H 113 H Carbon Dioxide 19 L 19 L POC Total CO2 POC BUN BUN 38 H 39 H Creatinine 2.7 H 2.7 H POC Creatinine Glucose 106 H POC Glucose Calcium 8.5 L Alkaline Phosphatase Globulin Urine Appearance Urine Protein Urine Ketones Ur Leukocyte Esterase Urine RBC Urine WBC 12/29/22 12/29/22 12/29/22 19:05 18:17 14:19 WBC Hgb RDW Lymph % (Auto) [place] % (Auto) [place] # (Auto) Absolute Neutrophils POC VBG pH 7.25 L 7.26 L POC VBG pCO2 at Temp 38.9 L POC VBG pO2 51 H 60 H POC VBG HCO3 18.6 L 17.5 L POC VBG Total CO2 20.0 L 19.0 L POC Venous O2 Sat 80.0 H 87.0 H POC VBG Base Excess -9.0 L -10.0 L VBG Lactic Acid 3.4 H POC Sodium POC Chloride Chloride Carbon Dioxide POC Total CO2 POC BUN BUN Creatinine POC Creatinine Glucose POC Glucose Calcium Alkaline Phosphatase Globulin Urine Appearance Turbid A Urine Protein 100 A Urine Ketones 5 A Ur Leukocyte Esterase 500 A Urine RBC 36 H Urine WBC > 182 H 12/29/22 12/29/22 12/29/22 14:17 14:12 14:12 WBC 12.2 H Hgb RDW 15.1 H Lymph % (Auto) 13.4 L [place] % (Auto) [place] # (Auto) 0.99 H Absolute Neutrophils 9.46 H POC VBG pH POC VBG pCO2 at Temp POC VBG pO2 POC VBG HCO3 POC VBG Total CO2 POC Venous O2 Sat POC VBG Base Excess VBG Lactic Acid POC Sodium 147 H POC Chloride 114 H Chloride Carbon Dioxide POC Total CO2 19.0 L POC BUN 41 H BUN Creatinine POC Creatinine 3.9 H Glucose POC Glucose 168 H Calcium Alkaline Phosphatase 148 H Globulin 3.9 H Urine Appearance Urine Protein Urine Ketones Ur Leukocyte Esterase Urine RBC Urine WBC Meds: Medications Acetaminophen (Acetaminophen 325 Mg Tablet) 650 mg PO Q6HP PRN; Protocol PRN Reason: Per Pain Protocol/Fever > 101 Hydrocodone Bitart/Acetaminophen (Hydrocodone/Apap 7.5/325mg Tablet) 1 tab PO Q4HP PRN PRN Reason: Pain Last Admin: 12/30/22 16:39 Dose: 1 tab Aspirin (Aspirin 81 Mg Tab.Chew) 81 mg PO DAILY [facility] Last Admin: 12/30/22 08:31 Dose: 81 mg Atorvastatin Calcium (Atorvastatin 20 Mg Tablet) 20 mg PO HS [facility] Last Admin: 12/29/22 22:27 Dose: 20 mg Clopidogrel Bisulfate (Clopidogrel 75 Mg Tablet) 75 mg PO QAM [facility] Last Admin: 12/30/22 08:31 Dose: 75 mg Docusate Sodium (Docusate Sodium 100 Mg Capsule) 100 mg PO BID [facility] Last Admin: 12/30/22 08:31 Dose: 100 mg Lactated Ringer's (Lactated Ringers) 1,000 mls @ 75 mls/hr IV .[id number] [facility] Last Admin: 12/30/22 11:25 Dose: 75 mls/hr Ceftriaxone Sodium 2 gm/ (Dextrose) 50 mls @ 100 mls/hr IV Q24H [facility]; Protocol Last Infusion: 12/30/22 11:16 Dose: Infused Methocarbamol (Methocarbamol 500 Mg Tablet) 500 mg PO Q6HP PRN PRN Reason: Muscle Spasm Naloxone HCl (Naloxone Hcl 0.4 Mg/Ml Vial) 0.1 mg IV Q2MIN PRN PRN Reason: Opiate Reversal Nicotine (Nicotine 21 Mg Patch) 21 mg TOPICAL DAILY@1000 [place] Ondansetron HCl (Ondansetron 4 Mg/2 Ml Vial) 4 mg IV Q6HP PRN PRN Reason: Nausea And Vomiting Last Admin: 12/30/22 09:47 Dose: 4 mg Senna (Sennosides 1 Tablet) 2 tab PO HS [facility] Last Admin: 12/29/22 22:26 Dose: 2 tab Sodium Bicarbonate (Sodium Bicarbonate 650 Mg Tablet) 650 mg PO TID [facility] Last Admin: 12/30/22 15:13 Dose: 650 mg Sodium Chloride (0.9 % Sodium Chloride 10 Ml Syringe) 10 ml IV Q8 [facility] Last Admin: 12/30/22 14:53 Dose: Not Given Sucralfate (Sucralfate 1 Gm Tablet) 1 gm PO TIDAC [facility] Last Admin: 12/30/22 16:39 Dose: 1 gm Vitamin D (Vitamin D3 25 Mcg Tablet) 50 mcg PO DAILY [facility] Last Admin: 12/30/22 08:31 Dose: 50 mcg A/P Time Spent With Patient Time: Total time spent is greater than 50% in coordination of care (as documented) at patient's floor/unit and/or counseling patient: QUALITY VTE Deep Vein Thrombosis/Pulmonary Embolism Present on Admission: No
[2022-12-30] MEDS: METHOCARBAMOL 500 MG TABLET PO PRN (21:17)
[2022-12-30] MEDS: ATORVASTATIN 20 MG TABLET PO SCH (21:17)
[2022-12-30] MEDS: NICOTINE 21 MG PATCH TOPICAL SCH (21:18)
[2022-12-30] MEDS: SENNOSIDES 1 TABLET PO SCH (21:18)
[2022-12-31] MEDS: LACTATED RINGERS 1,000 ML IV SCH (00:37)
[2022-12-31] MEDS: HYDROCODONE/APAP 7.5/325MG TABLET PO PRN ×5 (01:19→22:34)
[2022-12-31 06:07] LABS: Basophils # (Auto) 0.04 K/mcL (0.00-0.30); Basophils % (Auto) 0.6 % (0.0-2.0); Eosinophils # (Auto) 0.18 K/mcL (0.00-0.70); Eosinophils % (Auto) 2.5 % (0.0-7.0); Hematocrit 38.6 % (34.1-44.9); Hemoglobin 11.3 g/dL (11.2-15.7); Lymphocytes # (Auto) 2.55 K/mcL (1.50-4.80); Lymphocytes % (Auto) 35.7 % (15.5-49.0); Mean Cell Volume 97.7 fL (80.0-100.0); Mean Corpuscular HGB Conc 29.3 g/dL (31.0-36.0); Mean Platelet Volume 10.3 fL (8.8-12.5); Monocytes # (Auto) 0.82 K/mcL (0.10-0.90); Monocytes % (Auto) 11.5 % (1.0-12.0); Neutrophils % (Auto) 49.4 % (38.0-78.0); Platelet Count 195 K/mcL (140-440); RBC 3.95 M/mcL (3.59-5.38); Red Cell Distribution Width 15.2 % (11.5-14.5); WBC 7.1 K/mcL (4.5-11.0)
[2022-12-31] MEDS: 0.9 % SODIUM CHLORIDE 10 ML SYRINGE IV SCH ×3 (06:08→22:35)
[2022-12-31 06:42] LABS: ALT/SGPT 15 U/L (<40); AST/SGOT 16 U/L (<32); Albumin 3.1 gm/dL (3.2-5.2); Alkaline Phosphatase 93 U/L (39-117); Bilirubin,Total 0.5 mg/dL (0.1-1.0); Blood Urea Nitrogen 29 mg/dL (8-23); Calcium 8.4 mg/dL (8.6-10.4); Carbon Dioxide 19 mmol/L (22-30); Chloride 112 mmol/L (96-108); Glomerular Filtration Rate 20; Glucose 89 mg/dL (70-105)
[2022-12-31] MEDS ORDERED: LIDOCAINE 2% URO-JET 10 ML JEL.PF.APP UR ONE (06:45)
[2022-12-31] MEDS ORDERED: IOVERSOL 20 ML VIAL IV ONE (06:46)
[2022-12-31] MEDS: DOCUSATE SODIUM 100 MG CAPSULE PO SCH (07:48)
[2022-12-31] MEDS: CLOPIDOGREL 75 MG TABLET PO SCH ×2 (08:12→15:26)
[2022-12-31] MEDS: SODIUM BICARBONATE 650 MG TABLET PO SCH ×3 (08:12→22:34)
[2022-12-31] MEDS: SUCRALFATE 1 GM TABLET PO SCH ×3 (08:12→17:23)
[2022-12-31] MEDS: ASPIRIN 81 MG TAB.CHEW PO SCH ×2 (08:12→15:25)
[2022-12-31] MEDS: VITAMIN D3 25 MCG TABLET PO SCH (08:13)
[2022-12-31] MEDS: cefTRIAXone 2 GM in DEXTROSE 5% IN WATER 50 ML IV SCH (10:51)
[2022-12-31] MEDS: NICOTINE 21 MG PATCH TOPICAL SCH (11:38)
[2022-12-31] MEDS: METHOCARBAMOL 500 MG TABLET PO PRN ×2 (11:38→22:34)
--- NOTE | 2022-12-31 12:49 | Urology Consult Note ---
HPI Date of Consult Consult Date: 12/30/22 Requesting physician: Chandler Song Primary Care Provider: Erika Palacio Consult Narrative Chief complaint: Bilateral Ureteral Stents and UTI Reason for consult: Bilateral Ureteral Stents and UTI History of present illness: Radha is a 72 year old female with history of obstructive uropathy and i ndwelling bilateral ureteral stents. She also has a finding of abnormal lesions on recent PET scan and on prior ureteroscopy. She was admitted to the hospital on December 29, 2022. She was was initially seen in ER on December 27 after a fall and was found to have minimally displaced spiral fracture of the left a distal tib-fib, stirrup splint was applied and patient was discharged home with outpatient orthopedic follow-up. She was also found to have a possible UTI and was discharged on cefuroxime.According to her daughter, Radha patient became confused, had delayed responses and slow speech. Camilo chavez's evidently niece found her unresponsive on the floor. Patient takes hydrocodone 7.5 mg at baseline for chronic pain. Her daughter believed the patient got confused and was taking pain meds instead of her antibiotics. Other medical problems include CKD stage IV, primary idiopathic hypertrophic cardiomyopathy, hypertension, hyperlipidemia, anemia, emphysema, GI bleed, AAA status post stent, right carotid endarterectomy, pulmonary nodule, and opioid dependence presented with altered mental status. We plan to perform bilateral ureteral stent exchange, bilateral ureteroscopy and ureteral biopsies today. The patient was kept in the hospital so that we could perform this procedure today. Overnight the patient began having loose watery stools and was thought that she may have developed C. difficile colitis. cc:: CC: Chandler Song MD Review of Systems All systems: reviewed and no additional remarkable complaints except as stated Constitutional Constitutional: Present as per HPI, frequent falls, malaise and weakness EENT Eyes: Present as per HPI Gastrointestinal Gastrointestinal: Present diarrhea, loose stools and nausea Genitourinary Genitourinary: Present as per HPI PFSH PFSH All Active Problems (Updated 12/31/22 @ 12:58 by Uriah Argueta MD) Acute diarrhea (Acute) Tibia/fibula fracture (Acute) Acute UTI (Acute) Acute UTI (Acute) AMS (altered mental status) (Acute) Sepsis (Acute) Retroperitoneal mass (Chronic) Lesion of ureter (Chronic) Thoracic aortic aneurysm (Acute) Pulmonary nodules (Acute) Stage 3 acute kidney injury (Acute) CKD (chronic kidney disease) (Chronic) Ureteral stricture (Chronic) Kidney failure (Chronic) Retroperitoneal fibrosis (Chronic) Hydronephrosis (Chronic) H/O nephrostomy (Chronic) H/O cystoscopy (Chronic) H/O aortic aneurysm repair (Chronic) H/O cystoscopy (Chronic) H/O cystoscopy (Chronic) H/O nephrostomy (Chronic) H/O cystoscopy (Chronic) Hx of appendectomy (Chronic) History of bilateral tubal ligation (Chronic) History of right-sided carotid endarterectomy (Chronic) History of cholecystectomy (Chronic) S/P foot surgery, right (Chronic) Kidney failure, acute (Chronic 04/26/18) Crossing vessel and 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 hydronephrosis (Chronic ~11/23/17) Other chronic cystitis without hematuria (Chronic ~11/23/17) Other specified disorder of kidney and ureter (Chronic) Unspecified hydronephrosis (Chronic) Mononucleosis (Chronic) Renal osteodystrophy (Chronic) Anemia, unspecified (Chronic) 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) Emphysema, unspecified (Chronic) Hypertension, essential (Chronic) Heart disease, unspecified (Chronic) Inflammatory liver disease (Chronic) Other hyperlipidemia (Chronic) Type 2 diabetes mellitus without complication (Chronic) Foot fracture (Chronic ~05/2018) GI hemorrhage (Chronic) Acute blood loss anemia (Chronic) Lactic acidosis (Chronic) Hypovolemic shock (Chronic) Bleeding gastric ulcer (Chronic) Carotid stenosis (Chronic) Systolic heart failure (Chronic) Chronic pain (Chronic) Transfusion history (Chronic) Weakness (Chronic) History of viral hepatitis (Chronic) Inflammatory abdominal aortic aneurysm (Chronic) Idiopathic cardiomyopathy (Chronic) Pulmonary edema (Chronic) Tobacco use (Chronic) Impaired cognition (Chronic) Acute on chronic renal failure (Chronic) Hyperkalemia (Chronic) Anemia (Chronic) Metabolic acidosis (Chronic) Obstructive uropathy (Chronic) Renal tubular acidosis (Chronic) Methicillin resistant Staphylococcus aureus infection as the cause of diseases classified elsewhere (Chronic) Lumbar back pain with radiculopathy affecting lower extremity (Chronic) Pulmonary nodule (Chronic) Chronic allergic rhinitis (Chronic) Primary idiopathic hypertrophic cardiomyopathy (Chronic) Metabolic acidosis, NAG, failure of bicarbonate regeneration (Chronic) CKD (chronic kidney disease) stage 4, GFR 15-29 ml/min (Chronic) Left renal atrophy (Chronic) Medication management (Acute) Insomnia (Acute) Fatigue (Acute) Dizziness (Acute) Leg edema, left (Acute) Anemia in stage 4 chronic kidney disease (Acute) Secondary hyperparathyroidism of renal origin (Acute) Bilateral hydronephrosis (Acute) Creatinine elevation (Acute) Medical History Acute blood loss anemia Acute on chronic renal failure Split GFR 84/16% right vs Left with left renal atrophy SCr as high as 11 mg/dl before relief of right obstruction with stent Baseline SCr now 2.0 - 2.5 mg/dl range Anemia, unspecified Bleeding gastric ulcer Cardiomyopathy due to drug and external agent Carotid stenosis Chronic allergic rhinitis Chronic pain CKD (chronic kidney disease) Primary renal insult with his obstructive uropathy due to retroperitoneal fibrosis. On 2 separate occasions her creatinine is been as high as 10. Currently in the 1.5 to 2.5 range with every 2 month stent changes. Crossing vessel and 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 hydronephrosis (~11/23/17) Emphysema, unspecified Foot fracture (~05/2018) GI hemorrhage Heart disease, unspecified History of viral hepatitis Hydronephrosis Hypertension, essential Avoid ACEi/ARBs and NSAIDS Hypovolemic shock Idiopathic cardiomyopathy EF 30% Impaired cognition Inflammatory abdominal aortic aneurysm Inflammatory liver disease Kidney failure Kidney failure, acute (04/26/18) Lactic acidosis Lumbar back pain with radiculopathy affecting lower extremity Metabolic acidosis, NAG, failure of bicarbonate regeneration prolonged obstruction Methicillin resistant Staphylococcus aureus infection as the cause of diseases classified elsewhere Mononucleosis Obstructive uropathy Bilateral stents for RPF Stent change 03/30/2022 Other chronic cystitis without hematuria (~11/23/17) Other hyperlipidemia Other specified disorder of kidney and ureter Primary idiopathic hypertrophic cardiomyopathy Pulmonary edema Pulmonary nodule Renal osteodystrophy Renal tubular acidosis Secondary to obstructive uropathy, with occasional episodes of hyperkalemia this sounds like type IV RTA Retroperitoneal fibrosis Systolic heart failure Tobacco use Transfusion history Type 2 diabetes mellitus without complication Unspecified hydronephrosis Ureteral stricture Weakness Surgical History H/O aortic aneurysm repair 03/2017 Stent H/O cystoscopy 03/25/17 Insert stent, bilateral H/O cystoscopy 06/17/17 Bilateral RPG, stent exchange H/O cystoscopy 12/09/17 Bilateral RPG, stent exchange H/O cystoscopy 04/28/18 Bilateral RPG, stent, exchange H/O nephrostomy 03/2017 Right nephrostomy tube H/O nephrostomy 04/20/18 Bilateral nephrostomy placement History of bilateral tubal ligation History of cholecystectomy History of esophagogastroduodenoscopy 05/19 3 bleeding ulcers History of right-sided carotid endarterectomy Hx of appendectomy S/P foot surgery, right Family History Mother , at age 80 CVA (cerebral vascular accident) Tachycardia Diabetes Sister Breast cancer Diabetes Lung cancer Cancer of spine Anemia Father , at age 85 AAA (abdominal aortic aneurysm) Unknown Family history of kidney stones Other Malignant neoplasm Social History household members: alone lives independently: Yes marital status: occupational exposures/hazards: No other: Children-4 physical activity: none smoking status: Current every day smoker tobacco type: cigarettes smoking status start date: 12/25/1960 alcohol intake frequency: holiday/special occasion only substance use type: does not use MEDS/ALLERGIES Home Medications and Allergies Home Medications Medication Instructions Recorded Confirmed Type aspirin 81 mg tablet 81 mg PO QDAY 05/16/19 12/29/22 History cholecalciferol (vitamin D3) 50 2,000 unit PO QDAY #30 caps 09/04/20 12/29/22 Rx mcg (2,000 unit) capsule ferrous sulfate 325 mg (65 mg 325 mg PO 1200 05/20/22 12/29/22 History iron) tablet carvedilol 12.5 mg tablet 12.5 mg PO BID htn #180 tabs 06/04/22 12/29/22 Rx amlodipine 10 mg tablet 10 mg PO QHS HTN #90 tabs 08/26/22 12/29/22 Rx sucralfate 1 gram tablet See Rx Instructions .Route 10/07/22 12/29/22 Rx .COMPLEX ##360 sodium bicarbonate 650 mg tablet 650 mg PO TID #90 tabs 10/30/22 12/29/22 Rx hydrocodone 7.5 mg-acetaminophen 1 tab PO Q4-6H PRN pain #120 tabs 12/03/22 12/29/22 Rx 325 mg tablet baclofen 10 mg tablet 10 mg PO BID PRN muscle spasm #60 12/24/22 12/29/22 Rx tabs clopidogrel 75 mg tablet 75 mg PO QAM 12/25/22 12/29/22 History cefuroxime axetil 500 mg tablet 500 mg PO BID 10 days #20 tabs 12/27/22 12/29/22 Rx atorvastatin 20 mg tablet 20 mg PO HS 12/29/22 12/29/22 History oxybutynin chloride 15 mg 15 mg PO QPM #90 tabs 12/29/22 12/29/22 Rx tablet,extended release 24 hr Allergies Allergy/AdvReac Type Severity Reaction Status Date / Time levofloxacin Allergy Severe Anaphylaxis Verified 12/25/22 09:54 cephalexin [From Keflex] AdvReac Mild Pt reports Verified 12/25/22 09:54 being " really sick, fatigue" egg AdvReac Mild gets sick Verified 12/25/22 09:54 with fried eggs hydromorphone [From Dilaudid] AdvReac Mild Nausea Verified 12/25/22 09:54 morphine AdvReac Mild Nausea Verified 12/25/22 09:54 sulfamethoxazole AdvReac Mild Vomiting Verified 12/25/22 09:54 Physical Examination Vital Signs Vital signs: Temp Pulse Resp BP Pulse Ox O2 Del Method O2 Flow Rate 98.6 F 79 24 H 143/90 93 Room Air 0 12/31/22 12:00 12/31/22 12:00 12/31/22 12:00 12/31/22 12:00 12/31/22 12:00 12/31/22 12:00 12/31/22 07:49 General physical appearance General physical exam: well developed, well nourished, no distress and chronically ill Head Head exam IM: Present atraumatic, normal inspection and normocephalic Neck Neck exam: trachea midline Cardiovascular Cardiovascular exam IM: Present normal rate and rhythm Respiratory Respiratory exam: normal respiratory effort Abdomen Abdomen: Present soft and non tender Psychiatric Psychiatric: Present oriented to time, oriented to person and oriented to place Results Labs 12/31/22 05:37 12/31/22 05:37 Labs: Abnormal lab results 12/31/22 12/31/22 Range/Units 05:37 05:37 MCHC 29.3 L (31.0-36.0) g/dL RDW 15.2 H (11.5-14.5) % Chloride 112 H (96-108) mmol/L Carbon Dioxide 19 L (22-30) mmol/L BUN 29 H (8-23) mg/dL Creatinine 2.3 H (0.6-1.1) mg/dL Calcium 8.4 L (8.6-10.4) mg/dL Albumin 3.1 L (3.2-5.2) gm/dL Diabetes panel 12/31/22 Range/Units 05:37 Sodium 142 (133-145) mmol/L Potassium 3.9 (3.3-5.1) mmol/L Chloride 112 H (96-108) mmol/L Carbon Dioxide 19 L (22-30) mmol/L BUN 29 H (8-23) mg/dL Creatinine 2.3 H (0.6-1.1) mg/dL Glucose 89 (70-105) mg/dL Calcium 8.4 L (8.6-10.4) mg/dL AST 16 (<32) U/L ALT 15 (<40) U/L Alkaline Phosphatase 93 (39-117) U/L Total Protein 6.1 (5.9-8.4) gm/dL Albumin 3.1 L (3.2-5.2) gm/dL Calcium panel 12/31/22 Range/Units 05:37 Calcium 8.4 L (8.6-10.4) mg/dL Albumin 3.1 L (3.2-5.2) gm/dL Pituitary panel 12/31/22 Range/Units 05:37 Sodium 142 (133-145) mmol/L Potassium 3.9 (3.3-5.1) mmol/L Chloride 112 H (96-108) mmol/L Carbon Dioxide 19 L (22-30) mmol/L BUN 29 H (8-23) mg/dL Creatinine 2.3 H (0.6-1.1) mg/dL Glucose 89 (70-105) mg/dL Calcium 8.4 L (8.6-10.4) mg/dL Adrenal panel 12/31/22 Range/Units 05:37 Sodium 142 (133-145) mmol/L Potassium 3.9 (3.3-5.1) mmol/L Chloride 112 H (96-108) mmol/L Carbon Dioxide 19 L (22-30) mmol/L BUN 29 H (8-23) mg/dL Creatinine 2.3 H (0.6-1.1) mg/dL Glucose 89 (70-105) mg/dL Calcium 8.4 L (8.6-10.4) mg/dL Total Bilirubin 0.5 (0.1-1.0) mg/dL AST 16 (<32) U/L ALT 15 (<40) U/L Alkaline Phosphatase 93 (39-117) U/L Total Protein 6.1 (5.9-8.4) gm/dL Albumin 3.1 L (3.2-5.2) gm/dL All other labs normal. A/P Assessment and plan (1) Acute UTI: Status: Acute (2) Retroperitoneal mass: Status: Chronic (3) Lesion of ureter: Status: Chronic (4) CKD (chronic kidney disease): Status: Chronic Comment: Primary renal insult with his obstructive uropathy due to retroperitoneal fibrosis. On 2 separate occasions her creatinine is been as high as 10. Currently in the 1.5 to 2.5 range with every 2 month stent changes. (5) Ureteral stricture: Status: Chronic (6) Acute diarrhea: Status: Acute Plan Radha is a 72-year-old woman with bilateral indwelling stents due to ureteral obstruction. When last exchanged it was seen that she had some ureteral lesions that appear to be bullous in nature and likely inflammatory although other possibilities cannot be ruled out. PET scan showed periaortic lesions. She was scheduled today for cystoscopy, bilateral retrograde pyelograms, bilateral ureteroscopy, bilateral ureteral biopsies, and bilateral ureteral stent exchange. She was admitted to the hospital for other causes. We plans to do the procedure while she was here. This morning she began having loose watery stools consistent with C. difficile colitis. For this reason we decided to postpone any surgery today. We will try to get her rescheduled prior to her discharge from the hospital and once the C. difficile colitis has been confirmed, ruled out or treated. Narrative A/P Narrative: Radha is a 72-year-old woman with bilateral indwelling stents due to ureteral obstruction. When last exchanged it was seen that she had some ureteral lesions that appear to be bullous in nature and likely inflammatory although other possibilities cannot be ruled out. PET scan showed periaortic lesions. She was scheduled today for cystoscopy, bilateral retrograde pyelograms, bilateral ureteroscopy, bilateral ureteral biopsies, and bilateral ureteral stent exchange. She was admitted to the hospital for other causes. We plans to do the procedure while she was here. This morning she began having loose watery stools consistent with C. difficile colitis. For this reason we decided to postpone any surgery today. We will try to get her rescheduled prior to her discharge from the hospital and once the C. difficile colitis has been confirmed, ruled out or treated. Time Spent With Patient Time: Total time spent is greater than 50% in coordination of care (as documented) at patient's floor/unit and/or counseling patient:
--- NOTE | 2022-12-31 13:28 | Internal Med Progress Note ---
SUBJECTIVE Subjective Patient information: Note initiated : 12/31/22 at 1:19 pm Service Date, if different from initiated Date: [] Patient: Radha Dumont a 72 y/o F admitted on 12/29/22 for possible overdose. Chief Complaint: [] Interval history: Ms. Dumont is a 72 year old female with history of obstructive uropathy status post bilateral ureteral stents, CKD stage IV, primary idiopathic hypertrophic cardiomyopathy, hypertension, hyperlipidemia, anemia, emphysema, GI bleed, AAA status post stent, right carotid endarterectomy, pulmonary nodule, opioid dependence presented with altered mental status. Patient was seen in ER on 12/27 after a fall and was found to have minimally displaced spiral fracture of distal tib-fib, stirrup splint was applied and patient was discharged home with outpatient orthopedic follow-up. Patient was also found to have evidence of UTI and was discharged on cefuroxime. Patient lives alone in a trailer and family checks on her every day. According to daughter patient became confused, she had delayed responses and slow speech. She was saying things that was not making a whole lot of sense. Family called her but no response on her phone. Patient's niece found her unresponsive on the floor. Patient takes hydrocodone 7.5 mg at baseline for her chronic pain which she can take up to 6 times a day, last refill 12/03 for 120 tabs, however whole bottle was completely empty. Daughter believes patient got confused and was taking pain meds instead of her antibiotics. Patient follows up with urology and nephrology. Daughter reports patient has bilateral ureteral stents due to scarring of the ureters which gets changed every 3 months. She reports no records are due to be exchanged on 12/31. On presentation patient with tachycardia heart rate 91, tachypnea RR 24, blood pressure stable. WBC 12.2, lactic acid 3.4, sodium 147, POC creatinine 3.9 increased from 3.1 couple days ago. UA positive for leukocyte esterase, WBC and RBC. CT scan head and C-spine was negative for any acute finding. 12/30. Patient is alert and orientation is improving. She complains of spasms and pain off and on and was just given hydrocodone. Discussed with her that we will need to minimize use of opioids. Tmax of 99.3 this morning. Her WBC counts 8.6 down from 12.2 yesterday. Hemoglobin 11 down from 13. Creatinine 2.7 unchanged. Urine culture and blood culture negative to date. Discussed case with Dr. Argueta from urology, plan for bilateral ureteral stent exchange tomorrow as previously scheduled. Discussed case with Dr. James from orthopedic. Recommended outpatient follow-up within 2 weeks. Toe-touch weightbearing to non weightbearing 12/31. Leukocytosis remains resolved. Patient reports pain is well controlled. She received senna last night. Had some loose bowel movements, no abdominal pain no fever, RNs suspects C. difficile, informed Dr. Argueta, who postpones ureteral stent exchange today. Serum creatinine down to 2.3 from 2.7 on admission. Urine culture grew yeast but not Nathaly glabrata or albicans. 01/01 Review of Systems: denies headache/fever/chills/nausea/vomiting/chest or abdominal pain/cough/dyspnea. Otherwise see above. PHYSICAL EXAM General: Alert, Awake, No acute Distress, obese Eyes/N/T: EOMI, no scleral icterus, Head/Neck: neck supple, full ROM, CV: RRR, No murmurs, Pulm: Clear b/l, no wheezing/rhonchi/rales, no respiratory distress Abd: soft, nontender, +BS x4 Ext: no clubbing/cyanosis/edema, nontender Neuro: Alert, , no focal deficits, moves all extremities, , sensations intact b/l upper/lower Psychiatric: Skin: warm/dry, normal color Constitutional Vitals: Vital Signs Temp Pulse Resp BP Pulse Ox O2 Del Method O2 Flow Rate 98.6 F 79 24 H 143/90 93 Room Air 0 12/31/22 12:12/31/22 12:12/31/22 12:12/31/22 12:12/31/22 12:12/31/22 12:12/31/22 07:49 Period Temp Pulse Resp BP Sys/Hartman Pulse Ox O2 Del Method O2 Flow Rate Last 24 Hr 97.2 F-99.0 F 71-113 20-24 116-143/66-93 93-99 Nasal Cannula- Room Air 0-2 Intake and Output 12/31/22 12/31/22 12/31/22 03:59 11:59 19:59 Intake Total 1390 877 Output Total 1300 850 Balance 90 27 Intake & Output: Intake & Output 12/31/22 12/31/22 12/31/22 03:59 11:59 19:59 Intake Total 1390 877 Output Total 1300 850 Balance 90 27 Intake: IV 990 877 Lactated Ringers 1,000 ml @ 75 990 827 mls/hr IV .[id number] [facility] Rx#: [id number] Rocephin 2 gm In Dextrose 5% in 50 Water 50 ml @ 100 mls/hr IV Q24H [facility] Rx#:[id number] Oral 400 Output: Urine Catheter Amount 1300 Void Amount 850 Other: Urine Appearance Cloudy Cloudy Sediment Urine Color Yellow Dark Yellow Urine Odor Normal Strong Stool Size Small Copious Stool Color Yellow Brown Golden Colored Stool Consistency Liquid Liquid Loose # of times incontinent of 1 1 2 Bowels OBJ DATA Labs 12/31/22 05:37 12/31/22 05:37 Labs: Abnormal Lab Results 12/31/22 12/31/22 12/30/22 05:37 05:37 05:47 WBC Hgb MCHC 29.3 L RDW 15.2 H Lymph % (Auto) Todd % (Auto) Todd # (Auto) Absolute Neutrophils POC VBG pH POC VBG pCO2 at Temp POC VBG pO2 POC VBG HCO3 POC VBG Total CO2 POC Venous O2 Sat POC VBG Base Excess VBG Lactic Acid POC Sodium POC Chloride Chloride 112 H 113 H Carbon Dioxide 19 L 19 L POC Total CO2 POC BUN BUN 29 H 38 H Creatinine 2.3 H 2.7 H POC Creatinine Glucose POC Glucose Calcium 8.4 L 8.5 L Alkaline Phosphatase Albumin 3.1 L Globulin Urine Appearance Urine Protein Urine Ketones Ur Leukocyte Esterase Urine RBC Urine WBC 12/30/22 12/29/22 12/29/22 05:47 22:25 19:05 WBC Hgb 11.0 L MCHC RDW 15.1 H Lymph % (Auto) Todd % (Auto) 12.3 H Todd # (Auto) 1.06 H Absolute Neutrophils POC VBG pH 7.25 L POC VBG pCO2 at Temp POC VBG pO2 51 H POC VBG HCO3 18.6 L POC VBG Total CO2 20.0 L POC Venous O2 Sat 80.0 H POC VBG Base Excess -9.0 L VBG Lactic Acid POC Sodium POC Chloride Chloride 113 H Carbon Dioxide 19 L POC Total CO2 POC BUN BUN 39 H Creatinine 2.7 H POC Creatinine Glucose 106 H POC Glucose Calcium Alkaline Phosphatase Albumin Globulin Urine Appearance Urine Protein Urine Ketones Ur Leukocyte Esterase Urine RBC Urine WBC 12/29/22 12/29/22 12/29/22 18:17 14:19 14:17 WBC Hgb MCHC RDW Lymph % (Auto) Todd % (Auto) Todd # (Auto) Absolute Neutrophils POC VBG pH 7.26 L POC VBG pCO2 at Temp 38.9 L POC VBG pO2 60 H POC VBG HCO3 17.5 L POC VBG Total CO2 19.0 L POC Venous O2 Sat 87.0 H POC VBG Base Excess -10.0 L VBG Lactic Acid 3.4 H POC Sodium 147 H POC Chloride 114 H Chloride Carbon Dioxide POC Total CO2 19.0 L POC BUN 41 H BUN Creatinine POC Creatinine 3.9 H Glucose POC Glucose 168 H Calcium Alkaline Phosphatase Albumin Globulin Urine Appearance Turbid A Urine Protein 100 A Urine Ketones 5 A Ur Leukocyte Esterase 500 A Urine RBC 36 H Urine WBC > 182 H 12/29/22 12/29/22 14:12 14:12 WBC 12.2 H Hgb MCHC RDW 15.1 H Lymph % (Auto) 13.4 L Todd % (Auto) Todd # (Auto) 0.99 H Absolute Neutrophils 9.46 H POC VBG pH POC VBG pCO2 at Temp POC VBG pO2 POC VBG HCO3 POC VBG Total CO2 POC Venous O2 Sat POC VBG Base Excess VBG Lactic Acid POC Sodium POC Chloride Chloride Carbon Dioxide POC Total CO2 POC BUN BUN Creatinine POC Creatinine Glucose POC Glucose Calcium Alkaline Phosphatase 148 H Albumin Globulin 3.9 H Urine Appearance Urine Protein Urine Ketones Ur Leukocyte Esterase Urine RBC Urine WBC Meds: Medications Acetaminophen (Acetaminophen 325 Mg Tablet) 650 mg PO Q6HP PRN; Protocol PRN Reason: Per Pain Protocol/Fever > 101 Hydrocodone Bitart/Acetaminophen (Hydrocodone/Apap 7.5/325mg Tablet) 1 tab PO Q4HP PRN PRN Reason: Pain Last Admin: 12/31/22 11:38 Dose: 1 tab Aspirin (Aspirin 81 Mg Tab.Chew) 81 mg PO DAILY [facility] Last Admin: 12/31/22 08:12 Dose: Not Given Atorvastatin Calcium (Atorvastatin 20 Mg Tablet) 20 mg PO HS [facility] Last Admin: 12/30/22 21:17 Dose: 20 mg Carvedilol (Carvedilol 12.5 Mg Tablet) 12.5 mg PO BIDCC [facility] Clopidogrel Bisulfate (Clopidogrel 75 Mg Tablet) 75 mg PO QAM [facility] Last Admin: 12/31/22 08:12 Dose: Not Given Ceftriaxone Sodium 2 gm/ (Dextrose) 50 mls @ 100 mls/hr IV Q24H [facility]; Protocol Last Infusion: 12/31/22 11:39 Dose: Infused Methocarbamol (Methocarbamol 500 Mg Tablet) 500 mg PO Q6HP PRN PRN Reason: Muscle Spasm Last Admin: 12/31/22 11:38 Dose: 500 mg Naloxone HCl (Naloxone Hcl 0.4 Mg/Ml Vial) 0.1 mg IV Q2MIN PRN PRN Reason: Opiate Reversal Nicotine (Nicotine 21 Mg Patch) 21 mg TOPICAL DAILY@1000 [facility] Last Admin: 12/31/22 11:38 Dose: 21 mg Ondansetron HCl (Ondansetron 4 Mg/2 Ml Vial) 4 mg IV Q6HP PRN PRN Reason: Nausea And Vomiting Last Admin: 12/30/22 09:47 Dose: 4 mg Sodium Bicarbonate (Sodium Bicarbonate 650 Mg Tablet) 650 mg PO TID [facility] Last Admin: 12/31/22 08:12 Dose: Not Given Sodium Chloride (0.9 % Sodium Chloride 10 Ml Syringe) 10 ml IV Q8 [facility] Last Admin: 12/31/22 06:08 Dose: Not Given Sucralfate (Sucralfate 1 Gm Tablet) 1 gm PO TIDAC [facility] Last Admin: 12/31/22 11:37 Dose: 1 gm Vitamin D (Vitamin D3 25 Mcg Tablet) 50 mcg PO DAILY [facility] Last Admin: 12/31/22 08:13 Dose: Not Given A/P Narrative A/P Narrative: Assessment and plan *Altered mental status/Acute encephalopathy: Multifactorial 2/2 opioid/?baclofen overdose/possible UTI and sepsis -CT head and CT C-spine negative. Encephalopathy resolved *Opioid overdose: Patient is opioid dependent, suspect overusing her hydrocodone since her whole bottle was completely empty -also she woke up after receiving Narcan -Daughter believes patient got confused and was taking opiates pain meds instead of her antibiotics -Minimize use of opioids. *Opioid withdrawal: -Patient woke up after receiving Narcan and was vomiting, was again given morphine and she calmed down -Continue to monitor closely for opioid withdrawal *Sepsis: 2/2 uti *UTI ( ): Patient with bilateral ureteral stents -Urine culture grew yeast but not Nathaly glabrata or albicans -Will repeat UA with catheterized sample, depending on the result will tailor antimicrobial therapy. 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 Argueta. Plan for bilateral ureteral stent exchange if patient ruled out for C. difficile *Diarrhea: Likely in the setting of laxatives and antibiotic associated. Doubt C. difficile. Stool to be sent for C. difficile -Will discontinue stool softener and laxatives and monitor *FORD on CKD IV: likely prerenal, patient dehydrated -Received IV fluids, serum creatinine improved to 2.3 from 2.7 on admission -DC IV fluids -Continue sodium bicarb which patient takes for metabolic acidosis. *Metabolic Acidosis: *Tib-fib fracture: -Ankle xray 12/27minimally displaced spiral fracture of distal fibular diaphysis. Nondisplaced transverse fx through medial malleolus. -Discussed with Dr. James from orthopedics on 12/30. Recommend follow-up as an outpatient in 1 to 2 weeks - Toe-touch weightbearing to nonweightbearing. -Continue PT OT *Hypernatremia: resolved with hydration *AAA status post stent: continue dual antiplatelet therapy *s/p Right carotid endarterectomy: on antiplatelet therapy *Hypertension: resume home dose Coreg, holding amlodipine as blood pressure is stable *Hyperlipidemia -continue atorvastatin *Anemia. Continue iron supplementation *Obese: bmi 31 *prophylaxis: with SCDs Full code Time Spent With Patient Time: Total time spent is greater than 50% in coordination of care (as documented) at patient's floor/unit and/or counseling patient: QUALITY VTE Deep Vein Thrombosis/Pulmonary Embolism Present on Admission: No
[2022-12-31 16:19] LABS: Appearance,Urine TURBID (Clear); Bilirubin,Urine Negative (Negative); Color,Urine YELLOW; Culture Indicated,Urine yes; Glucose,Urine (UA) Negative (Negative); Ketones,Urine Negative (Negative); Leukocyte Esterase,Urine 500 /uL (Negative); Mucus,Urine FEW /hpf; Nitrate,Urine Negative (Negative); Protein,Urine 100 mg/dL (Negative); Urine RBC 123 /hpf (0-3); Urine Squamous Epithelial Cell 0 /hpf (0-4); Urine WBC > 182 /hpf (0-4); Urobilinogen,Urine Negative
[2022-12-31] MEDS: CARVEDILOL 12.5 MG TABLET PO SCH (17:22)
[2022-12-31] MEDS: ATORVASTATIN 20 MG TABLET PO SCH (22:34)
[2023-01-01] MEDS: ONDANSETRON 4 MG/2 ML VIAL IV PRN (03:11)
[2023-01-01] MEDS: 0.9 % SODIUM CHLORIDE 10 ML SYRINGE IV SCH ×3 (06:05→20:16)
[2023-01-01 06:59] LABS: ALT/SGPT 13 U/L (<40); AST/SGOT 10 U/L (<32); Albumin 3.4 gm/dL (3.2-5.2); Alkaline Phosphatase 102 U/L (39-117); Bilirubin,Direct < 0.2 mg/dL (0-0.3); Bilirubin,Total 0.7 mg/dL (0.1-1.0); Blood Urea Nitrogen 27 mg/dL (8-23); Calcium 8.9 mg/dL (8.6-10.4); Carbon Dioxide 23 mmol/L (22-30); Chloride 108 mmol/L (96-108); Globulin 3.3 gm/dL (2.2-3.7); Glomerular Filtration Rate 26; Glucose 100 mg/dL (70-105); Lactate Dehydrogenase 198 U/L (135-225); Phosphorous 2.3 mg/dL (2.5-4.5); Triglycerides 164 mg/dL (<150); Uric Acid 5.7 mg/dL (2.5-8.0)
[2023-01-01] MEDS: SUCRALFATE 1 GM TABLET PO SCH ×3 (07:03→17:45)
--- NOTE | 2023-01-01 07:35 | Internal Med Progress Note ---
SUBJECTIVE Subjective Patient information: Note initiated : 01/01/23 at 7:32 am Service Date, if different from initiated Date: [] Patient: Radha Dumont a 72 y/o F admitted on 12/29/22 for possible overdose. Chief Complaint: [] Interval history: Ms. Dumont is a 72 year old female with history of obstructive uropathy status post bilateral ureteral stents, CKD stage IV, primary idiopathic hypertrophic cardiomyopathy, hypertension, hyperlipidemia, anemia, emphysema, GI bleed, AAA status post stent, right carotid endarterectomy, pulmonary nodule, opioid dependence presented with altered mental status. Patient was seen in ER on 12/27 after a fall and was found to have minimally displaced spiral fracture of distal tib-fib, stirrup splint was applied and patient was discharged home with outpatient orthopedic follow-up. Patient was also found to have evidence of UTI and was discharged on cefuroxime. Patient lives alone in a trailer and family checks on her every day. According to daughter patient became confused, she had delayed responses and slow speech. She was saying things that was not making a whole lot of sense. Family called her but no response on her phone. Patient's niece found her unresponsive on the floor. Patient takes hydrocodone 7.5 mg at baseline for her chronic pain which she can take up to 6 times a day, last refill 12/03 for 120 tabs, however whole bottle was completely empty. Daughter believes patient got confused and was taking pain meds instead of her antibiotics. Patient follows up with urology and nephrology. Daughter reports patient has bilateral ureteral stents due to scarring of the ureters which gets changed every 3 months. She reports no records are due to be exchanged on 12/31. On presentation patient with tachycardia heart rate 91, tachypnea RR 24, blood pressure stable. WBC 12.2, lactic acid 3.4, sodium 147, POC creatinine 3.9 increased from 3.1 couple days ago. UA positive for leukocyte esterase, WBC and RBC. CT scan head and C-spine was negative for any acute finding. 12/30. Patient is alert and orientation is improving. She complains of spasms and pain off and on and was just given hydrocodone. Discussed with her that we will need to minimize use of opioids. Tmax of 99.3 this morning. Her WBC counts 8.6 down from 12.2 yesterday. Hemoglobin 11 down from 13. Creatinine 2.7 unchanged. Urine culture and blood culture negative to date. Discussed case with Dr. Argueta from urology, plan for bilateral ureteral stent exchange tomorrow as previously scheduled. Discussed case with Dr. James from orthopedic. Recommended outpatient follow-up within 2 weeks. Toe-touch weightbearing to non weightbearing 12/31. Leukocytosis remains resolved. Patient reports pain is well controlled. She received senna last night. Had some loose bowel movements, no abdominal pain no fever, RNs suspects C. difficile, informed Dr. Argueat, who postpones ureteral stent exchange today. Serum creatinine down to 2.3 from 2.7 on admission. Urine culture grew yeast but not Nathaly glabrata or albicans. 01/01 Complains of nausea and some lightheadedness. Request Pepto-Bismol. Said diarrhea but was on stool softeners laxatives which have been held. Will monitor for diarrhea. Patient states she needs her blood pressure medications. Looks like her carvedilol was restarted but her amlodipine was not clarified but is now clarified and will start. She also complains of poor sleep. Seen by Dr. Argueta who will set up outpatient ureteral stent replacement and biopsy. Review of Systems: denies headache/fever/chills/nausea/vomiting/chest or abdominal pain/cough/dyspnea. Otherwise see above. PHYSICAL EXAM General: Alert, Awake, No acute Distress, obese Eyes/N/T: EOMI, no scleral icterus, Head/Neck: neck supple, full ROM, CV: RRR, No murmurs, Pulm: Clear b/l, no wheezing/rhonchi/rales, no respiratory distress Abd: soft, nontender, +BS x4 Ext: no clubbing/cyanosis/edema, nontender Neuro: Alert, , no focal deficits, moves all extremities, , sensations intact b/l upper/lower Psychiatric: anxious Skin: warm/dry, normal color Constitutional Vitals: Vital Signs Temp Pulse Resp BP Pulse Ox O2 Del Method O2 Flow Rate 98.4 F 88 20 177/111 96 Room Air 0 01/01/23 07:07 01/01/23 07:07 01/01/23 07:07 01/01/23 07:07 01/01/23 07:07 01/01/23 07:07 01/01/23 07:07 Period Temp Pulse Resp BP Sys/Hartman Pulse Ox O2 Del Method O2 Flow Rate Last 24 Hr 97.8 F-99.1 F 73-103 18-24 128-177/80-111 93-99 Room Air-Room Air 0-0 Intake and Output 12/31/22 01/01/23 01/01/23 19:59 03:59 11:59 Intake Total 710 400 Output Total 440 750 Balance 270 -350 Weight 74.933 kg Intake & Output: Intake & Output 12/31/22 01/01/23 01/01/23 19:59 03:59 11:59 Intake Total 710 400 Output Total 440 750 Balance 270 -350 Weight 74.933 kg Intake: Nourishment/Supplement quantity 200 (ml) Oral 510 400 Output: Urine Catheter Amount 90 Void Amount 350 750 Other: Meal Lunch Percent of Meal Consumed 100% Feeding Ability Assist with Tray Set Up Nourishment/Supplement name 200 Urine Appearance Clear Clear Clear Urine Color Yellow Yellow Dark Yellow Urine Odor Normal Normal Stool Size Large Moderate Large Stool Color Brown Brown Brown Yellow Stool Consistency Loose Liquid Loose # of times incontinent of 1 1 1 Bowels OBJ DATA Labs 12/31/22 05:37 01/01/23 05:32 Labs: Abnormal Lab Results 01/01/23 12/31/22 12/31/22 05:32 14:55 05:37 WBC Hgb MCHC RDW Lymph % (Auto) [place] % (Auto) [place] # (Auto) Absolute Neutrophils POC VBG pH POC VBG pCO2 at Temp POC VBG pO2 POC VBG HCO3 POC VBG Total CO2 POC Venous O2 Sat POC VBG Base Excess VBG Lactic Acid POC Sodium POC Chloride Chloride 112 H Carbon Dioxide 19 L POC Total CO2 POC BUN BUN 27 H 29 H Creatinine 1.9 H 2.3 H POC Creatinine Glucose POC Glucose Calcium 8.4 L Phosphorus 2.3 L Alkaline Phosphatase Albumin 3.1 L Globulin Triglycerides 164 H Urine Appearance Turbid A Urine Protein 100 A Urine Ketones Ur Leukocyte Esterase 500 A Urine RBC 123 H Urine WBC > 182 H Urine Mucus Few A 12/31/22 12/30/22 12/30/22 05:37 05:47 05:47 WBC Hgb 11.0 L MCHC 29.3 L RDW 15.2 H 15.1 H Lymph % (Auto) [place] % (Auto) 12.3 H [place] # (Auto) 1.06 H Absolute Neutrophils POC VBG pH POC VBG pCO2 at Temp POC VBG pO2 POC VBG HCO3 POC VBG Total CO2 POC Venous O2 Sat POC VBG Base Excess VBG Lactic Acid POC Sodium POC Chloride Chloride 113 H Carbon Dioxide 19 L POC Total CO2 POC BUN BUN 38 H Creatinine 2.7 H POC Creatinine Glucose POC Glucose Calcium 8.5 L Phosphorus Alkaline Phosphatase Albumin Globulin Triglycerides Urine Appearance Urine Protein Urine Ketones Ur Leukocyte Esterase Urine RBC Urine WBC Urine Mucus 12/29/22 12/29/22 12/29/22 22:25 19:05 18:17 WBC Hgb MCHC RDW Lymph % (Auto) [place] % (Auto) [place] # (Auto) Absolute Neutrophils POC VBG pH 7.25 L POC VBG pCO2 at Temp POC VBG pO2 51 H POC VBG HCO3 18.6 L POC VBG Total CO2 20.0 L POC Venous O2 Sat 80.0 H POC VBG Base Excess -9.0 L VBG Lactic Acid POC Sodium POC Chloride Chloride 113 H Carbon Dioxide 19 L POC Total CO2 POC BUN BUN 39 H Creatinine 2.7 H POC Creatinine Glucose 106 H POC Glucose Calcium Phosphorus Alkaline Phosphatase Albumin Globulin Triglycerides Urine Appearance Turbid A Urine Protein 100 A Urine Ketones 5 A Ur Leukocyte Esterase 500 A Urine RBC 36 H Urine WBC > 182 H Urine Mucus 12/29/22 12/29/22 12/29/22 14:19 14:17 14:12 WBC 12.2 H Hgb MCHC RDW 15.1 H Lymph % (Auto) 13.4 L [place] % (Auto) [place] # (Auto) 0.99 H Absolute Neutrophils 9.46 H POC VBG pH 7.26 L POC VBG pCO2 at Temp 38.9 L POC VBG pO2 60 H POC VBG HCO3 17.5 L POC VBG Total CO2 19.0 L POC Venous O2 Sat 87.0 H POC VBG Base Excess -10.0 L VBG Lactic Acid 3.4 H POC Sodium 147 H POC Chloride 114 H Chloride Carbon Dioxide POC Total CO2 19.0 L POC BUN 41 H BUN Creatinine POC Creatinine 3.9 H Glucose POC Glucose 168 H Calcium Phosphorus Alkaline Phosphatase Albumin Globulin Triglycerides Urine Appearance Urine Protein Urine Ketones Ur Leukocyte Esterase Urine RBC Urine WBC Urine Mucus 12/29/22 14:12 WBC Hgb MCHC RDW Lymph % (Auto) [place] % (Auto) [place] # (Auto) Absolute Neutrophils POC VBG pH POC VBG pCO2 at Temp POC VBG pO2 POC VBG HCO3 POC VBG Total CO2 POC Venous O2 Sat POC VBG Base Excess VBG Lactic Acid POC Sodium POC Chloride Chloride Carbon Dioxide POC Total CO2 POC BUN BUN Creatinine POC Creatinine Glucose POC Glucose Calcium Phosphorus Alkaline Phosphatase 148 H Albumin Globulin 3.9 H Triglycerides Urine Appearance Urine Protein Urine Ketones Ur Leukocyte Esterase Urine RBC Urine WBC Urine Mucus Meds: Medications Acetaminophen (Acetaminophen 325 Mg Tablet) 650 mg PO Q6HP PRN; Protocol PRN Reason: Per Pain Protocol/Fever > 101 Hydrocodone Bitart/Acetaminophen (Hydrocodone/Apap 7.5/325mg Tablet) 1 tab PO Q4HP PRN PRN Reason: Pain Last Admin: 12/31/22 22:34 Dose: 1 tab Aspirin (Aspirin 81 Mg Tab.Chew) 81 mg PO DAILY [facility] Last Admin: 12/31/22 15:25 Dose: 81 mg Atorvastatin Calcium (Atorvastatin 20 Mg Tablet) 20 mg PO HS [facility] Last Admin: 12/31/22 22:34 Dose: 20 mg Carvedilol (Carvedilol 12.5 Mg Tablet) 12.5 mg PO BIDCC [facility] Last Admin: 12/31/22 17:22 Dose: 12.5 mg Clopidogrel Bisulfate (Clopidogrel 75 Mg Tablet) 75 mg PO QAM [facility] Last Admin: 12/31/22 15:26 Dose: 75 mg Ceftriaxone Sodium 2 gm/ (Dextrose) 50 mls @ 100 mls/hr IV Q24H [facility]; Protocol Last Infusion: 12/31/22 11:39 Dose: Infused Methocarbamol (Methocarbamol 500 Mg Tablet) 500 mg PO Q6HP PRN PRN Reason: Muscle Spasm Last Admin: 12/31/22 22:34 Dose: 500 mg Naloxone HCl (Naloxone Hcl 0.4 Mg/Ml Vial) 0.1 mg IV Q2MIN PRN PRN Reason: Opiate Reversal Nicotine (Nicotine 21 Mg Patch) 21 mg TOPICAL DAILY@1000 SUN Last Admin: 12/31/22 11:38 Dose: 21 mg Ondansetron HCl (Ondansetron 4 Mg/2 Ml Vial) 4 mg IV Q6HP PRN PRN Reason: Nausea And Vomiting Last Admin: 01/01/23 03:11 Dose: 4 mg Sodium Bicarbonate (Sodium Bicarbonate 650 Mg Tablet) 650 mg PO TID [facility] Last Admin: 12/31/22 22:34 Dose: 650 mg Sodium Chloride (0.9 % Sodium Chloride 10 Ml Syringe) 10 ml IV Q8 [facility] Last Admin: 01/01/23 06:05 Dose: 10 ml Sucralfate (Sucralfate 1 Gm Tablet) 1 gm PO TIDAC [facility] Last Admin: 01/01/23 07:03 Dose: 1 gm Vitamin D (Vitamin D3 25 Mcg Tablet) 50 mcg PO DAILY [facility] Last Admin: 12/31/22 08:13 Dose: Not Given A/P Narrative A/P Narrative: Assessment and plan: *Altered mental status/Acute encephalopathy: Multifactorial 2/2 opioid/?baclo fen overdose/possible UTI and sepsis -CT head and CT C-spine negative. Encephalopathy resolved *Opioid overdose: Patient is opioid dependent, suspect overusing her hydrocodone since her whole bottle was completely empty -also she woke up after receiving Narcan -Daughter believes patient got confused and was taking opiates pain meds instead of her antibiotics -Minimize use of opioids. *Opioid withdrawal: -Patient woke up after receiving Narcan and was vomiting, was again given morphine and she calmed down -Continue to monitor closely for opioid withdrawal *Sepsis: 2/2 uti *UTI ( ): Patient with bilateral ureteral stents -Urine culture grew yeast but not Nathaly glabrata or albicans -Will repeat UA with catheterized sample, depending on the result will tailor antimicrobial therapy. 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 Argueta. Plan for bilateral ureteral stent exchange & biopsy outpt *Diarrhea: Likely in the setting of laxatives and antibiotic associated. C. difficile neg -Will discontinue stool softener and laxatives and monitor *FORD on CKD IV: likely prerenal, patient dehydrated -Received IV fluids, serum creatinine improving -DC IV fluids -Continue sodium bicarb which patient takes for metabolic acidosis. *Metabolic Acidosis: improving *Tib-fib fracture: -Ankle xray 12/27minimally displaced spiral fracture of distal fibular diaphysis. Nondisplaced transverse fx through medial malleolus. -Discussed with Dr. James from orthopedics on 12/30. Recommend follow-up as an outpatient in 1 to 2 weeks - Toe-touch weightbearing to nonweightbearing. -Continue PT OT *Generalized weakness/deconditioning/debility: Patient will need rehab placement -CM for placement *Hypernatremia: resolved with hydration *AAA status post stent: continue dual antiplatelet therapy *s/p Right carotid endarterectomy: on antiplatelet therapy *Hypertension: resume home dose Coreg, holding amlodipine as blood pressure is stable *Hyperlipidemia -continue atorvastatin *Anemia. Continue iron supplementation *Obese: bmi 31 *Insomnia: Benadryl/melatonin, clarify home med as possibly started on ambien *prophylaxis: with SCDs Full code Time Spent With Patient Time: Total time spent is greater than 50% in coordination of care (as documented) at patient's floor/unit and/or counseling patient: Subsequent: Total time with patient: 50 - 65 Minutes QUALITY VTE Deep Vein Thrombosis/Pulmonary Embolism Present on Admission: No
--- NOTE | 2023-01-01 07:44 | Urology Progress Note ---
SUBJECTIVE Subjective Patient information: Note initiated : 01/01/23 at 7:42 am Service Date, if different from initiated Date: [] Patient: Radha Dumont a 72 y/o F admitted on 12/29/22 for possible overdose. Chief Complaint: [Indwelling ureteral stents, possible UTI and ureteral lesions] Principal diagnosis: Indwelling ureteral stents, possible UTI and ureteral lesions Interval history: Radha is currently in-house after a spiral fracture of the left tibia and possible overdose of narcotics. We had planned to perform a procedure yesterday however she both remains on Plavix and was thought to possibly have C. difficile colitis. C. difficile colitis has been ruled out. Constitutional Vitals: Vital Signs Temp Pulse Resp BP Pulse Ox O2 Del Method O2 Flow Rate 98.4 F 88 20 177/111 96 Room Air 0 01/01/23 07:07 01/01/23 07:07 01/01/23 07:07 01/01/23 07:07 01/01/23 07:07 01/01/23 07:07 01/01/23 07:07 Period Temp Pulse Resp BP Sys/Hartman Pulse Ox O2 Del Method O2 Flow Rate Last 24 Hr 97.8 F-99.1 F 73-91 18-24 130-177/80-111 93-99 Room Air-Room Air 0-0 Intake and Output 12/31/22 01/01/23 01/01/23 19:59 03:59 11:59 Intake Total 710 400 Output Total 440 750 Balance 270 -350 Weight 74.933 kg Intake & Output: Intake & Output 12/31/22 01/01/23 01/01/23 19:59 03:59 11:59 Intake Total 710 400 Output Total 440 750 Balance 270 -350 Weight 74.933 kg Intake: Nourishment/Supplement quantity 200 (ml) Oral 510 400 Output: Urine Catheter Amount 90 Void Amount 350 750 Other: Meal Lunch Percent of Meal Consumed 100% Feeding Ability Assist with Tray Set Up Nourishment/Supplement name 200 Urine Appearance Clear Clear Clear Urine Color Yellow Yellow Dark Yellow Urine Odor Normal Normal Stool Size Large Moderate Large Stool Color Brown Brown Brown Yellow Stool Consistency Loose Liquid Loose # of times incontinent of 1 1 1 Bowels General appearance: average body habitus, cooperative and no acute distress Respiratory Respiratory exam: Present normal respiratory exam Cardiovascular Cardiovascular exam: Present normal rate and rhythm A/P Narrative A/P Narrative: Radha is currently debilitated. I do wish to still take her to the operating to change her stents in the very near future. We also plan to perform ureteral biopsies with fulguration. As fulgurating the ureters can be very difficult I do not wish her to be on Plavix for this procedure. She will need to stop it at least 4 to 5 days prior to the procedure. Since C. difficile colitis was ruled out the patient may go home per the hospitalist service. We will schedule her as an outpatient in the next couple of weeks for stent exchange and ureteral biopsy. Time Spent With Patient Time: Total time spent is greater than 50% in coordination of care (as documented) at patient's floor/unit and/or counseling patient:
[2023-01-01] MEDS: CARVEDILOL 12.5 MG TABLET PO SCH ×2 (08:25→17:45)
[2023-01-01] MEDS: METHOCARBAMOL 500 MG TABLET PO PRN ×2 (08:47→15:45)
[2023-01-01] MEDS: ASPIRIN 81 MG TAB.CHEW PO SCH (08:47)
[2023-01-01] MEDS: VITAMIN D3 25 MCG TABLET PO SCH (08:47)
[2023-01-01] MEDS: CLOPIDOGREL 75 MG TABLET PO SCH (08:47)
[2023-01-01] MEDS: SODIUM BICARBONATE 650 MG TABLET PO SCH ×3 (08:47→20:12)
[2023-01-01] MEDS: HYDROCODONE/APAP 7.5/325MG TABLET PO PRN ×2 (08:47→15:45)
[2023-01-01] MEDS: NICOTINE 21 MG PATCH TOPICAL SCH (08:53)
[2023-01-01] MEDS ORDERED: BACLOFEN 10 MG TABLET PO PRN (09:27)
[2023-01-01] MEDS ORDERED: BISMUTH SUBSALICYLATE 15 ML ORAL.SUSP PO ONE (09:28)
[2023-01-01] MEDS ORDERED: BISMUTH SUBSALICYLATE 15 ML ORAL.SUSP PO PRN (09:28)
[2023-01-01] MEDS ORDERED: LORazepam 2 MG/ML VIAL IV PRN (09:29)
[2023-01-01] MEDS: cefTRIAXone 2 GM in DEXTROSE 5% IN WATER 50 ML IV SCH (10:30)
--- NOTE | 2023-01-01 10:41 | Discharge Summary ---
Discharge Provider Provider IMPORTANT FOLLOW-UP INFORMATION FOR PCP: Patient information: Note initiated : 01/01/23 at 10:38 am Service Date, if different from initiated Date: [] Patient: Radha Dumont 72 y/o F admitted on 12/29/22 for possible overdose. Chief Complaint: [] Date of admission: 12/29/22 21:06 Discharge date: 01/04/23 Primary care physician: Erika Palacio Consults: 12/29/22 16:50 Consult to Physician [CONS] Stat Comment: Consulting Provider: Chandler Song Reason For Exam: Physician to Consult 12/31/22 Consult to Physician [CONS] Routine Comment: Consulting Provider: Uriah Argueta Reason For Exam: Physician to Consult COURSE Hospital Course Hospital course: HPI: Ms. Dumont is a 72 year old female with history of obstructive uropathy status post bilateral ureteral stents, CKD stage IV, primary idiopathic hypertrophic cardiomyopathy, hypertension, hyperlipidemia, anemia, emphysema, GI bleed, AAA status post stent, right carotid endarterectomy, pulmonary nodule, opioid dependence presented with altered mental status. Patient was seen in ER on 12/27 after a fall and was found to have minimally displaced spiral fracture of distal tib-fib, stirrup splint was applied and patient was discharged home with outpatient orthopedic follow-up. Patient was also found to have evidence of UTI and was discharged on cefuroxime. Patient lives alone in a trailer and family checks on her every day. According to daughter patient became confused, she had delayed responses and slow speech. She was saying things that was not making a whole lot of sense. Family called her but no response on her phone. Patient's niece found her unresponsive on the floor. Patient takes hydrocodone 7.5 mg at baseline for her chronic pain which she can take up to 6 times a day, last refill 12/03 for 120 tabs, however whole bottle was completely empty. Daughter believes patient got confused and was taking pain meds instead of her antibiotics. Patient follows up with urology and nephrology. Daughter reports patient has bilateral ureteral stents due to scarring of the ureters which gets changed every 3 months. She reports no records are due to be exchanged on 12/31. On presentation patient with tachycardia heart rate 91, tachypnea RR 24, blood pressure stable. WBC 12.2, lactic acid 3.4, sodium 147, POC creatinine 3.9 increased from 3.1 couple days ago. UA positive for leukocyte esterase, WBC and RBC. CT scan head and C-spine was negative for any acute finding. 12/30. Patient is alert and orientation is improving. She complains of spasms a nd pain off and on and was just given hydrocodone. Discussed with her that we will need to minimize use of opioids. Tmax of 99.3 this morning. Her WBC counts 8.6 down from 12.2 yesterday. Hemoglobin 11 down from 13. Creatinine 2.7 unchanged. Urine culture and blood culture negative to date. Discussed case with Dr. Argueta from urology, plan for bilateral ureteral stent exchange tomorrow as previously scheduled. Discussed case with Dr. James from orthopedic. Recommended outpatient follow-up within 2 weeks. Toe-touch weightbearing to non weightbearing 12/31. Leukocytosis remains resolved. Patient reports pain is well controlled. She received senna last night. Had some loose bowel movements, no abdominal pain no fever, RNs suspects C. difficile, informed Dr. Argueta, who postpones ureteral stent exchange today. Serum creatinine down to 2.3 from 2.7 on admission. Urine culture grew yeast but not Nathaly glabrata or albicans. 01/01 Complains of nausea and some lightheadedness. Request Pepto-Bismol. Said diarrhea but was on stool softeners laxatives which have been held. Will monitor for diarrhea. Patient states she needs her blood pressure medications. Looks like her carvedilol was restarted but her amlodipine was not clarified but is now clarified and will start. She also complains of poor sleep. Seen by Dr. Argueta who will set up outpatient ureteral stent replacement and biopsy. 01/02 Patient says she slept better. States she gets some dizziness when she turns her head, I talked her about likely BPPV And will try meclizine. CT brain no acute abnormalities.She complains of mild headache. 01/03 Patient seems to be feeling better. Sleep mediocre. 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 No new complaints overnight events. Diarrhea improved. 01/04 Patient slept better last night. And feeling better today. Seen by infectious disease and started on fluconazole 400 mg daily Assessment and plan: *Altered mental status/Acute encephalopathy: Multifactorial 2/2 opioid/ UTI and sepsis *Opioid overdose: Patient is opioid dependent, suspect overusing her hydrocodone since her whole bottle was completely empty -also she woke up after receiving Narcan *Sepsis: 2/2 uti *UTI (Nathaly kefyr): Patient with bilateral ureteral stents -Urine culture growing Kluyveromyces marxianus, will discuss with ID. 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 Argueta. Plan for bilateral ureteral stent exchange & biopsy outpt *Diarrhea: Likely in the setting of laxatives and antibiotic associated. C. difficile neg *FORD on CKD IV: *Metabolic Acidosis: *Tib-fib fracture: -Ankle xray 12/27minimally displaced spiral fracture of distal fibular diaphysis. Nondisplaced transverse fx through medial malleolus. -Discussed with Dr. James from orthopedics on 12/30. Recommend follow-up as an outpatient in 1 to 2 weeks - Toe-touch weightbearing to nonweightbearing. -Continue PT OT *Generalized weakness/deconditioning/debility: Patient will need rehab placement -CM for placement *Hypernatremia: *AAA status post stent: continue dual antiplatelet therapy *s/p Right carotid endarterectomy: on antiplatelet therapy *Hypertension: resume home dose Coreg/norvasc *Hyperlipidemia: continue atorvastatin *Anemia. Continue iron supplementation *Obese: bmi 31 *Insomnia: Discharge diagnosis: Encephalopathy opiate overdose acute kidney injury metabolic acidosis UTI s Secondary discharge diagnosis: Hypertension hyperlipidemia anemia obesity insomnia recent tib-fib fracture follow-up with Dr. James generalized weakness debility Time Spent with Patient Time attestation: Total time spent providing and/or coordinating discharge services: Time spent: Greater than 30 minutes EXAM Constitutional Vitals: Temp Pulse Resp BP Pulse Ox O2 Del Method O2 Flow Rate 98.4 F 88 20 177/111 96 Room Air 0 01/01/23 07:07 01/01/23 07:07 01/01/23 07:59 01/01/23 07:07 01/01/23 07:59 01/01/23 07:59 01/01/23 07:59 Discharge Data Data Completed and Pending Labs on day of discharge: Labs from last 24 hours 01/01/23 12/31/22 05:32 14:55 Sodium 140 Potassium 3.4 Chloride 108 Carbon Dioxide 23 Anion Gap 9.0 BUN 27 H Creatinine 1.9 H GFR Calculation 26 Glucose 100 Uric Acid 5.7 Calcium 8.9 Phosphorus 2.3 L Magnesium 2.1 Total Bilirubin 0.7 Direct Bilirubin < 0.2 GGT 29 AST 10 ALT 13 Alkaline Phosphatase 102 Lactate Dehydrogenase 198 Total Protein 6.7 Albumin 3.4 Globulin 3.3 Albumin/Globulin Ratio 1.0 Triglycerides 164 H Urine Color Yellow Urine Appearance Turbid A Urine pH 6.0 Ur Specific [place] 1.010 Urine Protein 100 A Urine Glucose (UA) Negative Urine Ketones Negative Urine Occult Blood 0.20 Urine Nitrate Negative Urine Bilirubin Negative Urine Urobilinogen Negative Ur Leukocyte Esterase 500 A Urine RBC 123 H Urine WBC > 182 H Ur Squamous Epith Cells 0 Urine Bacteria None Urine Mucus Few A Ur Culture Indicated? yes Preliminary micro results at discharge 12/29/22 22:31 Blood Culture - Preliminary Blood 12/29/22 22:25 Blood Culture - Preliminary Blood Discharge Plan Patient/Caregiver Discharge Instructions Activity: increase activity as tolerated Diet: Regular Diet Activity Restrictions/Additional Instructions: Weightbearing status per orthopedic surgery for the tib-fib fracture f/u with urology for stent replacement as soon as possible. Prescriptions: New fluconazole 200 mg tablet 400 mg PO QDAY 12 Days Qty: 24 0RF Continued cholecalciferol (vitamin D3) 50 mcg (2,000 unit) capsule 2,000 unit PO QDAY Qty: 30 12RF sucralfate 1 gram tablet See Rx Instructions .ROUTE .COMPLEX Qty: 360 3RF Dose Instruction: TAKE 1 TABLET BY MOUTH FOUR TIMES DAILY WITH MEALS AND AT BEDTIME Rx Instructions: TAKE 1 TABLET BY MOUTH MORNING, NOON AND BEDTIME sodium bicarbonate 650 mg tablet 650 mg PO TID Qty: 90 12RF Rx Instructions: new dose baclofen 10 mg tablet 10 mg PO BID PRN (Reason: muscle spasm) Qty: 60 0RF oxybutynin chloride 15 mg tablet extended release 24hr 15 mg PO QPM Qty: 90 1RF aspirin 81 mg tablet 81 mg PO QDAY ferrous sulfate 325 mg (65 mg iron) tablet 325 mg PO 1200 carvedilol 12.5 mg tablet 12.5 mg PO BID Qty: 180 4RF Rx Instructions: must administer with a meal/food amlodipine 10 mg tablet 10 mg PO QHS Qty: 90 3RF hydrocodone-acetaminophen 7.5-325 mg tablet 1 tab PO Q4-6H PRN (Reason: pain) Qty: 120 0RF clopidogrel 75 mg tablet 75 mg PO QAM Rx Instructions: Stopped taken x2wks ago d/t upcoming urinary surgery 12/31/22 atorvastatin 20 mg tablet 20 mg PO HS Discontinued cefuroxime axetil 500 mg tablet 500 mg PO BID 10 Days Qty: 20 0RF Other Ambulatory Orders: OT Discharge Order (Routine) Location: None Selected Ordered By: Marck Mejia Physical Therapy at Discharge - General (Routine) Location: None Selected Ordered By: Marck Mejia Follow Up Plan Follow up with: Asim James MD [Physician] - (ankle fx) Uriah Argueta MD [Physician] - Olesya Becker MD [Physician] - Erika Palacio ARNP [Primary Care Provider] - Patient Disposition: Xfer SNF Prognosis: Fair Rehab Potential: Fair I certify that the patient requires SNF services: Yes Overall status at discharge: patient is progressing back to baseline Discharge Orders: Discharge Order (Routine); Ordered 01/04/23 Ordered By: Marck Mejia QUALITY VTE Deep Vein Thrombosis/Pulmonary Embolism Present on Admission: No
[2023-01-01] MEDS: MELATONIN 3 MG TABLET PO SCH (19:25)
[2023-01-01] MEDS: traZODone HCL 50 MG TABLET PO SCH (20:11)
[2023-01-01] MEDS: diphenhydrAMINE 25 MG CAPSULE PO SCH (20:12)
[2023-01-01] MEDS: ATORVASTATIN 20 MG TABLET PO SCH (20:12)
[2023-01-01] MEDS: amLODIPine 10 MG TABLET PO SCH (20:12)
[2023-01-02] MEDS: HYDROCODONE/APAP 7.5/325MG TABLET PO PRN ×2 (00:52→10:05)
[2023-01-02] MEDS: METHOCARBAMOL 500 MG TABLET PO PRN ×2 (00:52→10:06)
[2023-01-02] MEDS: 0.9 % SODIUM CHLORIDE 10 ML SYRINGE IV SCH ×4 (06:38→20:23)
[2023-01-02] MEDS: CARVEDILOL 12.5 MG TABLET PO SCH ×2 (07:28→16:49)
[2023-01-02] MEDS: SUCRALFATE 1 GM TABLET PO SCH ×3 (07:28→16:49)
[2023-01-02] MEDS: ONDANSETRON 4 MG/2 ML VIAL IV PRN (08:34)
[2023-01-02] MEDS: ASPIRIN 81 MG TAB.CHEW PO SCH (08:34)
[2023-01-02] MEDS: VITAMIN D3 25 MCG TABLET PO SCH (08:34)
[2023-01-02] MEDS: CLOPIDOGREL 75 MG TABLET PO SCH (08:35)
[2023-01-02] MEDS: SODIUM BICARBONATE 650 MG TABLET PO SCH ×3 (08:35→20:23)
--- NOTE | 2023-01-02 08:45 | Internal Med Progress Note ---
SUBJECTIVE Subjective Patient information: Note initiated : 01/02/23 at 8:44 am Service Date, if different from initiated Date: [] Patient: Radha Dumont a 72 y/o F admitted on 12/29/22 for possible overdose. Chief Complaint: [] Principal diagnosis: Indwelling ureteral stents, possible UTI and ureteral lesions Interval history: Ms. Dumont is a 72 year old female with history of obstructive uropathy status post bilateral ureteral stents, CKD stage IV, primary idiopathic hypertrophic cardiomyopathy, hypertension, hyperlipidemia, anemia, emphysema, GI bleed, AAA status post stent, right carotid endarterectomy, pulmonary nodule, opioid dependence presented with altered mental status. Patient was seen in ER on 12/27 after a fall and was found to have minimally displaced spiral fracture of distal tib-fib, stirrup splint was applied and patient was discharged home with outpatient orthopedic follow-up. Patient was also found to have evidence of UTI and was discharged on cefuroxime. Patient lives alone in a trailer and family checks on her every day. According to daughter patient became confused, she had delayed responses and slow speech. She was saying things that was not making a whole lot of sense. Family called her but no response on her phone. Patient's niece found her unresponsive on the floor. Patient takes hydrocodone 7.5 mg at baseline for her chronic pain which she can take up to 6 times a day, last refill 12/03 for 120 tabs, however whole bottle was completely empty. Daughter believes patient got confused and was taking pain meds instead of her antibiotics. Patient follows up with urology and nephrology. Daughter reports patient has bilateral ureteral stents due to scarring of the ureters which gets changed every 3 months. She reports no records are due to be exchanged on 12/31. On presentation patient with tachycardia heart rate 91, tachypnea RR 24, blood pressure stable. WBC 12.2, lactic acid 3.4, sodium 147, POC creatinine 3.9 increased from 3.1 couple days ago. UA positive for leukocyte esterase, WBC and RBC. CT scan head and C-spine was negative for any acute finding. 12/30. Patient is alert and orientation is improving. She complains of spasms and pain off and on and was just given hydrocodone. Discussed with her that we will need to minimize use of opioids. Tmax of 99.3 this morning. Her WBC counts 8.6 down from 12.2 yesterday. Hemoglobin 11 down from 13. Creatinine 2.7 unchanged. Urine culture and blood culture negative to date. Discussed case with Dr. Argueta from urology, plan for bilateral ureteral stent exchange tomorrow as previously scheduled. Discussed case with Dr. James from orthopedic. Recommended outpatient follow-up within 2 weeks. Toe-touch weightbearing to non weightbearing 12/31. Leukocytosis remains resolved. Patient reports pain is well controlled. She received senna last night. Had some loose bowel movements, no abdominal pain no fever, RNs suspects C. difficile, informed Dr. Argueta, who postpones ureteral stent exchange today. Serum creatinine down to 2.3 from 2.7 on admission. Urine culture grew yeast but not Nathaly glabrata or albicans. 01/01 Complains of nausea and some lightheadedness. Request Pepto-Bismol. Said diarrhea but was on stool softeners laxatives which have been held. Will monitor for diarrhea. Patient states she needs her blood pressure medications. Looks like her carvedilol was restarted but her amlodipine was not clarified but is now clarified and will start. She also complains of poor sleep. Seen by Dr. Argueta who will set up outpatient ureteral stent replacement and biopsy. 01/02 Patient says she slept better. States she gets some dizziness when she turns her head, I talked her about likely BPPV And will try meclizine. CT brain no acute abnormalities.She complains of mild headache. Review of Systems: denies headache/fever/chills/nausea/vomiting/chest or abdominal pain/cough/dyspnea. Otherwise see above. PHYSICAL EXAM General: Alert, Awake, No acute Distress, obese Eyes/N/T: EOMI, no scleral icterus, Head/Neck: neck supple, full ROM, CV: RRR, No murmurs, Pulm: Clear b/l, no wheezing/rhonchi/rales, no respiratory distress Abd: soft, nontender, +BS x4 Ext: no clubbing/cyanosis/edema, nontender Neuro: Alert, , no focal deficits, moves all extremities, , sensations intact b/l upper/lower Psychiatric: anxious Skin: warm/dry, normal color Constitutional Vitals: Vital Signs Temp Pulse Resp BP Pulse Ox O2 Del Method O2 Flow Rate 98.8 F 83 14 137/93 96 Room Air 0 01/02/23 07:29 01/02/23 07:29 01/02/23 07:29 01/02/23 07:29 01/02/23 07:29 01/02/23 07:29 01/01/23 12:00 Period Temp Pulse Resp BP Sys/[place] Pulse Ox O2 Del Method O2 Flow Rate Last 24 Hr 98.0 F-99.0 F 76-83 14-18 108-137/65-93 91-96 Room Air-Room Air 0 Intake and Output 01/01/23 01/02/23 01/02/23 19:59 03:59 11:59 Intake Total 920 250 Output Total 1200 750 201 Balance -280 -500 -201 Weight 74.797 kg Intake & Output: Intake & Output 01/01/23 01/02/23 01/02/23 19:59 03:59 11:59 Intake Total 920 250 Output Total 1200 750 201 Balance -280 -500 -201 Weight 74.797 kg Intake: Oral 920 250 Output: Void Amount 1200 750 200 # of times incontinent of urine 1 Other: Meal Dinner Percent of Meal Consumed 75% Urine Appearance Cloudy Clear Clear Sediment Urine Color Bright Yellow Yellow Yellow Urine Odor Strong Normal Normal Stool Size Large Smear Stool Color Brown Brown Stool Consistency Liquid Soft # of times incontinent of 1 Bowels OBJ DATA Labs 12/31/22 05:37 01/01/23 05:32 Labs: Abnormal Lab Results 01/01/23 12/31/22 12/31/22 05:32 14:55 05:37 MCHC RDW Chloride 112 H Carbon Dioxide 19 L BUN 27 H 29 H Creatinine 1.9 H 2.3 H Calcium 8.4 L Phosphorus 2.3 L Albumin 3.1 L Triglycerides 164 H Urine Appearance Turbid A Urine Protein 100 A Ur Leukocyte Esterase 500 A Urine RBC 123 H Urine WBC > 182 H Urine Mucus Few A 12/31/22 05:37 MCHC 29.3 L RDW 15.2 H Chloride Carbon Dioxide BUN Creatinine Calcium Phosphorus Albumin Triglycerides Urine Appearance Urine Protein Ur Leukocyte Esterase Urine RBC Urine WBC Urine Mucus Meds: Medications Acetaminophen (Acetaminophen 325 Mg Tablet) 650 mg PO Q6HP PRN; Protocol PRN Reason: Per Pain Protocol/Fever > 101 Hydrocodone Bitart/Acetaminophen (Hydrocodone/Apap 7.5/325mg Tablet) 1 tab PO Q4HP PRN PRN Reason: Pain Last Admin: 01/02/23 00:52 Dose: 1 tab Amlodipine Besylate (Amlodipine 10 Mg Tablet) 10 mg PO QHS [facility] Last Admin: 01/01/23 20:12 Dose: 10 mg Aspirin (Aspirin 81 Mg Tab.Chew) 81 mg PO DAILY [facility] Last Admin: 01/02/23 08:34 Dose: 81 mg Atorvastatin Calcium (Atorvastatin 20 Mg Tablet) 20 mg PO [facility] Last Admin: 01/01/23 20:12 Dose: 20 mg Baclofen (Baclofen 10 Mg Tablet) 10 mg PO BID PRN PRN Reason: muscle spasm Bismuth Subsalicylate (Bismuth Subsalicylate 15 Ml Oral.Susp) 15 ml PO Q4HP PRN PRN Reason: Dyspepsia Carvedilol ([facility]il[facility] 12.5 Mg Tablet) [facility] Last Admin: 01/02/23 07:28 Dose: 12.5 mg Clopidogrel Bisulfate (Clopidogrel 75 Mg Tablet) 75 mg PO QAM [facility] Last Admin: 01/02/23 08:35 Dose: 75 mg Diphenhydramine HCl (Diphenhydramine 25 Mg Capsule) 25 mg PO [facility] Last Admin: 01/01/23 20:12 Dose: 25 mg Ceftriaxone Sodium 2 gm/ (Dextrose) 50 mls @ 100 mls/hr IV Q24H [facility]; Protocol Last Infusion: 01/01/23 11:19 Dose: Infused Lorazepam (Lorazepam 2 Mg/Ml Vial) 0.5 mg IV Q4-6HP PRN PRN Reason: ANXIETY/SEDATION Melatonin (Melatonin 3 Mg Tablet) 3 mg PO QPM@1900 [facility] Last Admin: 01/01/23 19:25 Dose: 3 mg Methocarbamol (Methocarbamol 500 Mg Tablet) 500 mg PO Q6HP PRN PRN Reason: Muscle Spasm Last Admin: 01/02/23 00:52 Dose: 500 mg Naloxone HCl (Naloxone Hcl 0.4 Mg/Ml Vial) 0.1 mg IV Q2MIN PRN PRN Reason: Opiate Reversal Nicotine (Nicotine 21 Mg Patch) 21 mg TOPICAL DAILY@1000 [facility] Last Admin: 01/01/23 08:53 Dose: 21 mg Ondansetron HCl (Ondansetron 4 Mg/2 Ml Vial) 4 mg IV Q6HP PRN PRN Reason: Nausea And Vomiting Last Admin: 01/02/23 08:34 Dose: 4 mg Sodium Bicarbonate (Sodium Bicarbonate 650 Mg Tablet) 650 mg PO TID [facility] Last Admin: 01/02/23 08:35 Dose: 650 mg Sodium Chloride (0.9 % Sodium Chloride 10 Ml Syringe) 10 ml IV Q8 [facility] Last Admin: 01/02/23 06:38 Dose: 10 ml Sucralfate (Sucralfate 1 Gm Tablet) 1 gm PO TIDAC [facility] Last Admin: 01/02/23 07:28 Dose: 1 gm Trazodone HCl (Trazodone Hcl 50 Mg Tablet) 50 mg PO HS [facility] Last Admin: 01/01/23 20:11 Dose: 50 mg Vitamin D (Vitamin D3 25 Mcg Tablet) 50 mcg PO DAILY [facility] Last Admin: 01/02/23 08:34 Dose: 50 mcg A/P Narrative A/P Narrative: Assessment and plan: *Altered mental status/Acute encephalopathy: Multifactorial 2/2 opioid/?baclofen overdose/possible UTI and sepsis -CT head and CT C-spine negative. Encephalopathy resolved *Opioid overdose: Patient is opioid dependent, suspect overusing her hydrocodone since her whole bottle was completely empty -also she woke up after receiving Narcan -Daughter believes patient got confused and was taking opiates pain meds instead of her antibiotics -Minimize use of opioids. 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 Argueta. Plan for bilateral ureteral stent exchange & biopsy outpt *Diarrhea: Likely in the setting of laxatives and antibiotic associated. C. difficile neg -Will discontinue stool softener and laxatives and monitor *FORD on CKD IV: likely prerenal, patient dehydrated -Received IV fluids, serum creatinine improving -DC IV fluids -Continue sodium bicarb which patient takes for metabolic acidosis. *Metabolic Acidosis: improving *Tib-fib fracture: -Ankle xray 12/27minimally displaced spiral fracture of distal fibular diaphysis. Nondisplaced transverse fx through medial malleolus. -Discussed with Dr. James from orthopedics on 12/30. Recommend follow-up as an outpatient in 1 to 2 weeks -Toe-touch weightbearing to nonweightbearing. -Continue PT OT *Generalized weakness/deconditioning/debility: Patient will need rehab placement -CM for placement *Hypernatremia: resolved with hydration *AAA status post stent: continue dual antiplatelet therapy *s/p Right carotid endarterectomy: on antiplatelet therapy *Hypertension: resume home dose Coreg/amlodipine *Hyperlipidemia -continue atorvastatin *Anemia. Continue iron supplementation *Obese: bmi 31 *Insomnia: Benadryl/melatonin/trazadone, clarify home med as possibly started on ambien *prophylaxis: with SCDs Full code Time Spent With Patient Time: Total time spent is greater than 50% in coordination of care (as documented) at patient's floor/unit and/or counseling patient: Subsequent: Total time with patient: 50 - 65 Minutes QUALITY VTE Deep Vein Thrombosis/Pulmonary Embolism Present on Admission: No
[2023-01-02] MEDS: NICOTINE 21 MG PATCH TOPICAL SCH (09:53)
[2023-01-02] MEDS: cefTRIAXone 2 GM in DEXTROSE 5% IN WATER 50 ML IV SCH (10:06)
[2023-01-02] MEDS ORDERED: MECLIZINE 25 MG TABLET PO ONE (12:29)
[2023-01-02] MEDS ORDERED: LORazepam 2 MG/ML VIAL IV ONE (12:29)
[2023-01-02] MEDS ORDERED: MECLIZINE 25 MG TABLET PO PRN (12:29)
[2023-01-02] MEDS: MELATONIN 3 MG TABLET PO SCH (19:09)
[2023-01-02] MEDS: traZODone HCL 50 MG TABLET PO SCH (20:22)
[2023-01-02] MEDS: diphenhydrAMINE 25 MG CAPSULE PO SCH (20:22)
[2023-01-02] MEDS: amLODIPine 10 MG TABLET PO SCH (20:23)
[2023-01-02] MEDS: ATORVASTATIN 20 MG TABLET PO SCH (20:23)
[2023-01-03] MEDS: HYDROCODONE/APAP 7.5/325MG TABLET PO PRN ×3 (03:28→15:39)
[2023-01-03] MEDS: METHOCARBAMOL 500 MG TABLET PO PRN ×3 (03:28→15:39)
[2023-01-03] MEDS: 0.9 % SODIUM CHLORIDE 10 ML SYRINGE IV SCH ×2 (05:55→15:36)
[2023-01-03] MEDS: SUCRALFATE 1 GM TABLET PO SCH ×3 (07:04→17:03)
[2023-01-03] MEDS: CARVEDILOL 12.5 MG TABLET PO SCH ×2 (08:04→17:03)
--- NOTE | 2023-01-03 08:27 | Internal Med Progress Note ---
SUBJECTIVE Subjective Patient information: Note initiated : 01/03/23 at 8:25 am Service Date, if different from initiated Date: [] Patient: Radha Dumont a 72 y/o F admitted on 12/29/22 for possible overdose. Chief Complaint: [] Principal diagnosis: Indwelling ureteral stents, possible UTI and ureteral lesions Interval history: Ms. Dumont is a 72 year old female with history of obstructive uropathy status post bilateral ureteral stents, CKD stage IV, primary idiopathic hypertrophic cardiomyopathy, hypertension, hyperlipidemia, anemia, emphysema, GI bleed, AAA status post stent, right carotid endarterectomy, pulmonary nodule, opioid dependence presented with altered mental status. Patient was seen in ER on 12/27 after a fall and was found to have minimally displaced spiral fracture of distal tib-fib, stirrup splint was applied and patient was discharged home with outpatient orthopedic follow-up. Patient was also found to have evidence of UTI and was discharged on cefuroxime. Patient lives alone in a trailer and family checks on her every day. According to daughter patient became confused, she had delayed responses and slow speech. She was saying things that was not making a whole lot of sense. Family called her but no response on her phone. Patient's niece found her unresponsive on the floor. Patient takes hydrocodone 7.5 mg at baseline for her chronic pain which she can take up to 6 times a day, last refill 12/03 for 120 tabs, however whole bottle was completely empty. Daughter believes patient got confused and was taking pain meds instead of her antibiotics. Patient follows up with urology and nephrology. Daughter reports patient has bilateral ureteral stents due to scarring of the ureters which gets changed every 3 months. She reports no records are due to be exchanged on 12/31. On presentation patient with tachycardia heart rate 91, tachypnea RR 24, blood pressure stable. WBC 12.2, lactic acid 3.4, sodium 147, POC creatinine 3.9 increased from 3.1 couple days ago. UA positive for leukocyte esterase, WBC and RBC. CT scan head and C-spine was negative for any acute finding. 12/30. Patient is alert and orientation is improving. She complains of spasms and pain off and on and was just given hydrocodone. Discussed with her that we will need to minimize use of opioids. Tmax of 99.3 this morning. Her WBC counts 8.6 down from 12.2 yesterday. Hemoglobin 11 down from 13. Creatinine 2.7 unchanged. Urine culture and blood culture negative to date. Discussed case with Dr. Argueta from urology, plan for bilateral ureteral stent exchange tomorrow as previously scheduled. Discussed case with Dr. James from orthopedic. Recommended outpatient follow-up within 2 weeks. Toe-touch weightbearing to non weightbearing 12/31. Leukocytosis remains resolved. Patient reports pain is well controlled. She received senna last night. Had some loose bowel movements, no abdominal pain no fever, RNs suspects C. difficile, informed Dr. Argueta, who postpones ureteral stent exchange today. Serum creatinine down to 2.3 from 2.7 on admission. Urine culture grew yeast but not Nathaly glabrata or albicans. 01/01 Complains of nausea and some lightheadedness. Request Pepto-Bismol. Said diarrhea but was on stool softeners laxatives which have been held. Will monitor for diarrhea. Patient states she needs her blood pressure medications. Looks like her carvedilol was restarted but her amlodipine was not clarified but is now clarified and will start. She also complains of poor sleep. Seen by Dr. Argueta who will set up outpatient ureteral stent replacement and biopsy. 01/02 Patient says she slept better. States she gets some dizziness when she turns her head, I talked her about likely BPPV And will try meclizine. CT brain no acute abnormalities.She complains of mild headache. 01/03 Patient seems to be feeling better. Sleep mediocre. 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 No new complaints overnight events. Diarrhea improved. Review of Systems: denies headache/fever/chills/nausea/vomiting/chest or abdominal pain/cough/dyspnea. Otherwise see above. PHYSICAL EXAM General: Alert, Awake, No acute Distress, obese Eyes/N/T: EOMI, no scleral icterus, Head/Neck: neck supple, full ROM, CV: RRR, No murmurs, Pulm: Clear b/l, no wheezing/rhonchi/rales, no respiratory distress Abd: soft, nontender, +BS x4 Ext: no clubbing/cyanosis/edema, nontender Neuro: Alert, , no focal deficits, moves all extremities, , sensations intact b/l upper/lower Psychiatric: anxious Skin: warm/dry, normal color Constitutional Vitals: Vital Signs Temp Pulse Resp BP Pulse Ox O2 Del Method O2 Flow Rate 98.4 F 90 18 116/72 93 Room Air 0 01/03/23 07:07 01/03/23 03:11 01/03/23 07:07 01/03/23 07:07 01/03/23 07:07 01/03/23 07:07 01/03/23 07:07 Period Temp Pulse Resp BP Sys/Hartman Pulse Ox O2 Del Method O2 Flow Rate Last 24 Hr 98.4 F-99.5 F 67-90 12-18 98-132/65-80 91-95 Room Air-Room Air 0 Intake and Output 01/02/23 01/03/23 01/03/23 19:59 03:59 11:59 Intake Total 290 450 Output Total 960 372 Balance -670 78 Weight 74.389 kg Intake & Output: Intake & Output 01/02/23 01/03/23 01/03/23 19:59 03:59 11:59 Intake Total 290 450 Output Total 960 372 Balance -670 78 Weight 74.389 kg Intake: IV 50 Rocephin 2 gm In Dextrose 5% in 50 Water 50 ml @ 100 mls/hr IV Q24H [facility] Rx#:[id number] Oral 240 450 Output: Void Amount 960 370 # of times incontinent of urine 2 Other: Meal Lunch Percent of Meal Consumed 100% Feeding Ability Assist with Tray Set Up Urine Appearance Clear Cloudy Urine Color Yellow Yellow Urine Odor Normal Stool Size Moderate Stool Color Brown Stool Consistency Soft OBJ DATA Labs 12/31/22 05:37 01/01/23 05:32 Labs: Abnormal Lab Results 01/01/23 12/31/22 05:32 14:55 BUN 27 H Creatinine 1.9 H Phosphorus 2.3 L Triglycerides 164 H Urine Appearance Turbid A Urine Protein 100 A Ur Leukocyte Esterase 500 A Urine RBC 123 H Urine WBC > 182 H Urine Mucus Few A Meds: Medications Acetaminophen (Acetaminophen 325 Mg Tablet) 650 mg PO Q6HP PRN; Protocol PRN Reason: Per Pain Protocol/Fever > 101 Hydrocodone Bitart/Acetaminophen (Hydrocodone/Apap 7.5/325mg Tablet) 1 tab PO Q4HP PRN PRN Reason: Pain Last Admin: 01/03/23 03:28 Dose: 1 tab Amlodipine Besylate (Amlodipine 10 Mg Tablet) 10 mg PO QHS [facility] Last Admin: 01/02/23 20:23 Dose: 10 mg Aspirin (Aspirin 81 Mg Tab.Chew) 81 mg PO DAILY [facility] Last Admin: 01/02/23 08:34 Dose: 81 mg Atorvastatin Calcium (Atorvastatin 20 Mg Tablet) 20 mg PO [facility] Last Admin: 01/02/23 20:23 Dose: 20 mg Baclofen (Baclofen 10 Mg Tablet) 10 mg PO BID PRN PRN Reason: muscle spasm Bismuth Subsalicylate (Bismuth Subsalicylate 15 Ml Oral.Susp) 15 ml PO Q4HP PRN PRN Reason: Dyspepsia Carvedilol (Carvedilol 12.5 Mg Tablet) 12.5 mg PO BIDCC [facility] Last Admin: 01/03/23 08:04 Dose: 12.5 mg Clopidogrel Bisulfate (Clopidogrel 75 Mg Tablet) 75 mg PO QAM [facility] Last Admin: 01/02/23 08:35 Dose: 75 mg Diphenhydramine HCl (Diphenhydramine 25 Mg Capsule) 25 mg PO [facility] Last Admin: 01/02/23 20:22 Dose: 25 mg Ceftriaxone Sodium 2 gm/ (Dextrose) 50 mls @ 100 mls/hr IV Q24H [facility]; Protocol Last Infusion: 01/02/23 16:12 Dose: Infused Lorazepam (Lorazepam 2 Mg/Ml Vial) 0.5 mg IV Q4-6HP PRN PRN Reason: ANXIETY/SEDATION Meclizine HCl (Meclizine 25 Mg Tablet) 25 mg PO TIDP PRN PRN Reason: Vertigo Melatonin (Melatonin 3 Mg Tablet) 3 mg PO QPM@1900 [facility] Last Admin: 01/02/23 19:09 Dose: 3 mg Methocarbamol (Methocarbamol 500 Mg Tablet) 500 mg PO Q6HP PRN PRN Reason: Muscle Spasm Last Admin: 01/03/23 03:28 Dose: 500 mg Naloxone HCl (Naloxone Hcl 0.4 Mg/Ml Vial) 0.1 mg IV Q2MIN PRN PRN Reason: Opiate Reversal Nicotine (Nicotine 21 Mg Patch) 21 mg TOPICAL DAILY@1000 [facility] Last Admin: 01/02/23 09:53 Dose: 21 mg Ondansetron HCl (Ondansetron 4 Mg/2 Ml Vial) 4 mg IV Q6HP PRN PRN Reason: Nausea And Vomiting Last Admin: 01/02/23 08:34 Dose: 4 mg Sodium Bicarbonate (Sodium Bicarbonate 650 Mg Tablet) 650 mg PO TID [facility] Last Admin: 01/02/23 20:23 Dose: 650 mg Sodium Chloride (0.9 % Sodium Chloride 10 Ml Syringe) 10 ml IV Q8 [facility] Last Admin: 01/03/23 05:55 Dose: 10 ml Sucralfate (Sucralfate 1 Gm Tablet) 1 gm PO TIDAC [facility] Last Admin: 01/03/23 07:04 Dose: 1 gm Trazodone HCl (Trazodone Hcl 50 Mg Tablet) 50 mg PO HS [facility] Last Admin: 01/02/23 20:22 Dose: 50 mg Vitamin D (Vitamin D3 25 Mcg Tablet) 50 mcg PO DAILY [facility] Last Admin: 01/02/23 08:34 Dose: 50 mcg A/P Narrative A/P Narrative: Assessment and plan: *Altered mental status/Acute encephalopathy: Multifactorial 2/2 opioid/?baclofen overdose/possible UTI and sepsis -CT head and CT C-spine negative. Encephalopathy resolved *Opioid overdose: Patient is opioid dependent, suspect overusing her hydrocodone since her whole bottle was completely empty -also she woke up after receiving Narcan -Daughter believes patient got confused and was taking opiates pain meds instead of her antibiotics -Minimize use of opioids. 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 Argueta. Plan for bilateral ureteral stent exchange & biopsy outpt *Diarrhea: Likely in the setting of laxatives and antibiotic associated. C. difficile neg -Will discontinue stool softener and laxatives and monitor -improved *FORD on CKD IV: likely prerenal, patient dehydrated -Received IV fluids, serum creatinine improving -DC IV fluids -Continue sodium bicarb which patient takes for metabolic acidosis. *Metabolic Acidosis: improving *Tib-fib fracture: -Ankle xray 12/27minimally displaced spiral fracture of distal fibular diaphysis. Nondisplaced transverse fx through medial malleolus. -Discussed with Dr. James from orthopedics on 12/30. Recommend follow-up as an outpatient in 1 to 2 weeks -Toe-touch weightbearing to nonweightbearing. -Continue PT OT *Generalized weakness/deconditioning/debility: Patient will need rehab placement -CM for placement *Hypernatremia: resolved with hydration *AAA status post stent: continue dual antiplatelet therapy *s/p Right carotid endarterectomy: on antiplatelet therapy *Hypertension: resume home dose Coreg/amlodipine *Hyperlipidemia -continue atorvastatin *Anemia. Continue iron supplementation *Obese: bmi 31 *Insomnia: Benadryl/melatonin/trazodone, *prophylaxis: with SCDs Full code Time Spent With Patient Time: Total time spent is greater than 50% in coordination of care (as documented) at patient's floor/unit and/or counseling patient: Subsequent: Total time with patient: 50 - 65 Minutes QUALITY VTE Deep Vein Thrombosis/Pulmonary Embolism Present on Admission: No
[2023-01-03] MEDS: ASPIRIN 81 MG TAB.CHEW PO SCH (09:06)
[2023-01-03] MEDS: VITAMIN D3 25 MCG TABLET PO SCH (09:06)
[2023-01-03] MEDS: SODIUM BICARBONATE 650 MG TABLET PO SCH ×3 (09:06→21:09)
[2023-01-03] MEDS: CLOPIDOGREL 75 MG TABLET PO SCH (09:07)
--- NOTE | 2023-01-03 10:06 | Infectious Disease Consult ---
Telemedicine Intake Consent for assessment and treatment to occur via virtual technology obtained from: Patient Location of Provider: Home Patient location: Med/Surg Unit HPI Date of Consult Consult Date: 01/03/23 Primary Care Provider: Erika Palacio Consult Narrative Reason for consult: Antibody recommendation History of present illness: 72 year old female with history of obstructive uropathy status post bilateral ureteral stents, CKD stage IV, primary idiopathic hypertrophic cardiomyopathy, hypertension, hyperlipidemia, anemia, emphysema, GI bleed, AAA status post stent, right carotid endarterectomy, obstructive uropathy requiring bilateral stents, pulmonary nodule, opioid dependence presented with altered mental status. Patient has her stent is changed out every 3 months and was due to have it changed out on 12/31. Patient lives by herself but family checks on her every day. Since admission patient was found to have UTI. 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 Urology has seen the patient and did not want to change out the stent into the infection has been controlled. She has no fever, chills. cc:: CC: Chandler Song MD [facility], 1928–1983 PFS All Active Problems (Updated 12/31/22 @ 12:58 by Uriah Argueta MD) CKD (chronic kidney disease) (Chronic) Ureteral stricture (Chronic) Kidney failure (Chronic) Retroperitoneal fibrosis (Chronic) Hydronephrosis (Chronic) H/O nephrostomy (Chronic) H/O cystoscopy (Chronic) H/O aortic aneurysm repair (Chronic) H/O cystoscopy (Chronic) H/O cystoscopy (Chronic) H/O nephrostomy (Chronic) H/O cystoscopy (Chronic) Hx of appendectomy (Chronic) History of bilateral tubal ligation (Chronic) History of right-sided carotid endarterectomy (Chronic) History of cholecystectomy (Chronic) S/P foot surgery, right (Chronic) Kidney failure, acute (Chronic 04/26/18) Crossing vessel and 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 hydronephrosis (Chronic ~11/23/17) Other chronic cystitis without hematuria (Chronic ~11/23/17) Other specified disorder of kidney and ureter (Chronic) Unspecified hydronephrosis (Chronic) Mononucleosis (Chronic) Renal osteodystrophy (Chronic) Anemia, unspecified (Chronic) 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) Emphysema, unspecified (Chronic) Hypertension, essential (Chronic) Heart disease, unspecified (Chronic) Inflammatory liver disease (Chronic) Other hyperlipidemia (Chronic) Type 2 diabetes mellitus without complication (Chronic) Foot fracture (Chronic ~05/2018) GI hemorrhage (Chronic) Acute blood loss anemia (Chronic) Lactic acidosis (Chronic) Hypovolemic shock (Chronic) Bleeding gastric ulcer (Chronic) Carotid stenosis (Chronic) Systolic heart failure (Chronic) Chronic pain (Chronic) Transfusion history (Chronic) Weakness (Chronic) History of viral hepatitis (Chronic) Inflammatory abdominal aortic aneurysm (Chronic) Idiopathic cardiomyopathy (Chronic) Pulmonary edema (Chronic) Tobacco use (Chronic) Impaired cognition (Chronic) Acute on chronic renal failure (Chronic) Hyperkalemia (Chronic) Anemia (Chronic) Metabolic acidosis (Chronic) Obstructive uropathy (Chronic) Renal tubular acidosis (Chronic) Methicillin resistant Staphylococcus aureus infection as the cause of diseases classified elsewhere (Chronic) Lumbar back pain with radiculopathy affecting lower extremity (Chronic) Pulmonary nodule (Chronic) Chronic allergic rhinitis (Chronic) Primary idiopathic hypertrophic cardiomyopathy (Chronic) Metabolic acidosis, NAG, failure of bicarbonate regeneration (Chronic) CKD (chronic kidney disease) stage 4, GFR 15-29 ml/min (Chronic) Left renal atrophy (Chronic) Medication management (Acute) Insomnia (Acute) Fatigue (Acute) Dizziness (Acute) Leg edema, left (Acute) Anemia in stage 4 chronic kidney disease (Acute) Secondary hyperparathyroidism of renal origin (Acute) Bilateral hydronephrosis (Acute) Creatinine elevation (Acute) Stage 3 acute kidney injury (Acute) Thoracic aortic aneurysm (Acute) Pulmonary nodules (Acute) Lesion of ureter (Chronic) Retroperitoneal mass (Chronic) Tibia/fibula fracture (Acute) Acute UTI (Acute) Acute UTI (Acute) AMS (altered mental status) (Acute) Sepsis (Acute) Acute diarrhea (Acute) Medical History Acute blood loss anemia Acute on chronic renal failure Split GFR 84/16% right vs Left with left renal atrophy SCr as high as 11 mg/dl before relief of right obstruction with stent Baseline SCr now 2.0 - 2.5 mg/dl range Anemia, unspecified Bleeding gastric ulcer Cardiomyopathy due to drug and external agent Carotid stenosis Chronic allergic rhinitis Chronic pain CKD (chronic kidney disease) Primary renal insult with his obstructive uropathy due to retroperitoneal fibrosis. On 2 separate occasions her creatinine is been as high as 10. Currently in the 1.5 to 2.5 range with every 2 month stent changes. Crossing vessel and 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 hydronephrosis (~11/23/17) Emphysema, unspecified Foot fracture (~05/2018) GI hemorrhage Heart disease, unspecified History of viral hepatitis Hydronephrosis Hypertension, essential Avoid ACEi/ARBs and NSAIDS Hypovolemic shock Idiopathic cardiomyopathy EF 30% Impaired cognition Inflammatory abdominal aortic aneurysm Inflammatory liver disease Kidney failure Kidney failure, acute (04/26/18) Lactic acidosis Lumbar back pain with radiculopathy affecting lower extremity Metabolic acidosis, NAG, failure of bicarbonate regeneration prolonged obstruction Methicillin resistant Staphylococcus aureus infection as the cause of diseases classified elsewhere Mononucleosis Obstructive uropathy Bilateral stents for RPF Stent change 03/30/2022 Other chronic cystitis without hematuria (~11/23/17) Other hyperlipidemia Other specified disorder of kidney and ureter Primary idiopathic hypertrophic cardiomyopathy Pulmonary edema Pulmonary nodule Renal osteodystrophy Renal tubular acidosis Secondary to obstructive uropathy, with occasional episodes of hyperkalemia this sounds like type IV RTA Retroperitoneal fibrosis Systolic heart failure Tobacco use Transfusion history Type 2 diabetes mellitus without complication Unspecified hydronephrosis Ureteral stricture Weakness Surgical History H/O aortic aneurysm repair 03/2017 Stent H/O cystoscopy 03/25/17 Insert stent, bilateral H/O cystoscopy 06/17/17 Bilateral RPG, stent exchange H/O cystoscopy 12/09/17 Bilateral RPG, stent exchange H/O cystoscopy 04/28/18 Bilateral RPG, stent, exchange H/O nephrostomy 03/2017 Right nephrostomy tube H/O nephrostomy 04/20/18 Bilateral nephrostomy placement History of bilateral tubal ligation History of cholecystectomy History of esophagogastroduodenoscopy 05/19 3 bleeding ulcers History of right-sided carotid endarterectomy Hx of appendectomy S/P foot surgery, right Family History Mother , at age 80 CVA (cerebral vascular accident) Tachycardia Diabetes Sister Breast cancer Diabetes Lung cancer Cancer of spine Anemia Father , at age 85 AAA (abdominal aortic aneurysm) Unknown Family history of kidney stones Other Malignant neoplasm Social History household members: alone lives independently: Yes marital status: occupational exposures/hazards: No other: Children-4 physical activity: none smoking status: Current every day smoker tobacco type: cigarettes smoking status start date: 12/25/1960 alcohol intake frequency: holiday/special occasion only substance use type: does not use MEDS/ALLERGIES Home Medications and Allergies Home Medications Medication Instructions Recorded Confirmed Type aspirin 81 mg tablet 81 mg PO QDAY 05/16/19 12/29/22 History cholecalciferol (vitamin D3) 50 2,000 unit PO QDAY #30 caps 09/04/20 12/29/22 Rx mcg (2,000 unit) capsule ferrous sulfate 325 mg (65 mg 325 mg PO 1200 05/20/22 12/29/22 History iron) tablet carvedilol 12.5 mg tablet 12.5 mg PO BID htn #180 tabs 06/04/22 12/29/22 Rx amlodipine 10 mg tablet 10 mg PO QHS HTN #90 tabs 08/26/22 12/29/22 Rx sucralfate 1 gram tablet See Rx Instructions .Route 10/07/22 12/29/22 Rx .COMPLEX ##360 sodium bicarbonate 650 mg tablet 650 mg PO TID #90 tabs 10/30/22 12/29/22 Rx hydrocodone 7.5 mg-acetaminophen 1 tab PO Q4-6H PRN pain #120 tabs 12/03/22 12/29/22 Rx 325 mg tablet baclofen 10 mg tablet 10 mg PO BID PRN muscle spasm #60 12/24/22 12/29/22 Rx tabs clopidogrel 75 mg tablet 75 mg PO QAM 12/25/22 12/29/22 History atorvastatin 20 mg tablet 20 mg PO HS 12/29/22 12/29/22 History oxybutynin chloride 15 mg 15 mg PO QPM #90 tabs 12/29/22 12/29/22 Rx tablet,extended release 24 hr Allergies Allergy/AdvReac Type Severity Reaction Status Date / Time levofloxacin Allergy Severe Anaphylaxis Verified 12/25/22 09:54 cephalexin [From Keflex] AdvReac Mild Pt reports Verified 12/25/22 09:54 being " really sick, fatigue" egg AdvReac Mild gets sick Verified 12/25/22 09:54 with fried eggs hydromorphone [From Dilaudid] AdvReac Mild Nausea Verified 12/25/22 09:54 morphine AdvReac Mild Nausea Verified 12/25/22 09:54 sulfamethoxazole AdvReac Mild Vomiting Verified 12/25/22 09:54 Physical Examination Vital Signs Vital signs: Temp Pulse Resp BP Pulse Ox O2 Del Method O2 Flow Rate 98.4 F 90 18 116/72 93 Room Air 0 01/03/23 07:07 01/03/23 03:11 01/03/23 08:00 01/03/23 07:07 01/03/23 08:00 01/03/23 08:00 01/03/23 08:00 Constitutional General appearance: no acute distress EENT Eyes pulmonary: nonicteric Results Laboratory Findings 12/31/22 05:37 01/01/23 05:32 Abnormal lab findings: Abnormal Labs 12/29/22 12/29/22 12/29/22 14:12 14:12 14:17 WBC 12.2 H Hgb MCHC RDW 15.1 H Lymph % (Auto) 13.4 L Morton % (Auto) Morton # (Auto) 0.99 H Absolute Neutrophils 9.46 H POC VBG pH POC VBG pCO2 at Temp POC VBG pO2 POC VBG HCO3 POC VBG Total CO2 POC Venous O2 Sat POC VBG Base Excess VBG Lactic Acid POC Sodium 147 H POC Chloride 114 H Chloride Carbon Dioxide POC Total CO2 19.0 L POC BUN 41 H BUN Creatinine POC Creatinine 3.9 H Glucose POC Glucose 168 H Calcium Phosphorus Alkaline Phosphatase 148 H Albumin Globulin 3.9 H Triglycerides Urine Appearance Urine Protein Urine Ketones Ur Leukocyte Esterase Urine RBC Urine WBC Urine Mucus 12/29/22 12/29/22 12/29/22 14:19 18:17 19:05 WBC Hgb MCHC RDW Lymph % (Auto) Morton % (Auto) Morton # (Auto) Absolute Neutrophils POC VBG pH 7.26 L 7.25 L POC VBG pCO2 at Temp 38.9 L POC VBG pO2 60 H 51 H POC VBG HCO3 17.5 L 18.6 L POC VBG Total CO2 19.0 L 20.0 L POC Venous O2 Sat 87.0 H 80.0 H POC VBG Base Excess -10.0 L -9.0 L VBG Lactic Acid 3.4 H POC Sodium POC Chloride Chloride Carbon Dioxide POC Total CO2 POC BUN BUN Creatinine POC Creatinine Glucose POC Glucose Calcium Phosphorus Alkaline Phosphatase Albumin Globulin Triglycerides Urine Appearance Turbid A Urine Protein 100 A Urine Ketones 5 A Ur Leukocyte Esterase 500 A Urine RBC 36 H Urine WBC > 182 H Urine Mucus 12/29/22 12/30/22 12/30/22 22:25 05:47 05:47 WBC Hgb 11.0 L MCHC RDW 15.1 H Lymph % (Auto) Morton % (Auto) 12.3 H Morton # (Auto) 1.06 H Absolute Neutrophils POC VBG pH POC VBG pCO2 at Temp POC VBG pO2 POC VBG HCO3 POC VBG Total CO2 POC Venous O2 Sat POC VBG Base Excess VBG Lactic Acid POC Sodium POC Chloride Chloride 113 H 113 H Carbon Dioxide 19 L 19 L POC Total CO2 POC BUN BUN 39 H 38 H Creatinine 2.7 H 2.7 H POC Creatinine Glucose 106 H POC Glucose Calcium 8.5 L Phosphorus Alkaline Phosphatase Albumin Globulin Triglycerides Urine Appearance Urine Protein Urine Ketones Ur Leukocyte Esterase Urine RBC Urine WBC Urine Mucus 12/31/22 12/31/22 12/31/22 05:37 05:37 14:55 WBC Hgb MCHC 29.3 L RDW 15.2 H Lymph % (Auto) Morton % (Auto) Morton # (Auto) Absolute Neutrophils POC VBG pH POC VBG pCO2 at Temp POC VBG pO2 POC VBG HCO3 POC VBG Total CO2 POC Venous O2 Sat POC VBG Base Excess VBG Lactic Acid POC Sodium POC Chloride Chloride 112 H Carbon Dioxide 19 L POC Total CO2 POC BUN BUN 29 H Creatinine 2.3 H POC Creatinine Glucose POC Glucose Calcium 8.4 L Phosphorus Alkaline Phosphatase Albumin 3.1 L Globulin Triglycerides Urine Appearance Turbid A Urine Protein 100 A Urine Ketones Ur Leukocyte Esterase 500 A Urine RBC 123 H Urine WBC > 182 H Urine Mucus Few A 01/01/23 05:32 WBC Hgb MCHC RDW Lymph % (Auto) Morton % (Auto) Morton # (Auto) Absolute Neutrophils POC VBG pH POC VBG pCO2 at Temp POC VBG pO2 POC VBG HCO3 POC VBG Total CO2 POC Venous O2 Sat POC VBG Base Excess VBG Lactic Acid POC Sodium POC Chloride Chloride Carbon Dioxide POC Total CO2 POC BUN BUN 27 H Creatinine 1.9 H POC Creatinine Glucose POC Glucose Calcium Phosphorus 2.3 L Alkaline Phosphatase Albumin Globulin Triglycerides 164 H Urine Appearance Urine Protein Urine Ketones Ur Leukocyte Esterase Urine RBC Urine WBC Urine Mucus Microbiology: Microbiology 12/29/22 22:31 Blood Blood Culture - Preliminary 12/29/22 22:25 Blood Blood Culture - Preliminary 12/31/22 14:55 Urine - Catheterized Urine Culture - Final Kluyveromyces marxianus 12/31/22 14:55 Stool C. difficile GDH Antigen & Toxins - Final 12/29/22 18:17 Urine - Catheterized Urine Culture - Final Yeast,not c.alb/c.glabrata 12/29/22 19:18 Nasopharynx Coronavirus COVID-19 PCR - Final A/P Sepsis Sepsis Identified: No Narrative A/P Narrative: Patient with urinary tract obstruction status post bilateral stent which are due to be exchanged present with UTI with Kluyveromyces. This organism is only known as Nathaly rjfyr. Can use fluconazole 40 mg daily. Please contact microbiology lab to check for susceptibility to the fluconazole. Patient will need to follow-up with infectious diseases. Please schedule for patient to see Dr. Villegas at the earliest. Time Spent With Patient Time: Total time spent is greater than 50% in coordination of care (as documented) at patient's floor/unit and/or counseling patient:
[2023-01-03] MEDS: NICOTINE 21 MG PATCH TOPICAL SCH (10:26)
[2023-01-03] MEDS ORDERED: FLUCONAZOLE 100 MG TABLET PO ONE (13:44)
[2023-01-03] MEDS: MELATONIN 3 MG TABLET PO SCH (18:52)
[2023-01-03] MEDS: diphenhydrAMINE 25 MG CAPSULE PO SCH (21:09)
[2023-01-03] MEDS: traZODone HCL 50 MG TABLET PO SCH (21:09)
[2023-01-03] MEDS: ATORVASTATIN 20 MG TABLET PO SCH (21:09)
[2023-01-03] MEDS: amLODIPine 10 MG TABLET PO SCH (21:09)
--- NOTE | 2023-01-04 07:31 | Urology Progress Note ---
SUBJECTIVE Subjective Patient information: Note initiated : 01/04/23 at 7:29 am Service Date, if different from initiated Date: [] Patient: Radha Dumont a 72 y/o F admitted on 12/29/22 for possible overdose. Chief Complaint: [Bilateral ureteral obstruction, ureteral masses, UTI] Principal diagnosis: Indwelling ureteral stents, possible UTI and ureteral lesions Interval history: Radha is doing well and will potentially go home today. She was sleeping this morning and I did not wake her up. Constitutional Vitals: Vital Signs Temp Pulse Resp BP Pulse Ox O2 Del Method O2 Flow Rate 98.4 F 84 18 117/74 94 Room Air 0 01/04/23 03:31 01/04/23 03:31 01/04/23 03:31 01/04/23 03:31 01/04/23 03:31 01/04/23 03:31 01/03/23 15:41 Period Temp Pulse Resp BP Sys/Hartman Pulse Ox O2 Del Method O2 Flow Rate Last 24 Hr 97.5 F-99.1 F 74-84 16-19 102-117/56-74 91-96 Room Air-Room Air 0-0 Intake and Output 01/03/23 01/04/23 01/04/23 19:59 03:59 11:59 Intake Total 1000 100 Output Total 600 Balance 1000 -500 Weight 75.886 kg Intake & Output: Intake & Output 01/03/23 01/04/23 01/04/23 19:59 03:59 11:59 Intake Total 1000 100 Output Total 600 Balance 1000 -500 Weight 75.886 kg Intake: Oral 1000 100 Output: Void Amount 600 Other: Meal Lunch Percent of Meal Consumed 50% Feeding Ability Assist with Tray Set Up Urine Appearance Cloudy Cloudy Sediment Urine Color Bright Yellow Dark Yellow Urine Odor Strong Strong General appearance: average body habitus and cooperative A/P Assessment and plan (1) Retroperitoneal mass: Status: Chronic (2) Lesion of ureter: Status: Chronic (3) Retroperitoneal fibrosis: Status: Chronic Narrative A/P Narrative: Radha is currently improved. She will likely go home today. We will reschedule her surgery as an outpatient in the next couple of weeks. Time Spent With Patient Time: Total time spent is greater than 50% in coordination of care (as documented) at patient's floor/unit and/or counseling patient:
--- NOTE | 2023-01-04 07:41 | Internal Med Progress Note ---
SUBJECTIVE Subjective Patient information: Note initiated : 01/04/23 at 7:39 am Service Date, if different from initiated Date: [] Patient: Radha Dumont a 72 y/o F admitted on 12/29/22 for possible overdose. Chief Complaint: [] Principal diagnosis: Indwelling ureteral stents, possible UTI and ureteral lesions Interval history: Ms. Dumont is a 72 year old female with history of obstructive uropathy status post bilateral ureteral stents, CKD stage IV, primary idiopathic hypertrophic cardiomyopathy, hypertension, hyperlipidemia, anemia, emphysema, GI bleed, AAA status post stent, right carotid endarterectomy, pulmonary nodule, opioid dependence presented with altered mental status. Patient was seen in ER on 12/27 after a fall and was found to have minimally displaced spiral fracture of distal tib-fib, stirrup splint was applied and patient was discharged home with outpatient orthopedic follow-up. Patient was also found to have evidence of UTI and was discharged on cefuroxime. Patient lives alone in a trailer and family checks on her every day. According to daughter patient became confused, she had delayed responses and slow speech. She was saying things that was not making a whole lot of sense. Family called her but no response on her phone. Patient's niece found her unresponsive on the floor. Patient takes hydrocodone 7.5 mg at baseline for her chronic pain which she can take up to 6 times a day, last refill 12/03 for 120 tabs, however whole bottle was completely empty. Daughter believes patient got confused and was taking pain meds instead of her antibiotics. Patient follows up with urology and nephrology. Daughter reports patient has bilateral ureteral stents due to scarring of the ureters which gets changed every 3 months. She reports no records are due to be exchanged on 12/31. On presentation patient with tachycardia heart rate 91, tachypnea RR 24, blood pressure stable. WBC 12.2, lactic acid 3.4, sodium 147, POC creatinine 3.9 increased from 3.1 couple days ago. UA positive for leukocyte esterase, WBC and RBC. CT scan head and C-spine was negative for any acute finding. 12/30. Patient is alert and orientation is improving. She complains of spasms and pain off and on and was just given hydrocodone. Discussed with her that we will need to minimize use of opioids. Tmax of 99.3 this morning. Her WBC counts 8.6 down from 12.2 yesterday. Hemoglobin 11 down from 13. Creatinine 2.7 unchanged. Urine culture and blood culture negative to date. Discussed case with Dr. Argueta from urology, plan for bilateral ureteral stent exchange tomorrow as previously scheduled. Discussed case with Dr. James from orthopedic. Recommended outpatient follow-up within 2 weeks. Toe-touch weightbearing to non weightbearing 12/31. Leukocytosis remains resolved. Patient reports pain is well controlled. She received senna last night. Had some loose bowel movements, no abdominal pain no fever, RNs suspects C. difficile, informed Dr. Argueta, who postpones ureteral stent exchange today. Serum creatinine down to 2.3 from 2.7 on admission. Urine culture grew yeast but not Nathaly glabrata or albicans. 01/01 Complains of nausea and some lightheadedness. Request Pepto-Bismol. Said diarrhea but was on stool softeners laxatives which have been held. Will monitor for diarrhea. Patient states she needs her blood pressure medications. Looks like her carvedilol was restarted but her amlodipine was not clarified but is now clarified and will start. She also complains of poor sleep. Seen by Dr. Argueta who will set up outpatient ureteral stent replacement and biopsy. 01/02 Patient says she slept better. States she gets some dizziness when she turns her head, I talked her about likely BPPV And will try meclizine. CT brain no acute abnormalities.She complains of mild headache. 01/03 Patient seems to be feeling better. Sleep mediocre. 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 No new complaints overnight events. Diarrhea improved. 01/04 Patient slept better last night. And feeling better today. Seen by infectious disease and started on fluconazole 400 mg daily Review of Systems: denies headache/fever/chills/nausea/vomiting/chest or abdominal pain/cough/dyspnea. Otherwise see above. PHYSICAL EXAM General: Alert, Awake, No acute Distress, obese Eyes/N/T: EOMI, no scleral icterus, Head/Neck: neck supple, full ROM, CV: RRR, No murmurs, Pulm: Clear b/l, no wheezing/rhonchi/rales, no respiratory distress Abd: soft, nontender, +BS x4 Ext: no clubbing/cyanosis/edema, nontender Neuro: Alert, , no focal deficits, moves all extremities, , sensations intact b/l upper/lower Psychiatric: anxious Skin: warm/dry, normal color Constitutional Vitals: Vital Signs Temp Pulse Resp BP Pulse Ox O2 Del Method O2 Flow Rate 98.4 F 84 18 117/74 94 Room Air 0 01/04/23 03:31 01/04/23 03:31 01/04/23 03:31 01/04/23 03:31 01/04/23 03:31 01/04/23 03:31 01/03/23 15:41 Period Temp Pulse Resp BP Sys/Hartman Pulse Ox O2 Del Method O2 Flow Rate Last 24 Hr 97.5 F-99.1 F 74-84 16-19 102-117/56-74 91-96 Room Air-Room Air 0-0 Intake and Output 01/03/23 01/04/23 01/04/23 19:59 03:59 11:59 Intake Total 1000 100 Output Total 600 Balance 1000 -500 Weight 75.886 kg Intake & Output: Intake & Output 01/03/23 01/04/23 01/04/23 19:59 03:59 11:59 Intake Total 1000 100 Output Total 600 Balance 1000 -500 Weight 75.886 kg Intake: Oral 1000 100 Output: Void Amount 600 Other: Meal Lunch Percent of Meal Consumed 50% Feeding Ability Assist with Tray Set Up Urine Appearance Cloudy Cloudy Sediment Urine Color Bright Yellow Dark Yellow Urine Odor Strong Strong OBJ DATA Labs 12/31/22 05:37 01/01/23 05:32 Meds: Medications Acetaminophen (Acetaminophen 325 Mg Tablet) 650 mg PO Q6HP PRN; Protocol PRN Reason: Per Pain Protocol/Fever > 101 Hydrocodone Bitart/Acetaminophen (Hydrocodone/Apap 7.5/325mg Tablet) 1 tab PO Q4HP PRN PRN Reason: Pain Last Admin: 01/03/23 15:39 Dose: 1 tab Amlodipine Besylate (Amlodipine 10 Mg Tablet) 10 mg PO QHS [facility] Last Admin: 01/03/23 21:09 Dose: 10 mg Aspirin (Aspirin 81 Mg Tab.Chew) 81 mg PO DAILY [facility] Last Admin: 01/03/23 09:06 Dose: 81 mg Atorvastatin Calcium (Atorvastatin 20 Mg Tablet) 20 mg PO HS [facility] Last Admin: 01/03/23 21:09 Dose: 20 mg Baclofen (Baclofen 10 Mg Tablet) 10 mg PO BID PRN PRN Reason: muscle spasm Bismuth Subsalicylate (Bismuth Subsalicylate 15 Ml Oral.Susp) 15 ml PO Q4HP PRN PRN Reason: Dyspepsia Carvedilol (Carvedilol 12.5 Mg Tablet) 12.5 mg PO BIDCC [facility] Last Admin: 01/03/23 17:03 Dose: 12.5 mg Clopidogrel Bisulfate (Clopidogrel 75 Mg Tablet) 75 mg PO QAM [facility] Last Admin: 01/03/23 09:07 Dose: 75 mg Diphenhydramine HCl (Diphenhydramine 25 Mg Capsule) 25 mg PO [facility] Last Admin: 01/03/23 21:09 Dose: 25 mg Fluconazole (Fluconazole 100 Mg Tablet) 400 mg PO DAILY [facility]; Protocol Lorazepam (Lorazepam 2 Mg/Ml Vial) 0.5 mg IV Q4-6HP PRN PRN Reason: ANXIETY/SEDATION Meclizine HCl (Meclizine 25 Mg Tablet) 25 mg PO TIDP PRN PRN Reason: Vertigo Last Admin: 01/03/23 09:10 Dose: 25 mg Melatonin (Melatonin 3 Mg Tablet) 3 mg PO QPM@1900 [facility] Last Admin: 01/03/23 18:52 Dose: 3 mg Methocarbamol (Methocarbamol 500 Mg Tablet) 500 mg PO Q6HP PRN PRN Reason: Muscle Spasm Last Admin: 01/03/23 15:39 Dose: 500 mg Naloxone HCl (Naloxone Hcl 0.4 Mg/Ml Vial) 0.1 mg IV Q2MIN PRN PRN Reason: Opiate Reversal Nicotine (Nicotine 21 Mg Patch) 21 mg TOPICAL DAILY@1000 [facility] Last Admin: 01/03/23 10:26 Dose: 21 mg Ondansetron HCl (Ondansetron 4 Mg/2 Ml Vial) 4 mg IV Q6HP PRN PRN Reason: Nausea And Vomiting Last Admin: 01/02/23 08:34 Dose: 4 mg Sodium Bicarbonate (Sodium Bicarbonate 650 Mg Tablet) 650 mg PO TID [facility] Last Admin: 01/03/23 21:09 Dose: 650 mg Sucralfate (Sucralfate 1 Gm Tablet) 1 gm PO TIDAC [facility] Last Admin: 01/03/23 17:03 Dose: 1 gm Trazodone HCl (Trazodone Hcl 50 Mg Tablet) 50 mg PO HS [facility] Last Admin: 01/03/23 21:09 Dose: 50 mg Vitamin D (Vitamin D3 25 Mcg Tablet) 50 mcg PO DAILY [facility] Last Admin: 01/03/23 09:06 Dose: 50 mcg A/P Narrative A/P Narrative: Assessment and plan: *Altered mental status/Acute encephalopathy: Multifactorial 2/2 opioid/?baclofen overdose/possible UTI and sepsis -CT head and CT C-spine negative. Encephalopathy resolved *Opioid overdose: Patient is opioid dependent, suspect overusing her hydrocodone since her whole bottle was completely empty -also she woke up after receiving Narcan -Daughter believes patient got confused and was taking opiates pain meds instead of her antibiotics -Minimize use of opioids. *Opioid withdrawal: -Patient woke up after receiving Narcan and was vomiting, was again given morphine and she calmed down -Continue to monitor closely for opioid withdrawal *Sepsis: 2/2 uti *UTI (Nathaly kefyr): Patient with bilateral ureteral stents -Urine culture growing Kluyveromyces marxianus, seen by ID. 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 Argueta. Plan for bilateral ureteral stent exchange & biopsy outpt *Diarrhea: Likely in the setting of laxatives and antibiotic associated. C. difficile neg -Will discontinue stool softener and laxatives and monitor -improved *FORD on CKD IV: likely prerenal, patient dehydrated -Received IV fluids, serum creatinine improving -DC IV fluids -Continue sodium bicarb which patient takes for metabolic acidosis. *Metabolic Acidosis: improving *Tib-fib fracture: -Ankle xray 12/27minimally displaced spiral fracture of distal fibular diaphysis. Nondisplaced transverse fx through medial malleolus. -Discussed with Dr. James from orthopedics on 12/30. Recommend follow-up as an outpatient in 1 to 2 weeks -Toe-touch weightbearing to nonweightbearing. -Continue PT OT *Generalized weakness/deconditioning/debility: Patient will need rehab placement -CM for placement *Hypernatremia: resolved with hydration *AAA status post stent: continue dual antiplatelet therapy *s/p Right carotid endarterectomy: on antiplatelet therapy *Hypertension: resume home dose Coreg/amlodipine *Hyperlipidemia -continue atorvastatin *Anemia. Continue iron supplementation *Obese: bmi 31 *Insomnia: Benadryl/melatonin/trazodone, *prophylaxis: with SCDs Full code Time Spent With Patient Time: Total time spent is greater than 50% in coordination of care (as documented) at patient's floor/unit and/or counseling patient: Subsequent: Total time with patient: 35 - 49 minutes QUALITY VTE Deep Vein Thrombosis/Pulmonary Embolism Present on Admission: No
[2023-01-04] MEDS: VITAMIN D3 25 MCG TABLET PO SCH (08:07)
[2023-01-04] MEDS: SUCRALFATE 1 GM TABLET PO SCH ×2 (08:07→13:01)
[2023-01-04] MEDS: CLOPIDOGREL 75 MG TABLET PO SCH (08:07)
[2023-01-04] MEDS: HYDROCODONE/APAP 7.5/325MG TABLET PO PRN (08:07)
[2023-01-04] MEDS: ASPIRIN 81 MG TAB.CHEW PO SCH (08:07)
[2023-01-04] MEDS: SODIUM BICARBONATE 650 MG TABLET PO SCH (08:07)
[2023-01-04] MEDS: CARVEDILOL 12.5 MG TABLET PO SCH (08:08)
[2023-01-04] MEDS ORDERED: FLUCONAZOLE 100 MG TABLET PO SCH (09:00)
[2023-01-04] MEDS: NICOTINE 21 MG PATCH TOPICAL SCH (09:09)
== END 2023-01-04 15:30 | DRG 871 ==
LOC: ED 13:53 → MEDSUR 21:06
PROVIDERS: ADMIT Internal Medicine; ATTEND Internal Medicine

== ENCOUNTER 2023-02-01 12:50 | Observation (INO) ==
[2023-02-01 13:18] LABS: POC Calcium, Ionized 1.11 (1.16-1.32); POC Creatinine 3.9 (0.6-1.2); POC Potassium 4.7 (3.3-5.1)
--- NOTE | 2023-02-01 13:41 | XRay Report ---
HISTORY: Increasing weakness, pain FINDINGS: The lungs are clear and normally expanded. Heart is borderline enlarged but magnified by portable technique. There is no congestive heart failure or pleural effusion. The peripheral nodular densities seen in both lungs on the prior chest CT done on 08/25/22 cannot be clearly identified on today's portable chest x-ray. Patient has mild emphysema based upon the prior CT. IMPRESSION: No acute abnormality Interpreted and Authenticated by: Jermain Piedra 02/01/23
--- NOTE | 2023-02-01 13:43 | XRay Report ---
HISTORY: One month postop repair fractured ankle with increasing pain and weakness FINDINGS: There are well aligned transverse fractures of the medial malleolus and oblique fracture of the distal fibula. These are held in alignment with metal plate and screws. There is also a radiolucent tunnel in the distal tibia following insertion of an anchor holding the tibia and fibula in alignment. There is no evidence of osteomyelitis. No new fracture has developed. Comparison with the prior x-ray done on 01/08/23 shows relatively little change except for removal of the skin lex and diminished soft tissue swelling. IMPRESSION: Incompletely healed fractures of the distal tibia and fibula and no acute abnormality Interpreted and Authenticated by: Jermain Piedra 02/01/23
[2023-02-01 13:51] LABS: Basophils # (Auto) 0.05 K/mcL (0.00-0.30); Basophils % (Auto) 0.6 % (0.0-2.0); Eosinophils # (Auto) 0.09 K/mcL (0.00-0.70); Eosinophils % (Auto) 1.1 % (0.0-7.0); Hematocrit 43.1 % (34.1-44.9); Hemoglobin 13.1 g/dL (11.2-15.7); Lymphocytes # (Auto) 2.31 K/mcL (1.50-4.80); Lymphocytes % (Auto) 27.2 % (15.5-49.0); Mean Cell Volume 93.1 fL (80.0-100.0); Mean Corpuscular HGB Conc 30.4 g/dL (31.0-36.0); Monocytes # (Auto) 0.72 K/mcL (0.10-0.90); Monocytes % (Auto) 8.5 % (1.0-12.0); Neutrophils % (Auto) 62.4 % (38.0-78.0); Platelet Count 307 K/mcL (140-440); RBC 4.63 M/mcL (3.59-5.38); Red Cell Distribution Width 15.7 % (11.5-14.5); WBC 8.5 K/mcL (4.5-11.0)
[2023-02-01] MEDS ORDERED: FAMOTIDINE/PF 20 MG/2 ML VIAL IV ONE (14:37)
[2023-02-01] MEDS ORDERED: 0.9 % SODIUM CHLORIDE 500 ML IV ONE (14:37)
[2023-02-01] MEDS ORDERED: ONDANSETRON 4 MG/2 ML VIAL IV ONE (14:37)
--- NOTE | 2023-02-01 15:08 | Emergency Department Note ---
HPI General Chief complaint: Weakness Stated complaint: Weakness Time Seen by Provider: 02/01/23 13:02 Source: EMS Mode of arrival: EMS Limitations: no limitations History of Present Illness HPI Narrative: Narrative: 72-year-old female with ESRF sp recent left forearm AV fistula not on dialysis currently, HTN, HLD, carotid stenosis on ASA 81 mg and Plavix 75 mg, sp left distal tib-fib ORIF presents emergency department with EMS daughter at bedside for progressively worsening weakness. Seen and evaluated earlier this morning in the emergency room secondary to a fall after using bathroom, head strike, no LOC. CT head C-spine were negative. Chest x-ray was cardiomegaly. Labs showed CKD. Was discharged back home in fair condition on zofran prn. Daughter is concerned that patient has declined after she was recently discharged from nursing facility subacute rehab [place] on January 18, 2023. States that she is not doing her physical therapy at home. Is not walking. Has been laying in bed for the last 3 to 5 days. She states that she last actually showered when she was in the rehab. She is doing sponge baths and wipes at home. Dry heaving . Was given prescription for Zofran on discharge yesterday did not fill yet. Otherwise vomiting. Decreased p.o. intake. No diarrhea. No fevers chills. No abdominal pain flank pain. No chest pain shortness of breath. daughter did give patient a norco this morning for chronic back pain left leg pain at 10 am Related Data Home Medications Medication Instructions Recorded Confirmed aspirin 81 mg tablet 81 mg PO QDAY 05/16/19 01/28/23 ferrous sulfate 325 mg (65 mg 325 mg PO 1200 05/20/22 01/28/23 iron) tablet Previous Rx's Medication Instructions Recorded cholecalciferol (vitamin D3) 50 2,000 unit PO QDAY #30 caps 09/04/20 mcg (2,000 unit) capsule amlodipine 10 mg tablet 10 mg PO QHS HTN #90 tabs 01/27/23 atorvastatin 20 mg tablet 20 mg PO HS #90 tabs 01/27/23 baclofen 10 mg tablet 10 mg PO BID PRN muscle spasm #60 01/27/23 tabs carvedilol 12.5 mg tablet 12.5 mg PO BID htn #180 tabs 01/27/23 clopidogrel 75 mg tablet 75 mg PO QAM #90 tabs 01/27/23 glucagon HCl 1 mg solution for 1 mg subcut Q20M PRN hypoglycemia 01/27/23 injection (Glucagon (HCl) #1 ea Emergency Kit) oxybutynin chloride 15 mg 15 mg PO QPM #90 tabs 01/27/23 tablet,extended release 24 hr sodium bicarbonate 650 mg tablet 650 mg PO TID #90 tabs 01/27/23 sucralfate 1 gram tablet See Rx Instructions .Route 01/27/23 .COMPLEX ##360 amoxicillin 875 mg-potassium 1 tab PO BID 7 days #14 tabs 01/28/23 clavulanate 125 mg tablet hydrocodone 7.5 mg-acetaminophen 1 tab PO Q8H PRN pain #90 tabs 01/28/23 325 mg tablet cephalexin 250 mg capsule 250 mg PO BID 7 days #14 caps 02/01/23 Allergies Allergy/AdvReac Type Severity Reaction Status Date / Time levofloxacin Allergy Severe Anaphylaxis Verified 02/01/23 12:58 cephalexin [From Keflex] AdvReac Mild Pt reports Verified 02/01/23 12:58 being " really sick, fatigue" egg AdvReac Mild gets sick Verified 02/01/23 12:58 with fried eggs hydromorphone [From Dilaudid] AdvReac Mild Nausea Verified 02/01/23 12:58 morphine AdvReac Mild Nausea Verified 02/01/23 12:58 sulfamethoxazole AdvReac Mild Vomiting Verified 02/01/23 12:58 Review of Systems ROS ROS Narrative: Narrative: 10 point review of system is otherwise negative except as mentioned in HPI. PFSH Narrative Patient History Narrative: Narrative: Medical/Surgical/Family History All Active Problems (Updated 02/01/23 @ 16:29 by Ernestine Patel MD) Acute dehydration (Acute) Tremor (Acute) Acute UTI (Acute) Accident due to mechanical fall without injury (Acute) Hematoma of frontal scalp (Acute) UTI (urinary tract infection) (Acute) Candidal cystitis and urethritis (Acute) CKD (chronic kidney disease) (Chronic) Ureteral stricture (Chronic) Kidney failure (Chronic) Retroperitoneal fibrosis (Chronic) Hydronephrosis (Chronic) H/O nephrostomy (Chronic) H/O cystoscopy (Chronic) H/O aortic aneurysm repair (Chronic) H/O cystoscopy (Chronic) H/O cystoscopy (Chronic) H/O nephrostomy (Chronic) H/O cystoscopy (Chronic) Hx of appendectomy (Chronic) History of bilateral tubal ligation (Chronic) History of right-sided carotid endarterectomy (Chronic) History of cholecystectomy (Chronic) S/P foot surgery, right (Chronic) Kidney failure, acute (Chronic 04/26/18) Crossing vessel and 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 hydronephrosis (Chronic ~11/23/17) Other chronic cystitis without hematuria (Chronic ~11/23/17) Other specified disorder of kidney and ureter (Chronic) Unspecified hydronephrosis (Chronic) Mononucleosis (Chronic) Renal osteodystrophy (Chronic) Anemia, unspecified (Chronic) 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) Emphysema, unspecified (Chronic) Hypertension, essential (Chronic) Heart disease, unspecified (Chronic) Inflammatory liver disease (Chronic) Other hyperlipidemia (Chronic) Type 2 diabetes mellitus without complication (Chronic) Foot fracture (Chronic ~05/2018) GI hemorrhage (Chronic) Acute blood loss anemia (Chronic) Lactic acidosis (Chronic) Hypovolemic shock (Chronic) Bleeding gastric ulcer (Chronic) Carotid stenosis (Chronic) Systolic heart failure (Chronic) Chronic pain (Chronic) Transfusion history (Chronic) Weakness (Chronic) History of viral hepatitis (Chronic) Inflammatory abdominal aortic aneurysm (Chronic) Idiopathic cardiomyopathy (Chronic) Pulmonary edema (Chronic) Tobacco use (Chronic) Impaired cognition (Chronic) Acute on chronic renal failure (Chronic) Hyperkalemia (Chronic) Anemia (Chronic) Metabolic acidosis (Chronic) Obstructive uropathy (Chronic) Renal tubular acidosis (Chronic) Methicillin resistant Staphylococcus aureus infection as the cause of diseases classified elsewhere (Chronic) Lumbar back pain with radiculopathy affecting lower extremity (Chronic) Pulmonary nodule (Chronic) Chronic allergic rhinitis (Chronic) Primary idiopathic hypertrophic cardiomyopathy (Chronic) Metabolic acidosis, NAG, failure of bicarbonate regeneration (Chronic) CKD (chronic kidney disease) stage 4, GFR 15-29 ml/min (Chronic) Left renal atrophy (Chronic) Medication management (Acute) Insomnia (Acute) Fatigue (Acute) Dizziness (Acute) Leg edema, left (Acute) Anemia in stage 4 chronic kidney disease (Acute) Secondary hyperparathyroidism of renal origin (Acute) Bilateral hydronephrosis (Acute) Creatinine elevation (Acute) Stage 3 acute kidney injury (Acute) Thoracic aortic aneurysm (Acute) Pulmonary nodules (Acute) Lesion of ureter (Chronic) Retroperitoneal mass (Chronic) Tibia/fibula fracture (Acute) Acute UTI (Acute) Acute UTI (Acute) AMS (altered mental status) (Acute) Sepsis (Acute) Acute diarrhea (Acute) Medical History Acute blood loss anemia Acute on chronic renal failure Split GFR 84/16% right vs Left with left renal atrophy SCr as high as 11 mg/dl before relief of right obstruction with stent Baseline SCr now 2.0 - 2.5 mg/dl range Anemia, unspecified Bleeding gastric ulcer Cardiomyopathy due to drug and external agent Carotid stenosis Chronic allergic rhinitis Chronic pain CKD (chronic kidney disease) Primary renal insult with his obstructive uropathy due to retroperitoneal fibrosis. On 2 separate occasions her creatinine is been as high as 10. Currently in the 1.5 to 2.5 range with every 2 month stent changes. Crossing vessel and 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 hydronephrosis (~11/23/17) Emphysema, unspecified Foot fracture (~05/2018) GI hemorrhage Heart disease, unspecified History of viral hepatitis Hydronephrosis Hypertension, essential Avoid ACEi/ARBs and NSAIDS Hypovolemic shock Idiopathic cardiomyopathy EF 30% Impaired cognition Inflammatory abdominal aortic aneurysm Inflammatory liver disease Kidney failure Kidney failure, acute (04/26/18) Lactic acidosis Lumbar back pain with radiculopathy affecting lower extremity Metabolic acidosis, NAG, failure of bicarbonate regeneration prolonged obstruction Methicillin resistant Staphylococcus aureus infection as the cause of diseases classified elsewhere Mononucleosis Obstructive uropathy Bilateral stents for RPF Stent change 03/30/2022 Other chronic cystitis without hematuria (~11/23/17) Other hyperlipidemia Other specified disorder of kidney and ureter Primary idiopathic hypertrophic cardiomyopathy Pulmonary edema Pulmonary nodule Renal osteodystrophy Renal tubular acidosis Secondary to obstructive uropathy, with occasional episodes of hyperkalemia this sounds like type IV RTA Retroperitoneal fibrosis Systolic heart failure Tobacco use Transfusion history Type 2 diabetes mellitus without complication Unspecified hydronephrosis Ureteral stricture Weakness Surgical History H/O aortic aneurysm repair 03/2017 Stent H/O cystoscopy 03/25/17 Insert stent, bilateral H/O cystoscopy 06/17/17 Bilateral RPG, stent exchange H/O cystoscopy 12/09/17 Bilateral RPG, stent exchange H/O cystoscopy 04/28/18 Bilateral RPG, stent, exchange H/O nephrostomy 03/2017 Right nephrostomy tube H/O nephrostomy 04/20/18 Bilateral nephrostomy placement History of bilateral tubal ligation History of cholecystectomy History of esophagogastroduodenoscopy 05/19 3 bleeding ulcers History of right-sided carotid endarterectomy Hx of appendectomy S/P foot surgery, right Family History Mother , at age 80 CVA (cerebral vascular accident) Tachycardia Diabetes Sister Breast cancer Diabetes Lung cancer Cancer of spine Anemia Father , at age 85 AAA (abdominal aortic aneurysm) Unknown Family history of kidney stones Other Malignant neoplasm Social History Smoking Status: Former smoker Alcohol Intake Frequency: holiday/special occasion only Substance Use: does not use Exam Narrative Narrative: Narrative: (Please note that portions of this note may have been completed with a voice recognition program. Efforts were made to edit the dictations but occasionally words are mis-transcribed) CONSTITUTIONAL: Well-nourished well-hydrated elderly female, anxious uncooperative tachypneic. Not in acute distress. Non toxic. Awake alert. , follows commands. HEAD: Normocephalic. Contusions noted to the forehead right shoulder right clavicle EYES: EOMI PERRL. Corrective lens in place. ENT: No drooling stridor. speech clear fluent. MMM. No jaw occlusion. No malalignment of teeth. No septal hematoma. NECK: Supple. Full range of motion. Trachea midline. no midline C-spine tenderness step-offs CARDIOVASCULAR: Adequate peripheral perfusion. S1-S2. Regular rate and rhythm. No murmurs rubs gallops. No JVD. No lower extremity edema. +2 radial pulses bilaterally. Left forearm AV fistula unable to palpate a thrill however auscultated bruit PULMONARY: Nonlabored. Speaking full sentences. No use of accessory muscles. Clear to auscultation bilaterally. No rhonchi wheeze or crackles. No chest wall tenderness crepitus ABDOMINAL: Positive bowel sounds. Soft. Nondistended. Nontender. No CVA tenderness EXTREMITIES: No gross deformities. Moves all 4 extremities with good strength and tone. No midline TL spine tenderness step-offs. Pelvis is stable. She does have an Carlo wrap around her left lower extremity. Boot is in the car. Cap refill is less than 2 seconds SKIN: Warm and dry. No petechiae. NEUROLOGY: Sensation is intact. No gross focal deficits. GCS of 15 General Limitations: no limitations Course Vital Signs Vital signs: Vital Signs Temperature 36.5 C 02/01/23 12:52 Pulse Rate 86 02/01/23 12:52 Respiratory Rate 20 02/01/23 12:52 Blood Pressure 166/82 02/01/23 12:52 Pulse Oximetry (%) 96 02/01/23 12:52 Oxygen Delivery Method Room Air 02/01/23 12:52 Temperature 36.5 C 02/01/23 12:52 Pulse Rate 98 H 02/01/23 16:27 Respiratory Rate 16 02/01/23 16:27 Blood Pressure 112/73 02/01/23 16:17 Pulse Oximetry (%) 85 L 02/01/23 16:27 Oxygen Delivery Method Room Air 02/01/23 12:52 MDM MDM Narrative Medical decision making narrative: Narrative:ddx acute urinary tract infection pyelonephritis sepsis bacteremia electrolyte abnormality IA unstable angina arrhythmia pneumonia etc. Patient is otherwise neurovascular intact. The low suspicion for acute intracranial process including delayed bleed at this time. Gentle fluid hydration per request of daughter though I did explain concern for fluid overload with renal failure. Zofran Pepcid. EKG per EDMD interpretation does show sinus rhythm at 73 bpm. Normal axis. No ST elevations or depressions. No T wave abnormalities. No ectopy. Normal intervals. No old EKG. Chest x-ray is negative for radiologist cardiomegaly. X-ray of the left tibia and fibula per radiologist shows incompletely healed fractures of the distal tibia and fibula and no acute abnormality. CBC unremarkable. CKD at baseline. Troponin negative. Urinalysis will be obtained via straight cath patient and daughter agreeable. Urinalysis does show WBCs. No bacteria. However concern for UTI and so we will treat. 1 dose of Rocephin 1 g IV was given. And will be discharged on Keflex 250 mg twice daily for 7 days secondary to renal disease. day worker spoken to. Secondary to patient's insurance unable to place patient from emergency room. Would need a formal PT OT evaluation which would not occur until Wednesday and preauthorization by primary care doctor. Patient does not have indication for immediate admission. I did update the patient and daughter on results clinical versus treatment plan at this time. I do feel that she can be discharged back in daughter's care follow-up with PCP on Wednesday for further ration management placement into a longterm facility subacute rehab and or assisted living. Daughter is agreeable does verbalize understanding and has no further questions Lab Data 02/01/23 13:05 Labs: Lab Results 02/01/23 02/01/23 02/01/23 Range/Units 13:05 13:05 13:14 WBC 8.5 (4.5-11.0) K/mcL RBC 4.63 (3.59-5.38) M/mcL Hgb 13.1 (11.2-15.7) g/dL Hct 43.1 (34.1-44.9) % POC Hct 43.0 (36-48) MCV 93.1 (80.0-100.0) fL MCH 28.3 (26.0-34.0) pg MCHC 30.4 L (31.0-36.0) g/dL RDW 15.7 H (11.5-14.5) % Plt Count 307 (140-440) K/mcL MPV 11.0 (8.8-12.5) fL Immature Gran % (Auto) 0.2 (0.0-0.5) % Neut % (Auto) 62.4 (38.0-78.0) % Lymph % (Auto) 27.2 (15.5-49.0) % [place]oke % (Auto) 8.5 (1.0-12.0) % Eos % (Auto) 1.1 (0.0-7.0) % Baso % (Auto) 0.6 (0.0-2.0) % Lymph # (Auto) 2.31 (1.50-4.80) K/mcL [place] # (Auto) 0.72 (0.10-0.90) K/mcL Eos # (Auto) 0.09 (0.00-0.70) K/mcL Baso # (Auto) 0.05 (0.00-0.30) K/mcL Immature Gran # 0.02 (0.00-0.05) K/mcl Absolute Neutrophils 5.31 (1.80-8.00) K/mcL POC Sodium 143 (133-145) POC Potassium 4.7 (3.3-5.1) POC Chloride 107 (96-108) POC Total CO2 23.0 (22-30) POC Anion Gap 19.0 H (8.0-16.0) POC BUN 43 H (6-20) POC Creatinine 3.9 H (0.6-1.2) POC Glucose 90 (70-105) POC WB Ioniz Calcium 1.11 L (1.16-1.32) Total Bilirubin TNP Direct Bilirubin TNP AST TNP ALT TNP Alkaline Phosphatase TNP Total Protein TNP Albumin TNP Globulin TNP Urine Color Urine Appearance (Clear) Urine pH (5.0-9.0) Ur Specific [place] (1.000-1.035) Urine Protein (Negative) mg/dL Urine Glucose (UA) (Negative) mg/dL Urine Ketones (Negative) mg/dL Urine Occult Blood (Negative) mg/dL Urine Nitrate (Negative) Urine Bilirubin (Negative) mg/dL Urine Urobilinogen mg/dL Ur Leukocyte Esterase (Negative) /uL Urine RBC (0-3) /hpf Urine WBC (0-4) /hpf Ur Squamous Epith Cells (0-4) /hpf Ur Transition Epith Cell (0-2) /hpf Urine Bacteria (0) /hpf Ur Culture Indicated? POC Troponin I (0.00-0.08) 02/01/23 02/01/23 Range/Units 13:46 14:55 WBC (4.5-11.0) K/mcL RBC (3.59-5.38) M/mcL Hgb (11.2-15.7) g/dL Hct (34.1-44.9) % POC Hct (36-48) MCV (80.0-100.0) fL MCH (26.0-34.0) pg MCHC (31.0-36.0) g/dL RDW (11.5-14.5) % Plt Count (140-440) K/mcL MPV (8.8-12.5) fL Immature Gran % (Auto) (0.0-0.5) % Neut % (Auto) (38.0-78.0) % Lymph % (Auto) (15.5-49.0) % [place]oke % (Auto) (1.0-12.0) % Eos % (Auto) (0.0-7.0) % Baso % (Auto) (0.0-2.0) % Lymph # (Auto) (1.50-4.80) K/mcL [place] # (Auto) (0.10-0.90) K/mcL Eos # (Auto) (0.00-0.70) K/mcL Baso # (Auto) (0.00-0.30) K/mcL Immature Gran # (0.00-0.05) K/mcl Absolute Neutrophils (1.80-8.00) K/mcL POC Sodium (133-145) POC Potassium (3.3-5.1) POC Chloride (96-108) POC Total CO2 (22-30) POC Anion Gap (8.0-16.0) POC BUN (6-20) POC Creatinine (0.6-1.2) POC Glucose (70-105) POC WB Ioniz Calcium (1.16-1.32) Total Bilirubin Direct Bilirubin AST ALT Alkaline Phosphatase Total Protein Albumin Globulin Urine Color Yellow Urine Appearance Cloudy A (Clear) Urine pH 6.0 (5.0-9.0) Ur Specific [place] 1.008 (1.000-1.035) Urine Protein 30 A (Negative) mg/dL Urine Glucose (UA) Negative (Negative) mg/dL Urine Ketones 5 A (Negative) mg/dL Urine Occult Blood >=1.0 A (Negative) mg/dL Urine Nitrate Negative (Negative) Urine Bilirubin Negative (Negative) mg/dL Urine Urobilinogen Negative mg/dL Ur Leukocyte Esterase 500 A (Negative) /uL Urine RBC 60 H (0-3) /hpf Urine WBC > 182 H (0-4) /hpf Ur Squamous Epith Cells 1 (0-4) /hpf Ur Transition Epith Cell < 1 (0-2) /hpf Urine Bacteria None (0) /hpf Ur Culture Indicated? yes POC Troponin I < 0.02 (0.00-0.08) Radiology Data Radiology results reviewed: Yes I reviewed the patient's radiology results. Discharge Plan Patient/Caregiver Discharge Instructions Pt seen by METAL CONTAINER MAKER/PA only: No Clinical Impression: CKD (chronic kidney disease), Hematoma of frontal scalp, UTI (urinary tract infection) Activity: as instructed Instructions: End Stage Kidney Disease (ED), Urinary Tract Infection in Older Adults (ED) Activity Restrictions/Additional Instructions: Please follow-up with your primary care doctor Dr. Palacio on Wednesday for reevaluation prior authorization for subacute rehab longterm placement. Patient Disposition: Home, Self-Care Condition: Fair Follow up with: Erika Palacio ARNP [Primary Care Provider] - Prescriptions: New cephalexin 250 mg capsule 250 mg PO BID 7 Days Qty: 14 0RF No Action cholecalciferol (vitamin D3) 50 mcg (2,000 unit) capsule 2,000 unit PO QDAY Qty: 30 12RF amlodipine 10 mg tablet 10 mg PO QHS Qty: 90 3RF atorvastatin 20 mg tablet 20 mg PO HS Qty: 90 3RF carvedilol 12.5 mg tablet 12.5 mg PO BID Qty: 180 4RF Rx Instructions: must administer with a meal/food baclofen 10 mg tablet 10 mg PO BID PRN (Reason: muscle spasm) Qty: 60 2RF oxybutynin chloride 15 mg tablet extended release 24hr 15 mg PO QPM Qty: 90 1RF sodium bicarbonate 650 mg tablet 650 mg PO TID Qty: 90 12RF Rx Instructions: new dose sucralfate 1 gram tablet See Rx Instructions .ROUTE .COMPLEX Qty: 360 3RF Dose Instruction: TAKE 1 TABLET BY MOUTH FOUR TIMES DAILY WITH MEALS AND AT BEDTIME Rx Instructions: TAKE 1 TABLET BY MOUTH MORNING, NOON AND BEDTIME clopidogrel 75 mg tablet 75 mg PO QAM Qty: 90 3RF glucagon HCl [Glucagon (HCl) Emergency Kit] 1 mg recon soln 1 mg subcut Q20M PRN (Reason: hypoglycemia) Qty: 1 0RF Rx Instructions: until target blood sugar attained hydrocodone-acetaminophen 7.5-325 mg tablet 1 tab PO Q8H PRN (Reason: pain) Qty: 90 0RF aspirin 81 mg tablet 81 mg PO QDAY ferrous sulfate 325 mg (65 mg iron) tablet 325 mg PO 1200 amoxicillin-pot clavulanate 875-125 mg tablet 1 tab PO BID 7 Days Qty: 14 0RF
[2023-02-01 15:49] LABS: Appearance,Urine CLOUDY (Clear); Bilirubin,Urine Negative (Negative); Color,Urine YELLOW; Culture Indicated,Urine yes; Glucose,Urine (UA) Negative (Negative); Ketones,Urine 5 mg/dL (Negative); Leukocyte Esterase,Urine 500 /uL (Negative); Nitrate,Urine Negative (Negative); Protein,Urine 30 mg/dL (Negative); Specific Gravity,Urine 1.008 (1.000-1.035); Urine Blood >=1.0 mg/dL (Negative); Urine RBC 60 /hpf (0-3); Urine Squamous Epithelial Cell 1 /hpf (0-4); Urine Transitional Epi Cells < 1 /hpf (0-2); Urine WBC > 182 /hpf (0-4); Urobilinogen,Urine Negative
[2023-02-01] MEDS ORDERED: cefTRIAXone 1 GM VIAL IV ONE (16:27)
[2023-02-01 16:45] LABS: ALT/SGPT 14 U/L (<40); AST/SGOT 15 U/L (<32); Albumin 2.3 gm/dL (3.2-5.2); Alkaline Phosphatase 135 U/L (39-117); Bilirubin,Direct < 0.2 mg/dL (0-0.3); Bilirubin,Total 0.2 mg/dL (0.1-1.0); Globulin 2.6 gm/dL (2.2-3.7)
--- NOTE | 2023-02-01 17:27 | Internal Med History&Physical ---
HPI History of Present Illness Patient information: Note initiated : 02/01/23 at 5:12 pm Service Date, if different from initiated Date: [] Patient: Radha Dumont a 72 y/o F admitted on . Chief Complaint: [] History of present illness: Ms. 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 Patient recently had left ankle bimalleolar fracture ORIF and was in nursing facility subacute rehab at [place] for a week and then was discharged home on January 18. She was doing well for few days however last week she started declining. Patient is accompanied by her daughter and niece who has the medical power of city attorney. Niece reports that patient lives on [address] [place] her property. Patient has been fearful of fall and has not been coming out of her bed and not doing any therapy. She is anxious to be left alone and is wanting family presents all the time. She is not ambulating. She has been in the bed for the past 3 to 5 days. Patient has not also showered for days. She is doing sponge baths and wipes at home. Patient had a fall after using bathroom yesterday hitting her head with nightstand without loss of consciousness. She sustained right forehead bruising but CT head and C-spine were negative for any bleed or acute finding. Chest x-ray showed chronic cardiomegaly. Patient was discharged home on Zofran yesterday however she has not filled it yet. Family reports patient p.o. intake has been low, she has been dry heaving with anxiety and possibly due to concussion. Patient reports no constipation, no diarrhea. No fever or chills. No abdominal pain or flank pain. Patient does admit to feeling anxious she was tapping her hands throughout. She reports no chest pain or shortness of breath. Her niece reports that she only gives 3 [place] a day and 1 baclofen a day. In the ED patient vitals were stable. Lab work was unremarkable. CBC unremarkable. Chemistries consistent with end-stage renal disease which was unchanged. Troponin negative. UA positive for WBC, no bacteria however due to concern for UTI was given 1 dose of ceftriaxone. Patient did appear dehydrated and was given IV fluids. EKG was sinus rhythm at 73 beats per minute. Normal axis. No acute ST-T wave changes. Chest x-ray showed no acute finding. X-ray of left tibia and fibula per radiologist showed incompletely healed fracture of distal tibia and fibula, no acute abnormality. Family is interested in placement, per social economist in ED secondary to patient insurance unable to place patient from emergency room. Patient will need formal PT OT evaluation and preauthorization for rehab placement. Review of system 14 point review of system was completed. Pertinent positive and negative are m entioned above Physical examination CONSTITUTIONAL: Well-nourished well-hydrated elderly female, anxious. Not in acute distress. Non toxic. Awake alert. , follows commands. HEAD: Normocephalic. Bruising to right forehead and also right shoulder and right clavicle EYES: EOMI PERRL. Corrective lens in place. ENT: Dry oral mucosa. No stridor. speech clear fluent. No septal hematoma. NECK: Supple. Full range of motion. Trachea midline. no midline C-spine tenderness step-offs CARDIOVASCULAR: S1-S2. Regular rate and rhythm. No murmurs rubs gallops. No JVD. No lower extremity edema. +2 radial pulses bilaterally. Left forearm AV fistula unable to palpate a thrill however auscultated bruit. Adequate peripheral perfusion. PULMONARY: Chest is clear to auscultation, no respiratory distress ABDOMINAL: Soft and nontender, normal bowel sounds. EXTREMITIES: No gross deformities. Moves all 4 extremities with good strength and tone. No midline TL spine tenderness step-offs. Pelvis is stable. Left lower extremity is Carlo wrapped. Family reports port is in the car. Distal neurovascular intact. SKIN: Warm and dry. No petechiae. NEUROLOGY: Sensation is intact. No gross focal deficits. PSYCH: Anxious, fearful of falls and being alone Assessment and plan Generalized weakness Nausea and vomiting Failure to thrive Acute dehydration Anxiety Idiopathic cardiomyopathy EF 30% ESRD status post fistula in anticipation of hemodialysis Diabetes mellitus 2 Hypertension Hyperlipidemia Carotid artery stenosis status post right carotid endarterectomy, on aspirin and Plavix, Anemia Obstructive uropathy status post bilateral stents for retroperitoneal fibrosis, last ureteral stent exchange December 2022 Lumbar back pain with radiculopathy affecting lower extremities Hx MRSA infection Tobacco use disorder. Plan Admit under observation status IV fluids for hydration, monitor for volume overload Patient received IV ceftriaxone in ED, follow urine culture. Zofran for nausea Med rec to be completed PT OT Case management consult DVT PPX FUll code Total time taken > 75 minutes PFSH PFSH All Active Problems (Updated 02/01/23 @ 16:29 by Ernestine Patel MD) Acute dehydration (Acute) Tremor (Acute) Acute UTI (Acute) Accident due to mechanical fall without injury (Acute) Hematoma of frontal scalp (Acute) UTI (urinary tract infection) (Acute) Candidal cystitis and urethritis (Acute) CKD (chronic kidney disease) (Chronic) Ureteral stricture (Chronic) Kidney failure (Chronic) Retroperitoneal fibrosis (Chronic) Hydronephrosis (Chronic) H/O nephrostomy (Chronic) H/O cystoscopy (Chronic) H/O aortic aneurysm repair (Chronic) H/O cystoscopy (Chronic) H/O cystoscopy (Chronic) H/O nephrostomy (Chronic) H/O cystoscopy (Chronic) Hx of appendectomy (Chronic) History of bilateral tubal ligation (Chronic) History of right-sided carotid endarterectomy (Chronic) History of cholecystectomy (Chronic) S/P foot surgery, right (Chronic) Kidney failure, acute (Chronic 04/26/18) Crossing vessel and 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 hydronephrosis (Chronic ~11/23/17) Other chronic cystitis without hematuria (Chronic ~11/23/17) Other specified disorder of kidney and ureter (Chronic) Unspecified hydronephrosis (Chronic) Mononucleosis (Chronic) Renal osteodystrophy (Chronic) Anemia, unspecified (Chronic) 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) Emphysema, unspecified (Chronic) Hypertension, essential (Chronic) Heart disease, unspecified (Chronic) Inflammatory liver disease (Chronic) Other hyperlipidemia (Chronic) Type 2 diabetes mellitus without complication (Chronic) Foot fracture (Chronic ~05/2018) GI hemorrhage (Chronic) Acute blood loss anemia (Chronic) Lactic acidosis (Chronic) Hypovolemic shock (Chronic) Bleeding gastric ulcer (Chronic) Carotid stenosis (Chronic) Systolic heart failure (Chronic) Chronic pain (Chronic) Transfusion history (Chronic) Weakness (Chronic) History of viral hepatitis (Chronic) Inflammatory abdominal aortic aneurysm (Chronic) Idiopathic cardiomyopathy (Chronic) Pulmonary edema (Chronic) Tobacco use (Chronic) Impaired cognition (Chronic) Acute on chronic renal failure (Chronic) Hyperkalemia (Chronic) Anemia (Chronic) Metabolic acidosis (Chronic) Obstructive uropathy (Chronic) Renal tubular acidosis (Chronic) Methicillin resistant Staphylococcus aureus infection as the cause of diseases classified elsewhere (Chronic) Lumbar back pain with radiculopathy affecting lower extremity (Chronic) Pulmonary nodule (Chronic) Chronic allergic rhinitis (Chronic) Primary idiopathic hypertrophic cardiomyopathy (Chronic) Metabolic acidosis, NAG, failure of bicarbonate regeneration (Chronic) CKD (chronic kidney disease) stage 4, GFR 15-29 ml/min (Chronic) Left renal atrophy (Chronic) Medication management (Acute) Insomnia (Acute) Fatigue (Acute) Dizziness (Acute) Leg edema, left (Acute) Anemia in stage 4 chronic kidney disease (Acute) Secondary hyperparathyroidism of renal origin (Acute) Bilateral hydronephrosis (Acute) Creatinine elevation (Acute) Stage 3 acute kidney injury (Acute) Thoracic aortic aneurysm (Acute) Pulmonary nodules (Acute) Lesion of ureter (Chronic) Retroperitoneal mass (Chronic) Tibia/fibula fracture (Acute) Acute UTI (Acute) Acute UTI (Acute) AMS (altered mental status) (Acute) Sepsis (Acute) Acute diarrhea (Acute) Medical History Acute blood loss anemia Acute on chronic renal failure Split GFR 84/16% right vs Left with left renal atrophy SCr as high as 11 mg/dl before relief of right obstruction with stent Baseline SCr now 2.0 - 2.5 mg/dl range Anemia, unspecified Bleeding gastric ulcer Cardiomyopathy due to drug and external agent Carotid stenosis Chronic allergic rhinitis Chronic pain CKD (chronic kidney disease) Primary renal insult with his obstructive uropathy due to retroperitoneal fibrosis. On 2 separate occasions her creatinine is been as high as 10. Currently in the 1.5 to 2.5 range with every 2 month stent changes. Crossing vessel and 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 hydronephrosis (~11/23/17) Emphysema, unspecified Foot fracture (~05/2018) GI hemorrhage Heart disease, unspecified History of viral hepatitis Hydronephrosis Hypertension, essential Avoid ACEi/ARBs and NSAIDS Hypovolemic shock Idiopathic cardiomyopathy EF 30% Impaired cognition Inflammatory abdominal aortic aneurysm Inflammatory liver disease Kidney failure Kidney failure, acute (04/26/18) Lactic acidosis Lumbar back pain with radiculopathy affecting lower extremity Metabolic acidosis, NAG, failure of bicarbonate regeneration prolonged obstruction Methicillin resistant Staphylococcus aureus infection as the cause of diseases classified elsewhere Mononucleosis Obstructive uropathy Bilateral stents for RPF Stent change 03/30/2022 Other chronic cystitis without hematuria (~11/23/17) Other hyperlipidemia Other specified disorder of kidney and ureter Primary idiopathic hypertrophic cardiomyopathy Pulmonary edema Pulmonary nodule Renal osteodystrophy Renal tubular acidosis Secondary to obstructive uropathy, with occasional episodes of hyperkalemia this sounds like type IV RTA Retroperitoneal fibrosis Systolic heart failure Tobacco use Transfusion history Type 2 diabetes mellitus without complication Unspecified hydronephrosis Ureteral stricture Weakness Surgical History H/O aortic aneurysm repair 03/2017 Stent H/O cystoscopy 03/25/17 Insert stent, bilateral H/O cystoscopy 06/17/17 Bilateral RPG, stent exchange H/O cystoscopy 12/09/17 Bilateral RPG, stent exchange H/O cystoscopy 04/28/18 Bilateral RPG, stent, exchange H/O nephrostomy 03/2017 Right nephrostomy tube H/O nephrostomy 04/20/18 Bilateral nephrostomy placement History of bilateral tubal ligation History of cholecystectomy History of esophagogastroduodenoscopy 05/19 3 bleeding ulcers History of right-sided carotid endarterectomy Hx of appendectomy S/P foot surgery, right Family History Mother , at age 80 CVA (cerebral vascular accident) Tachycardia Diabetes Sister Breast cancer Diabetes Lung cancer Cancer of spine Anemia Father , at age 85 AAA (abdominal aortic aneurysm) Unknown Family history of kidney stones Other Malignant neoplasm Social History household members: alone lives independently: Yes marital status: occupational exposures/hazards: No other: Children-4 physical activity: none smoking status: Former smoker smoking status start date: 12/25/1960 smoking status stop date: 12/27/22 alcohol intake frequency: holiday/special occasion only substance use type: does not use MEDS/ALLERGIES Home Medications and Allergies Home Medications Medication Instructions Recorded Confirmed Type aspirin 81 mg tablet 81 mg PO QDAY 05/16/19 01/28/23 History cholecalciferol (vitamin D3) 50 2,000 unit PO QDAY #30 caps 09/04/20 01/28/23 Rx mcg (2,000 unit) capsule ferrous sulfate 325 mg (65 mg 325 mg PO 1200 05/20/22 01/28/23 History iron) tablet amlodipine 10 mg tablet 10 mg PO QHS HTN #90 tabs 01/27/23 01/28/23 Rx atorvastatin 20 mg tablet 20 mg PO HS #90 tabs 01/27/23 01/28/23 Rx baclofen 10 mg tablet 10 mg PO BID PRN muscle spasm #60 01/27/23 01/28/23 Rx tabs carvedilol 12.5 mg tablet 12.5 mg PO BID htn #180 tabs 01/27/23 01/28/23 Rx clopidogrel 75 mg tablet 75 mg PO QAM #90 tabs 01/27/23 01/28/23 Rx glucagon HCl 1 mg solution for 1 mg subcut Q20M PRN hypoglycemia 01/27/23 01/28/23 Rx injection (Glucagon (HCl) #1 ea Emergency Kit) oxybutynin chloride 15 mg 15 mg PO QPM #90 tabs 01/27/23 01/28/23 Rx tablet,extended release 24 hr sodium bicarbonate 650 mg tablet 650 mg PO TID #90 tabs 01/27/23 01/28/23 Rx sucralfate 1 gram tablet See Rx Instructions .Route 01/27/23 01/28/23 Rx .COMPLEX ##360 amoxicillin 875 mg-potassium 1 tab PO BID 7 days #14 tabs 01/28/23 Rx clavulanate 125 mg tablet hydrocodone 7.5 mg-acetaminophen 1 tab PO Q8H PRN pain #90 tabs 01/28/23 Rx 325 mg tablet cephalexin 250 mg capsule 250 mg PO BID 7 days #14 caps 02/01/23 Rx Allergies Allergy/AdvReac Type Severity Reaction Status Date / Time levofloxacin Allergy Severe Anaphylaxis Verified 02/01/23 12:58 cephalexin [From Keflex] AdvReac Mild Pt reports Verified 02/01/23 12:58 being " really sick, fatigue" egg AdvReac Mild gets sick Verified 02/01/23 12:58 with fried eggs hydromorphone [From Dilaudid] AdvReac Mild Nausea Verified 02/01/23 12:58 morphine AdvReac Mild Nausea Verified 02/01/23 12:58 sulfamethoxazole AdvReac Mild Vomiting Verified 02/01/23 12:58 EXAM Constitutional Vitals: Temp Pulse Resp BP Pulse Ox O2 Del Method 97.7 F 98 H 23 H 112/73 85 L Room Air 02/01/23 12:52 02/01/23 16:27 02/01/23 16:54 02/01/23 16:17 02/01/23 16:27 02/01/23 12:52 DATA Data Completed and Pending Labs: Labs from last 24 hours 02/01/23 02/01/23 02/01/23 14:55 14:30 13:46 WBC RBC Hgb Hct POC Hct MCV MCH MCHC RDW Plt Count MPV Immature Gran % (Auto) Neut % (Auto) Lymph % (Auto) [place] % (Auto) Eos % (Auto) Baso % (Auto) Lymph # (Auto) [place] # (Auto) Eos # (Auto) Baso # (Auto) Immature Gran # Absolute Neutrophils POC Sodium POC Potassium POC Chloride POC Total CO2 POC Anion Gap POC BUN POC Creatinine POC Glucose POC WB Ioniz Calcium Total Bilirubin 0.2 Direct Bilirubin < 0.2 AST 15 ALT 14 Alkaline Phosphatase 135 H Total Protein 4.9 L Albumin 2.3 L Globulin 2.6 Urine Color Yellow Urine Appearance Cloudy A Urine pH 6.0 Ur Specific [place] 1.008 Urine Protein 30 A Urine Glucose (UA) Negative Urine Ketones 5 A Urine Occult Blood >=1.0 A Urine Nitrate Negative Urine Bilirubin Negative Urine Urobilinogen Negative Ur Leukocyte Esterase 500 A Urine RBC 60 H Urine WBC > 182 H Ur Squamous Epith Cells 1 Ur Transition Epith Cell < 1 Urine Bacteria None Ur Culture Indicated? yes POC Troponin I < 0.02 02/01/23 02/01/23 02/01/23 13:14 13:05 13:05 WBC 8.5 RBC 4.63 Hgb 13.1 Hct 43.1 POC Hct 43.0 MCV 93.1 MCH 28.3 MCHC 30.4 L RDW 15.7 H Plt Count 307 MPV 11.0 Immature Gran % (Auto) 0.2 Neut % (Auto) 62.4 Lymph % (Auto) 27.2 [place] % (Auto) 8.5 Eos % (Auto) 1.1 Baso % (Auto) 0.6 Lymph # (Auto) 2.31 [place] # (Auto) 0.72 Eos # (Auto) 0.09 Baso # (Auto) 0.05 Immature Gran # 0.02 Absolute Neutrophils 5.31 POC Sodium 143 POC Potassium 4.7 POC Chloride 107 POC Total CO2 23.0 POC Anion Gap 19.0 H POC BUN 43 H POC Creatinine 3.9 H POC Glucose 90 POC WB Ioniz Calcium 1.11 L Total Bilirubin TNP Direct Bilirubin TNP AST TNP ALT TNP Alkaline Phosphatase TNP Total Protein TNP Albumin TNP Globulin TNP Urine Color Urine Appearance Urine pH Ur Specific [place] Urine Protein Urine Glucose (UA) Urine Ketones Urine Occult Blood Urine Nitrate Urine Bilirubin Urine Urobilinogen Ur Leukocyte Esterase Urine RBC Urine WBC Ur Squamous Epith Cells Ur Transition Epith Cell Urine Bacteria Ur Culture Indicated? POC Troponin I A/P Time Spent With Patient Time: Total time spent is greater than 50% in coordination of care (as documented) at patient's floor/unit and/or counseling patient:
--- NOTE | 2023-02-01 17:32 | Emergency Department Note ---
ED Note Addendum Note Addendum: Unfortunately second sister arrived and states she is not comfortable taking the patient home. She lives alone in a camper with a twin hospital bed. She is again been bedbound for the last 3 to 5 days. She believes she last ambulated with assistance a couple steps on Wednesday. Patient is unable to stay with either sister secondary to lack of bed or bedroom. And neither of them can stay with the patient secondary to the lack of space in the patient's camper. I did speak to the hospitalist Dr. Song. Explained the situation. He is agreeable to admit for UTI failure to thrive fall risk inability to ambulate
[2023-02-01] MEDS ORDERED: MAGNESIUM HYDROXIDE 30 ML ORAL.SUSP PO PRN (18:26)
[2023-02-01] MEDS ORDERED: ONDANSETRON 4 MG/2 ML VIAL IV PRN ×2 (18:26→18:33)
[2023-02-01] MEDS ORDERED: NICOTINE 14 MG PATCH TOPICAL SCH (19:00)
[2023-02-01] MEDS ORDERED: NICOTINE 21 MG PATCH TOPICAL SCH (19:00)
[2023-02-01] MEDS: 0.9 % SODIUM CHLORIDE 10 ML SYRINGE IV SCH (20:15)
[2023-02-01] MEDS: 0.9 % SODIUM CHLORIDE 1,000 ML IV SCH (20:15)
[2023-02-01] MEDS: ACETAMINOPHEN 325 MG TABLET PO PRN (20:46)
[2023-02-02] MEDS: ACETAMINOPHEN 325 MG TABLET PO PRN ×3 (02:41→13:14)
[2023-02-02] MEDS: HYDROcodone/APAP 5/325MG TABLET PO PRN ×4 (03:11→21:03)
[2023-02-02] MEDS: 0.9 % SODIUM CHLORIDE 10 ML SYRINGE IV SCH ×3 (06:01→21:03)
[2023-02-02 06:15] LABS: Basophils # (Auto) 0.04 K/mcL (0.00-0.30); Basophils % (Auto) 0.6 % (0.0-2.0); Eosinophils # (Auto) 0.15 K/mcL (0.00-0.70); Eosinophils % (Auto) 2.1 % (0.0-7.0); Hematocrit 34.6 % (34.1-44.9); Hemoglobin 10.6 g/dL (11.2-15.7); Lymphocytes # (Auto) 2.32 K/mcL (1.50-4.80); Lymphocytes % (Auto) 32.5 % (15.5-49.0); Mean Cell Volume 92.8 fL (80.0-100.0); Mean Corpuscular HGB Conc 30.6 g/dL (31.0-36.0); Mean Platelet Volume 10.8 fL (8.8-12.5); Monocytes # (Auto) 0.53 K/mcL (0.10-0.90); Monocytes % (Auto) 7.4 % (1.0-12.0); Neutrophils % (Auto) 57.3 % (38.0-78.0); Platelet Count 260 K/mcL (140-440); RBC 3.73 M/mcL (3.59-5.38); Red Cell Distribution Width 15.3 % (11.5-14.5); WBC 7.1 K/mcL (4.5-11.0)
[2023-02-02 06:42] LABS: Blood Urea Nitrogen 29 mg/dL (8-23); Calcium 8.7 mg/dL (8.6-10.4); Carbon Dioxide 19 mmol/L (22-30); Chloride 104 mmol/L (96-108); Glomerular Filtration Rate 14; Glucose 67 mg/dL (70-105)
[2023-02-02] MEDS: NICOTINE 14 MG PATCH TOPICAL SCH (09:11)
[2023-02-02] MEDS: NICOTINE 21 MG PATCH TOPICAL SCH (09:11)
--- NOTE | 2023-02-02 11:45 | Internal Med Progress Note ---
SUBJECTIVE Subjective Patient information: Note initiated : 02/02/23 at 11:39 am Service Date, if different from initiated Date: [] Patient: Radha Dumont a 72 y/o F admitted on 02/01/23. Chief Complaint: [] Additional PMFSH (Level 3 Only): Ms. 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 Patient recently had left ankle bimalleolar fracture ORIF and was in nursing facility subacute rehab at [facility] for a week and then was discharged home on January 18. She was doing well for few days however last week she started declining. Patient is accompanied by her daughter and niece who has the medical power of asbestos worker helper. Niece reports that patient [address] [place]. Patient has been fearful of fall and has not been coming out of her bed and not doing any therapy. She is anxious to be left alone and is wanting f amily presents all the time. She is not ambulating. She has been in the bed for the past 3 to 5 days. Patient has not also showered for days. She is doing sponge baths and wipes at home. Patient had a fall after using bathroom yesterday hitting her head with nightstand without loss of consciousness. She sustained right forehead bruising but CT head and C-spine were negative for any bleed or acute finding. Chest x-ray showed chronic cardiomegaly. Patient was discharged home on Zofran yesterday however she has not filled it yet. Family reports patient p.o. intake has been low, she has been dry heaving with anxiety and possibly due to concussion. Patient reports no constipation, no diarrhea. No fever or chills. No abdominal pain or flank pain. Patient does admit to feeling anxious she was tapping her hands throughout. She reports no chest pain or shortness of breath. Her niece reports that she only gives 3 Cutler a day and 1 baclofen a day. In the ED patient vitals were stable. Lab work was unremarkable. CBC unremarkable. Chemistries consistent with end-stage renal disease which was unchanged. Troponin negative. UA positive for WBC, no bacteria however due to concern for UTI was given 1 dose of ceftriaxone. Patient did appear dehydrated and was given IV fluids. EKG was sinus rhythm at 73 beats per minute. Normal axis. No acute ST-T wave changes. Chest x-ray showed no acute finding. X-ray of left tibia and fibula per radiologist showed incompletely healed fracture of distal tibia and fibula, no acute abnormality. Family is interested in placement, per social director in ED secondary to patient insurance unable to place patient from emergency room. Patient will need formal PT OT evaluation and preauthorization for rehab placement. 02/02. Patient reported she has pain and numbness in both her legs which is chronic. Patient family reported that if patient is left on her own she would overdose on her Cutler. They have been carefully assisting patient to limit her use of opioids to avoid any overdose. Review of system 14 point review of system was completed. Pertinent positive and negative are mentioned above Physical examination CONSTITUTIONAL: Alert, well nourished female, less anxious, no acute distress HEAD: Normocephalic. Bruising to right forehead and also right shoulder and right clavicle EYES: EOMI PERRL. Corrective lens in place. ENT: Dry oral mucosa. No stridor. speech clear fluent. No septal hematoma. NECK: Supple. Full range of motion. Trachea midline. no midline C-spine tenderness step-offs CARDIOVASCULAR: S1-S2. Regular rate and rhythm. No murmurs rubs gallops. No JVD. No lower extremity edema. +2 radial pulses bilaterally. Left forearm AV fistula unable to palpate a thrill however auscultated bruit. Adequate peripheral perfusion. PULMONARY: Chest is clear to auscultation, no respiratory distress ABDOMINAL: Soft and nontender, normal bowel sounds. EXTREMITIES: No gross deformities. Moves all 4 extremities with good strength and tone. No midline tenderness. Pelvis is stable. Left lower extremity is Carlo wrapped. Distal neurovascular intact. SKIN: Warm and dry. No petechiae. NEUROLOGY: Sensation is intact. No gross focal deficits. PSYCH: Less anxious, appropriate mood Assessment and plan Generalized weakness Nausea and vomiting Failure to thrive Acute dehydration Anxiety Possible UTI Idiopathic cardiomyopathy EF 30% ESRD status post fistula in anticipation of hemodialysis Diabetes mellitus 2 Hypertension Hyperlipidemia Carotid artery stenosis status post right carotid endarterectomy, on aspirin and Plavix, Anemia Obstructive uropathy status post bilateral stents for retroperitoneal fibrosis, last ureteral stent exchange December 2022 Lumbar back pain with radiculopathy affecting lower extremities Hx MRSA infection Tobacco use disorder. Plan Start patient on low-dose gabapentin 100 mg 3 times daily considering end-stage renal disease DC IV fluid to avoid overload Encouraged to increase p.o. intake. Continue IV ceftriaxone, follow urine culture Zofran for nausea Med rec to be completed PT OT Case management consult DVT PPX FUll code Total time taken > 50 minutes Constitutional Vitals: Vital Signs Temp Pulse Resp BP Pulse Ox O2 Del Method 96.8 F L 71 18 115/65 89 L Room Air 02/02/23 08:00 02/02/23 08:00 02/02/23 08:00 02/02/23 08:00 02/02/23 08:00 02/02/23 08:00 Period Temp Pulse Resp BP Sys/Hartman Pulse Ox O2 Del Method O2 Flow Rate Last 24 Hr 96.8 F-98.6 F 65-111 99-166/52-83 85-98 Room Air-Room Air Intake and Output 02/01/23 02/02/23 02/02/23 19:59 03:59 11:59 Intake Total 500 300 571 Balance 500 300 571 Weight 74.752 kg 74.752 kg Intake & Output: Intake & Output 02/01/23 02/02/23 02/02/23 19:59 03:59 11:59 Intake Total 500 300 571 Balance 500 300 571 Weight 74.752 kg 74.752 kg Intake: IV 500 571 Sodium Chloride 0.9% 1,000 ml @ 571 50 mls/hr IV .Q20H [facility] Rx#: [id number] Sodium Chloride 0.9% 500 ml @ 500 Wide Open IV BOLUS ONE Rx#: [id number] Oral 300 Other: # Voids 3 # of times incontinent of 3 Bowels OBJ DATA Labs 02/02/23 05:23 02/02/23 05:23 Labs: Abnormal Lab Results 02/02/23 02/02/23 02/01/23 05:23 05:23 14:55 Hgb 10.6 L MCHC 30.6 L RDW 15.3 H Carbon Dioxide 19 L POC Anion Gap POC BUN BUN 29 H Creatinine 3.2 H POC Creatinine Glucose 67 L POC WB Ioniz Calcium Alkaline Phosphatase Total Protein Albumin Urine Appearance Cloudy A Urine Protein 30 A Urine Ketones 5 A Urine Occult Blood >=1.0 A Ur Leukocyte Esterase 500 A Urine RBC 60 H Urine WBC > 182 H 02/01/23 02/01/23 02/01/23 14:30 13:14 13:05 Hgb MCHC 30.4 L RDW 15.7 H Carbon Dioxide POC Anion Gap 19.0 H POC BUN 43 H BUN Creatinine POC Creatinine 3.9 H Glucose POC WB Ioniz Calcium 1.11 L Alkaline Phosphatase 135 H Total Protein 4.9 L Albumin 2.3 L Urine Appearance Urine Protein Urine Ketones Urine Occult Blood Ur Leukocyte Esterase Urine RBC Urine WBC Meds: Medications Acetaminophen (Acetaminophen 325 Mg Tablet) 650 mg PO Q6HP PRN; Protocol PRN Reason: Per Pain Protocol/Fever > 101 Last Admin: 02/02/23 07:14 Dose: 650 mg Hydrocodone Bitart/Acetaminophen (Hydrocodone/Apap 5/325mg Tablet) 1 tab PO Q6HP PRN PRN Reason: pain Last Admin: 02/02/23 09:10 Dose: 1 tab Sodium Chloride (Sodium Chloride 0.9%) 1,000 mls @ 50 mls/hr IV .Q20H [facility] Last Infusion: 02/02/23 07:40 Dose: 0 mls/hr Magnesium Hydroxide (Magnesium Hydroxide 30 Ml Oral.Susp) 30 ml PO DAILYP PRN PRN Reason: Constipation Nicotine (Nicotine 14 Mg Patch) 14 mg TOPICAL DAILY@1000 [facility] Last Admin: 02/02/23 09:11 Dose: 14 mg Nicotine (Nicotine 21 Mg Patch) 21 mg TOPICAL DAILY@1000 [facility] Last Admin: 02/02/23 09:11 Dose: 21 mg Ondansetron HCl (Ondansetron 4 Mg/2 Ml Vial) 4 mg IV Q6HP PRN PRN Reason: Nausea And Vomiting Last Admin: 02/01/23 20:46 Dose: 4 mg Sodium Chloride (0.9 % Sodium Chloride 10 Ml Syringe) 10 ml IV Q8 [facility] Last Admin: 02/02/23 06:01 Dose: Not Given A/P Time Spent With Patient Time: Total time spent is greater than 50% in coordination of care (as documented) at patient's floor/unit and/or counseling patient:
[2023-02-02] MEDS: GABAPENTIN 100 MG CAPSULE PO SCH ×2 (13:14→21:03)
[2023-02-02] MEDS: cefTRIAXone 1 GM VIAL IV SCH (13:14)
[2023-02-02] MEDS: 0.9 % SODIUM CHLORIDE 1,000 ML IV SCH (14:04)
[2023-02-02] MEDS ORDERED: LORazepam 0.5 MG TABLET PO PRN (18:23)
[2023-02-02] MEDS: BACLOFEN 10 MG TABLET PO PRN (19:34)
[2023-02-03] MEDS: HYDROcodone/APAP 5/325MG TABLET PO PRN ×3 (03:11→17:23)
[2023-02-03] MEDS: 0.9 % SODIUM CHLORIDE 10 ML SYRINGE IV SCH ×3 (04:35→21:32)
[2023-02-03] MEDS: GABAPENTIN 100 MG CAPSULE PO SCH ×3 (06:42→21:31)
[2023-02-03] MEDS: cefTRIAXone 1 GM VIAL IV SCH (08:37)
[2023-02-03] MEDS: NICOTINE 21 MG PATCH TOPICAL SCH (10:02)
[2023-02-03] MEDS: NICOTINE 14 MG PATCH TOPICAL SCH (10:02)
[2023-02-03] MEDS: 0.9 % SODIUM CHLORIDE 1,000 ML IV SCH (10:37)
[2023-02-03] MEDS: SENNOSIDES 1 TABLET PO SCH ×2 (10:41→21:32)
[2023-02-03] MEDS: POLYETHYLENE GLYCOL 3350 17 GM PACKET PO SCH ×2 (10:41→21:32)
--- NOTE | 2023-02-03 10:53 | Internal Med Progress Note ---
SUBJECTIVE Subjective Patient information: Note initiated : 02/03/23 at 10:51 am Service Date, if different from initiated Date: [] Patient: Radha Dumont a 72 y/o F admitted on 02/01/23. Chief Complaint: [] Additional PMFSH (Level 3 Only): Ms. 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 Patient recently had left ankle bimalleolar fracture ORIF and was in nursing facility subacute rehab at [place] for a week and then was discharged home on January 18. She was doing well for few days however last week she started declining. Patient is accompanied by her daughter and niece who has the medical power of energy attorney. Niece reports that patient lives [address] [place] her [place]. Patient has been fearful of fall and has not been coming out of her bed and not doing any therapy. She is anxious to be left alone and is wanting f amily presents all the time. She is not ambulating. She has been in the bed for the past 3 to 5 days. Patient has not also showered for days. She is doing sponge baths and wipes at home. Patient had a fall after using bathroom yesterday hitting her head with nightstand without loss of consciousness. She sustained right forehead bruising but CT head and C-spine were negative for any bleed or acute finding. Chest x-ray showed chronic cardiomegaly. Patient was discharged home on Zofran yesterday however she has not filled it yet. Family reports patient p.o. intake has been low, she has been dry heaving with anxiety and possibly due to concussion. Patient reports no constipation, no diarrhea. No fever or chills. No abdominal pain or flank pain. Patient does admit to feeling anxious she was tapping her hands throughout. She reports no chest pain or shortness of breath. Her niece reports that she only gives 3 Cincinnatus a day and 1 baclofen a day. In the ED patient vitals were stable. Lab work was unremarkable. CBC unremarkable. Chemistries consistent with end-stage renal disease which was unchanged. Troponin negative. UA positive for WBC, no bacteria however due to concern for UTI was given 1 dose of ceftriaxone. Patient did appear dehydrated and was given IV fluids. EKG was sinus rhythm at 73 beats per minute. Normal axis. No acute ST-T wave changes. Chest x-ray showed no acute finding. X-ray of left tibia and fibula per radiologist showed incompletely healed fracture of distal tibia and fibula, no acute abnormality. Family is interested in placement, per social welfare research worker in ED secondary to patient insurance unable to place patient from emergency room. Patient will need formal PT OT evaluation and preauthorization for rehab placement. 02/02. Patient reported she has pain and numbness in both her legs which is chronic. Patient family reported that if patient is left on her own she would overdose on her Cincinnatus. They have been carefully assisting patient to limit her use of opioids to avoid any overdose. 02/03. Pt reported she still have some pain but better controlled. She reports she has not had a BM since in the [facility]. Pt is still 2 person assist, encouraged to participate in therapies. Review of system 14 point review of system was completed. Pertinent positive and negative are mentioned above Physical examination CONSTITUTIONAL: Alert, well nourished female, less anxious, no acute distress HEAD: Normocephalic. Bruising to right forehead and also right shoulder and right clavicle, resolving EYES: EOMI PERRL. Corrective lens in place. ENT: Dry oral mucosa. No stridor. speech clear fluent. No septal hematoma. NECK: Supple. Full range of motion. Trachea midline. no midline C-spine tenderness step-offs CARDIOVASCULAR: S1-S2. Regular rate and rhythm. No murmurs rubs gallops. No JVD. No lower extremity edema. +2 radial pulses bilaterally. Left forearm AV fistula unable to palpate a thrill however auscultated bruit. Adequate peripheral perfusion. PULMONARY: Chest is clear to auscultation, no respiratory distress ABDOMINAL: Soft and nontender, normal bowel sounds. EXTREMITIES: No gross deformities. Moves all 4 extremities with good strength and tone. No midline tenderness. Pelvis is stable. Left lower extremity is Carlo wrapped. Distal neurovascular intact. SKIN: Warm and dry. No petechiae. NEUROLOGY: Sensation is intact. No gross focal deficits. PSYCH: appropriate mood, anxiety is less Assessment and plan Generalized weakness Nausea and vomiting Failure to thrive Acute dehydration Anxiety Idiopathic cardiomyopathy EF 30% ESRD status post fistula in anticipation of hemodialysis Diabetes mellitus 2 Hypertension Hyperlipidemia Carotid artery stenosis status post right carotid endarterectomy, on aspirin and Plavix, Anemia Obstructive uropathy status post bilateral stents for retroperitoneal fibrosis, last ureteral stent exchange December 2022 Lumbar back pain with radiculopathy affecting lower extremities Hx MRSA infection Tobacco use disorder. Plan Will start aggressive bowel regimen. Continue to optimize pain regimen Encouraged to increase p.o. intake. Discontinue IV ceftriaxone, urine culture negative Zofran for nausea Continue PT OT Case management consult for placement DVT PPX FUll code Total time taken > 50 minutes Constitutional Vitals: Vital Signs Temp Pulse Resp BP Pulse Ox O2 Del Method 96.7 F L 77 20 124/69 90 Room Air 02/03/23 06:58 02/03/23 06:58 02/03/23 06:58 02/03/23 06:58 02/03/23 06:58 02/03/23 06:58 Period Temp Pulse Resp BP Sys/Hartman Pulse Ox O2 Del Method O2 Flow Rate Last 24 Hr 96.7 F-98 F 65-77 18-28 106-138/64-84 90-94 Room Air-Room Air Intake and Output 02/02/23 02/03/23 02/03/23 19:59 03:59 11:59 Intake Total 840 Output Total 4 1150 Balance -4 -310 Weight 77.156 kg Intake & Output: Intake & Output 02/02/23 02/03/23 02/03/23 19:59 03:59 11:59 Intake Total 840 Output Total 4 1150 Balance -4 -310 Weight 77.156 kg Intake: Oral 840 Output: Urine Catheter Amount 1150 # of times incontinent of urine 4 Other: Meal Breakfast Percent of Meal Consumed 100% Urine Appearance Clear Cloudy Cloudy Urine Color Yellow Yellow # Voids 1 OBJ DATA Labs 02/02/23 05:23 02/02/23 05:23 Labs: Abnormal Lab Results 02/02/23 02/02/23 02/01/23 05:23 05:23 14:55 Hgb 10.6 L MCHC 30.6 L RDW 15.3 H Carbon Dioxide 19 L POC Anion Gap POC BUN BUN 29 H Creatinine 3.2 H POC Creatinine Glucose 67 L POC WB Ioniz Calcium Alkaline Phosphatase Total Protein Albumin Urine Appearance Cloudy A Urine Protein 30 A Urine Ketones 5 A Urine Occult Blood >=1.0 A Ur Leukocyte Esterase 500 A Urine RBC 60 H Urine WBC > 182 H 02/01/23 02/01/23 02/01/23 14:30 13:14 13:05 Hgb MCHC 30.4 L RDW 15.7 H Carbon Dioxide POC Anion Gap 19.0 H POC BUN 43 H BUN Creatinine POC Creatinine 3.9 H Glucose POC WB Ioniz Calcium 1.11 L Alkaline Phosphatase 135 H Total Protein 4.9 L Albumin 2.3 L Urine Appearance Urine Protein Urine Ketones Urine Occult Blood Ur Leukocyte Esterase Urine RBC Urine WBC Meds: Medications Acetaminophen (Acetaminophen 325 Mg Tablet) 650 mg PO Q6HP PRN; Protocol PRN Reason: Per Pain Protocol/Fever > 101 Last Admin: 02/02/23 13:14 Dose: 650 mg Hydrocodone Bitart/Acetaminophen (Hydrocodone/Apap 5/325mg Tablet) 1 tab PO Q6HP PRN PRN Reason: pain Last Admin: 02/03/23 08:40 Dose: 1 tab Baclofen (Baclofen 10 Mg Tablet) 10 mg PO DAILYP PRN PRN Reason: MUSCLE SPASMS Last Admin: 02/02/23 19:34 Dose: 10 mg Ceftriaxone Sodium (Ceftriaxone 1 Gm Vial) 1 gm IV Q24H [facility]; Protocol Stop: 02/05/23 12:01 Last Admin: 02/03/23 08:37 Dose: 1 gm Gabapentin (Gabapentin 100 Mg Capsule) 100 mg PO Q8 [facility] Last Admin: 02/03/23 06:42 Dose: 100 mg Lorazepam (Lorazepam 0.5 Mg Tablet) 0.5 mg PO BIDP PRN PRN Reason: Anxiety Magnesium Hydroxide (Magnesium Hydroxide 30 Ml Oral.Susp) 30 ml PO DAILYP PRN PRN Reason: Constipation Nicotine (Nicotine 14 Mg Patch) 14 mg TOPICAL DAILY@1000 [facility] Last Admin: 02/03/23 10:02 Dose: 14 mg Nicotine (Nicotine 21 Mg Patch) 21 mg TOPICAL DAILY@1000 [facility] Last Admin: 02/03/23 10:02 Dose: 21 mg Ondansetron HCl (Ondansetron 4 Mg/2 Ml Vial) 4 mg IV Q6HP PRN PRN Reason: Nausea And Vomiting Last Admin: 02/01/23 20:46 Dose: 4 mg Polyethylene Glycol (Polyethylene Glycol 3350 17 Gm Packet) 17 gm PO BID [facility] Stop: 02/05/23 21:01 Last Admin: 02/03/23 10:41 Dose: 17 gm Senna (Sennosides 1 Tablet) 1 tab PO BID [facility] Stop: 02/05/23 21:01 Last Admin: 02/03/23 10:41 Dose: 1 tab Sodium Chloride (0.9 % Sodium Chloride 10 Ml Syringe) 10 ml IV Q8 [facility] Last Admin: 02/03/23 04:35 Dose: 10 ml A/P Time Spent With Patient Time: Total time spent is greater than 50% in coordination of care (as documented) at patient's floor/unit and/or counseling patient:
--- NOTE | 2023-02-03 12:22 | EKG ---
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
[2023-02-03] MEDS: BACLOFEN 10 MG TABLET PO PRN (13:22)
[2023-02-04] MEDS: HYDROcodone/APAP 5/325MG TABLET PO PRN ×2 (02:24→11:17)
[2023-02-04] MEDS: 0.9 % SODIUM CHLORIDE 10 ML SYRINGE IV SCH (05:07)
[2023-02-04] MEDS: GABAPENTIN 100 MG CAPSULE PO SCH (05:07)
[2023-02-04] MEDS: SENNOSIDES 1 TABLET PO SCH (08:21)
[2023-02-04] MEDS: POLYETHYLENE GLYCOL 3350 17 GM PACKET PO SCH (08:21)
[2023-02-04] MEDS: cefTRIAXone 1 GM VIAL IV SCH (08:21)
[2023-02-04] MEDS ORDERED: GLYCERIN, ADULT 1 SUPP.RECT PR ONE (10:40)
[2023-02-04] MEDS: NICOTINE 21 MG PATCH TOPICAL SCH (10:42)
[2023-02-04] MEDS: NICOTINE 14 MG PATCH TOPICAL SCH (10:42)
--- NOTE | 2023-02-04 10:44 | Discharge Summary ---
Discharge Provider Provider IMPORTANT FOLLOW-UP INFORMATION FOR PCP: Patient information: Note initiated : 02/04/23 at 10:41 am Service Date, if different from initiated Date: [] Patient: Radha Dumont 72 y/o F admitted on 02/01/23. Chief Complaint: [] Date of admission: 02/01/23 18:23 Discharge date: 02/04/23 Primary care physician: Erika Palacio Consults: 02/01/23 Consult to Physician [CONS] Stat Comment: Consulting Provider: Chandler Song Reason For Exam: Physician to Consult COURSE Hospital Course Hospital course: Ms. 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 Patient recently had left ankle bimalleolar fracture ORIF and was in nursing facility subacute rehab at [facility] for a week and then was discharged home on January 18. She was doing well for few days however last week she started declining. Patient is accompanied by her daughter and niece who has the medical power of deputy attorney general. Niece reports that patient lives on [address] on her property. Patient has been fearful of fall and has not been coming out of her bed and not doing any therapy. She is anxious to be left alone and is wanting family presents all the time. She is not ambulating. She has been in the bed for the past 3 to 5 days. Patient has not also showered for days. She is doing sponge baths and wipes at home. Patient had a fall after using bathroom yesterday hitting her head with nightstand without loss of consciousness. She sustained right forehead bruising but CT head and C-spine were negative for any bleed or acute finding. Chest x-ray showed chronic cardiomegaly. Patient was discharged home on Zofran yesterday however she has not filled it yet. Family reports patient p.o. intake has been low, she has been dry heaving with anxiety and possibly due to concussion. Patient reports no constipation, no diarrhea. No fever or chills. No abdominal pain or flank pain. Patient does admit to feeling anxious she was tapping her hands throughout. She reports no chest pain or shortness of breath. Her niece reports that she only gives 3 [place] a day and 1 baclofen a day. In the ED patient vitals were stable. Lab work was unremarkable. CBC unremarkable. Chemistries consistent with end-stage renal disease which was unchanged. Troponin negative. UA positive for WBC, no bacteria however due to concern for UTI was given 1 dose of ceftriaxone. Patient did appear dehydrated and was given IV fluids. EKG was sinus rhythm at 73 beats per minute. Normal axis. No acute ST-T wave changes. Chest x-ray showed no acute finding. X-ray of left tibia and fibula per radiologist showed incompletely healed fracture of distal tibia and fibula, no acute abnormality. Family is interested in placement, per social media manager in ED secondary to patient insurance unable to place patient from emergency room. Patient will need formal PT OT evaluation and preauthorization for rehab placement. 7. Patient reported she has pain and numbness in both her legs which is chronic. Patient family reported that if patient is left on her own she would overdose on her [place]. They have been carefully assisting patient to limit her use of opioids to avoid any overdose. 7. Pt reported she still have some pain but better controlled. She reports she has not had a BM since in the hospital. Pt is still 2 person assist, encouraged to participate in therapies. 02/04. Patient reports pain is well controlled. She participated in PT and ambulated. Patient has been accepted at [facility] where she will be transferred today. Physical examination CONSTITUTIONAL: Alert, well nourished female, appears comfortable HEAD: Normocephalic. Bruising to right forehead is resolving EYES: EOMI PERRL. Corrective lens in place. ENT: Dry oral mucosa. No stridor. speech clear fluent. No septal hematoma. NECK: Supple. Full range of motion. Trachea midline. no midline C-spine tenderness step-offs CARDIOVASCULAR: S1-S2. Regular rate and rhythm. No murmurs rubs gallops. No JVD. No lower extremity edema. +2 radial pulses bilaterally. Left forearm AV fistula unable to palpate a thrill however auscultated bruit. Adequate peripheral perfusion. PULMONARY: Chest is clear to auscultation, no respiratory distress ABDOMINAL: Soft and nontender, normal bowel sounds. EXTREMITIES: Left ankle surgical site healing. No obvious edema. Distal neurovascular intact. SKIN: Warm and dry. No petechiae. NEUROLOGY: Sensation is intact. No gross focal deficits. PSYCH: appropriate mood, minimal anxiety Discharge diagnoses Generalized weakness, continue PT OT. Will go to SNF. Nausea and vomiting, resolved Failure to thrive, improving Acute dehydration, resolved with IV fluid Anxiety, stable Constipation, continue bowel regimen Idiopathic cardiomyopathy EF 30% ESRD status post fistula in anticipation of hemodialysis Diabetes mellitus 2 Hypertension Hyperlipidemia Carotid artery stenosis status post right carotid endarterectomy, on aspirin and Plavix Left bimalleolar ankle fracture status post ORIF on 01/08/2023. Toe-touch weightbearing. Follow-up in orthopedic clinic in 1 week Anemia Obstructive uropathy status post bilateral stents for retroperitoneal fibrosis, last ureteral stent exchange December 2022 Lumbar back pain with radiculopathy affecting lower extremities Hx MRSA infection Tobacco use disorder. Full code Total time taken > 40 minutes Discharge diagnosis: Generalized weakness, nausea and vomiting, failure to thrive, constipation Time Spent with Patient Time attestation: Total time spent providing and/or coordinating discharge services: Time spent: Greater than 30 minutes EXAM Constitutional Vitals: Temp Pulse Resp BP Pulse Ox O2 Del Method 97.2 F 89 20 158/87 90 Room Air 02/04/23 07:10 02/04/23 07:10 02/04/23 07:10 02/04/23 07:10 02/04/23 07:10 02/04/23 07:10 Discharge Data Data Completed and Pending Labs on day of discharge: Preliminary micro results at discharge 02/01/23 17:50 Blood Culture - Preliminary Blood 02/01/23 17:23 Blood Culture - Preliminary Blood Discharge Plan Patient/Caregiver Discharge Instructions Activity: as instructed and other Diet: Cardiac Instructions: Weakness (GEN), End Stage Kidney Disease (ED) Activity Restrictions/Additional Instructions: Please follow-up with your primary care doctor Dr. Palacio on Wednesday for reeval uation prior authorization for subacute rehab senior care placement. Prescriptions: New nicotine 14 mg/24 hr Patch 24 Hour 14 mg topical DAILY@1000 Qty: 28 0RF gabapentin 100 mg Capsule 100 mg PO Q8 Qty: 18 0RF polyethylene glycol 3350 [Miralax] 17 gram powder in packet 17 g PO QDAY Qty: 14 0RF senna 8.6 mg capsule 8.6 mg PO QDAY Qty: 14 0RF Continued cholecalciferol (vitamin D3) 50 mcg (2,000 unit) capsule 2,000 unit PO QDAY Qty: 30 12RF amlodipine 10 mg tablet 10 mg PO QHS Qty: 90 3RF atorvastatin 20 mg tablet 20 mg PO HS Qty: 90 3RF carvedilol 12.5 mg tablet 12.5 mg PO BID Qty: 180 4RF Rx Instructions: must administer with a meal/food baclofen 10 mg tablet 10 mg PO BID PRN (Reason: muscle spasm) Qty: 60 2RF oxybutynin chloride 15 mg tablet extended release 24hr 15 mg PO QPM Qty: 90 1RF sodium bicarbonate 650 mg tablet 650 mg PO TID Qty: 90 12RF Rx Instructions: new dose sucralfate 1 gram tablet See Rx Instructions .ROUTE .COMPLEX Qty: 360 3RF Dose Instruction: TAKE 1 TABLET BY MOUTH FOUR TIMES DAILY WITH MEALS AND AT BEDTIME Rx Instructions: TAKE 1 TABLET BY MOUTH MORNING, NOON AND BEDTIME clopidogrel 75 mg tablet 75 mg PO QAM Qty: 90 3RF glucagon HCl [Glucagon (HCl) Emergency Kit] 1 mg recon soln 1 mg subcut Q20M PRN (Reason: hypoglycemia) Qty: 1 0RF Rx Instructions: until target blood sugar attained aspirin 81 mg tablet 81 mg PO HS hydrocodone-acetaminophen 7.5-325 mg tablet 1 tab PO Q8H PRN (Reason: pain) Qty: 15 0RF Discontinued amoxicillin-pot clavulanate 875-125 mg tablet 1 tab PO BID 7 Days Qty: 14 0RF Other Ambulatory Orders: OT Discharge Order (Routine) Location: None Selected Ordered By: Chandler Song Physical Therapy at Discharge - General (Routine) Location: None Selected Ordered By: Chandler Song Follow Up Plan Follow up with: Pan Betts MD [Physician] - (in 2 weeks) Erika Palacio ARNP [Primary Care Provider] - Patient Disposition: Xfer SNF Prognosis: Fair Rehab Potential: Good I certify that the patient requires SNF services: Yes Overall status at discharge: patient is progressing back to baseline Discharge Orders: Discharge Order (Routine); Ordered 02/04/23 Ordered By: Chandler Song
== END 2023-02-04 11:33 ==
LOC: ED 12:50 → MEDSUR 12:50
PROVIDERS: ADMIT Internal Medicine; ATTEND Internal Medicine

== ENCOUNTER 2023-05-28 11:47 | Inpatient (IN) ==
[2023-05-28 12:17] LABS: POC Calcium, Ionized 1.25 (1.16-1.32); POC Creatinine 4.3 (0.6-1.2); POC Potassium 4.6 (3.3-5.1)
[2023-05-28] MEDS ORDERED: PANTOPRAZOLE 40 MG VIAL IV ONE (12:42)
[2023-05-28] MEDS ORDERED: ONDANSETRON 4 MG/2 ML VIAL IV ONE (12:42)
[2023-05-28 13:25] LABS: Basophils # (Auto) 0.04 K/mcL (0.00-0.30); Basophils % (Auto) 0.5 % (0.0-2.0); Eosinophils % (Auto) 1.1 % (0.0-7.0); Hematocrit 37.6 % (34.1-44.9); Hemoglobin 11.9 g/dL (11.2-15.7); Lymphocytes % (Auto) 24.8 % (15.5-49.0); Mean Corpuscular HGB Conc 31.6 g/dL (31.0-36.0); Mean Platelet Volume 9.4 fL (8.8-12.5); Monocytes # (Auto) 0.67 K/mcL (0.10-0.90); Monocytes % (Auto) 7.6 % (1.0-12.0); Neutrophils % (Auto) 65.4 % (38.0-78.0); Platelet Count 399 K/mcL (140-440); RBC 4.18 M/mcL (3.59-5.38); Red Cell Distribution Width 17.2 % (11.5-14.5); WBC 8.9 K/mcL (4.5-11.0)
[2023-05-28 14:31] LABS: Appearance,Urine TURBID (Clear); Bilirubin,Urine Negative (Negative); Color,Urine YELLOW; Culture Indicated,Urine Yes; Glucose,Urine (UA) Negative (Negative); Ketones,Urine Negative (Negative); Leukocyte Esterase,Urine 500 /uL (Negative); Nitrate,Urine Negative (Negative); Protein,Urine 100 mg/dL (Negative); Urine Blood 0.03 mg/dL (Negative); Urine RBC 111 /hpf (0-3); Urine Squamous Epithelial Cell 0 /hpf (0-4); Urine Transitional Epi Cells 8 /hpf (0-2); Urine WBC > 182 /hpf (0-4); Urobilinogen,Urine Negative
[2023-05-28] MEDS ORDERED: cefTRIAXone 1 GM VIAL IV ONE (14:55)
[2023-05-28] MEDS ORDERED: traZODone HCL 50 MG TABLET PO PRN (18:23)
[2023-05-28] MEDS ORDERED: ONDANSETRON 4 MG/2 ML VIAL IV PRN (18:23)
[2023-05-28] MEDS ORDERED: cefTRIAXone 1 GM VIAL IV SCH (18:23)
[2023-05-28] MEDS ORDERED: IPRATROPIUM/ALBUTEROL 3 ML AMPUL.NEB NEB PRN (18:23)
[2023-05-28] MEDS ORDERED: DEXTROSE 50% 50 ML VIAL IV PRN (18:23)
[2023-05-28] MEDS ORDERED: DEXTROSE 31 GM ORAL.SUSP PO PRN (18:23)
[2023-05-28] MEDS ORDERED: ACETAMINOPHEN 325 MG TABLET PO ONE (18:35)
[2023-05-28] MEDS: ACETAMINOPHEN 325 MG TABLET PO PRN (18:42)
[2023-05-28] MEDS: DEXTROSE 5%-LR 1,000 ML IV SCH (18:43)
[2023-05-28] MEDS: INSULIN LISPRO 1 UNIT/0.01 ML UNIT SQ SCH ×2 (18:59→21:30)
[2023-05-28] MEDS: PANTOPRAZOLE 40 MG VIAL IV SCH (20:12)
[2023-05-28] MEDS: 0.9 % SODIUM CHLORIDE 10 ML SYRINGE IV SCH (20:14)
[2023-05-28] MEDS: DOCUSATE SODIUM 100 MG CAPSULE PO SCH (20:15)
[2023-05-28] MEDS: SENNOSIDES 1 TABLET PO SCH (20:15)
[2023-05-28 22:13] LABS: Hematocrit 33.5 % (34.1-44.9); Hemoglobin 9.8 g/dL (11.2-15.7)
[2023-05-29] MEDS: ACETAMINOPHEN 325 MG TABLET PO PRN ×2 (03:22→21:04)
[2023-05-29] MEDS: DEXTROSE 5%-LR 1,000 ML IV SCH ×3 (05:10→20:50)
[2023-05-29] MEDS: 0.9 % SODIUM CHLORIDE 10 ML SYRINGE IV SCH ×3 (05:30→20:59)
[2023-05-29] MEDS: PANTOPRAZOLE 40 MG VIAL IV SCH (06:58)
[2023-05-29] MEDS: INSULIN LISPRO 1 UNIT/0.01 ML UNIT SQ SCH ×4 (06:58→21:06)
[2023-05-29 07:36] LABS: Basophils # (Auto) 0.05 K/mcL (0.00-0.30); Basophils % (Auto) 0.6 % (0.0-2.0); Eosinophils # (Auto) 0.13 K/mcL (0.00-0.70); Eosinophils % (Auto) 1.5 % (0.0-7.0); Hematocrit 39.4 % (34.1-44.9); Hemoglobin 11.8 g/dL (11.2-15.7); Lymphocytes # (Auto) 1.98 K/mcL (1.50-4.80); Lymphocytes % (Auto) 22.7 % (15.5-49.0); Mean Cell Volume 94.3 fL (80.0-100.0); Mean Corpuscular HGB Conc 29.9 g/dL (31.0-36.0); Mean Platelet Volume 9.1 fL (8.8-12.5); Monocytes # (Auto) 0.75 K/mcL (0.10-0.90); Monocytes % (Auto) 8.6 % (1.0-12.0); Neutrophils % (Auto) 66.3 % (38.0-78.0); Platelet Count 359 K/mcL (140-440); RBC 4.18 M/mcL (3.59-5.38); Red Cell Distribution Width 17.5 % (11.5-14.5); WBC 8.7 K/mcL (4.5-11.0)
[2023-05-29] MEDS ORDERED: morphine 4 MG/ML VIAL IV PRN (07:55)
[2023-05-29 08:28] LABS: ALT/SGPT 9 U/L (<40); AST/SGOT 6 U/L (<32); Albumin 3.2 gm/dL (3.2-5.2); Albumin/Globulin Ratio 0.7 (1.0-2.3); Alkaline Phosphatase 124 U/L (39-117); Bilirubin,Total 0.2 mg/dL (0.1-1.0); Blood Urea Nitrogen 53 mg/dL (8-23); Calcium 8.6 mg/dL (8.6-10.4); Carbon Dioxide 14 mmol/L (22-30); Chloride 114 mmol/L (96-108); Globulin 4.5 gm/dL (2.2-3.7); Glomerular Filtration Rate 11; Glucose 96 mg/dL (70-105)
[2023-05-29] MEDS: GABAPENTIN 100 MG CAPSULE PO SCH ×3 (09:30→21:05)
[2023-05-29] MEDS: cefTRIAXone 1 GM VIAL IV SCH (09:30)
[2023-05-29] MEDS: DOCUSATE SODIUM 100 MG CAPSULE PO SCH ×2 (09:30→21:05)
[2023-05-29] MEDS ORDERED: BACLOFEN 10 MG TABLET PO PRN (10:27)
[2023-05-29 10:50] LABS: Estimated Average Glucose(eAG) 97 mg/dL
[2023-05-29] MEDS: SUCRALFATE 1 GM TABLET PO SCH ×2 (11:35→19:37)
[2023-05-29] MEDS: SODIUM BICARBONATE 650 MG TABLET PO SCH ×2 (14:59→21:05)
[2023-05-29] MEDS: CARVEDILOL 12.5 MG TABLET PO SCH (17:34)
[2023-05-29] MEDS: PANTOPRAZOLE 40 MG PACKET PO SCH (17:34)
[2023-05-29] MEDS: SENNOSIDES 1 TABLET PO SCH (21:05)
[2023-05-29] MEDS: ARIPIPRAZOLE 5 MG TABLET PO SCH (21:05)
[2023-05-29] MEDS: ATORVASTATIN 20 MG TABLET PO SCH (21:05)
[2023-05-29] MEDS: amLODIPine 10 MG TABLET PO SCH (21:05)
[2023-05-30] MEDS: DEXTROSE 5%-LR 1,000 ML IV SCH ×3 (02:15→14:06)
[2023-05-30] MEDS: ACETAMINOPHEN 325 MG TABLET PO PRN ×3 (03:45→21:23)
[2023-05-30] MEDS: 0.9 % SODIUM CHLORIDE 10 ML SYRINGE IV SCH ×3 (05:31→20:50)
[2023-05-30] MEDS: INSULIN LISPRO 1 UNIT/0.01 ML UNIT SQ SCH ×4 (07:17→20:50)
[2023-05-30] MEDS: SUCRALFATE 1 GM TABLET PO SCH ×3 (08:13→19:22)
[2023-05-30] MEDS: PANTOPRAZOLE 40 MG PACKET PO SCH ×2 (08:13→17:01)
[2023-05-30] MEDS: DOCUSATE SODIUM 100 MG CAPSULE PO SCH ×2 (08:13→20:48)
[2023-05-30] MEDS: CARVEDILOL 12.5 MG TABLET PO SCH ×2 (08:13→17:01)
[2023-05-30] MEDS: ASPIRIN 81 MG TAB.CHEW PO SCH (08:13)
[2023-05-30] MEDS: CLOPIDOGREL 75 MG TABLET PO SCH (08:14)
[2023-05-30] MEDS: VITAMIN D3 25 MCG TABLET PO SCH (08:14)
[2023-05-30] MEDS: GABAPENTIN 100 MG CAPSULE PO SCH ×3 (08:14→20:48)
[2023-05-30] MEDS: SODIUM BICARBONATE 650 MG TABLET PO SCH ×3 (08:14→20:51)
[2023-05-30] MEDS: cefTRIAXone 1 GM VIAL IV SCH (08:14)
[2023-05-30 08:15] LABS: Basophils # (Auto) 0.04 K/mcL (0.00-0.30); Basophils % (Auto) 0.4 % (0.0-2.0); Eosinophils # (Auto) 0.16 K/mcL (0.00-0.70); Eosinophils % (Auto) 1.7 % (0.0-7.0); Hematocrit 39.2 % (34.1-44.9); Hemoglobin 11.7 g/dL (11.2-15.7); Lymphocytes # (Auto) 2.07 K/mcL (1.50-4.80); Lymphocytes % (Auto) 21.5 % (15.5-49.0); Mean Cell Volume 93.8 fL (80.0-100.0); Mean Corpuscular HGB Conc 29.8 g/dL (31.0-36.0); Mean Platelet Volume 10.3 fL (8.8-12.5); Monocytes # (Auto) 1.16 K/mcL (0.10-0.90); Neutrophils % (Auto) 63.7 % (38.0-78.0); Platelet Count 291 K/mcL (140-440); RBC 4.18 M/mcL (3.59-5.38); Red Cell Distribution Width 17.9 % (11.5-14.5); WBC 9.6 K/mcL (4.5-11.0)
[2023-05-30 13:37] LABS: Basophils # (Auto) 0.04 K/mcL (0.00-0.30); Basophils % (Auto) 0.4 % (0.0-2.0); Eosinophils # (Auto) 0.17 K/mcL (0.00-0.70); Eosinophils % (Auto) 1.7 % (0.0-7.0); Hematocrit 35.8 % (34.1-44.9); Lymphocytes % (Auto) 18.5 % (15.5-49.0); Mean Corpuscular HGB Conc 30.7 g/dL (31.0-36.0); Mean Platelet Volume 9.8 fL (8.8-12.5); Monocytes # (Auto) 0.98 K/mcL (0.10-0.90); Monocytes % (Auto) 9.5 % (1.0-12.0); Neutrophils % (Auto) 69.2 % (38.0-78.0); Platelet Count 296 K/mcL (140-440); RBC 3.89 M/mcL (3.59-5.38); Red Cell Distribution Width 17.8 % (11.5-14.5); WBC 10.3 K/mcL (4.5-11.0)
[2023-05-30 14:18] LABS: ALT/SGPT 10 U/L (<40); AST/SGOT 11 U/L (<32); Albumin/Globulin Ratio 0.8 (1.0-2.3); Alkaline Phosphatase 106 U/L (39-117); Bilirubin,Total 0.2 mg/dL (0.1-1.0); Blood Urea Nitrogen 47 mg/dL (8-23); Calcium 8.4 mg/dL (8.6-10.4); Carbon Dioxide 13 mmol/L (22-30); Chloride 111 mmol/L (96-108); Glomerular Filtration Rate 11; Glucose 73 mg/dL (70-105)
[2023-05-30] MEDS: 0.9 % SODIUM CHLORIDE 1,000 ML IV SCH (15:26)
[2023-05-30] MEDS: SODIUM ZIRCONIUM CYCLOSILICATE 10 GM PACKET PO SCH (20:48)
[2023-05-30] MEDS: amLODIPine 10 MG TABLET PO SCH (20:48)
[2023-05-30] MEDS: ARIPIPRAZOLE 5 MG TABLET PO SCH (20:49)
[2023-05-30] MEDS: ATORVASTATIN 20 MG TABLET PO SCH (20:49)
[2023-05-30] MEDS: SENNOSIDES 1 TABLET PO SCH (20:49)
[2023-05-30] MEDS: LACTOBACILLUS 1 CAPSULE PO SCH (22:05)
[2023-05-31] MEDS: 0.9 % SODIUM CHLORIDE 1,000 ML IV SCH ×2 (03:28→11:23)
[2023-05-31] MEDS: 0.9 % SODIUM CHLORIDE 10 ML SYRINGE IV SCH ×3 (05:27→22:53)
[2023-05-31] MEDS: ACETAMINOPHEN 325 MG TABLET PO PRN ×2 (05:58→20:35)
[2023-05-31 07:07] LABS: Basophils # (Auto) 0.04 K/mcL (0.00-0.30); Basophils % (Auto) 0.5 % (0.0-2.0); Eosinophils # (Auto) 0.15 K/mcL (0.00-0.70); Eosinophils % (Auto) 1.7 % (0.0-7.0); Hematocrit 34.3 % (34.1-44.9); Hemoglobin 10.3 g/dL (11.2-15.7); Lymphocytes # (Auto) 1.66 K/mcL (1.50-4.80); Lymphocytes % (Auto) 19.3 % (15.5-49.0); Mean Cell Volume 95.3 fL (80.0-100.0); Mean Platelet Volume 9.7 fL (8.8-12.5); Monocytes # (Auto) 0.82 K/mcL (0.10-0.90); Monocytes % (Auto) 9.6 % (1.0-12.0); Neutrophils % (Auto) 68.6 % (38.0-78.0); Platelet Count 293 K/mcL (140-440); WBC 8.6 K/mcL (4.5-11.0)
[2023-05-31 07:46] LABS: ALT/SGPT 6 U/L (<40); AST/SGOT 5 U/L (<32); Albumin/Globulin Ratio 0.8 (1.0-2.3); Alkaline Phosphatase 96 U/L (39-117); Bilirubin,Total 0.2 mg/dL (0.1-1.0); Blood Urea Nitrogen 47 mg/dL (8-23); Calcium 8.3 mg/dL (8.6-10.4); Carbon Dioxide 14 mmol/L (22-30); Chloride 112 mmol/L (96-108); Globulin 3.8 gm/dL (2.2-3.7); Glomerular Filtration Rate 12; Glucose 71 mg/dL (70-105)
[2023-05-31] MEDS: SUCRALFATE 1 GM TABLET PO SCH ×3 (09:10→22:52)
[2023-05-31] MEDS: CARVEDILOL 12.5 MG TABLET PO SCH ×2 (09:10→17:23)
[2023-05-31] MEDS: LACTOBACILLUS 1 CAPSULE PO SCH ×2 (09:11→20:34)
[2023-05-31] MEDS: VITAMIN D3 25 MCG TABLET PO SCH (09:11)
[2023-05-31] MEDS: ASPIRIN 81 MG TAB.CHEW PO SCH (09:11)
[2023-05-31] MEDS: SODIUM ZIRCONIUM CYCLOSILICATE 10 GM PACKET PO SCH ×3 (09:11→20:33)
[2023-05-31] MEDS: SODIUM BICARBONATE 650 MG TABLET PO SCH ×3 (09:11→20:34)
[2023-05-31] MEDS: DOCUSATE SODIUM 100 MG CAPSULE PO SCH ×2 (09:11→22:44)
[2023-05-31] MEDS: CLOPIDOGREL 75 MG TABLET PO SCH (09:11)
[2023-05-31] MEDS: GABAPENTIN 100 MG CAPSULE PO SCH ×3 (09:11→20:34)
[2023-05-31] MEDS: PANTOPRAZOLE 40 MG PACKET PO SCH ×2 (09:11→17:23)
[2023-05-31] MEDS: INSULIN LISPRO 1 UNIT/0.01 ML UNIT SQ SCH ×4 (09:12→22:45)
[2023-05-31] MEDS: cefTRIAXone 1 GM VIAL IV SCH (09:22)
[2023-05-31] MEDS: amLODIPine 10 MG TABLET PO SCH (20:34)
[2023-05-31] MEDS: ATORVASTATIN 20 MG TABLET PO SCH (20:34)
[2023-05-31] MEDS: ARIPIPRAZOLE 5 MG TABLET PO SCH (20:35)
[2023-05-31] MEDS: SENNOSIDES 1 TABLET PO SCH (22:45)
[2023-06-01] MEDS: 0.9 % SODIUM CHLORIDE 10 ML SYRINGE IV SCH (05:43)
[2023-06-01 06:36] LABS: Basophils # (Auto) 0.04 K/mcL (0.00-0.30); Basophils % (Auto) 0.4 % (0.0-2.0); Eosinophils # (Auto) 0.15 K/mcL (0.00-0.70); Eosinophils % (Auto) 1.6 % (0.0-7.0); Hematocrit 33.3 % (34.1-44.9); Hemoglobin 10.1 g/dL (11.2-15.7); Lymphocytes # (Auto) 2.04 K/mcL (1.50-4.80); Lymphocytes % (Auto) 21.9 % (15.5-49.0); Mean Cell Volume 95.7 fL (80.0-100.0); Mean Corpuscular HGB Conc 30.3 g/dL (31.0-36.0); Mean Platelet Volume 10.6 fL (8.8-12.5); Monocytes # (Auto) 0.81 K/mcL (0.10-0.90); Monocytes % (Auto) 8.7 % (1.0-12.0); Platelet Count 309 K/mcL (140-440); RBC 3.48 M/mcL (3.59-5.38); Red Cell Distribution Width 17.5 % (11.5-14.5); WBC 9.3 K/mcL (4.5-11.0)
[2023-06-01] MEDS: CARVEDILOL 12.5 MG TABLET PO SCH (07:16)
[2023-06-01] MEDS: SUCRALFATE 1 GM TABLET PO SCH ×2 (07:16→11:30)
[2023-06-01] MEDS: PANTOPRAZOLE 40 MG PACKET PO SCH (07:17)
[2023-06-01] MEDS: INSULIN LISPRO 1 UNIT/0.01 ML UNIT SQ SCH ×2 (07:17→11:34)
[2023-06-01] MEDS: CLOPIDOGREL 75 MG TABLET PO SCH (09:40)
[2023-06-01] MEDS: SODIUM ZIRCONIUM CYCLOSILICATE 10 GM PACKET PO SCH (09:40)
[2023-06-01] MEDS: cefTRIAXone 1 GM VIAL IV SCH (09:40)
[2023-06-01] MEDS: VITAMIN D3 25 MCG TABLET PO SCH (09:41)
[2023-06-01] MEDS: SODIUM BICARBONATE 650 MG TABLET PO SCH (09:41)
[2023-06-01] MEDS: ACETAMINOPHEN 325 MG TABLET PO PRN (09:41)
[2023-06-01] MEDS: GABAPENTIN 100 MG CAPSULE PO SCH (09:41)
[2023-06-01] MEDS: ASPIRIN 81 MG TAB.CHEW PO SCH (09:41)
[2023-06-01] MEDS: DOCUSATE SODIUM 100 MG CAPSULE PO SCH (09:41)
[2023-06-01] MEDS: LACTOBACILLUS 1 CAPSULE PO SCH (09:41)
== END 2023-06-01 13:11 | DRG 377 ==
LOC: ED 11:47 → MEDSUR 11:47
PROVIDERS: ADMIT Internal Medicine; ATTEND Internal Medicine

== ENCOUNTER 2023-07-05 05:06 | Inpatient (IN) ==
[2023-07-05] MEDS ORDERED: ACETAMINOPHEN 325 MG TABLET PO ONE (05:13)
[2023-07-05] MEDS: 0.9 % SODIUM CHLORIDE 1,000 ML IV SCH ×2 (05:38→09:17)
[2023-07-05 06:33] LABS: Basophils # (Auto) 0.03 K/mcL (0.00-0.30); Basophils % (Auto) 0.4 % (0.0-2.0); Eosinophils # (Auto) 0.16 K/mcL (0.00-0.70); Eosinophils % (Auto) 2.1 % (0.0-7.0); Hematocrit 36.2 % (34.1-44.9); Hemoglobin 11.1 g/dL (11.2-15.7); Lymphocytes # (Auto) 2.16 K/mcL (1.50-4.80); Lymphocytes % (Auto) 28.1 % (15.5-49.0); Mean Cell Volume 90.7 fL (80.0-100.0); Mean Corpuscular HGB Conc 30.7 g/dL (31.0-36.0); Mean Platelet Volume 9.9 fL (8.8-12.5); Monocytes # (Auto) 0.85 K/mcL (0.10-0.90); Monocytes % (Auto) 11.1 % (1.0-12.0); Neutrophils % (Auto) 58.2 % (38.0-78.0); Platelet Count 313 K/mcL (140-440); RBC 3.99 M/mcL (3.59-5.38); Red Cell Distribution Width 16.6 % (11.5-14.5); WBC 7.7 K/mcL (4.5-11.0)
[2023-07-05 06:42] LABS: INR 1.1 (0.9-1.1); Partial Thromboplastin Time 31.7 sec (20.0-37.0); Prothrombin Time 14.5 sec (11.9-14.5)
[2023-07-05 06:51] LABS: ALT/SGPT 12 U/L (<40); AST/SGOT 9 U/L (<32); Albumin 3.5 gm/dL (3.2-5.2); Albumin/Globulin Ratio 0.8 (1.0-2.3); Alkaline Phosphatase 102 U/L (39-117); Bilirubin,Total 0.3 mg/dL (0.1-1.0); Blood Urea Nitrogen 80 mg/dL (8-23); Calcium 9.1 mg/dL (8.6-10.4); Carbon Dioxide 11 mmol/L (22-30); Chloride 111 mmol/L (96-108); Globulin 4.5 gm/dL (2.2-3.7); Glomerular Filtration Rate 9; Glucose 96 mg/dL (70-105)
[2023-07-05] MEDS ORDERED: VANCOMYCIN 1,000 MG in 0.9 % SODIUM CHLORIDE 250 ML IV ONE (06:59)
[2023-07-05] MEDS ORDERED: CEFEPIME 2 GM VIAL IV ONE (07:22)
[2023-07-05 07:31] LABS: Appearance,Urine TURBID (Clear); Bilirubin,Urine Negative (Negative); Color,Urine YELLOW; Culture Indicated,Urine Yes; Glucose,Urine (UA) Negative (Negative); Ketones,Urine Negative (Negative); Leukocyte Esterase,Urine 250 /uL (Negative); Nitrate,Urine Negative (Negative); Protein,Urine 100 mg/dL (Negative); Specific Gravity,Urine 1.009 (1.000-1.035); Urine RBC > 182 /hpf (0-1); Urine Squamous Epithelial Cell 0 /hpf (0-4); Urine WBC > 182 /hpf (0-4); Urobilinogen,Urine Negative
[2023-07-05] MEDS ORDERED: 0.9 % SODIUM CHLORIDE 1,000 ML IV ONE (09:22)
[2023-07-05] MEDS ORDERED: DEXTROSE 5% IV SCH (11:00)
[2023-07-05] MEDS ORDERED: SODIUM BICARBONATE IV SCH (11:00)
[2023-07-05] MEDS ORDERED: WATER IV SCH (11:00)
[2023-07-05] MEDS: SODIUM BICARBONATE VIAL 150 MEQ in DEXTROSE 5% IN WATER 850 ML IV SCH (12:06)
[2023-07-05] MEDS ORDERED: ONDANSETRON 4 MG/2 ML VIAL IV PRN (12:48)
[2023-07-05] MEDS ORDERED: SENNOSIDES 1 TABLET PO PRN (12:48)
[2023-07-05] MEDS ORDERED: POTASSIUM CHLORIDE 40 MEQ in DEXTROSE 5% IN WATER 500 ML IV PRN (12:48)
[2023-07-05] MEDS ORDERED: POTASSIUM CHLORIDE 20 MEQ TABLET PO PRN ×2 (12:48)
[2023-07-05] MEDS ORDERED: MAGNESIUM SULFATE 2 GM/50 ML BAG IV PRN (12:48)
[2023-07-05] MEDS ORDERED: IPRATROPIUM/ALBUTEROL 3 ML AMPUL.NEB NEB PRN (12:48)
[2023-07-05] MEDS ORDERED: POLYETHYLENE GLYCOL 3350 17 GM PACKET PO PRN (12:48)
[2023-07-05] MEDS: ACETAMINOPHEN 325 MG TABLET PO PRN ×2 (15:05→23:37)
[2023-07-05] MEDS ORDERED: MELATONIN 3 MG TABLET PO PRN (15:41)
[2023-07-05] MEDS: LACTOBACILLUS 1 CAPSULE PO SCH (20:10)
[2023-07-05] MEDS: HEPARIN 5,000 UNIT/ML VIAL SQ SCH (20:10)
[2023-07-05] MEDS: ATORVASTATIN 20 MG TABLET PO SCH (20:10)
[2023-07-05] MEDS: DOCUSATE SODIUM 100 MG CAPSULE PO SCH (20:14)
[2023-07-05] MEDS: ARIPIPRAZOLE 5 MG TABLET PO SCH (20:18)
[2023-07-05] MEDS: HYDROcodone/APAP 5/325MG TABLET PO PRN (20:26)
[2023-07-05] MEDS: CEFEPIME 1 GM VIAL IV SCH (20:28)
[2023-07-05] MEDS: SODIUM BICARBONATE 650 MG TABLET PO SCH (20:45)
[2023-07-05] MEDS: BACLOFEN 10 MG TABLET PO PRN (23:36)
[2023-07-06] MEDS: HYDROcodone/APAP 5/325MG TABLET PO PRN ×2 (03:51→15:39)
[2023-07-06 05:51] LABS: Basophils # (Auto) 0.05 K/mcL (0.00-0.30); Basophils % (Auto) 0.8 % (0.0-2.0); Eosinophils # (Auto) 0.32 K/mcL (0.00-0.70); Eosinophils % (Auto) 5.1 % (0.0-7.0); Hematocrit 34.1 % (34.1-44.9); Hemoglobin 10.6 g/dL (11.2-15.7); Lymphocytes # (Auto) 1.88 K/mcL (1.50-4.80); Lymphocytes % (Auto) 29.9 % (15.5-49.0); Mean Cell Volume 92.2 fL (80.0-100.0); Mean Corpuscular HGB Conc 31.1 g/dL (31.0-36.0); Mean Platelet Volume 9.9 fL (8.8-12.5); Monocytes # (Auto) 0.84 K/mcL (0.10-0.90); Monocytes % (Auto) 13.4 % (1.0-12.0); Neutrophils % (Auto) 50.6 % (38.0-78.0); Platelet Count 265 K/mcL (140-440); Red Cell Distribution Width 16.8 % (11.5-14.5); WBC 6.3 K/mcL (4.5-11.0)
[2023-07-06 06:10] LABS: ALT/SGPT 11 U/L (<40); AST/SGOT 9 U/L (<32); Albumin 2.8 gm/dL (3.2-5.2); Albumin/Globulin Ratio 0.7 (1.0-2.3); Alkaline Phosphatase 84 U/L (39-117); Bilirubin,Direct < 0.2 mg/dL (0-0.3); Bilirubin,Total 0.2 mg/dL (0.1-1.0); Blood Urea Nitrogen 59 mg/dL (8-23); Calcium 8.2 mg/dL (8.6-10.4); Carbon Dioxide 14 mmol/L (22-30); Chloride 113 mmol/L (96-108); Globulin 3.9 gm/dL (2.2-3.7); Glomerular Filtration Rate 12; Glucose 85 mg/dL (70-105); Lactate Dehydrogenase 111 U/L (135-225); Triglycerides 135 mg/dL (<150); Uric Acid 6.1 mg/dL (2.5-8.0)
[2023-07-06] MEDS: ACETAMINOPHEN 325 MG TABLET PO PRN ×3 (06:12→19:04)
[2023-07-06] MEDS: PANTOPRAZOLE 40 MG TABLET PO SCH (07:49)
[2023-07-06] MEDS: SODIUM BICARBONATE VIAL 150 MEQ in DEXTROSE 5% IN WATER 850 ML IV SCH (08:01)
[2023-07-06] MEDS: HEPARIN 5,000 UNIT/ML VIAL SQ SCH ×2 (09:07→21:12)
[2023-07-06] MEDS: ASPIRIN 81 MG TAB.CHEW PO SCH (09:07)
[2023-07-06] MEDS: LACTOBACILLUS 1 CAPSULE PO SCH ×2 (09:07→21:12)
[2023-07-06] MEDS: SODIUM BICARBONATE 650 MG TABLET PO SCH ×3 (09:07→21:12)
[2023-07-06] MEDS: CEFEPIME 1 GM VIAL IV SCH ×2 (09:08→21:13)
[2023-07-06] MEDS: SENNOSIDES 1 TABLET PO SCH (10:41)
[2023-07-06] MEDS: DOCUSATE SODIUM 100 MG CAPSULE PO SCH (10:42)
[2023-07-06] MEDS: CITRIC ACID/SODIUM CITRATE 15 ML ORAL.SOL PO SCH ×2 (12:16→17:32)
[2023-07-06] MEDS: CALCIUM CARBONATE 500 MG TAB.CHEW CHEWED SCH ×2 (12:16→17:32)
[2023-07-06] MEDS ORDERED: LOPERAMIDE 2 MG CAPSULE PO SCH (12:55)
[2023-07-06] MEDS ORDERED: LOPERAMIDE 2 MG CAPSULE PO PRN (12:55)
[2023-07-06] MEDS: ATORVASTATIN 20 MG TABLET PO SCH (21:12)
[2023-07-06] MEDS: ARIPIPRAZOLE 5 MG TABLET PO SCH (21:12)
[2023-07-07] MEDS: HYDROcodone/APAP 5/325MG TABLET PO PRN ×4 (00:05→23:36)
[2023-07-07] MEDS: BACLOFEN 10 MG TABLET PO PRN (00:57)
[2023-07-07] MEDS: SODIUM BICARBONATE VIAL 150 MEQ in DEXTROSE 5% IN WATER 850 ML IV SCH (02:49)
[2023-07-07 06:30] LABS: Retic Absolute 0.07 M/mcL (0.02-0.10)
[2023-07-07 06:51] LABS: Iron 41 ug/dL (37-145); Parathyroid Hormone Intact-SO 83.9 pg/mL (15.0-65.0)
[2023-07-07 06:52] LABS: ALT/SGPT 16 U/L (<40); AST/SGOT 20 U/L (<32); Albumin 2.9 gm/dL (3.2-5.2); Albumin/Globulin Ratio 0.7 (1.0-2.3); Alkaline Phosphatase 98 U/L (39-117); Bilirubin,Direct < 0.2 mg/dL (0-0.3); Bilirubin,Total 0.3 mg/dL (0.1-1.0); Blood Urea Nitrogen 54 mg/dL (8-23); Calcium 8.7 mg/dL (8.6-10.4); Carbon Dioxide 21 mmol/L (22-30); Chloride 107 mmol/L (96-108); Globulin 4.2 gm/dL (2.2-3.7); Glomerular Filtration Rate 15; Glucose 73 mg/dL (70-105); Lactate Dehydrogenase 259 U/L (135-225); Phosphorous 3.7 mg/dL (2.5-4.5); Triglycerides 136 mg/dL (<150); Uric Acid 6.2 mg/dL (2.5-8.0)
[2023-07-07 06:56] LABS: Ferritin 133.2 ng/mL (30.0-400.0)
[2023-07-07] MEDS: SODIUM BICARBONATE 650 MG TABLET PO SCH ×3 (07:49→20:48)
[2023-07-07] MEDS: CALCIUM CARBONATE 500 MG TAB.CHEW CHEWED SCH ×3 (07:49→17:28)
[2023-07-07] MEDS: LACTOBACILLUS 1 CAPSULE PO SCH ×2 (07:49→20:48)
[2023-07-07] MEDS: PANTOPRAZOLE 40 MG TABLET PO SCH (07:50)
[2023-07-07] MEDS: ASPIRIN 81 MG TAB.CHEW PO SCH (07:50)
[2023-07-07] MEDS: HEPARIN 5,000 UNIT/ML VIAL SQ SCH ×2 (07:50→20:49)
[2023-07-07] MEDS: CITRIC ACID/SODIUM CITRATE 15 ML ORAL.SOL PO SCH ×3 (07:50→17:28)
[2023-07-07] MEDS: SENNOSIDES 1 TABLET PO SCH (07:51)
[2023-07-07] MEDS: CEFEPIME 1 GM VIAL IV SCH ×3 (10:54→22:34)
[2023-07-07] MEDS: ACETAMINOPHEN 325 MG TABLET PO PRN ×2 (13:37→20:48)
[2023-07-07] MEDS: ARIPIPRAZOLE 5 MG TABLET PO SCH (20:48)
[2023-07-07] MEDS: ATORVASTATIN 20 MG TABLET PO SCH (20:48)
[2023-07-07] MEDS ORDERED: CEFDINIR 300 MG CAPSULE PO ONE (23:29)
[2023-07-07] MEDS: CEFDINIR 300 MG CAPSULE PO SCH (23:36)
[2023-07-08] MEDS: HYDROcodone/APAP 5/325MG TABLET PO PRN (06:59)
[2023-07-08] MEDS: PANTOPRAZOLE 40 MG TABLET PO SCH (06:59)
[2023-07-08] MEDS: CALCIUM CARBONATE 500 MG TAB.CHEW CHEWED SCH ×2 (06:59→11:20)
[2023-07-08] MEDS: CITRIC ACID/SODIUM CITRATE 15 ML ORAL.SOL PO SCH ×2 (06:59→11:20)
[2023-07-08] MEDS ORDERED: hydrALAZINE 20 MG/ML VIAL IV PRN (08:05)
[2023-07-08] MEDS: HEPARIN 5,000 UNIT/ML VIAL SQ SCH (09:37)
[2023-07-08] MEDS: ASPIRIN 81 MG TAB.CHEW PO SCH (09:38)
[2023-07-08] MEDS: SENNOSIDES 1 TABLET PO SCH (09:38)
[2023-07-08] MEDS: SODIUM BICARBONATE 650 MG TABLET PO SCH (09:38)
[2023-07-08] MEDS: CEFDINIR 300 MG CAPSULE PO SCH (09:38)
[2023-07-08] MEDS: CEFEPIME 1 GM VIAL IV SCH (09:38)
[2023-07-08] MEDS: LACTOBACILLUS 1 CAPSULE PO SCH (09:38)
[2023-07-08] MEDS ORDERED: FLUCONAZOLE 100 MG TABLET PO SCH (11:15)
[2023-07-08] MEDS ORDERED: CEFDINIR 300 MG CAPSULE PO SCH (22:45)
== END 2023-07-08 11:25 ==
LOC: ED 05:06 → ICU 12:39 → MEDSUR 07-07 17:37
PROVIDERS: ADMIT Internal Medicine; ATTEND Internal Medicine